=== PATIENT | male | born 1955 | race Caucasian/White ===

== ENCOUNTER 2018-05-01 11:33 | Emergency (ER) | payer OTHER ==
[2018-05-01 11:40] VITALS: RESP 18
[2018-05-01] MEDS ORDERED: KETOROLAC 30 MG/ML 1 ML VIAL IVP STA (11:55)
--- NOTE | 2018-05-01 11:58 | ED ---
General Adult HPI - General Chief complaint: Skin/Abscess/Foreign Body Stated complaint: cellulitis Time Seen by Provider: 05/01/18 11:42 Source: patient, RN notes reviewed, old records reviewed Mode of arrival: ambulatory Limitations: no limitations - History of Present Illness Initial comments: 62-year-old male presenting for evaluation of pain and swelling in the nape of his neck. Patient states he has been seen by his primary care physician, prescribed Bactrim. His been taking his medication for the past several days. His symptoms have continued to worsen. He was diagnosed with cellulitis, no drainable abscess according to the patient. 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 He does report subjective fever and chills. He is not immunocompromised, no history diabetes. - Related Data Previous Rx's Medication Instructions Recorded Cephalexin [Keflex] 500 mg PO Q8HR #30 cap 05/01/18 Sulfamethox-Tmp 800-160Mg [Bactrim 1 tab PO Q12HR #10 tab 05/01/18 DS 800-160 mg] Allergies Allergy/AdvReac Type Severity Reaction Status Date / Time No Known Allergies Allergy Verified 05/01/18 11:40 Review of Systems ROS Statement: Those systems with pertinent positive or pertinent negative responses have been documented in the HPI. ROS Other: All systems not noted in ROS Statement are negative. Past Medical History Past Medical History: No Reported History History of Any Multi-Drug Resistant Organisms: MRSA Date of last positivie culture/infection: 05/12/17 MDRO Source:: neck Past Surgical History: No Surgical Hx Reported Past Psychological History: No Psychological Hx Reported Smoking Status: Never smoker Past Alcohol Use History: None Reported Past Drug Use History: None Reported General Exam Limitations: no limitations General appearance: alert, in no apparent distress Head exam: Present: atraumatic, normocephalic Eye exam: Present: normal appearance Neck exam: Present: other (7 cm, rounded area of induration with central umbilication, no fluctuance) Respiratory exam: Present: normal lung sounds bilaterally. Absent: respiratory distress Cardiovascular Exam: Present: regular rate, normal rhythm GI/Abdominal exam: Present: soft. Absent: distended, tenderness Extremities exam: Present: normal inspection, normal capillary refill. Absent: pedal edema Back exam: Present: normal inspection, full ROM Neurological exam: Present: alert, oriented X3, CN II-XII intact. Absent: motor sensory deficit Psychiatric exam: Present: normal affect, normal mood Skin exam: Present: warm Course Vital Signs 05/01/18 11:37 Temperature 97.8 F Pulse Rate 84 Respiratory 18 Rate Blood Pressure 155/82 O2 Sat by Pulse 100 Oximetry - Reevaluation(s) Reevaluation #1: 05/01/18 12:39 On reevaluation, patient's pain is significantly improved with 1 dose of Toradol. Medical Decision Making - Medical Decision Making 62-year-old male with cellulitis on the nape of the neck, area is approximately 7 cm round. There was a very small central umbilication which appeared to have a purulent center. I did make a very small incision to 3 mm in an attempt to obtain some purulence, there was no purulent drainage with incision. Bedside ultrasound was negative for fluid collection or drainable abscess. Given the patient's history of MRSA, laboratory studies are obtained in the emergency department, normal white blood cell count, normal CMP, lactic acid is normal. Patient is well-appearing with stable vital signs. I did offer admission for IV antibiotics, patient declines, he prefers oral antibiotics as an outpatient. His antibiotic of Bactrim is a good choice for staph aureus, Keflex will be added for strep coverage. Patient will follow-up with his primary care physician in the next 48 hours, he will return with worsening or changing symptoms. He will continue to apply warm compresses. - Lab Data Result diagrams: 05/01/18 12:10 05/01/18 12:10 Lab Results 05/01/18 05/01/18 05/01/18 Range/Units 12:10 12:10 12:10 WBC 9.1 (3.8-10.6) k/uL RBC 5.25 (4.30-5.90) m/uL Hgb 15.6 (13.0-17.5) gm/dL Hct 47.8 (39.0-53.0) % MCV 91.1 (80.0-100.0) fL MCH 29.7 (25.0-35.0) pg MCHC 32.6 (31.0-37.0) g/dL RDW 13.0 (11.5-15.5) % Plt Count 256 (150-450) k/uL Neutrophils % 69 % Lymphocytes % 15 % Monocytes % 8 % Eosinophils % 4 % Basophils % 1 % Neutrophils # 6.3 (1.3-7.7) k/uL Lymphocytes # 1.4 (1.0-4.8) k/uL Monocytes # 0.7 (0-1.0) k/uL Eosinophils # 0.4 (0-0.7) k/uL Basophils # 0.1 (0-0.2) k/uL Sodium 138 (137-145) mmol/L Potassium 4.7 (3.5-5.1) mmol/L Chloride 102 (98-107) mmol/L Carbon Dioxide 24 (22-30) mmol/L Anion Gap 12 mmol/L BUN 14 (9-20) mg/dL Creatinine 1.20 (0.66-1.25) mg/dL Est GFR (CKD-EPI)AfAm 74 (>60 ml/min/1.73 sqM) Est GFR (CKD-EPI)NonAf 64 (>60 ml/min/1.73 sqM) Glucose 117 H (74-99) mg/dL Plasma Lactic Acid Valente 1.9 (0.7-2.0) mmol/L Calcium 9.7 (8.4-10.2) mg/dL Total Bilirubin 0.7 (0.2-1.3) mg/dL AST 24 (17-59) U/L ALT 29 (21-72) U/L Alkaline Phosphatase 90 (38-126) U/L Total Protein 7.9 (6.3-8.2) g/dL Albumin 4.4 (3.5-5.0) g/dL Disposition Clinical Impression: Cellulitis Disposition: HOME SELF-CARE Condition: Good Instructions: Cellulitis (ED) Additional Instructions: Please continue Bactrim as previously prescribed, additional 5 days added to this prescription, and begin taking Keflex today. Prescriptions: Cephalexin [Keflex] 500 mg PO Q8HR #30 cap Sulfamethox-Tmp 800-160Mg [Bactrim DS 800-160 mg] 1 tab PO Q12HR #10 tab Is patient prescribed a controlled substance at d/c from ED?: No Referrals: Osiris Mosqueda MD [Primary Care Provider] - 1-2 days Time of Disposition: 12:42
[2018-05-01 12:27] LABS: Basophils # (A) 0.1 k/uL (0-0.2); Basophils % (A) 1 %; Eosinophils # (A) 0.4 k/uL (0-0.7); Eosinophils % (A) 4 %; HCT 47.8 % (39.0-53.0); HGB 15.6 gm/dL (13.0-17.5); Lymphocytes # (A) 1.4 k/uL (1.0-4.8); Lymphocytes % (A) 15 %; MCH 29.7 pg (25.0-35.0); MCHC 32.6 g/dL (31.0-37.0); MCV 91.1 fL (80.0-100.0); Mean Platelet Volume 6.8; Monocytes # (A) 0.7 k/uL (0-1.0); Monocytes % (A) 8 %; Neutrophils # (A) 6.3 k/uL (1.3-7.7); Neutrophils % (A) 69 %; Platelet Count 256 k/uL (150-450); RBC 5.25 m/uL (4.30-5.90); WBC 9.1 k/uL (3.8-10.6)
[2018-05-01 12:35] LABS: Albumin 4.4 g/dL (3.5-5.0); Calcium 9.7 mg/dL (8.4-10.2); Potassium 4.7 mmol/L (3.5-5.1); Total Bilirubin 0.7 mg/dL (0.2-1.3); Total Protein 7.9 g/dL (6.3-8.2)
[2018-05-01] MEDS ORDERED: cefTRIAXone 2,000 MG in SODIUM CHLORIDE 0.9% 100 ML IVPB STA (12:42)
[2018-05-01 13:48] VITALS: BP 112/67; PULSE 76; TEMP 98.1
== END 2018-05-01 14:00 | disposition home or self-care (01) ==
LOC: EC 11:33
DX: L03.221 Cellulitis of neck (principal)
CPT/HCPCS: 36415; 80053; 83605; 85025; 87040; 99283; 10060; J0696; J1885

== ENCOUNTER → 2019-12-26 | Outpatient (CLI) | payer MEDICARE, OTHER | END | disposition home or self-care (01) | LOC: LABWHC1 11:32 | PROVIDERS: ATTEND Internal Medicine Gastroenterology | DX: Z11.59 Encounter for screening for other viral diseases (principal) | CPT/HCPCS: 87635 ==

== ENCOUNTER → 2020-01-09 | Outpatient (CLI) | payer MEDICARE, OTHER | END | disposition home or self-care (01) | LOC: LABWHC1 10:20 | PROVIDERS: ATTEND Internal Medicine Gastroenterology | DX: Z11.59 Encounter for screening for other viral diseases (principal) ==

== ENCOUNTER → 2020-01-12 | Day surgery (SDC) | payer MEDICARE, OTHER ==
[2019-12-27 15:31] VITALS: BMI 33.9
[~2020-01-12] MED LIST: LACTATED RINGERS 1,000 ML IV SCH; LIDOCAINE 1% (10MG/ML) FOR IV START INTRADERMA ONE; PROPOFOL 10 MG/ML 20 ML VIAL IV ONE
[2020-01-12 08:42] VITALS: RESP 16; TEMP 97.3
--- NOTE | 2020-01-12 09:34 | P.PCN ---
Date of Procedure: 01/12/20 Procedure(s) Performed: BRIEF HISTORY: Patient is a 64-year-old pleasant white male scheduled for an elective colonoscopy as a part of evaluation of prior history of colon polyps. Last colonoscopy was 6 years ago. PROCEDURE PERFORMED: Colonoscopy with snare polypectomy. PREOPERATIVE DIAGNOSIS: History of colon polyps. IV sedation per Anesthesia. PROCEDURE: After informed consent was obtained, the patient, was brought into the endoscopy unit. IV sedation was administered by Anesthesia under continuous monitoring. Digital rectal examination was normal. Initially the Olympus CF-160 flexible video colonoscope was then inserted in the rectum, gradually advanced into the cecum without any difficulty. Careful examination was performed as the scope was gradually being withdrawn. Ileocecal valve and the appendiceal orifice were visualized and appeared normal. Prep was fair. There was some solid stool noted in the cecum and part of the ascending colon that could not be adequately visualized. The rest of the mucosa of the cecum, ascending colon, transverse colon appeared normal. In the descending colon at 65 cm from the anal verge there was a 1 cm pedunculated polyp removed by snare polypectomy. Rest of the descending colon, sigmoid colon, and rectum appeared normal. Scattered left-s ided diverticulosis. Retroflexion was performed in the rectum and no lesions were seen. The patient tolerated the procedure well. IMPRESSION: 1 cm descending colon polyp status post snare polypectomy. Scattered sigmoid diverticulosis. RECOMMENDATIONS: Findings of this examination were discussed with the patient and as well as his family. He was advised to follow with the biopsy results. If the biopsy shows an adenoma he can have a repeat colonoscopy in 3 years.
[2020-01-12 09:55] VITALS: BP 111/68; PULSE 64
== END ==
LOC: ORWHC2ENDO 08:22
PROVIDERS: ATTEND Internal Medicine Gastroenterology
DX: Z12.11 Encounter for screening for malignant neoplasm of colon (principal); D12.4 Benign neoplasm of descending colon; K57.30 Diverticulosis of large intestine without perforation or abscess without bleeding; I48.91 Unspecified atrial fibrillation; I10 Essential (primary) hypertension; E78.00 Pure hypercholesterolemia, unspecified; E78.5 Hyperlipidemia, unspecified; Z86.010 Personal history of colon polyps; Z95.0 Presence of cardiac pacemaker; Z79.02 Long term (current) use of antithrombotics/antiplatelets; Z79.82 Long term (current) use of aspirin; Z79.899 Other long term (current) drug therapy
CPT/HCPCS: 45385; J2704; 88305

== ENCOUNTER → 2020-11-05 | Outpatient (CLI) | payer MEDICARE, OTHER ==
[2020-11-05 10:23] LABS: HCT 42.5 % (39.0-53.0); HGB 14.9 gm/dL (13.0-17.5); MCH 30.6 pg (25.0-35.0); MCV 87.6 fL (80.0-100.0); Mean Platelet Volume 6.7; Platelet Count 222 k/uL (150-450); RBC 4.85 m/uL (4.30-5.90); RDW 12.6 % (11.5-15.5); WBC 5.8 k/uL (3.8-10.6)
[2020-11-05 10:39] LABS: Partial Thromboplastin Time 22.2 sec (22.0-30.0); Prothrombin Time 10.3 sec (9.0-12.0)
[2020-11-05 10:44] LABS: Albumin 4.5 g/dL (3.5-5.0); Calcium 9.9 mg/dL (8.4-10.2); Magnesium 2.2 mg/dL (1.6-2.3); Potassium 4.9 mmol/L (3.5-5.1); Total Bilirubin 0.7 mg/dL (0.2-1.3); Total Protein 7.8 g/dL (6.3-8.2)
[2020-11-05 11:16] LABS: Appearance,Urine Clear (Clear); Bilirubin,Urine Negative (Negative); Blood,Urine Negative (Negative); Color,Urine Yellow; Glucose,Urine (UA) Negative (Negative); Ketones,Urine Negative (Negative); Leukocyte Esterase,Urine Negative (Negative); Nitrite,Urine Negative (Negative); PH, Urine 5.5 (5.0-8.0); Protein,Urine Negative (Negative); Specific Gravity,Urine 1.023 (1.001-1.035); Urobilinogen,Urine <2.0 mg/dL (<2.0)
[2020-11-05 16:53] LABS: Hepatitis A Antibody IgM Non-Reactive (Non-Reactive); Hepatitis B Core IgM Non-Reactive (Non-Reactive); Hepatitis B Surface Antigen Non-Reactive (Non-Reactive); Hepatitis C IgG Antibody Non-Reactive (Non-Reactive)
[2020-11-05 19:15] LABS: Hemoglobin A1C 6.4 % (4.0-6.0)
--- NOTE | 2020-11-06 14:48 | P.ARTDOP ---
Arterial Doppler Bilateral radial artery studies: Date of study: 10/26/2020 Reason for study: Preop CABG Findings: Doppler assessment shows no significant right to left or segmental pressure gradient. With digital plethysmography and radial artery compression, we find no significant pressure change. Imaging shows the right radial to be 2.9 x 2.2 proximally 2.4 x 2.2 mm mid, and 2.1 x 1.8 mm distally. Left radial is 2.8 x 3.1 mm proximally, 2.3 x 2.7 mm mid, and 3.0 x 2.7 mm distally. Impression: Both radials are usable. The left radial is a bit better size.
--- NOTE | 2020-11-06 14:50 | P.ARTDOP ---
Arterial Doppler LOWER EXTREMITY ARTERIAL DOPPLER: DATE OF SERVICE: 11/05/2020 Reason for study: Preop CABG. Doppler waveforms: Multiphasic bilaterally throughout with good digital waveforms. Pulse volume recording: []. Pressure gradients: None. Ankle-brachial indices: Greater than 1 bilaterally. Toe brachial indices: 0.79 on the right, 0.78 on the left Impression: Normal study.
--- NOTE | 2020-11-06 14:52 | P.VSCSTY ---
Greater Saphenous Vein Mapping This is bilateral lower extremity greater saphenous vein mapping. Date of service: 11/05/2020 Vein quality and ultrasound appearance: We see no intraluminal thrombus or wall changes. Vein size groin right : 7.1 x 6.2 groin left: 6.6 x 7.1 High thigh right: 4.9 x 4.0 high thigh left: 5.0 x 4.4 Mid thigh right: 2.2 x 2.9 mid thigh left: 3.1 x 2.4 Above-knee right: 2.3 x 1.8 above- knee left: 3.5 x 2.7 Below knee right: 1.7 x 1.6 below-knee left: 1.8 x 1.5 Mid calf right: 2.9 x 1.9 mid calf left: 2.2 x 1.7 Ankle right: 3.7 x 2.8 ankle left: 2.4 x 1.7 Impression: Usable bilateral greater saphenous vein. The upper right thigh is most likely usable as is the left leg at the knee and above. Lower leg on both sides has areas rather small for use as conduit..
== END | disposition home or self-care (01) ==
LOC: LABPAT 07:36
PROVIDERS: ATTEND Surgery
DX: Z01.818 Encounter for other preprocedural examination (principal); Z20.822 Contact with and (suspected) exposure to COVID-19
CPT/HCPCS: 80061; 80053; 80074; 84443; 83735; 85027; 85610; 85730; 81003; 87070; 87086; 83036; 93930; 93970; 93922; 93923; 93005; 36415; U0003; C9803

== ENCOUNTER 2020-11-11 05:32 | Inpatient (IN) | payer MEDICARE, OTHER ==
[~2020-11-11 05:32] MED LIST changes: +ALBUMIN HUMAN 25% 50 ML IV ONE; +ALBUMIN HUMAN 5% 500 ML IVPB ONE; +ASPIRIN 325 MG TAB PO ONE; +ATORVASTATIN 10 MG TAB PO ONE; +CALCIUM CHLORIDE 100 MG/ML 10 ML SYRINGE IV ONE; +CHLORHEXIDINE GLUCONATE 15 ML CUP MUCOUS MEM ONE; +CLEVIDIPINE BUTYRATE 25 MG in EMPTY BAG 1 BAG IV ONE; +DEXTROSE 5% IN WATER 1,000 ML with POTASSIUM CHLORIDE 110 MEQ, MAGNESIUM SULFATE 16 MEQ... IV ONE; +DEXTROSE 5% IN WATER 1,000 ML with POTASSIUM CHLORIDE 25 MEQ, SODIUM CHLORIDE 4MEQ/ML V... IRRIGATION ONE; +DILTIAZEM 125 MG in SODIUM CHLORIDE 0.9% 100 ML IV ONE; +HEPARIN SODIUM 1,000 UN/ML (10ML VL) IV ONE; +HEPARIN SODIUM,PORCINE 5,000 UNIT in SODIUM CHLORIDE 0.9% 500 ML 500 ML IV ONE; +INSULIN REGULAR 100 UNIT in SODIUM CHLORIDE 0.9% 100 ML IV ONE; +LACTATED RINGERS 1,000 ML IV ONE; -LACTATED RINGERS 1,000 ML IV SCH; -LIDOCAINE 1% (10MG/ML) FOR IV START INTRADERMA ONE; +MAGNESIUM SULFATE MG 500 MG/ML IV ONE; +MANNITOL 25% 12.5 GM/50 ML VIAL IV ONE; +METOPROLOL TARTRATE 12.5 MG TAB PO ONE; +MUPIROCIN 2% OINT 22 GM TUBE NASAL ONE; +NITROGLYCERIN SL TABS 0.4 MG TAB SUBLINGUAL ONE; +NITROGLYCERIN-D5W PMX 25 MG/250 ML BTL IV ONE; +NITROGLYCERIN-D5W PMX 50 MG in DEXTROSE/WATER 1 250ML.BAG IV ONE; +NOREPINEPHRINE 4 MG in SODIUM CHLORIDE 0.9% 250 ML IV ONE; +PAPAVERINE 360 MG in SODIUM CHLORIDE 0.9% 90 ML IV ONE; +PHENYLEPHRINE 10 MG/ML VIAL IV ONE; +PHENYLEPHRINE 40 MG in SODIUM CHLORIDE 0.9% 250 ML IV ONE; -PROPOFOL 10 MG/ML 20 ML VIAL IV ONE; +PROTAMINE SULFATE 10 MG/ML 25 ML VIAL IV ONE; +PROTAMINE SULFATE 250 MG in EMPTY BAG 1 BAG IV ONE; +SODIUM BICARB 8.4% 50 ML SYR (1 MEQ/ML) IV ONE; +SODIUM CHLORIDE 0.9% 1,000 ML IV ONE; +TRANEXAMIC ACID 2,000 MG in SODIUM CHLORIDE 0.9% 80 ML IV ONE; +ceFAZolin 1,000 MG in SODIUM CHLORIDE 0.9% IRRIGATIO 1,000 ML IRRIGATION ONE; +propofoL 1,000 MG/100 ML VIAL IV ONE
[2020-11-11] MEDS ORDERED: SODIUM CHLORIDE 0.9% IRRIG 1,000 ML BTL IRRIGATION ONE (08:03)
[2020-11-11] MEDS ORDERED: CALCIUM CHLORIDE 100 MG/ML 10 ML SYRINGE ONE (08:03)
[2020-11-11] MEDS ORDERED: HEPARIN SODIUM,PORCINE 5,000 UNIT/ML 1 ML VIAL ONE (08:03)
[2020-11-11] MEDS ORDERED: VECURONIUM 10 MG VIAL IV ONE (08:03)
[2020-11-11] MEDS ORDERED: MAGNESIUM SULFATE 4 MEQ/ML 10ML VIAL ONE (08:03)
[2020-11-11] MEDS ORDERED: SODIUM CHLORIDE 0.9% 100 ML BAG ONE (08:03)
[2020-11-11] MEDS ORDERED: LIDOCAINE 2% SYG (PF) 100 MG/5 ML ONE (08:03)
[2020-11-11] MEDS ORDERED: PROPOFOL 10 MG/ML 20 ML VIAL IV ONE (08:03)
[2020-11-11] MEDS ORDERED: WATER FOR INJECTION, STERILE 10 ML VIAL IV ONE (08:03)
[2020-11-11] MEDS ORDERED: MIDAZOLAM 2 MG/2 ML VIAL ONE (08:03)
[2020-11-11] MEDS ORDERED: ceFAZolin 1,000 MG VIAL ONE (08:03)
[2020-11-11] MEDS ORDERED: SUFentanil 50 MCG/ML 1 ML AMP IV ONE (08:03)
[2020-11-11] MEDS ORDERED: PHENYLEPHRINE-0.9% NACL SYG 1,000 MCG/10 ML SYRINGE ONE (08:03)
[2020-11-11] MEDS ORDERED: INSULIN REGULAR 100 UNIT/ML VIAL ONE (08:03)
[2020-11-11] MEDS ORDERED: ELECTROLYTE-R (PH 7.4) 1,000 ML IV.SOLN IV ONE (08:03)
[2020-11-11] MEDS ORDERED: NITROGLYCERIN-D5W PMX 50 MG/250 ML BOTTLE IV ONE (08:03)
[2020-11-11] MEDS ORDERED: TRANEXAMIC ACID 1,000 MG/10 ML VIAL ONE (08:03)
[2020-11-11] MEDS ORDERED: SODIUM CHLORIDE 0.9% 250 ML BAG ONE (08:03)
[2020-11-11] MEDS ORDERED: PROTAMINE SULFATE 10 MG/ML 25 ML VIAL IV ONE (08:03)
[2020-11-11] MEDS ORDERED: fentaNYL (PF) 50 MCG/ML 2 ML AMP ONE (08:03)
[2020-11-11] MEDS ORDERED: fentaNYL (PF) 50 MCG/ML 50 ML VIAL ONE (08:03)
[2020-11-11 08:45] LABS: ABG Base Excess -0.4 mmol/L; ABG Glucose Whole Blood 135 mg/dL (75-99); ABG HCO3 25 mmol/L (21-25); ABG Hematocrit 41 % (34.0-46.0); ABG Ionized Calcium 4.8 mg/dL (4.5-5.3); ABG Lactic Acid Whole Blood 1.6 mmol/L (0.5-1.6); ABG PCO2 42 mmHg (35-45); ABG PH 7.38 (7.35-7.45); ABG PO2 260 mmHg (83-108); ABG Potassium Whole Blood 4.1 mmol/L (3.4-4.5); ABG Sodium Whole Blood 139 mmol/L (135-146); ABG TCO2 26 mmol/L (19-24)
--- NOTE | 2020-11-11 10:01 | P.ANPRN ---
Procedure Note - Anesthesia - Invasive Line Right Central Line Time Out Performed: Yes (710) Date of Procedure: 11/11/20 Time of Procedure: 07:11 Location of Patient: Phase I Preparation: Sterile Prep, Sterile Dressing Arterial Line Location: Radial (left) Ultrasound Used: Yes Purpose - Visualization and Identification of Vasculature: Yes Needle Guage: 18g angio\ Image Stored and Saved: Yes Narrative: Central line placement per sterile protocol utilized. +local +angio +cvp +jwire +uneventful dilation and introduction right IJ cordis Right [place] Hanna Time Out Performed: Yes (710) Date of Procedure: 11/11/20 Time of Procedure: 07:21 Location of Patient: Phase I Preparation: Sterile Prep, Sterile Dressing Arterial Line Location: Radial (left) Ultrasound Used: No Purpose - Visualization and Identification of Vasculature: No Image Stored and Saved: Yes Narrative: Central line placement per sterile protocol utilized. swan floated in sheath to wedge at 54 cm. Withdrawn 5 cm to PA at 49cm.
[2020-11-11 11:01] LABS: ABG Base Excess -3.3 mmol/L; ABG Glucose Whole Blood 134 mg/dL (75-99); ABG HCO3 21 mmol/L (21-25); ABG Hematocrit 31 % (34.0-46.0); ABG Ionized Calcium 4.2 mg/dL (4.5-5.3); ABG PCO2 33 mmHg (35-45); ABG PH 7.41 (7.35-7.45); ABG PO2 180 mmHg (83-108); ABG Potassium Whole Blood 3.6 mmol/L (3.4-4.5); ABG Sodium Whole Blood 139 mmol/L (135-146); ABG TCO2 22 mmol/L (19-24)
[2020-11-11 11:41] LABS: ABG Base Excess -1.5 mmol/L; ABG Glucose Whole Blood 136 mg/dL (75-99); ABG HCO3 23 mmol/L (21-25); ABG Hematocrit 28 % (34.0-46.0); ABG Ionized Calcium 4.1 mg/dL (4.5-5.3); ABG PCO2 38 mmHg (35-45); ABG PH 7.39 (7.35-7.45); ABG Potassium Whole Blood 3.8 mmol/L (3.4-4.5); ABG Sodium Whole Blood 133 mmol/L (135-146); ABG TCO2 24 mmol/L (19-24)
[2020-11-11 12:22] LABS: ABG Base Excess -1.6 mmol/L; ABG Glucose Whole Blood 202 mg/dL (75-99); ABG HCO3 24 mmol/L (21-25); ABG Hematocrit 27 % (34.0-46.0); ABG Ionized Calcium 4.4 mg/dL (4.5-5.3); ABG PCO2 46 mmHg (35-45); ABG PH 7.33 (7.35-7.45); ABG PO2 280 mmHg (83-108); ABG Potassium Whole Blood 4.6 mmol/L (3.4-4.5); ABG Sodium Whole Blood 134 mmol/L (135-146); ABG TCO2 26 mmol/L (19-24)
[2020-11-11 13:07] LABS: ABG Base Excess -2.1 mmol/L; ABG Glucose Whole Blood 208 mg/dL (75-99); ABG HCO3 24 mmol/L (21-25); ABG Hematocrit 26 % (34.0-46.0); ABG Ionized Calcium 4.4 mg/dL (4.5-5.3); ABG PCO2 45 mmHg (35-45); ABG PH 7.33 (7.35-7.45); ABG PO2 195 mmHg (83-108); ABG Potassium Whole Blood 4.1 mmol/L (3.4-4.5); ABG Sodium Whole Blood 135 mmol/L (135-146); ABG TCO2 25 mmol/L (19-24)
[2020-11-11 13:32] LABS: ABG Base Excess -2.4 mmol/L; ABG Glucose Whole Blood 213 mg/dL (75-99); ABG HCO3 23 mmol/L (21-25); ABG Hematocrit 26 % (34.0-46.0); ABG Ionized Calcium 4.4 mg/dL (4.5-5.3); ABG PCO2 44 mmHg (35-45); ABG PH 7.33 (7.35-7.45); ABG PO2 416 mmHg (83-108); ABG Potassium Whole Blood 4.3 mmol/L (3.4-4.5); ABG Sodium Whole Blood 136 mmol/L (135-146); ABG TCO2 25 mmol/L (19-24)
[2020-11-11 14:18] LABS: ABG PO2 >420 mmHg (83-108)
[2020-11-11 14:18] LABS: ABG Lactic Acid Whole Blood 2.2 mmol/L (0.5-1.6)
[2020-11-11 14:19] LABS: ABG Lactic Acid Whole Blood 2.4 mmol/L (0.5-1.6)
[2020-11-11 14:19] LABS: ABG Lactic Acid Whole Blood 2.2 mmol/L (0.5-1.6)
[2020-11-11 14:20] LABS: ABG Lactic Acid Whole Blood 2.8 mmol/L (0.5-1.6)
[2020-11-11 14:20] LABS: ABG Lactic Acid Whole Blood 2.7 mmol/L (0.5-1.6)
[2020-11-11 14:54] LABS: ABG Base Excess -2.7 mmol/L; ABG Glucose Whole Blood 189 mg/dL (75-99); ABG HCO3 22 mmol/L (21-25); ABG Hematocrit 28 % (34.0-46.0); ABG Ionized Calcium 4.4 mg/dL (4.5-5.3); ABG PCO2 38 mmHg (35-45); ABG PH 7.38 (7.35-7.45); ABG PO2 233 mmHg (83-108); ABG Potassium Whole Blood 4.3 mmol/L (3.4-4.5); ABG Sodium Whole Blood 136 mmol/L (135-146); ABG TCO2 23 mmol/L (19-24)
[2020-11-11 15:16] LABS: ABG Lactic Acid Whole Blood 3.5 mmol/L (0.5-1.6)
[2020-11-11 15:18] LABS: ABG Base Excess -0.2 mmol/L; ABG Glucose Whole Blood 163 mg/dL (75-99); ABG HCO3 24 mmol/L (21-25); ABG Hematocrit 31 % (34.0-46.0); ABG Ionized Calcium 4.5 mg/dL (4.5-5.3); ABG PCO2 37 mmHg (35-45); ABG PH 7.43 (7.35-7.45); ABG PO2 254 mmHg (83-108); ABG Potassium Whole Blood 4.4 mmol/L (3.4-4.5); ABG Sodium Whole Blood 136 mmol/L (135-146); ABG TCO2 25 mmol/L (19-24)
[2020-11-11 15:53] LABS: ABG Lactic Acid Whole Blood 3.7 mmol/L (0.5-1.6)
[2020-11-11] MEDS ORDERED: Potassium Replacement Protocol 1 EACH MISC MISCELLANE PRN (16:11)
[2020-11-11] MEDS ORDERED: ONDANSETRON 4 MG/2 ML VIAL IVP PRN (16:11)
[2020-11-11] MEDS ORDERED: IPRATROPIUM-ALBUTEROL 3 ML NEB INHALATION PRN (16:11)
[2020-11-11] MEDS ORDERED: AMIODARONE 360 MG in DEXTROSE 5% IN WATER 200 ML IV PRN ×2 (16:11)
[2020-11-11] MEDS ORDERED: DILTIAZEM 125 MG in SODIUM CHLORIDE 0.9% 100 ML IV SCH (16:11)
[2020-11-11] MEDS ORDERED: hydrALAZINE HCL 20 MG/ML 1 ML VIAL IVP PRN (16:11)
[2020-11-11] MEDS ORDERED: Phosphorus Replacement Protoco 1 EACH MISC MISCELLANE PRN (16:11)
[2020-11-11] MEDS ORDERED: Magnesium Replacement Protocol 1 EACH MISC MISCELLANE PRN (16:11)
[2020-11-11] MEDS ORDERED: AMIODARONE 450 MG in DEXTROSE 5% IN WATER 250 ML IV PRN ×2 (16:11)
[2020-11-11] MEDS ORDERED: BENZOCAINE/MENTHOL LOZENG 1 EACH LOZENGE MUCOUS MEM PRN (16:11)
[2020-11-11] MEDS ORDERED: MORPHINE SULFATE 2 MG/ML SYRINGE IVP PRN (16:11)
[2020-11-11] MEDS ORDERED: CLEVIDIPINE BUTYRATE 25 MG in EMPTY BAG 1 BAG IV SCH (16:11)
[2020-11-11] MEDS ORDERED: CALCIUM GLUCONATE 2 GM in SODIUM CHLORIDE 0.9% 100 ML IVPB PRN (16:11)
[2020-11-11] MEDS ORDERED: DEXMEDETOMIDINE/0.9% NACL(PMX) 400 MCG in EMPTY BAG 1 BAG IV SCH (16:11)
[2020-11-11 16:29] LABS: Glucose,Whole Blood 159 mg/dL (75-99)
[2020-11-11 16:41] LABS: Basophils % (A) 0 %; Eosinophils % (A) 1 %; HCT 28.6 % (39.0-53.0); Lymphocytes # (A) 0.9 k/uL (1.0-4.8); Lymphocytes % (A) 15 %; MCHC 35.4 g/dL (31.0-37.0); MCV 87.6 fL (80.0-100.0); Mean Platelet Volume 6.8; Monocytes # (A) 0.4 k/uL (0-1.0); Monocytes % (A) 7 %; Neutrophils # (A) 4.6 k/uL (1.3-7.7); Neutrophils % (A) 76 %; Platelet Count 118 k/uL (150-450); RBC 3.27 m/uL (4.30-5.90); RDW 12.7 % (11.5-15.5)
[2020-11-11] MEDS: NITROGLYCERIN-D5W PMX 50 MG in DEXTROSE/WATER 1 250ML.BAG IV SCH (16:48)
[2020-11-11] MEDS: SODIUM CHLORIDE 0.9% 1,000 ML IV SCH (16:48)
[2020-11-11] MEDS: INSULIN REGULAR 100 UNIT in SODIUM CHLORIDE 0.9% 100 ML IV SCH (16:51)
[2020-11-11 16:53] LABS: ALT 12 U/L (4-49); AST 41 U/L (17-59); African American GFR (CKD) >90 (>60 ml/min/1.73 sqM); Albumin 2.6 g/dL (3.5-5.0); Alkaline Phosphatase 30 U/L (38-126); Anion Gap 4 mmol/L; Blood Urea Nitrogen 11 mg/dL (9-20); Calcium 7.8 mg/dL (8.4-10.2); Carbon Dioxide 24 mmol/L (22-30); Chloride 106 mmol/L (98-107); Glucose 145 mg/dL (74-99); Magnesium 2.1 mg/dL (1.6-2.3); Non-African American GFR(CKD) >90 (>60 ml/min/1.73 sqM); Potassium 4.3 mmol/L (3.5-5.1); Sodium 134 mmol/L (137-145); Total Bilirubin 1.1 mg/dL (0.2-1.3); Total Protein 4.5 g/dL (6.3-8.2)
[2020-11-11 16:56] LABS: HGB 10.1 gm/dL (13.0-17.5)
[2020-11-11 16:57] LABS: Glucose,Whole Blood 155 mg/dL (75-99)
[2020-11-11 16:59] LABS: INR 1.2 (<1.2); Partial Thromboplastin Time 36.9 sec (22.0-30.0); Prothrombin Time 12.8 sec (9.0-12.0)
--- NOTE | 2020-11-11 17:03 | P.CNPUL ---
History of Present Illness Consult date: 11/11/20 Requesting physician: Aaron Nye Reason for consult: dyspnea, chest pain, other Chief complaint: Progressive exertional chest pressure and dyspnea History of present illness: 55-year-old white male patient of Dr. Frances Mosqueda who had been complaining of progressive chest pressure and dyspnea on exertion, underwent cardiac catheterization that showed a triple vessel disease. Patient had a complex LAD diagonal bifurcation, severe proximal OM1 and diffuse proximal to mid PDA disease. His echocardiogram in July 2020 showed preserved systolic function and no significant valvular abnormalities. Patient is a nonsmoker, and no history of COPD although he was noted to have wheezing on physical exam and the possibility of reactive airway disease. His past medical history is positive for hyperlipidemia, osteoarthritis, sick sinus syndrome status post permanent pacemaker implantation, morbid obesity, BPH. Patient was evaluated by cardiothoracic surgery and underwent four-vessel coronary artery bypass grafting today on 11/11/2020 with a RAHMAN to the LAD, SVG to the PDA and the diagonal, and left radial artery graft to the OM, left atrial appendage exclusion. Patient is seen in the postoperative period in the intensive care unit, sedated and ventilated, on assist control mode of ventilation with a rate of 12, tidal volumes 450, FiO2 of percent and PEEP of 5. Postop blood gas is pending, patient in sinus mechanism, hemodynamically patient is stable, he is currently on 0.9 at 50, propofol is at 20 mics per kilo per minute, and nitroglycerin is at 5 mics per minute. No other drips. Doing well, patient has one left pleural in the 2 mediastinal chest tubes with small amount of sanguinous output, no air leak, patient in sinus mechanism. His cardiac output and cardiac index are 4.8 and 2.1 respectively, CVP is 18, PA pressures 34/24. Review of Systems All systems: negative Constitutional: Denies chills, Denies fever Eyes: denies blurred vision, denies pain Ears, nose, mouth and throat: Denies headache, Denies sore throat Cardiovascular: Denies chest pain, Denies shortness of breath Respiratory: Reports dyspnea, Denies cough Gastrointestinal: Denies abdominal pain, Denies diarrhea, Denies nausea, Denies vomiting Musculoskeletal: Denies myalgias Integumentary: Denies pruritus, Denies rash Neurological: Denies numbness, Denies weakness Psychiatric: Denies anxiety, Denies depression Endocrine: Denies fatigue, Denies weight change Past Medical History Past Medical History: Hearing Disorder / Deafness, Hyperlipidemia, Hypertension, Osteoarthritis (OA), Prostate Disorder History of Any Multi-Drug Resistant Organisms: MRSA Date of last positivie culture/infection: 05/12/17 MDRO Source:: neck Past Surgical History: Heart Catheterization, Pacemaker Additional Past Surgical History / Comment(s): TURP, angiography Past Anesthesia/Blood Transfusion Reactions: No Reported Reaction Type of Cardiac Device: Permanent Pacemaker Device Placement Date:: 2018 Smoking Status: Never smoker Medications and Allergies Home Medications Medication Instructions Recorded Confirmed Type Aspirin [Adult Low Dose Aspirin EC] 81 mg PO DAILY 12/27/19 11/11/20 History Atorvastatin [Lipitor] 20 mg PO HS 12/27/19 11/11/20 History Cholecalciferol [Vitamin D3 (25 5,000 unit PO HS 12/27/19 11/11/20 History Mcg = 1000 Iu)] Clopidogrel [Plavix] 75 mg PO HS 12/27/19 11/11/20 History Loratadine [Claritin] 10 mg PO DAILY 12/27/19 11/11/20 History Metoprolol Succinate (ER) [Toprol 50 mg PO BID 12/27/19 11/11/20 History Xl] Oxybutynin ER [Ditropan Xl] 10 mg PO HS 12/27/19 11/11/20 History Terazosin HCl [Hytrin] 10 mg PO HS 12/27/19 11/11/20 History oxyCODONE-APAP 10-325MG [Percocet 1 tab PO TID 12/27/19 11/11/20 History 10-325 mg] ramipriL [Altace] 2.5 mg PO HS 12/27/19 11/11/20 History Mupirocin [Mupirocin 2%] 1 applic NASAL BID #1 tube 11/05/20 11/11/20 Rx Allergies Allergy/AdvReac Type Severity Reaction Status Date / Time No Known Allergies Allergy Verified 11/11/20 06:01 Physical Exam Vitals: Vital Signs Temp Pulse Resp BP BP Pulse Ox 11/11/20 06:23 98.1 F 71 16 152/88 127/78 98 11/11/20 06:22 98.1 F 71 16 152/88 98 Intake and Output 11/11/20 11/11/20 11/11/20 06:59 14:59 22:59 Intake Total 200 54 Output Total 1800 Balance 200 54 -1800 Intake: IV 200 54 Output: Urine 800 Estimated Blood Loss 1000 Other: Weight 117.6 kg GENERAL EXAM: Sedated and intubated 65-year-old white male, on assist control mode of ventilation with FiO2 of 100% comfortable in no apparent distress. HEAD: Normocephalic/atraumatic. EYES: Normal reaction of pupils, equal size. Conjunctiva pink, sclera white. NOSE: Clear with pink turbinates. THROAT: No erythema or exudates. NECK: No masses, no JVD, no thyroid enlargement, no adenopathy. CHEST: No chest wall deformity. Symmetrical expansion. Midsternal incision clean dry and intact, 2 mediastinal one left pleural chest tubes in place to Pleur-evac and wall suction, with small amount of serous output no air leak. LUNGS: Equal air entry with no crackles, wheeze, rhonchi or dullness. CVS: Regular rate and rhythm, normal S1 and S2, no gallops, no murmurs, no rubs ABDOMEN: Soft, nontender. No hepatosplenomegaly, normal bowel sounds, no guarding or rigidity. EXTREMITIES: No clubbing, no edema, no cyanosis, 2+ pulses and upper and lower extremities. MUSCULOSKELETAL: Muscle strength and tone normal. SPINE: No scoliosis or deformity SKIN: No rashes. Left radial artery harvest site is Iker wrap, [place] drain in place CENTRAL NERVOUS SYSTEM: Sedated, intubated No focal deficits, tone is normal in all 4 extremities. Results - Laboratory Findings ABG ABG pH 7.43 (7.35-7.45) 11/11/20 15:19 ABG pCO2 37 mmHg (35-45) 11/11/20 15:19 ABG pO2 254 mmHg (83-108) H 11/11/20 15:19 ABG O2 Saturation 100.0 % (94-97) H 11/11/20 15:19 Abnormal lab findings: Abnormal Labs 11/05/20 11/11/20 11/11/20 09:25 08:46 11:03 ABG pH ABG pCO2 33 L ABG pO2 260 H 180 H ABG Total CO2 26 H ABG O2 Saturation 100.0 H 100.0 H ABG Hematocrit 31 L ABG Sodium ABG Potassium ABG Ionized Calcium 4.2 L ABG Glucose 135 H 134 H ABG Lactic Acid 2.2 H* Hemoglobin 10.0 L POC Glucose (mg/dL) Arterial Blood Potassium Arterial Blood Glucose 135 H 134 H Crossmatch See Detail 11/11/20 11/11/20 11/11/20 11:08 11:42 12:33 ABG pH 7.33 L 7.33 L ABG pCO2 46 H ABG pO2 195 H >420 H 280 H ABG Total CO2 25 H 26 H ABG O2 Saturation 100.0 H 100.0 H 100.0 H ABG Hematocrit 26 L 28 L 27 L ABG Sodium 133 L 134 L ABG Potassium 4.6 H ABG Ionized Calcium 4.4 L 4.1 L 4.4 L ABG Glucose 208 H 136 H 202 H ABG Lactic Acid 2.7 H* 2.2 H* 2.4 H* Hemoglobin 8.5 L 9.2 L 8.8 L POC Glucose (mg/dL) Arterial Blood Potassium 4.6 H Arterial Blood Glucose 208 H 136 H 202 H Crossmatch 11/11/20 11/11/20 11/11/20 13:33 14:55 15:19 ABG pH 7.33 L ABG pCO2 ABG pO2 416 H 233 H 254 H ABG Total CO2 25 H 25 H ABG O2 Saturation 100.0 H 100.0 H 100.0 H ABG Hematocrit 26 L 28 L 31 L ABG Sodium ABG Potassium ABG Ionized Calcium 4.4 L 4.4 L ABG Glucose 213 H 189 H 163 H ABG Lactic Acid 2.8 H* 3.5 H* 3.7 H* Hemoglobin 8.4 L 9.1 L 10.1 L POC Glucose (mg/dL) Arterial Blood Potassium Arterial Blood Glucose 213 H 189 H 163 H Crossmatch 11/11/20 16:27 ABG pH ABG pCO2 ABG pO2 ABG Total CO2 ABG O2 Saturation ABG Hematocrit ABG Sodium ABG Potassium ABG Ionized Calcium ABG Glucose ABG Lactic Acid Hemoglobin POC Glucose (mg/dL) 159 H Arterial Blood Potassium Arterial Blood Glucose Crossmatch - Diagnostic Findings Chest x-ray: report reviewed, image reviewed CT scan - chest: report reviewed, image reviewed Assessment and Plan Plan: Assessment: #1. Multivessel coronary artery disease, symptomatic, status post four-vessel coronary artery bypass grafting with RAHMAN to the LAD, left radial artery graft to the OM, SVG to the PDA in the diagonal, and left atrial appendage exclusion, postoperative day #0 #2. Routine ventilator management #3. Hyperlipidemia #4. History of sick sinus syndrome status post permanent pacemaker #5. Morbid obesity #6. BPH #7. Osteoarthritis Plan: Continue close hemodynamic monitoring, patient is doing well, waiting postoperative blood gases, continue weaning FiO2 per protocol, we will wean sedation off, and proceed with spontaneous breathing trials. Continue with DuoNeb every 4 hours while on the vent, and to 4 times a day once the patient is extubated, incentive spirometry to the bedside, daily chest x-ray, labs. GI and DVT prophylaxis per CT surgery. We'll continue to closely follow along with CT surgery I performed a history & physical examination of the patient and discussed their management with my nurse practitioner, Sari Vitale. I reviewed the nurse practitioner's note and agree with the documented findings and plan of care. Lung sounds are positive for diminished breath sounds The findings and the impression was discussed with the patient. I attest to the documentation by the nurse practitioner. Time with Patient: Greater than 30
[2020-11-11] MEDS: HEPARIN SODIUM,PORCINE/PF 5,000 UNIT/0.5 ML SYRINGE SQ SCH ×2 (17:04→23:19)
[2020-11-11] MEDS: ACETAMINOPHEN IV (For NPO) 1,000 MG in EMPTY BAG 1 BAG IVPB SCH ×2 (17:47→23:02)
[2020-11-11] MEDS: KETOROLAC 15 MG/ML 1 ML VIAL IVP SCH ×2 (17:58→23:02)
[2020-11-11 18:03] LABS: Glucose,Whole Blood 173 mg/dL (75-99)
--- NOTE | 2020-11-11 18:12 | XR ---
EXAMINATION TYPE: XR chest 1V portable DATE OF EXAM: 11/11/2020 COMPARISON: 10/23/2020. HISTORY: Postoperative cardiac surgery. TECHNIQUE: Single frontal view of the chest is obtained. FINDINGS: There is demonstration of an endotracheal tube terminating 2.4 cm above the denise. There is a right IJ [place]Hanna catheter with tip just distal to the pulmonary outflow tract. There is a naso gastric tube coursing below the diaphragm. There are interval cardiothoracic post surgical changes wi th atrial appendage clipping device seen as well as median sternotomy. Stable left pacemaker. There i s moderate interstitial edema with associated diffuse hazy and streaky opacities. There are probable trace pleural effusions. No pneumothorax. The cardiac silhouette size is enlarged. IMPRESSION: Status post cardiac surgery and support apparatus placement as above. No pneumothorax.
[2020-11-11] MEDS: ALBUMIN HUMAN 5% 250 ML in EMPTY BAG 1 BAG IVPB PRN ×3 (19:00→19:30)
[2020-11-11 19:01] LABS: Glucose,Whole Blood 178 mg/dL (75-99)
[2020-11-11 19:16] LABS: Basophils % (A) 0 %; Eosinophils % (A) 0 %; HCT 28.3 % (39.0-53.0); HGB 10.2 gm/dL (13.0-17.5); Lymphocytes # (A) 0.6 k/uL (1.0-4.8); Lymphocytes % (A) 10 %; MCH 31.4 pg (25.0-35.0); MCHC 36.2 g/dL (31.0-37.0); MCV 86.9 fL (80.0-100.0); Mean Platelet Volume 7.3; Monocytes # (A) 0.4 k/uL (0-1.0); Monocytes % (A) 7 %; Neutrophils # (A) 5.2 k/uL (1.3-7.7); Neutrophils % (A) 82 %; Platelet Count 144 k/uL (150-450); RBC 3.26 m/uL (4.30-5.90); RDW 12.7 % (11.5-15.5); WBC 6.4 k/uL (3.8-10.6)
[2020-11-11] MEDS: IPRATROPIUM-ALBUTEROL 3 ML NEB INHALATION SCH ×3 (19:37→20:48)
[2020-11-11 19:42] LABS: ABG Base Excess -3.4 mmol/L; ABG HCO3 22 mmol/L (21-25); ABG PCO2 36 mmHg (35-45); ABG PH 7.39 (7.35-7.45); ABG PO2 177 mmHg (83-108); ABG TCO2 23 mmol/L (19-24); Allen Test Performed? Yes
[2020-11-11 20:04] LABS: Glucose,Whole Blood 172 mg/dL (75-99)
[2020-11-11] MEDS ORDERED: METOPROLOL TARTRATE 12.5 MG TAB PO SCH (21:00)
[2020-11-11 21:02] LABS: Glucose,Whole Blood 157 mg/dL (75-99)
[2020-11-11 21:59] LABS: Glucose,Whole Blood 145 mg/dL (75-99)
[2020-11-11 23:02] LABS: Glucose,Whole Blood 137 mg/dL (75-99)
[2020-11-12] LABS: Glucose,Whole Blood 127 mg/dL (75-99)
[2020-11-12 01:00] LABS: Glucose,Whole Blood 134 mg/dL (75-99)
[2020-11-12] MEDS: HYDROcodone/APAP 5-325MG 1 EACH TAB PO PRN ×3 (01:02→06:58)
[2020-11-12 01:52] LABS: Glucose,Whole Blood 134 mg/dL (75-99)
[2020-11-12] MEDS ORDERED: HYDROcodone/APAP 5-325MG 1 EACH TAB PO PRN (02:12)
[2020-11-12] MEDS: INSULIN REGULAR 100 UNIT in SODIUM CHLORIDE 0.9% 100 ML IV SCH ×2 (02:44→23:06)
[2020-11-12 02:50] LABS: Glucose,Whole Blood 139 mg/dL (75-99)
[2020-11-12 03:59] LABS: Glucose,Whole Blood 140 mg/dL (75-99)
[2020-11-12 04:09] LABS: Basophils % (A) 0 %; Eosinophils % (A) 0 %; HCT 26.7 % (39.0-53.0); HGB 9.5 gm/dL (13.0-17.5); Lymphocytes # (A) 0.7 k/uL (1.0-4.8); Lymphocytes % (A) 8 %; MCH 30.7 pg (25.0-35.0); MCHC 35.4 g/dL (31.0-37.0); MCV 86.7 fL (80.0-100.0); Mean Platelet Volume 8.2; Monocytes # (A) 0.5 k/uL (0-1.0); Monocytes % (A) 6 %; Neutrophils # (A) 6.7 k/uL (1.3-7.7); Neutrophils % (A) 84 %; Platelet Count 132 k/uL (150-450); RBC 3.08 m/uL (4.30-5.90); RDW 12.8 % (11.5-15.5)
[2020-11-12 04:54] LABS: Glucose,Whole Blood 132 mg/dL (75-99)
[2020-11-12 04:54] LABS: Ionized Calcium 4.9 mg/dL (4.5-5.3)
[2020-11-12 05:04] LABS: ALT 13 U/L (4-49); AST 44 U/L (17-59); African American GFR (CKD) >90 (>60 ml/min/1.73 sqM); Alkaline Phosphatase 25 U/L (38-126); Anion Gap 6 mmol/L; Blood Urea Nitrogen 12 mg/dL (9-20); Calcium 8.1 mg/dL (8.4-10.2); Carbon Dioxide 24 mmol/L (22-30); Chloride 106 mmol/L (98-107); Glucose 124 mg/dL (74-99); Magnesium 2.1 mg/dL (1.6-2.3); Non-African American GFR(CKD) >90 (>60 ml/min/1.73 sqM); Potassium 4.1 mmol/L (3.5-5.1); Sodium 136 mmol/L (137-145); Total Bilirubin 0.6 mg/dL (0.2-1.3); Total Protein 4.9 g/dL (6.3-8.2)
[2020-11-12] MEDS: KETOROLAC 15 MG/ML 1 ML VIAL IVP SCH ×4 (05:25→23:06)
--- NOTE | 2020-11-12 06:00 | OP ---
OPERATIVE REPORT DATE OF SURGERY: 11/11/2020 SURGEON: Dr. Aaron Nye. ELECTROMECHANICAL ASSEMBLY TECHNICIAN: Mitchel Richmond and Petar Corral. PREOPERATIVE DIAGNOSES: Triple-vessel coronary artery disease, preserved left ventricular function, mild-to- moderate mitral valve regurgitation, obesity, hyperlipidemia, hypertension, peripheral vascular disease, sick sinus syndrome status post dual pacemaker insertion. POSTOPERATIVE DIAGNOSES: Triple-vessel coronary artery disease, preserved left ventricular function, mild-to- moderate mitral valve regurgitation, obesity, hyperlipidemia, hypertension, peripheral vascular disease, sick sinus syndrome status post dual pacemaker insertion, diffuse coronary artery disease and friable tissues. PROCEDURE: 1. Quadruple coronary artery bypass grafting using the left internal mammary artery to the left anterior descending artery, left radial artery from the aorta to the obtuse marginal artery, reverse saphenous vein graft from the aorta to the second diagonal artery, reverse saphenous vein graft from the aorta to the distal posterior descending artery. 2. Exclusion of the left atrial appendage using a 35 mm AtriClip. 3. Endoscopic harvesting of the right radial artery. 4. Endoscopic harvesting of the left greater saphenous vein. 5. Intraoperative transesophageal echocardiogram and epiaortic scanning. 6. Intraoperative graft flow measurements using the Medistim system. INDICATION FOR SURGERY: Patient is a 65-year-old gentleman with the above comorbidities who was supposed to have coronary artery bypass surgery at [facility]. However, for insurance purposes he ended up being sent to al as an outpatient. He was sent to Pulmonary for clearance as he had active wheezing and he was cleared. The patient was on Plavix and it was stopped 5 days before surgery. Today he presents for elective coronary artery bypass grafting. The STS risk was discussed with him. He understood it and agreed to proceed. PROCEDURE: Patient in supine position. Right internal jugular [place]-Hanna catheter and a left radial arterial line were placed. The patient had a cardiac catheterization via the left radial artery and for that reason, will be harvesting the right radial artery for bypass, in view of the known decreased patency rate of a radial artery that had been instrumented for cardiac catheterization. He had normal PA pressure and good cardiac index. Subsequently he was brought to the operating room where general endotracheal anesthesia was induced uneventfully. A Vargas catheter was inserted. The chest, abdomen, both lower extremities and the right upper extremity were prepped and draped using ChloraPrep. Ioban was used to cover the skin. The patient received 2 g of cefazolin intravenously. Intraoperative transesophageal echocardiogram confirmed the preoperative finding of preserved systolic function and a mild actually mitral valve regurgitation despite a mean pressure that was around 95 mmHg. Midline sternotomy was performed and the bone was quite dense and profusely bleeding. No bone wax was used but bone seal only. The left hemisternum was elevated and left internal mammary artery was harvested in a semi skeletonized fashion. The patient was given 5000 units of heparin and the mammary artery was clipped distally and transected after its bifurcation and had excellent flow in it and was around 2.5 mm in diameter. The left pleura was intentionally opened in this process and was drained with a 19- Ni[place]an Donato drain. In the same setting, the right radial artery was initially exposed at the wrist with a small incision. A clamping trial revealed preserved signal in the right index plethysmography probe. Subsequently, the radial artery was harvested endoscopically without using a tourniquet. The forearm incision was closed over a drain. The radial artery was prepared by incising the fascia all along its volar aspect and clipping all its branches. It had some mild to moderate wall disease. However, we felt that it was usable and it had a good size. In the same setting, the left greater saphenous vein which looked bigger on ultrasound was harvested between groin and below-knee level. That vein appeared to be of fair quality, around 3-4 mm in diameter. The leg incisions were closed over a drain. Mediastinal fat which was very thick was transected between 2 ties. Epiaortic scanning revealed normal ascending aorta and no wall disease in it. Pericardium was opened in an inverted T-fashion and a pericardial cradle was created. Findings included a very short aorta and a fatty heart. After systemic heparinization, after placement of respective pledgeted pursestrings, aortic cannulation with a 21-Niuean soft flow cannula and venous cannulation via the right atrial appendage was performed with a 29/37 dual stage cannula. Antegrade as well as retrograde cardioplegia catheters were placed. Cardiopulmonary bypass was initiated and with the heart empty and beating we looked at the target. The distal PDA after proximal mid disease, the second diagonal artery in its distal medial branching, the obtuse marginal artery and the mid left anterior descending artery would be the site for bypass. The patient had diffuse scattered coronary artery disease, partially calcific in nature and the overall size of the vessels was small disproportionate to patient body habitus. Aorta was clamped and during aortic clamping myocardial protection was achieved with an initial dose of 1 L of antegrade cold blood cardioplegia followed by 400 mL of retrograde cold blood cardioplegia. All subsequent doses were given retrograde at 15- 20 minutes interval. We started initially by excluding the left atrial appendage by deploying a 35 mm AtriClip at its base. The first distal anastomosis was between a segment of vein of reasonable quality and the distal posterior descending artery which was around 1.5 mm in diameter between 2 diseased areas using Prolene 7-0 in continuous fashion. The 2nd distal anastomosis was between the radial artery and the 1.5 mm obtuse marginal artery in its mid to distal aspect. The third distal anastomosis was between another segment of reverse saphenous vein graft and the medial branching off the diffuse disease second diagonal artery which was around 1.25 mm in diameter thin-walled using Prolene 7-0 in continuous fashion. The 4th distal anastomosis was between to the left internal mammary artery and the mid aspect of the left anterior descending artery that was deep, found in the epicardial fat. There was some wall disease posteriorly, but we thought that will be the site for bypass as where the LAD emerged distally it appeared to be too small. Again, the left internal mammary artery was anastomosed to the left anterior descending artery at that level using Prolene 7-0 in continuous fashion. To mention that I placed a 1 mm shunt in every respective distal anastomosis and the shunt was removed before completing the anastomosis. Satisfied with the distal anastomosis, rewarming was started as we punched out 3 buttons from the ascending aorta and performed the 3 proximal anastomosis of the radial artery into the 2 vein grafts separately using Prolene 7-0 and 6-0 respectively. Patient was given warm blood around 1 L as we performed the last distal anastomosis. He was given lidocaine and magnesium. De-airing maneuvers were done before unclamping the aorta. The patient regained a spontaneous rhythm that was V-paced. The rewarming and reperfusion took around 15 minutes and with good hemostasis and preliminary graft flow measurements that showed excellent graft signals, we were able to wean off cardiac bypass without the need for any inotropic support. JOE showed good LV function and the same mild mitral valve regurgitation. FloSeal had been placed at the level of all distal anastomosis. All pump suckers were stopped as we gave test dose and full-dose protamine. Decannulation folllowed. The venous cannulation site required reinforcement with another pledgeted pursestring of Prolene 4-0. Two monopolar atrial pacing wires were affixed to the respective pursing of the right atrium. No ventricular pacing was placed. Two 19-Niuean Donato drains were left substernally. The right pleura remained intact. At this point, we proceeded at a formal graft flow measurements using the Medistim system. The flow into the vein graft to the posterior descending artery was 74 mL/minute, pulsatility index of 2, showing excellent functioning graft. The flow into the vein graft to the diagonal artery was 38 mL/minute, pulsatility index of 3 and diastolic filling of 62% showing excellent functioning graft. The flow into the radial artery to the obtuse marginal artery was 48 mL/minute, pulsatility index of 2.8 diastolic filling not mentioned as a diastolic signal was lost showing also a well- functioning graft. We had excellent signal in the initial measurement of the left internal mammary artery while still on pump. However, at this point with the heart full, it was extremely difficult to e able to reach a highly positioned RAHMAN graft. After proper hemostasis and after correct sponge, instrument, and needle count, the pericardium was approximated very loosely with 1 stitch over the RV and the mediastinal fat was used to cover the aorta and the proximal aspect of the graft. Subsequently, the sternum was closed using [place] cables, 5 in a erxapl-[id number] fashion, and the last one in a simple straight fashion. Thorough irrigation with cefazolin followed. The rest of the closure proceeded in layers. Skin glue was applied. Patient did not receive any blood bank product but received 500 mL of Cell Saver blood. He was transferred to the ICU in excellent hemodynamic condition. Cardiac index of 2.4, normal PA pressure, good mean arterial pressure and a paced rhythm at 74. MMODL / IJN: [id number] / [facility]
[2020-11-12 06:14] LABS: Glucose,Whole Blood 133 mg/dL (75-99)
[2020-11-12] MEDS: ALBUMIN HUMAN 5% 250 ML in EMPTY BAG 1 BAG IVPB PRN ×2 (06:27→07:12)
[2020-11-12 06:51] LABS: Glucose,Whole Blood 137 mg/dL (75-99)
[2020-11-12] MEDS: IPRATROPIUM-ALBUTEROL 3 ML NEB INHALATION SCH ×4 (08:03→19:24)
--- NOTE | 2020-11-12 08:21 | XR ---
EXAMINATION TYPE: XR chest 1V portable DATE OF EXAM: 11/12/2020 COMPARISON: 11/12/2019 HISTORY: Postop TECHNIQUE: Single frontal view of the chest is obtained. FINDINGS: ET and NG tube have been removed. Cardiac device and central line [place]-Hanna catheter stabl e. Diffuse interstitial pattern with bilateral infiltrate and pleural effusion. Postsurgical changes with cardiomegaly. No sizable pneumothorax. IMPRESSION: 1. Diffuse pleural-parenchymal changes correlate for CHF otherwise consider diffuse pneumonia. 2. Postsurgical change
[2020-11-12] MEDS ORDERED: MORPHINE SULFATE 2 MG/ML SYRINGE IVP ONE (08:25)
[2020-11-12] MEDS: HEPARIN SODIUM,PORCINE/PF 5,000 UNIT/0.5 ML SYRINGE SQ SCH ×3 (08:32→23:06)
[2020-11-12] MEDS: CLOPIDOGREL 75 MG TAB PO SCH (08:33)
[2020-11-12] MEDS: METOPROLOL TARTRATE 25 MG TAB PO SCH ×2 (08:33→20:13)
[2020-11-12] MEDS: PANTOPRAZOLE 40 MG/10 ML VIAL IVP SCH (08:33)
[2020-11-12] MEDS: ASPIRIN 325 MG TAB PO SCH (08:33)
[2020-11-12] MEDS: ATORVASTATIN 40 MG TAB PO SCH (08:33)
[2020-11-12] MEDS ORDERED: FUROSEMIDE 10 MG/ML 2 ML VIAL IV ONE (08:45)
--- NOTE | 2020-11-12 08:53 | P.CRDCN ---
History of Present Illness Consult date: 11/12/20 Chief complaint: Status post bypass surgery History of present illness: This is a very pleasant 65-year-old gentleman with coronary artery disease as well as hypertension and dyslipidemia who requested to see for further evaluation after recent bypass surgery. Recently he was experiencing progressive symptoms of chest discomfort and shortness of breath. He underwent a heart catheterization and that revealed severe triple-vessel coronary artery disease. Yesterday he was admitted to the hospital and underwent quadruple coronary artery bypass grafting using RAHMAN to LAD and left radial artery to OM as well as reverse SVG to second diagonal and reverse SVG to distal PDA. This is postoperative elevation day #1. The patient was extubated yesterday. Overall and from the cardiovascular standpoint of view, he seems to be stable. He has been maintaining normal sinus mechanism with a resting heart rate around 90 beats per minutes. The dose of metoprolol was increased. He is hemodynamically stable and not requiring any vasopressors. He is on dual antiplatelet therapy along with high intensity statin. I would recommend increasing the dose of Lipitor to 40 mg daily at bedtime in the next few days. The chest x-ray was reviewed. The urine output seems to be within normal limits. The patient was seen and he was sitting in a chair seems to be very comfortable and not in any pain or any distress. Chest few was still there. Th e blood work was reviewed including the CBC and BMP. Overall the patient seems to be doing well from a cardiovascular standpoint of view. Past Medical History Past Medical History: Hearing Disorder / Deafness, Hyperlipidemia, Hypertension, Osteoarthritis (OA), Prostate Disorder History of Any Multi-Drug Resistant Organisms: MRSA Date of last positivie culture/infection: 05/12/17 MDRO Source:: neck Past Surgical History: Heart Catheterization, Pacemaker Additional Past Surgical History / Comment(s): TURP, angiography Past Anesthesia/Blood Transfusion Reactions: No Reported Reaction Type of Cardiac Device: Permanent Pacemaker Device Placement Date:: 2018 Smoking Status: Never smoker Medications and Allergies Home Medications Medication Instructions Recorded Confirmed Type Aspirin [Adult Low Dose Aspirin EC] 81 mg PO DAILY 12/27/19 11/11/20 History Atorvastatin [Lipitor] 20 mg PO HS 12/27/19 11/11/20 History Cholecalciferol [Vitamin D3 (25 5,000 unit PO HS 12/27/19 11/11/20 History Mcg = 1000 Iu)] Clopidogrel [Plavix] 75 mg PO HS 12/27/19 11/11/20 History Loratadine [Claritin] 10 mg PO DAILY 12/27/19 11/11/20 History Metoprolol Succinate (ER) [Toprol 50 mg PO BID 12/27/19 11/11/20 History Xl] Oxybutynin ER [Ditropan Xl] 10 mg PO HS 12/27/19 11/11/20 History Terazosin HCl [Hytrin] 10 mg PO HS 12/27/19 11/11/20 History oxyCODONE-APAP 10-325MG [Percocet 1 tab PO TID 12/27/19 11/11/20 History 10-325 mg] ramipriL [Altace] 2.5 mg PO HS 12/27/19 11/11/20 History Mupirocin [Mupirocin 2%] 1 applic NASAL BID #1 tube 11/05/20 11/11/20 Rx Allergies Allergy/AdvReac Type Severity Reaction Status Date / Time No Known Allergies Allergy Verified 11/11/20 06:01 Physical Exam Vitals: Vital Signs Temp Pulse Resp Pulse Ox 11/12/20 07:00 94 26 H 96 11/12/20 06:30 92 24 96 11/12/20 06:00 101 H 22 95 11/12/20 05:30 90 27 H 96 11/12/20 05:00 90 22 95 11/12/20 04:30 91 21 97 11/12/20 04:00 94 29 H 97 11/12/20 03:30 93 28 H 96 11/12/20 03:00 92 24 95 11/12/20 02:30 93 18 95 11/12/20 02:00 94 24 95 11/12/20 01:30 91 24 96 11/12/20 01:00 95 24 97 11/12/20 00:30 92 23 97 11/12/20 00:04 93 22 96 11/12/20 00:00 95 26 H 97 11/11/20 23:30 90 21 97 11/11/20 23:00 92 21 97 11/11/20 22:30 96 32 H 97 11/11/20 22:00 94 24 98 11/11/20 21:30 91 20 99 11/11/20 21:00 92 19 98 11/11/20 20:30 93 22 99 11/11/20 20:15 92 26 H 98 11/11/20 20:00 96 26 H 99 11/11/20 19:51 89 11/11/20 19:45 87 11 L 100 11/11/20 19:44 86 11/11/20 19:30 85 24 100 11/11/20 19:15 84 23 100 11/11/20 19:00 87 29 H 99 11/11/20 18:45 93 34 H 99 11/11/20 18:30 98 24 98 11/11/20 18:15 116 H 26 H 87 L 11/11/20 18:00 98 23 99 11/11/20 17:45 93 24 97 11/11/20 17:30 87 22 97 11/11/20 17:15 78 20 96 11/11/20 17:00 81 19 100 11/11/20 16:45 77 12 100 11/11/20 16:30 97.9 F 73 12 100 11/11/20 16:17 73 12 100 Intake and Output 11/11/20 11/12/20 11/12/20 22:59 06:59 14:59 Intake Total 1527.711 728.926 Output Total 2900 910 Balance -1372.289 -181.074 Intake: IV 1453 691 ACETAMINOPHEN IV (For NPO 100 100 ) 1,000 mg In Empty Bag 1 bag @ 400 mls/hr IVPB Q6HR ALEAH Rx#:[id number] Albumin Human 25% 50 ml @ 750 Per Protocol IV ONCE ONE Rx#:[id number] CO/CI 140 60 Pressure Bags 63 81 Sodium Chloride 0.9% 1, 350 450 000 ml @ 50 mls/hr IV . Q20H ALEAH Rx#:[id number] ceFAZolin 2 gm In Sodium 50 Chloride 0.9% 50 ml @ 100 mls/hr IVPB Q8H ALEAH Rx#: [id number] Intake, IV Titration 74.711 37.926 Amount Clevidipine Butyrate 25 14.2 mg In Empty Bag 1 bag @ 1 MG/HR 2 mls/hr IV .Q24H ALEAH Rx#:[id number] Dexmedetomidine/0.9% NaCl 16.464 (Pmx) 400 mcg In Empty Bag 1 bag @ Titrate IV . Q0M ALEAH Rx#:[id number] Insulin Regular 100 unit 24.055 37.926 In Sodium Chloride 0.9% 100 ml @ Per Protocol IV .Q0M ALEAH Rx#:[id number] propofoL 1,000 mg In 19.992 Empty Bag 1 bag @ Titrate IV .Q0M ALEAH Rx#: [id number] Output: Chest Tube Drainage 680 380 LP 340 240 MS x2 340 140 Drainage 10 Right Wrist 10 Urine 1220 520 Estimated Blood Loss 1000 Other: Voiding Method Indwelling Catheter Indwelling Catheter Weight 125.2 kg ABP, PAP, CO, CI - Last 8 Hours Arterial Blood Pressure 113/45 Arterial Blood Pressure 103/46 Arterial Blood Pressure 114/46 Arterial Blood Pressure 103/53 Arterial Blood Pressure 120/49 Arterial Blood Pressure 120/48 Arterial Blood Pressure 123/54 Arterial Blood Pressure 118/50 Arterial Blood Pressure 119/49 Arterial Blood Pressure 112/50 Arterial Blood Pressure 110/52 Arterial Blood Pressure 114/49 Arterial Blood Pressure 102/55 Pulmonary Artery Pressure 26/13 Pulmonary Artery Pressure 25/11 Pulmonary Artery Pressure 20/9 Pulmonary Artery Pressure 30/15 Pulmonary Artery Pressure 31/14 Pulmonary Artery Pressure 30/15 Pulmonary Artery Pressure 35/20 Pulmonary Artery Pressure 29/15 Pulmonary Artery Pressure 29/14 Pulmonary Artery Pressure 29/14 Pulmonary Artery Pressure 29/15 Pulmonary Artery Pressure 28/13 Pulmonary Artery Pressure 38/21 Cardiac Output 6.1 Cardiac Output 6.9 Cardiac Index 2.6 Cardiac Index 2.9 - Constitutional General appearance: no acute distress - Respiratory Respiratory: bilateral: diminished - Cardiovascular Rhythm: regular Heart sounds: normal: S1, S2 Results 11/12/20 04:00 11/12/20 04:00 Cardiac Enzymes 11/11/20 11/12/20 Range/Units 16:30 04:00 AST 41 44 (17-59) U/L Coagulation 11/11/20 Range/Units 16:30 PT 12.8 H (9.0-12.0) sec APTT 36.9 H (22.0-30.0) sec CBC 11/11/20 11/11/20 11/12/20 Range/Units 16:30 19:10 04:00 WBC 6.0 6.4 8.0 (3.8-10.6) k/uL RBC 3.27 L 3.26 L 3.08 L (4.30-5.90) m/uL Hgb 10.1 L D 10.2 L 9.5 L (13.0-17.5) gm/dL Hct 28.6 L 28.3 L 26.7 L (39.0-53.0) % Plt Count 118 L 144 L 132 L (150-450) k/uL Comprehensive Metabolic Panel 11/11/20 11/12/20 Range/Units 16:30 04:00 Sodium 134 L 136 L (137-145) mmol/L Potassium 4.3 4.1 (3.5-5.1) mmol/L Chloride 106 106 (98-107) mmol/L Carbon Dioxide 24 24 (22-30) mmol/L BUN 11 12 (9-20) mg/dL Creatinine 0.71 0.79 (0.66-1.25) mg/dL Glucose 145 H 124 H (74-99) mg/dL Calcium 7.8 L 8.1 L (8.4-10.2) mg/dL AST 41 44 (17-59) U/L ALT 12 13 (4-49) U/L Alkaline Phosphatase 30 L 25 L (38-126) U/L Total Protein 4.5 L 4.9 L (6.3-8.2) g/dL Albumin 2.6 L 3.0 L (3.5-5.0) g/dL Current Medications Generic Name Dose Route Start Last Admin Trade Name Freq PRN Reason Stop Dose Admin Hydrocodone Bitart/Acetaminophen 2 each 11/12/20 02:12 11/12/20 06:58 Hydrocodone/Apap 5-325mg 1 Each Tab PO 2 each Q4HR PRN Administration Severe Pain Hydrocodone Bitart/Acetaminophen 1 each 11/12/20 02:12 Hydrocodone/Apap 5-325mg 1 Each Tab PO Q4HR PRN Moderate Pain Albuterol/Ipratropium 3 ml 11/11/20 16:11 Ipratropium-Albuterol 3 Ml Neb INHALATION RT-Q2H PRN Shortness Of Breath Or Wheezing Albuterol/Ipratropium 3 ml 11/11/20 20:13 11/12/20 08:03 Ipratropium-Albuterol 3 Ml Neb INHALATION Not Given RT-QID ALEAH Amlodipine Besylate 2.5 mg 11/12/20 12:00 Amlodipine 2.5 Mg Tab PO Q24H ALEAH Aspirin 325 mg 11/12/20 09:00 11/12/20 08:33 Aspirin 325 Mg Tab PO 325 mg DAILY ALEAH Administration Atorvastatin Calcium 40 mg 11/12/20 09:00 11/12/20 08:33 Atorvastatin 40 Mg Tab PO 40 mg DAILY ALEAH Administration Benzocaine/Menthol 1 each 11/11/20 16:11 Benzocaine/Menthol Lozeng 1 Each Lozenge MUCOUS MEM Q2H PRN Sore Throat Bisacodyl 10 mg 11/12/20 09:00 Bisacodyl 10 Mg Supp RECTAL DAILY PRN Constipation Clopidogrel Bisulfate 75 mg 11/12/20 09:00 11/12/20 08:33 Clopidogrel 75 Mg Tab PO 75 mg DAILY ALEAH Administration Heparin Sodium (Porcine) 5,000 unit 11/11/20 16:11 11/12/20 08:32 Heparin Sodium,Porcine/Pf 5,000 Unit/0.5 Ml Syringe SQ 5,000 unit Q8HR ALEAH Administration Hydralazine HCl 10 mg 11/11/20 16:11 Hydralazine Hcl 20 Mg/Ml 1 Ml Vial IVP Q1H PRN Blood Pressure - High Amiodarone HCl 150 mg/ 103 mls @ 618 mls/hr 11/11/20 16:11 Dextrose/Water IV .Q10M PRN A.FIB/FLUTTER Protocol Amiodarone HCl 360 mg/ 207.2 mls @ 34.533 mls/hr 11/11/20 16:11 Dextrose/Water IV .Q6H PRN A.FIB/FLUTTER Protocol 1 MG/MIN Amiodarone HCl 450 mg/ 250 mls @ 16.667 mls/hr 11/11/20 16:11 Dextrose/Water IV .Q15H PRN A.FIB/FLUTTER Protocol 0.5 MG/MIN Albumin Human 250 ml/ IV 250 mls @ 250 mls/hr 11/11/20 16:11 11/12/20 07:12 Solution IVPB 11/13/20 16:12 250 mls/hr Q1HR PRN Administration For Volume Dexmedetomidine HCl 400 mcg/ 100 mls @ 0 mls/hr 11/11/20 16:11 11/11/20 19:20 IV Solution IV 11/12/20 16:14 0 mcg/kg/hr .Q0M ALEAH 0 mls/hr Titration Protocol Titrate Cefazolin Sodium 2 gm/ Sodium 50 mls @ 100 mls/hr 11/11/20 17:00 11/12/20 00:02 Chloride IVPB 11/12/20 09:29 100 mls/hr Q8H ALEAH Administration Calcium Gluconate 2 gm/ Sodium 120 mls @ 100 mls/hr 11/11/20 16:11 Chloride IVPB 11/18/20 16:12 ONCE PRN Ionized Calcium less than 4.4 Nitroglycerin/Dextrose 50 mg/ 250 mls @ 1.5 mls/hr 11/11/20 16:11 11/11/20 16:48 IV Solution IV 5 mcg/min .Q24H ALEAH 1.5 mls/hr Administration 5 MCG/MIN Insulin Human Regular 100 unit 101 mls @ 0 mls/hr 11/11/20 16:11 11/12/20 06:50 / Sodium Chloride IV 4.5 unit/hr .Q0M ALEAH 4.545 mls/hr Titration Protocol Per Protocol Sodium Chloride 1,000 mls @ 20 mls/hr 11/11/20 16:11 11/11/20 16:48 Saline 0.9% IV 50 mls/hr .Q24H ALEAH Administration Ketorolac Tromethamine 15 mg 11/11/20 18:00 11/12/20 05:25 Ketorolac 15 Mg/Ml 1 Ml Vial IVP 11/14/20 17:08 15 mg Q6HR ALEAH Administration Magnesium Hydroxide 2,400 mg 11/12/20 09:00 Magnesium Hydroxide 2,400 Mg/10 Ml Cup PO BID PRN Constipation Metoclopramide HCl 10 mg 11/11/20 16:11 Metoclopramide 5 Mg/Ml 2 Ml Vial IVP Q4H PRN Nausea And Vomiting Metoprolol Tartrate 25 mg 11/12/20 09:00 11/12/20 08:33 Metoprolol Tartrate 25 Mg Tab PO 25 mg BID ALEAH Administration Miscellaneous Information 1 each 11/11/20 16:11 Potassium Replacement Protocol 1 Each Misc MISCELLANE DAILY PRN Per Protocol Protocol Miscellaneous Information 1 each 11/11/20 16:11 Magnesium Replacement Protocol 1 Each Misc MISCELLANE DAILY PRN Per Protocol Protocol Miscellaneous Information 1 each 11/11/20 16:11 Phosphorus Replacement Protoco 1 Each Misc MISCELLANE DAILY PRN Per Protocol Protocol Ondansetron HCl 4 mg 11/11/20 16:11 11/12/20 00:17 Ondansetron 4 Mg/2 Ml Vial IVP 4 mg Q6HR PRN Administration Nausea And Vomiting Pantoprazole Sodium 40 mg 11/12/20 09:00 11/12/20 08:33 Pantoprazole 40 Mg/10 Ml Vial IVP 40 mg DAILY ALEAH Administration Senna/Docusate Sodium 2 each 11/12/20 21:00 Sennosides-Docusate Sodium 1 Each Tab PO HS ALEAH Sodium Chloride 10 ml 11/11/20 21:00 11/12/20 08:26 Sodium Chloride 0.9% Flush 10 Ml Syringe IV Not Given BID ALEAH Intake and Output 11/11/20 11/12/20 11/12/20 22:59 06:59 14:59 Intake Total 1527.711 728.926 Output Total 2900 910 Balance -1372.289 -181.074 Intake: IV 1453 691 ACETAMINOPHEN IV (For NPO 100 100 ) 1,000 mg In Empty Bag 1 bag @ 400 mls/hr IVPB Q6HR ALEAH Rx#:[id number] Albumin Human 25% 50 ml @ 750 Per Protocol IV ONCE ONE Rx#:[id number] CO/CI 140 60 Pressure Bags 63 81 Sodium Chloride 0.9% 1, 350 450 000 ml @ 50 mls/hr IV . Q20H ALEAH Rx#:[id number] ceFAZolin 2 gm In Sodium 50 Chloride 0.9% 50 ml @ 100 mls/hr IVPB Q8H ALEAH Rx#: [id number] Intake, IV Titration 74.711 37.926 Amount Clevidipine Butyrate 25 14.2 mg In Empty Bag 1 bag @ 1 MG/HR 2 mls/hr IV .Q24H ALEAH Rx#:[id number] Dexmedetomidine/0.9% NaCl 16.464 (Pmx) 400 mcg In Empty Bag 1 bag @ Titrate IV . Q0M ALEAH Rx#:[id number] Insulin Regular 100 unit 24.055 37.926 In Sodium Chloride 0.9% 100 ml @ Per Protocol IV .Q0M ALEAH Rx#:[id number] propofoL 1,000 mg In 19.992 Empty Bag 1 bag @ Titrate IV .Q0M ALEAH Rx#: [id number] Output: Chest Tube Drainage 680 380 LP 340 240 MS x2 340 140 Drainage 10 Right Wrist 10 Urine 1220 520 Estimated Blood Loss 1000 Other: Voiding Method Indwelling Catheter Indwelling Catheter Weight 125.2 kg 11/12/20 04:00 11/12/20 04:00 Assessment and Plan Assessment: Assessment #1 coronary artery disease and status post CABG #2 hypertension #3 dyslipidemia #4 sinus tachycardia Plan #1 continue the current medical regimen #2 continue dual antiplatelet therapy #3 advised to increase the dose of Lipitor #4 the dose of metoprolol was increased #5 follow-up with the patient
[2020-11-12] MEDS ORDERED: MAGNESIUM HYDROXIDE 2,400 MG/10 ML CUP PO PRN (09:00)
[2020-11-12] MEDS ORDERED: METOPROLOL TARTRATE 12.5 MG TAB PO SCH (09:00)
[2020-11-12] MEDS ORDERED: bisacodyL 10 MG SUPP RECTAL PRN (09:00)
[2020-11-12 09:04] LABS: Glucose,Whole Blood 127 mg/dL (75-99)
--- NOTE | 2020-11-12 09:08 | P.PN ---
Subjective Progress Note Date: 11/12/20 Principal diagnosis: Triple-vessel coronary artery disease, preserved left ventricular function, mild to moderate mitral valve regurgitation. Past medical history significant for hypertension, hyperlipidemia, obesity, peripheral vascular disease, sick sinus syndrome status post dual chamber pacemaker insertion, osteoarthritis and prostate disorder. POD #1 quadruple coronary artery bypass grafting using the left internal mammary artery to the left anterior descending coronary artery, left radial artery from aorta to the obtuse marginal coronary artery, a reverse greater saphenous vein graft from the aorta to the second diagonal coronary artery, and a reverse greater saphenous vein graft from the aorta to the distal posterior descending coronary artery. Exclusion of the left atrial appendage using a 35 mm Atriclip. Endoscopic harvesting of the right radial artery. Endoscopic harvesting of the left greater saphenous vein. Intraoperative transesophageal echocardiogram and epi-aortic scanning. Intraoperative graft flow measurements using the [employer] system. Postoperative acute blood loss anemia, expected due to hemodilution and cardiopulmonary bypass. The patient is seen in follow-up today 11/12/2020 at his bedside in the intensive care unit. Currently he is sitting up to the bedside chair, is awake, alert and oriented 3. He is in no acute distress and remains hemodynamically stable and is currently on no inotropic or pressor support. Denies any c omplaints of shortness of breath although is complaining of some surgical type pain especially with taking a deep breath to his chest tube insertion sites. He was successfully extubated at 7:55 PM last evening, he is currently on 2 L nasal cannula with oxygen saturations 95%. He is achieving 500 mL on his incentive spirometry. Mediastinal and left pleural chest tubes remain in place to low continuous wall suction -20 cm H2O. No air leak is present. Draining thin serosanguineous drainage. Left pleural chest tube with 240 mL output in the last 8 hours and 570 mL output since surgery. Mediastinal chest tubes with 140 mL output in the last 8 hours and 500 mL output since surgery. Right IJ Cordis with Phoenix-Hanna catheter in place with current hemodynamic showing a cardiac output of 6.1, cardiac index 2.6, PA pressures 25/14 and CVP 10 mmHg. Atrial epicardial pacemaker wires remain in place and are currently grounded. Bedside telemetry is showing normal sinus rhythm heart rate 96 BPM. Right arm WYATT drain remains in place with scant serosanguineous drainage with 10 mL output in the last 8 hours. Vargas catheter remains in place with 500 mL of clear yellow urine in the last 8 hours. Laboratory results this morning show a WBC count 8.0, hemoglobin 9.5, hematocrit 26.7, platelets 132, sodium 136, potassium 4.1, BUN 12, creatinine 0.79. He has been afebrile since surgery. Objective - Vital Signs Vital signs: Vital Signs Temp 97.9 F 11/11/20 16:30 Pulse 94 11/12/20 07:00 Resp 26 H 11/12/20 07:00 BP 152/88 11/11/20 06:23 Pulse Ox 96 11/12/20 07:00 Intake & Output 11/11/20 11/12/20 11/12/20 18:59 06:59 18:59 Intake Total 562.316 5851.819 Output Total 2405 1405 Balance -1917.182 417.819 Weight 125.2 kg Intake: IV 451 1747 ACETAMINOPHEN IV (For NPO 100 100 ) 1,000 mg In Empty Bag 1 bag @ 400 mls/hr IVPB Q6HR A[facility] Rx#:[id number] Albumin Human 25% 50 ml @ 750 Per Protocol IV ONCE ONE Rx#:[id number] CO/CI 70 130 Pressure Bags 27 117 Sodium Chloride 0.9% 1, 150 650 000 ml @ 50 mls/hr IV . Q20H ALE[facility] Rx#:[id number] ceFAZolin 2 gm In Sodium 50 Chloride 0.9% 50 ml @ 100 mls/hr IVPB Q8H ALE[facility] Rx#: [id number] Intake, IV Titration 36.818 75.819 Amount Clevidipine Butyrate 25 14.2 mg In Empty Bag 1 bag @ 1 MG/HR 2 mls/hr IV .Q24H ALEAH Rx#:[id number] Dexmedetomidine/0.9% NaCl 16.464 (Pmx) 400 mcg In Empty Bag 1 bag @ Titrate IV . Q0M [facility]LE[facility] Rx#:[id number] Insulin Regular 100 unit 2.626 59.355 In Sodium Chloride 0.9% 100 ml @ Per Protocol IV .Q0M ALE[facility] Rx#:[id number] propofoL 1,000 mg In 19.992 Empty Bag 1 bag @ Titrate IV .Q0M ALEAH Rx#: [id number] Output: Chest Tube Drainage 380 680 LP 200 380 MS x2 180 300 Drainage 10 Right Wrist 10 Urine 1025 715 Estimated Blood Loss 1000 Other: Voiding Method Indwelling Catheter Indwelling Catheter ABP, PAP, CO, CI - Last Documented Arterial Blood Pressure 113/45 Pulmonary Artery Pressure 26/13 Cardiac Output 6.1 Cardiac Index 2.6 - Constitutional General appearance: Present: cooperative, morbidly obese, no acute distress - EENT Eyes: Present: normal appearance. Absent: scleral icterus ENT: Present: hearing grossly normal - Neck Details: Neck is supple, no JVD. Right IJ cordis and Phoenix-Hanna catheter in place and functioning. - Respiratory Details: Lung sounds essentially clear throughout, diminished was bilateral bases. No wheezes, rhonchi or crackles. Respirations are symmetrical and nonlabored. Oxygen saturation is 95% on 2 L nasal cannula. Achieving 500 mL on his ji ntive spirometry. Mediastinal and left pleural chest tubes remain in place to low continuous wall suction -20 cm H2O. No air leak is present. Draining thin serosanguineous drainage. - Cardiovascular Details: Regular rhythm and rate. S1 and S2 present, negative for S3, gallop or murmur. Sternum is stable. Bedside telemetry showing normal sinus rhythm heart rate 96 BPM. Atrial epicardial pacemaker wires in place and rounded. Heart hugger is in place and he is demonstrating appropriate use. Nitroglycerin drip in place at 5 mcg/m. No edema present. Knee-high GINA hose and sequential compression devices in place to his bilateral lower extremities. Right IJ Cordis with Phoenix- Hanna catheter in place with current hemodynamic showing a cardiac output 6.1, cardiac index 2.6, PA pressures 25/14 and CVP 10 mmHg. Left radial arterial line in place and functioning. - Gastrointestinal Gastrointestinal Comment(s): Abdomen is soft, nontender and nondistended. Hypoactive bowel sounds present in all 4 quadrants. No guarding or rigidity. No organomegaly appreciated. - Genitourinary Genitourinary Comment(s): Vargas catheter for accurate I&O. Draining clear urine with 520 mL output in the last 8 hours. - Integumentary Integumentary Comment(s): Skin is warm and dry. No clubbing or cyanosis is present. Midline sternal incision is clean, dry and approximated. No drainage or redness is present. Left lower extremity EVH site is clean, dry and approximated. No drainage or redness is present. Right radial harvest sites are clean, dry and approximated. No drainage or redness is present. Right arm WYATT drain in place with scant serosanguineous drainage with 10 mL output in the last 8 hours. - Neurologic Neurologic: Present: CNII-XII intact. Absent: focal deficits - Musculoskeletal Musculoskeletal: Present: gait normal, generalized weakness, strength equal bilaterally - Psychiatric Psychiatric: Present: A&O x's 3, appropriate affect, intact judgment & insight - Allied health notes Allied health notes reviewed: nursing - Labs CBC & Chem 7: 11/12/20 04:00 11/12/20 04:00 Labs: Abnormal Lab Results - Last 24 Hours (Table) 11/05/20 11/11/20 11/11/20 Range/Units 09:25 08:46 11:03 RBC (4.30-5.90) m/uL Hgb (13.0-17.5) gm/dL Hct (39.0-53.0) % Plt Count (150-450) k/uL Lymphocytes # (1.0-4.8) k/uL PT (9.0-12.0) sec INR (<1.2) APTT (22.0-30.0) sec ABG pH (7.35-7.45) ABG pCO2 33 L (35-45) mmHg ABG pO2 260 H 180 H (83-108) mmHg ABG Total CO2 26 H (19-24) mmol/L ABG O2 Saturation 100.0 H 100.0 H (94-97) % ABG Hematocrit 31 L (34.0-46.0) % ABG Sodium (135-146) mmol/L ABG Potassium (3.4-4.5) mmol/L ABG Ionized Calcium 4.2 L (4.5-5.3) mg/dL ABG Glucose 135 H 134 H (75-99) mg/dL ABG Lactic Acid 2.2 H* (0.5-1.6) mmol/L Hemoglobin 10.0 L (13.0-17.5) gm/dL Sodium (137-145) mmol/L Glucose (74-99) mg/dL POC Glucose (mg/dL) (75-99) mg/dL Calcium (8.4-10.2) mg/dL Alkaline Phosphatase (38-126) U/L Total Protein (6.3-8.2) g/dL Albumin (3.5-5.0) g/dL Arterial Blood Potassium (3.4-4.5) mmol/L Arterial Blood Glucose 135 H 134 H (75-99) mg/dL Crossmatch See Detail 11/11/20 11/11/20 11/11/20 Range/Units 11:08 11:42 12:33 RBC (4.30-5.90) m/uL Hgb (13.0-17.5) gm/dL Hct (39.0-53.0) % Plt Count (150-450) k/uL Lymphocytes # (1.0-4.8) k/uL PT (9.0-12.0) sec INR (<1.2) APTT (22.0-30.0) sec ABG pH 7.33 L 7.33 L (7.35-7.45) ABG pCO2 46 H (35-45) mmHg ABG pO2 195 H >420 H 280 H (83-108) mmHg ABG Total CO2 25 H 26 H (19-24) mmol/L ABG O2 Saturation 100.0 H 100.0 H 100.0 H (94-97) % ABG Hematocrit 26 L 28 L 27 L (34.0-46.0) % ABG Sodium 133 L 134 L (135-146) mmol/L ABG Potassium 4.6 H (3.4-4.5) mmol/L ABG Ionized Calcium 4.4 L 4.1 L 4.4 L (4.5-5.3) mg/dL ABG Glucose 208 H 136 H 202 H (75-99) mg/dL ABG Lactic Acid 2.7 H* 2.2 H* 2.4 H* (0.5-1.6) mmol/L Hemoglobin 8.5 L 9.2 L 8.8 L (13.0-17.5) gm/dL Sodium (137-145) mmol/L Glucose (74-99) mg/dL POC Glucose (mg/dL) (75-99) mg/dL Calcium (8.4-10.2) mg/dL Alkaline Phosphatase (38-126) U/L Total Protein (6.3-8.2) g/dL Albumin (3.5-5.0) g/dL Arterial Blood Potassium 4.6 H (3.4-4.5) mmol/L Arterial Blood Glucose 208 H 136 H 202 H (75-99) mg/dL Crossmatch 11/11/20 11/11/20 11/11/20 Range/Units 13:33 14:55 15:19 RBC (4.30-5.90) m/uL Hgb (13.0-17.5) gm/dL Hct (39.0-53.0) % Plt Count (150-450) k/uL Lymphocytes # (1.0-4.8) k/uL PT (9.0-12.0) sec INR (<1.2) APTT (22.0-30.0) sec ABG pH 7.33 L (7.35-7.45) ABG pCO2 (35-45) mmHg ABG pO2 416 H 233 H 254 H (83-108) mmHg ABG Total CO2 25 H 25 H (19-24) mmol/L ABG O2 Saturation 100.0 H 100.0 H 100.0 H (94-97) % ABG Hematocrit 26 L 28 L 31 L (34.0-46.0) % ABG Sodium (135-146) mmol/L ABG Potassium (3.4-4.5) mmol/L ABG Ionized Calcium 4.4 L 4.4 L (4.5-5.3) mg/dL ABG Glucose 213 H 189 H 163 H (75-99) mg/dL ABG Lactic Acid 2.8 H* 3.5 H* 3.7 H* (0.5-1.6) mmol/L Hemoglobin 8.4 L 9.1 L 10.1 L (13.0-17.5) gm/dL Sodium (137-145) mmol/L Glucose (74-99) mg/dL POC Glucose (mg/dL) (75-99) mg/dL Calcium (8.4-10.2) mg/dL Alkaline Phosphatase (38-126) U/L Total Protein (6.3-8.2) g/dL Albumin (3.5-5.0) g/dL Arterial Blood Potassium (3.4-4.5) mmol/L Arterial Blood Glucose 213 H 189 H 163 H (75-99) mg/dL Crossmatch 11/11/20 11/11/20 11/11/20 Range/Units 16:27 16:30 16:30 RBC 3.27 L (4.30-5.90) m/uL Hgb 10.1 L D (13.0-17.5) gm/dL Hct 28.6 L (39.0-53.0) % Plt Count 118 L (150-450) k/uL Lymphocytes # 0.9 L (1.0-4.8) k/uL PT 12.8 H (9.0-12.0) sec INR 1.2 H (<1.2) APTT 36.9 H (22.0-30.0) sec ABG pH (7.35-7.45) ABG pCO2 (35-45) mmHg ABG pO2 (83-108) mmHg ABG Total CO2 (19-24) mmol/L ABG O2 Saturation (94-97) % ABG Hematocrit (34.0-46.0) % ABG Sodium (135-146) mmol/L ABG Potassium (3.4-4.5) mmol/L ABG Ionized Calcium (4.5-5.3) mg/dL ABG Glucose (75-99) mg/dL ABG Lactic Acid (0.5-1.6) mmol/L Hemoglobin (13.0-17.5) gm/dL Sodium (137-145) mmol/L Glucose (74-99) mg/dL POC Glucose (mg/dL) 159 H (75-99) mg/dL Calcium (8.4-10.2) mg/dL Alkaline Phosphatase (38-126) U/L Total Protein (6.3-8.2) g/dL Albumin (3.5-5.0) g/dL Arterial Blood Potassium (3.4-4.5) mmol/L Arterial Blood Glucose (75-99) mg/dL Crossmatch 11/11/20 11/11/20 11/11/20 Range/Units 16:30 16:56 18:02 RBC (4.30-5.90) m/uL Hgb (13.0-17.5) gm/dL Hct (39.0-53.0) % Plt Count (150-450) k/uL Lymphocytes # (1.0-4.8) k/uL PT (9.0-12.0) sec INR (<1.2) APTT (22.0-30.0) sec ABG pH (7.35-7.45) ABG pCO2 (35-45) mmHg ABG pO2 (83-108) mmHg ABG Total CO2 (19-24) mmol/L ABG O2 Saturation (94-97) % ABG Hematocrit (34.0-46.0) % ABG Sodium (135-146) mmol/L ABG Potassium (3.4-4.5) mmol/L ABG Ionized Calcium (4.5-5.3) mg/dL ABG Glucose (75-99) mg/dL ABG Lactic Acid (0.5-1.6) mmol/L Hemoglobin (13.0-17.5) gm/dL Sodium 134 L (137-145) mmol/L Glucose 145 H (74-99) mg/dL POC Glucose (mg/dL) 155 H 173 H (75-99) mg/dL Calcium 7.8 L (8.4-10.2) mg/dL Alkaline Phosphatase 30 L (38-126) U/L Total Protein 4.5 L (6.3-8.2) g/dL Albumin 2.6 L (3.5-5.0) g/dL Arterial Blood Potassium (3.4-4.5) mmol/L Arterial Blood Glucose (75-99) mg/dL Crossmatch 11/11/20 11/11/20 11/11/20 Range/Units 18:59 19:10 19:38 RBC 3.26 L (4.30-5.90) m/uL Hgb 10.2 L (13.0-17.5) gm/dL Hct 28.3 L (39.0-53.0) % Plt Count 144 L (150-450) k/uL Lymphocytes # 0.6 L (1.0-4.8) k/uL PT (9.0-12.0) sec INR (<1.2) APTT (22.0-30.0) sec ABG pH (7.35-7.45) ABG pCO2 (35-45) mmHg ABG pO2 177 H (83-108) mmHg ABG Total CO2 (19-24) mmol/L ABG O2 Saturation 100.0 H (94-97) % ABG Hematocrit (34.0-46.0) % ABG Sodium (135-146) mmol/L ABG Potassium (3.4-4.5) mmol/L ABG Ionized Calcium (4.5-5.3) mg/dL ABG Glucose (75-99) mg/dL ABG Lactic Acid (0.5-1.6) mmol/L Hemoglobin (13.0-17.5) gm/dL Sodium (137-145) mmol/L Glucose (74-99) mg/dL POC Glucose (mg/dL) 178 H (75-99) mg/dL Calcium (8.4-10.2) mg/dL Alkaline Phosphatase (38-126) U/L Total Protein (6.3-8.2) g/dL Albumin (3.5-5.0) g/dL Arterial Blood Potassium (3.4-4.5) mmol/L Arterial Blood Glucose (75-99) mg/dL Crossmatch 11/11/20 11/11/20 11/11/20 Range/Units 20:03 21:01 21:57 RBC (4.30-5.90) m/uL Hgb (13.0-17.5) gm/dL Hct (39.0-53.0) % Plt Count (150-450) k/uL Lymphocytes # (1.0-4.8) k/uL PT (9.0-12.0) sec INR (<1.2) APTT (22.0-30.0) sec ABG pH (7.35-7.45) ABG pCO2 (35-45) mmHg ABG pO2 (83-108) mmHg ABG Total CO2 (19-24) mmol/L ABG O2 Saturation (94-97) % ABG Hematocrit (34.0-46.0) % ABG Sodium (135-146) mmol/L ABG Potassium (3.4-4.5) mmol/L ABG Ionized Calcium (4.5-5.3) mg/dL ABG Glucose (75-99) mg/dL ABG Lactic Acid (0.5-1.6) mmol/L Hemoglobin (13.0-17.5) gm/dL Sodium (137-145) mmol/L Glucose (74-99) mg/dL POC Glucose (mg/dL) 172 H 157 H 145 H (75-99) mg/dL Calcium (8.4-10.2) mg/dL Alkaline Phosphatase (38-126) U/L Total Protein (6.3-8.2) g/dL Albumin (3.5-5.0) g/dL Arterial Blood Potassium (3.4-4.5) mmol/L Arterial Blood Glucose (75-99) mg/dL Crossmatch 11/11/20 11/11/20 11/12/20 Range/Units 23:01 23:59 00:59 RBC (4.30-5.90) m/uL Hgb (13.0-17.5) gm/dL Hct (39.0-53.0) % Plt Count (150-450) k/uL Lymphocytes # (1.0-4.8) k/uL PT (9.0-12.0) sec INR (<1.2) APTT (22.0-30.0) sec ABG pH (7.35-7.45) ABG pCO2 (35-45) mmHg ABG pO2 (83-108) mmHg ABG Total CO2 (19-24) mmol/L ABG O2 Saturation (94-97) % ABG Hematocrit (34.0-46.0) % ABG Sodium (135-146) mmol/L ABG Potassium (3.4-4.5) mmol/L ABG Ionized Calcium (4.5-5.3) mg/dL ABG Glucose (75-99) mg/dL ABG Lactic Acid (0.5-1.6) mmol/L Hemoglobin (13.0-17.5) gm/dL Sodium (137-145) mmol/L Glucose (74-99) mg/dL POC Glucose (mg/dL) 137 H 127 H 134 H (75-99) mg/dL Calcium (8.4-10.2) mg/dL Alkaline Phosphatase (38-126) U/L Total Protein (6.3-8.2) g/dL Albumin (3.5-5.0) g/dL Arterial Blood Potassium (3.4-4.5) mmol/L Arterial Blood Glucose (75-99) mg/dL Crossmatch 11/12/20 11/12/2021 Range/Units 01:49 02:48 03:58 RBC (4.30-5.90) m/uL Hgb (13.0-17.5) gm/dL Hct (39.0-53.0) % Plt Count (150-450) k/uL Lymphocytes # (1.0-4.8) k/uL PT (9.0-12.0) sec INR (<1.2) APTT (22.0-30.0) sec ABG pH (7.35-7.45) ABG pCO2 (35-45) mmHg ABG pO2 (83-108) mmHg ABG Total CO2 (19-24) mmol/L ABG O2 Saturation (94-97) % ABG Hematocrit (34.0-46.0) % ABG Sodium (135-146) mmol/L ABG Potassium (3.4-4.5) mmol/L ABG Ionized Calcium (4.5-5.3) mg/dL ABG Glucose (75-99) mg/dL ABG Lactic Acid (0.5-1.6) mmol/L Hemoglobin (13.0-17.5) gm/dL Sodium (137-145) mmol/L Glucose (74-99) mg/dL POC Glucose (mg/dL) 134 H 139 H 140 H (75-99) mg/dL Calcium (8.4-10.2) mg/dL Alkaline Phosphatase (38-126) U/L Total Protein (6.3-8.2) g/dL Albumin (3.5-5.0) g/dL Arterial Blood Potassium (3.4-4.5) mmol/L Arterial Blood Glucose (75-99) mg/dL Crossmatch 11/12/20 11/12/20 11/12/20 Range/Units 04:00 04:00 04:52 RBC 3.08 L (4.30-5.90) m/uL Hgb 9.5 L (13.0-17.5) gm/dL Hct 26.7 L (39.0-53.0) % Plt Count 132 L (150-450) k/uL Lymphocytes # 0.7 L (1.0-4.8) k/uL PT (9.0-12.0) sec INR (<1.2) APTT (22.0-30.0) sec ABG pH (7.35-7.45) ABG pCO2 (35-45) mmHg ABG pO2 (83-108) mmHg ABG Total CO2 (19-24) mmol/L ABG O2 Saturation (94-97) % ABG Hematocrit (34.0-46.0) % ABG Sodium (135-146) mmol/L ABG Potassium (3.4-4.5) mmol/L ABG Ionized Calcium (4.5-5.3) mg/dL ABG Glucose (75-99) mg/dL ABG Lactic Acid (0.5-1.6) mmol/L Hemoglobin (13.0-17.5) gm/dL Sodium 136 L (137-145) mmol/L Glucose 124 H (74-99) mg/dL POC Glucose (mg/dL) 132 H (75-99) mg/dL Calcium 8.1 L (8.4-10.2) mg/dL Alkaline Phosphatase 25 L (38-126) U/L Total Protein 4.9 L (6.3-8.2) g/dL Albumin 3.0 L (3.5-5.0) g/dL Arterial Blood Potassium (3.4-4.5) mmol/L Arterial Blood Glucose (75-99) mg/dL Crossmatch 11/12/20 11/12/20 Range/Units 06:13 06:49 RBC (4.30-5.90) m/uL Hgb (13.0-17.5) gm/dL Hct (39.0-53.0) % Plt Count (150-450) k/uL Lymphocytes # (1.0-4.8) k/uL PT (9.0-12.0) sec INR (<1.2) APTT (22.0-30.0) sec ABG pH (7.35-7.45) ABG pCO2 (35-45) mmHg ABG pO2 (83-108) mmHg ABG Total CO2 (19-24) mmol/L ABG O2 Saturation (94-97) % ABG Hematocrit (34.0-46.0) % ABG Sodium (135-146) mmol/L ABG Potassium (3.4-4.5) mmol/L ABG Ionized Calcium (4.5-5.3) mg/dL ABG Glucose (75-99) mg/dL ABG Lactic Acid (0.5-1.6) mmol/L Hemoglobin (13.0-17.5) gm/dL Sodium (137-145) mmol/L Glucose (74-99) mg/dL POC Glucose (mg/dL) 133 H 137 H (75-99) mg/dL Calcium (8.4-10.2) mg/dL Alkaline Phosphatase (38-126) U/L Total Protein (6.3-8.2) g/dL Albumin (3.5-5.0) g/dL Arterial Blood Potassium (3.4-4.5) mmol/L Arterial Blood Glucose (75-99) mg/dL Crossmatch - Imaging and Cardiology Chest x-ray: report reviewed, image reviewed Assessment and Plan Assessment: 1. Triple-vessel coronary artery disease, status post quadruple coronary artery bypass grafting surgery 2. Preserved left ventricular function 3. Mild to moderate mitral valve regurgitation 4. History of hypertension 5. History of 5. Lipidemia 6. Morbid obesity 7. Peripheral vascular disease 8. Sick sinus syndrome status post dual chamber pacemaker insertion 9. Prostate disorder 10. Osteoarthritis 11. Postoperative acute blood loss anemia, expected Plan: 1. Continue aspirin, statin, Plavix, and beta richard therapy. Will increase metoprolol tartrate 25 mg by mouth twice a day. 2. Discontinue nitroglycerin drip. 3. Start Norvasc 2.5 mg by mouth daily for radial artery spasm prophylaxis. Please do not discontinue Norvasc without checking with cardiothoracic surgery service. 4. Wean O2 as tolerated. Encourage incentive spirometry use 10 times every hour while awake. Bronchodilator management per pulmonary critical care service recommendations. 5. Increase activity, ambulate as tolerated. PT/OT/cardiac rehab consulted. 6. Will monitor daily labs and chest x-rays. Electrolyte replacement per protocol. 7. GI/DVT prophylaxis. 8. Pain control with current medication regimen, Toradol added for pain control. Restart patient's home dose of oxycodone [id number] milligrams by mouth 3 times a day, discontinue [place] 9. Insulin management per primary care service. Patient's preoperative hemoglobin A1c 6.4%. 10. Remove right upper extremity WYATT drain. 11. Discontinue Phoenix-Hanna catheter. Keep right IJ Cordis in place to monitor continuous CVP. Please discontinue Phoenix-Hanna catheter after the patient has received his Lasix. 12. Keep mediastinal and left pleural chest tubes in place to low continuous wall suction -20 cm H2O. 13. Continue Vargas catheter for another 24 hours for strict accurate I's and O's. Continue daily weights. 14. Home dose of Ditropan XL 10 mg by mouth daily at bedtime was restarted. 15. More recommendations to follow based on patient's clinical course. Time with Patient: Greater than 30
[2020-11-12] MEDS: oxyCODONE-APAP 10-325MG 1 EACH TAB PO PRN ×2 (09:16→16:54)
[2020-11-12] MEDS: METOCLOPRAMIDE 5 MG/ML 2 ML VIAL IVP PRN (09:17)
[2020-11-12 10:06] VITALS: BMI 37.4
[2020-11-12 10:08] LABS: Glucose,Whole Blood 121 mg/dL (75-99)
[2020-11-12 11:00] LABS: Glucose,Whole Blood 121 mg/dL (75-99)
[2020-11-12] MEDS: SODIUM CHLORIDE 0.9% 1,000 ML IV SCH (11:50)
[2020-11-12 11:57] LABS: Glucose,Whole Blood 121 mg/dL (75-99)
[2020-11-12] MEDS ORDERED: amLODIPine 2.5 MG TAB PO SCH (12:00)
--- NOTE | 2020-11-12 13:01 | P.PN ---
Subjective Progress Note Date: 11/12/20 Principal diagnosis: Coronary artery disease, status post bypass grafting 55-year-old white male patient of Dr. Frances Mosqueda who had been complaining of progressive chest pressure and dyspnea on exertion, underwent cardiac catheterization that showed a triple vessel disease. Patient had a complex LAD diagonal bifurcation, severe proximal OM1 and diffuse proximal to mid PDA disease. His echocardiogram in July 2020 showed preserved systolic function and no significant valvular abnormalities. Patient is a nonsmoker, and no history of COPD although he was noted to have wheezing on physical exam and the possibility of reactive airway disease. His past medical history is positive for hyperlipidemia, osteoarthritis, sick sinus syndrome status post permanent pacemaker implantation, morbid obesity, BPH. Patient was evaluated by cardiothoracic surgery and underwent four-vessel coronary artery bypass grafting today on 11/11/2020 with a RAHMAN to the LAD, SVG to the PDA and the diagonal, and left radial artery graft to the OM, left atrial appendage exclusion. Patient is seen in the postoperative period in the intensive care unit, sedated and ventilated, on assist control mode of ventilation with a rate of 12, tidal volumes 450, FiO2 of percent and PEEP of 5. Postop blood gas is pending, patient in sinus mechanism, hemodynamically patient is stable, he is currently on 0.9 at 50, propofol is at 20 mics per kilo per minute, and nitroglycerin is at 5 mics per minute. No other drips. Doing well, patient has one left pleural in the 2 mediastinal chest tubes with small amount of sanguinous output, no air leak, patient in sinus mechanism. His cardiac output and cardiac index are 4.8 and 2.1 respectively, CVP is 18, PA pressures 34/24. On 11/12/2020 patient seen in follow-up in intensive care unit, today's postoperative day #1, status post four-vessel bypass grafting, patient was successfully weaned and extubated from mechanical ventilator last night at around 1955, tolerated extubation well so far, having some pain issues, he is on a combination of oral [place] and some IV narcotics for breakthrough pain, however his incentive spirometer effort is still suboptimal, less than 500 mL on the today, he is up in the chair today, as a heart heart sound, he is using incentive spirometer, he is on 3 L of oxygen with pulse ox of 96%, hemodynamically he is stable, he remains on lactated Ringer's at 50 ML per hour, insulin drip is 4.5 units per hour, and nitroglycerin is at 5 mics per kilo per minute. He still has 2 mediastinal and left pleural chest tubes in place, and there has been 740 ML. Stressing is output from the left pleural, and 520 ML f rom the mediastinal chest tubes, his right wrist WYATT drain put out 10 mL of serous output. His chest x-ray has been reviewed showing diffuse pleural parenchymal changes, with consideration of interstitial edema and pleural effusion. Sounds are diminished at the bases. he is on breathing treatments, no wheezing, no rhonchi. Labs have been reviewed, hemoglobin is 9.5, white count is 8.0, sodium is 136, the rest of electrolytes and renal profile are unremarkable. In sinus mechanism, with a controlled heart rate. No nausea or vomiting, patient continues on a full liquid diet, and he is currently on fluid restriction of 1.5 L daily Objective - Vital Signs Vital signs: Vital Signs Temp 97.9 F 11/11/20 16:30 Pulse 90 11/12/20 11:00 Resp 16 11/12/20 11:00 BP 105/65 11/12/20 08:30 Pulse Ox 97 11/12/20 11:00 Intake & Output 11/11/20 11/12/20 11/12/20 18:59 06:59 18:59 Intake Total 834.806 4020.819 619.09 Output Total 2405 1405 625 Balance -1917.182 417.819 -5.91 Weight 125.2 kg 125.2 kg Intake: IV 451 1747 610 ACETAMINOPHEN IV (For NPO 100 100 ) 1,000 mg In Empty Bag 1 bag @ 400 mls/hr IVPB Q6HR [facility] Rx#:[id number] Albumin Human 25% 50 ml @ 750 250 Per Protocol IV ONCE ONE Rx#:[id number] CO/CI 70 130 80 Pressure Bags 27 117 30 Sodium Chloride 0.9% 1, 150 650 200 000 ml @ 20 mls/hr IV . Q24H [facility] Rx#:[id number] ceFAZolin 2 gm In Sodium 50 50 Chloride 0.9% 50 ml @ 100 mls/hr IVPB Q8H [facility] Rx#: [id number] Intake, IV Titration 36.818 75.819 9.09 Amount Clevidipine Butyrate 25 14.2 mg In Empty Bag 1 bag @ 1 MG/HR 2 mls/hr IV .Q24H [facility] Rx#:[id number] Dexmedetomidine/0.9% NaCl 16.464 (Pmx) 400 mcg In Empty Bag 1 bag @ Titrate IV . Q0M [facility] Rx#:[id number] Insulin Regular 100 unit 2.626 59.355 9.09 In Sodium Chloride 0.9% 100 ml @ Per Protocol IV .Q0M [facility] Rx#:[id number] propofoL 1,000 mg In 19.992 Empty Bag 1 bag @ Titrate IV .Q0M [facility] Rx#: [id number] Output: Chest Tube Drainage 380 680 200 LP 200 380 160 MS x2 180 300 40 Drainage 10 Right Wrist 10 Urine 1025 715 425 Estimated Blood Loss 1000 Other: Voiding Method Indwelling Catheter Indwelling Catheter Indwelling Catheter ABP, PAP, CO, CI - Last Documented Arterial Blood Pressure 86/43 Pulmonary Artery Pressure 26/10 Cardiac Output 6.2 Cardiac Index 2.6 - Exam GENERAL EXAM: Awake and alert, 65-year-old white male, on 3 liters of oxygen and the pulse ox of 96%, comfortable in no apparent distress. HEAD: Normocephalic/atraumatic. EYES: Normal reaction of pupils, equal size. Conjunctiva pink, sclera white. NOSE: Clear with pink turbinates. THROAT: No erythema or exudates. NECK: No masses, no JVD, no thyroid enlargement, no adenopathy. CHEST: No chest wall deformity. Symmetrical expansion. Midsternal incision clean dry and intact, 2 mediastinal one left pleural chest tubes in place to Pleur-evac and wall suction, with small amount of serous output no air leak. LUNGS: Equal air entry with no crackles, wheeze, rhonchi or dullness. CVS: Regular rate and rhythm, normal S1 and S2, no gallops, no murmurs, no rubs ABDOMEN: Soft, nontender. No hepatosplenomegaly, normal bowel sounds, no guarding or rigidity. EXTREMITIES: No clubbing, no edema, no cyanosis, 2+ pulses and upper and lower extremities. MUSCULOSKELETAL: Muscle strength and tone normal. SPINE: No scoliosis or deformity SKIN: No rashes. Left radial artery harvest site is [place]ker wrap, WYATT drain in place CENTRAL NERVOUS SYSTEM: Awake and alert and 3, No focal deficits, tone is normal in all 4 extremities. - Labs CBC & Chem 7: 11/12/20 04:00 11/12/20 04:00 Labs: Abnormal Lab Results - Last 24 Hours (Table) 11/05/20 11/11/20 11/11/20 Range/Units 09:25 08:46 11:03 RBC (4.30-5.90) m/uL Hgb (13.0-17.5) gm/dL Hct (39.0-53.0) % Plt Count (150-450) k/uL Lymphocytes # (1.0-4.8) k/uL PT (9.0-12.0) sec INR (<1.2) APTT (22.0-30.0) sec ABG pH (7.35-7.45) ABG pCO2 33 L (35-45) mmHg ABG pO2 260 H 180 H (83-108) mmHg ABG Total CO2 26 H (19-24) mmol/L ABG O2 Saturation 100.0 H 100.0 H (94-97) % ABG Hematocrit 31 L (34.0-46.0) % ABG Sodium (135-146) mmol/L ABG Potassium (3.4-4.5) mmol/L ABG Ionized Calcium 4.2 L (4.5-5.3) mg/dL ABG Glucose 135 H 134 H (75-99) mg/dL ABG Lactic Acid 2.2 H* (0.5-1.6) mmol/L Hemoglobin 10.0 L (13.0-17.5) gm/dL Sodium (137-145) mmol/L Glucose (74-99) mg/dL POC Glucose (mg/dL) (75-99) mg/dL Calcium (8.4-10.2) mg/dL Alkaline Phosphatase (38-126) U/L Total Protein (6.3-8.2) g/dL Albumin (3.5-5.0) g/dL Arterial Blood Potassium (3.4-4.5) mmol/L Arterial Blood Glucose 135 H 134 H (75-99) mg/dL Crossmatch See Detail 11/11/20 11/11/20 11/11/20 Range/Units 11:08 11:42 12:33 RBC (4.30-5.90) m/uL Hgb (13.0-17.5) gm/dL Hct (39.0-53.0) % Plt Count (150-450) k/uL Lymphocytes # (1.0-4.8) k/uL PT (9.0-12.0) sec INR (<1.2) APTT (22.0-30.0) sec ABG pH 7.33 L 7.33 L (7.35-7.45) ABG pCO2 46 H (35-45) mmHg ABG pO2 195 H >420 H 280 H (83-108) mmHg ABG Total CO2 25 H 26 H (19-24) mmol/L ABG O2 Saturation 100.0 H 100.0 H 100.0 H (94-97) % ABG Hematocrit 26 L 28 L 27 L (34.0-46.0) % ABG Sodium 133 L 134 L (135-146) mmol/L ABG Potassium 4.6 H (3.4-4.5) mmol/L ABG Ionized Calcium 4.4 L 4.1 L 4.4 L (4.5-5.3) mg/dL ABG Glucose 208 H 136 H 202 H (75-99) mg/dL ABG Lactic Acid 2.7 H* 2.2 H* 2.4 H* (0.5-1.6) mmol/L Hemoglobin 8.5 L 9.2 L 8.8 L (13.0-17.5) gm/dL Sodium (137-145) mmol/L Glucose (74-99) mg/dL POC Glucose (mg/dL) (75-99) mg/dL Calcium (8.4-10.2) mg/dL Alkaline Phosphatase (38-126) U/L Total Protein (6.3-8.2) g/dL Albumin (3.5-5.0) g/dL Arterial Blood Potassium 4.6 H (3.4-4.5) mmol/L Arterial Blood Glucose 208 H 136 H 202 H (75-99) mg/dL Crossmatch 11/11/20 11/11/20 11/11/20 Range/Units 13:33 14:55 15:19 RBC (4.30-5.90) m/uL Hgb (13.0-17.5) gm/dL Hct (39.0-53.0) % Plt Count (150-450) k/uL Lymphocytes # (1.0-4.8) k/uL PT (9.0-12.0) sec INR (<1.2) APTT (22.0-30.0) sec ABG pH 7.33 L (7.35-7.45) ABG pCO2 (35-45) mmHg ABG pO2 416 H 233 H 254 H (83-108) mmHg ABG Total CO2 25 H 25 H (19-24) mmol/L ABG O2 Saturation 100.0 H 100.0 H 100.0 H (94-97) % ABG Hematocrit 26 L 28 L 31 L (34.0-46.0) % ABG Sodium (135-146) mmol/L ABG Potassium (3.4-4.5) mmol/L ABG Ionized Calcium 4.4 L 4.4 L (4.5-5.3) mg/dL ABG Glucose 213 H 189 H 163 H (75-99) mg/dL ABG Lactic Acid 2.8 H* 3.5 H* 3.7 H* (0.5-1.6) mmol/L Hemoglobin 8.4 L 9.1 L 10.1 L (13.0-17.5) gm/dL Sodium (137-145) mmol/L Glucose (74-99) mg/dL POC Glucose (mg/dL) (75-99) mg/dL Calcium (8.4-10.2) mg/dL Alkaline Phosphatase (38-126) U/L Total Protein (6.3-8.2) g/dL Albumin (3.5-5.0) g/dL Arterial Blood Potassium (3.4-4.5) mmol/L Arterial Blood Glucose 213 H 189 H 163 H (75-99) mg/dL Crossmatch 11/11/20 11/11/20 11/11/20 Range/Units 16:27 16:30 16:30 RBC 3.27 L (4.30-5.90) m/uL Hgb 10.1 L D (13.0-17.5) gm/dL Hct 28.6 L (39.0-53.0) % Plt Count 118 L (150-450) k/uL Lymphocytes # 0.9 L (1.0-4.8) k/uL PT 12.8 H (9.0-12.0) sec INR 1.2 H (<1.2) APTT 36.9 H (22.0-30.0) sec ABG pH (7.35-7.45) ABG pCO2 (35-45) mmHg ABG pO2 (83-108) mmHg ABG Total CO2 (19-24) mmol/L ABG O2 Saturation (94-97) % ABG Hematocrit (34.0-46.0) % ABG Sodium (135-146) mmol/L ABG Potassium (3.4-4.5) mmol/L ABG Ionized Calcium (4.5-5.3) mg/dL ABG Glucose (75-99) mg/dL ABG Lactic Acid (0.5-1.6) mmol/L Hemoglobin (13.0-17.5) gm/dL Sodium (137-145) mmol/L Glucose (74-99) mg/dL POC Glucose (mg/dL) 159 H (75-99) mg/dL Calcium (8.4-10.2) mg/dL Alkaline Phosphatase (38-126) U/L Total Protein (6.3-8.2) g/dL Albumin (3.5-5.0) g/dL Arterial Blood Potassium (3.4-4.5) mmol/L Arterial Blood Glucose (75-99) mg/dL Crossmatch 11/11/20 11/11/20 11/11/20 Range/Units 16:30 16:56 18:02 RBC (4.30-5.90) m/uL Hgb (13.0-17.5) gm/dL Hct (39.0-53.0) % Plt Count (150-450) k/uL Lymphocytes # (1.0-4.8) k/uL PT (9.0-12.0) sec INR (<1.2) APTT (22.0-30.0) sec ABG pH (7.35-7.45) ABG pCO2 (35-45) mmHg ABG pO2 (83-108) mmHg ABG Total CO2 (19-24) mmol/L ABG O2 Saturation (94-97) % ABG Hematocrit (34.0-46.0) % ABG Sodium (135-146) mmol/L ABG Potassium (3.4-4.5) mmol/L ABG Ionized Calcium (4.5-5.3) mg/dL ABG Glucose (75-99) mg/dL ABG Lactic Acid (0.5-1.6) mmol/L Hemoglobin (13.0-17.5) gm/dL Sodium 134 L (137-145) mmol/L Glucose 145 H (74-99) mg/dL POC Glucose (mg/dL) 155 H 173 H (75-99) mg/dL Calcium 7.8 L (8.4-10.2) mg/dL Alkaline Phosphatase 30 L (38-126) U/L Total Protein 4.5 L (6.3-8.2) g/dL Albumin 2.6 L (3.5-5.0) g/dL Arterial Blood Potassium (3.4-4.5) mmol/L Arterial Blood Glucose (75-99) mg/dL Crossmatch 11/11/20 11/11/20 11/11/20 Range/Units 18:59 19:10 19:38 RBC 3.26 L (4.30-5.90) m/uL Hgb 10.2 L (13.0-17.5) gm/dL Hct 28.3 L (39.0-53.0) % Plt Count 144 L (150-450) k/uL Lymphocytes # 0.6 L (1.0-4.8) k/uL PT (9.0-12.0) sec INR (<1.2) APTT (22.0-30.0) sec ABG pH (7.35-7.45) ABG pCO2 (35-45) mmHg ABG pO2 177 H (83-108) mmHg ABG Total CO2 (19-24) mmol/L ABG O2 Saturation 100.0 H (94-97) % ABG Hematocrit (34.0-46.0) % ABG Sodium (135-146) mmol/L ABG Potassium (3.4-4.5) mmol/L ABG Ionized Calcium (4.5-5.3) mg/dL ABG Glucose (75-99) mg/dL ABG Lactic Acid (0.5-1.6) mmol/L Hemoglobin (13.0-17.5) gm/dL Sodium (137-145) mmol/L Glucose (74-99) mg/dL POC Glucose (mg/dL) 178 H (75-99) mg/dL Calcium (8.4-10.2) mg/dL Alkaline Phosphatase (38-126) U/L Total Protein (6.3-8.2) g/dL Albumin (3.5-5.0) g/dL Arterial Blood Potassium (3.4-4.5) mmol/L Arterial Blood Glucose (75-99) mg/dL Crossmatch 11/11/20 11/11/20 11/11/20 Range/Units 20:03 21:01 21:57 RBC (4.30-5.90) m/uL Hgb (13.0-17.5) gm/dL Hct (39.0-53.0) % Plt Count (150-450) k/uL Lymphocytes # (1.0-4.8) k/uL PT (9.0-12.0) sec INR (<1.2) APTT (22.0-30.0) sec ABG pH (7.35-7.45) ABG pCO2 (35-45) mmHg ABG pO2 (83-108) mmHg ABG Total CO2 (19-24) mmol/L ABG O2 Saturation (94-97) % ABG Hematocrit (34.0-46.0) % ABG Sodium (135-146) mmol/L ABG Potassium (3.4-4.5) mmol/L ABG Ionized Calcium (4.5-5.3) mg/dL ABG Glucose (75-99) mg/dL ABG Lactic Acid (0.5-1.6) mmol/L Hemoglobin (13.0-17.5) gm/dL Sodium (137-145) mmol/L Glucose (74-99) mg/dL POC Glucose (mg/dL) 172 H 157 H 145 H (75-99) mg/dL Calcium (8.4-10.2) mg/dL Alkaline Phosphatase (38-126) U/L Total Protein (6.3-8.2) g/dL Albumin (3.5-5.0) g/dL Arterial Blood Potassium (3.4-4.5) mmol/L Arterial Blood Glucose (75-99) mg/dL Crossmatch 11/11/20 11/11/20 11/12/20 Range/Units 23:01 23:59 00:59 RBC (4.30-5.90) m/uL Hgb (13.0-17.5) gm/dL Hct (39.0-53.0) % Plt Count (150-450) k/uL Lymphocytes # (1.0-4.8) k/uL PT (9.0-12.0) sec INR (<1.2) APTT (22.0-30.0) sec ABG pH (7.35-7.45) ABG pCO2 (35-45) mmHg ABG pO2 (83-108) mmHg ABG Total CO2 (19-24) mmol/L ABG O2 Saturation (94-97) % ABG Hematocrit (34.0-46.0) % ABG Sodium (135-146) mmol/L ABG Potassium (3.4-4.5) mmol/L ABG Ionized Calcium (4.5-5.3) mg/dL ABG Glucose (75-99) mg/dL ABG Lactic Acid (0.5-1.6) mmol/L Hemoglobin (13.0-17.5) gm/dL Sodium (137-145) mmol/L Glucose (74-99) mg/dL POC Glucose (mg/dL) 137 H 127 H 134 H (75-99) mg/dL Calcium (8.4-10.2) mg/dL Alkaline Phosphatase (38-126) U/L Total Protein (6.3-8.2) g/dL Albumin (3.5-5.0) g/dL Arterial Blood Potassium (3.4-4.5) mmol/L Arterial Blood Glucose (75-99) mg/dL Crossmatch 11/12/20 11/12/20 11/12/20 Range/Units 01:49 02:48 03:58 RBC (4.30-5.90) m/uL Hgb (13.0-17.5) gm/dL Hct (39.0-53.0) % Plt Count (150-450) k/uL Lymphocytes # (1.0-4.8) k/uL PT (9.0-12.0) sec INR (<1.2) APTT (22.0-30.0) sec ABG pH (7.35-7.45) ABG pCO2 (35-45) mmHg ABG pO2 (83-108) mmHg ABG Total CO2 (19-24) mmol/L ABG O2 Saturation (94-97) % ABG Hematocrit (34.0-46.0) % ABG Sodium (135-146) mmol/L ABG Potassium (3.4-4.5) mmol/L ABG Ionized Calcium (4.5-5.3) mg/dL ABG Glucose (75-99) mg/dL ABG Lactic Acid (0.5-1.6) mmol/L Hemoglobin (13.0-17.5) gm/dL Sodium (137-145) mmol/L Glucose (74-99) mg/dL POC Glucose (mg/dL) 134 H 139 H 140 H (75-99) mg/dL Calcium (8.4-10.2) mg/dL Alkaline Phosphatase (38-126) U/L Total Protein (6.3-8.2) g/dL Albumin (3.5-5.0) g/dL Arterial Blood Potassium (3.4-4.5) mmol/L Arterial Blood Glucose (75-99) mg/dL Crossmatch 11/12/20 11/12/20 11/12/20 Range/Units 04:00 04:00 04:52 RBC 3.08 L (4.30-5.90) m/uL Hgb 9.5 L (13.0-17.5) gm/dL Hct 26.7 L (39.0-53.0) % Plt Count 132 L (150-450) k/uL Lymphocytes # 0.7 L (1.0-4.8) k/uL PT (9.0-12.0) sec INR (<1.2) APTT (22.0-30.0) sec ABG pH (7.35-7.45) ABG pCO2 (35-45) mmHg ABG pO2 (83-108) mmHg ABG Total CO2 (19-24) mmol/L ABG O2 Saturation (94-97) % ABG Hematocrit (34.0-46.0) % ABG Sodium (135-146) mmol/L ABG Potassium (3.4-4.5) mmol/L ABG Ionized Calcium (4.5-5.3) mg/dL ABG Glucose (75-99) mg/dL ABG Lactic Acid (0.5-1.6) mmol/L Hemoglobin (13.0-17.5) gm/dL Sodium 136 L (137-145) mmol/L Glucose 124 H (74-99) mg/dL POC Glucose (mg/dL) 132 H (75-99) mg/dL Calcium 8.1 L (8.4-10.2) mg/dL Alkaline Phosphatase 25 L (38-126) U/L Total Protein 4.9 L (6.3-8.2) g/dL Albumin 3.0 L (3.5-5.0) g/dL Arterial Blood Potassium (3.4-4.5) mmol/L Arterial Blood Glucose (75-99) mg/dL Crossmatch 11/12/20 11/12/20 11/12/20 Range/Units 06:13 06:49 09:03 RBC (4.30-5.90) m/uL Hgb (13.0-17.5) gm/dL Hct (39.0-53.0) % Plt Count (150-450) k/uL Lymphocytes # (1.0-4.8) k/uL PT (9.0-12.0) sec INR (<1.2) APTT (22.0-30.0) sec ABG pH (7.35-7.45) ABG pCO2 (35-45) mmHg ABG pO2 (83-108) mmHg ABG Total CO2 (19-24) mmol/L ABG O2 Saturation (94-97) % ABG Hematocrit (34.0-46.0) % ABG Sodium (135-146) mmol/L ABG Potassium (3.4-4.5) mmol/L ABG Ionized Calcium (4.5-5.3) mg/dL ABG Glucose (75-99) mg/dL ABG Lactic Acid (0.5-1.6) mmol/L Hemoglobin (13.0-17.5) gm/dL Sodium (137-145) mmol/L Glucose (74-99) mg/dL POC Glucose (mg/dL) 133 H 137 H 127 H (75-99) mg/dL Calcium (8.4-10.2) mg/dL Alkaline Phosphatase (38-126) U/L Total Protein (6.3-8.2) g/dL Albumin (3.5-5.0) g/dL Arterial Blood Potassium (3.4-4.5) mmol/L Arterial Blood Glucose (75-99) mg/dL Crossmatch 11/12/20 11/12/20 11/12/20 Range/Units 10:06 10:58 11:55 RBC (4.30-5.90) m/uL Hgb (13.0-17.5) gm/dL Hct (39.0-53.0) % Plt Count (150-450) k/uL Lymphocytes # (1.0-4.8) k/uL PT (9.0-12.0) sec INR (<1.2) APTT (22.0-30.0) sec ABG pH (7.35-7.45) ABG pCO2 (35-45) mmHg ABG pO2 (83-108) mmHg ABG Total CO2 (19-24) mmol/L ABG O2 Saturation (94-97) % ABG Hematocrit (34.0-46.0) % ABG Sodium (135-146) mmol/L ABG Potassium (3.4-4.5) mmol/L ABG Ionized Calcium (4.5-5.3) mg/dL ABG Glucose (75-99) mg/dL ABG Lactic Acid (0.5-1.6) mmol/L Hemoglobin (13.0-17.5) gm/dL Sodium (137-145) mmol/L Glucose (74-99) mg/dL POC Glucose (mg/dL) 121 H 121 H 121 H (75-99) mg/dL Calcium (8.4-10.2) mg/dL Alkaline Phosphatase (38-126) U/L Total Protein (6.3-8.2) g/dL Albumin (3.5-5.0) g/dL Arterial Blood Potassium (3.4-4.5) mmol/L Arterial Blood Glucose (75-99) mg/dL Crossmatch Assessment and Plan Plan: Assessment: #1. Multivessel coronary artery disease, symptomatic, status post four-vessel coronary artery bypass grafting with RAHMAN to the LAD, left radial artery graft to the OM, SVG to the PDA in the diagonal, and left atrial appendage exclusion, postoperative day #1 #2. Routine ventilator management, extubated on postoperative day #0, on 2020, within 3-1/2 hours of OR exit time #3. Hyperlipidemia #4. History of sick sinus syndrome status post permanent pacemaker #5. Morbid obesity #6. BPH #7. Osteoarthritis #8. Postoperative sternotomy blood loss anemia, an expected outcome of bypass surgery Plan: Continue encouraging deep breathing and coughing, maintain pain control, patient is doing well, although his incentive spirometer effort is suboptimal, continue DuoNeb 4 times a day and as needed. Hemodynamically patient is stable, his labs and chest x-ray have been reviewed, DVT prophylaxis per CT surgery. Follow-up chest x-ray and labs in the morning. I performed a history & physical examination of the patient and discussed their management with my nurse practitioner, Sari Vitale. I reviewed the nurse practitioner's note and agree with the documented findings and plan of care. Lung sounds are positive for diminished breath sounds The findings and the impression was discussed with the patient. I attest to the documentation by the nurse practitioner. Time with Patient: Greater than 30
[2020-11-12 14:01] LABS: Glucose,Whole Blood 101 mg/dL (75-99)
[2020-11-12 14:47] LABS: Glucose,Whole Blood 110 mg/dL (75-99)
[2020-11-12 15:01] LABS: Glucose,Whole Blood 114 mg/dL (75-99)
[2020-11-12 15:58] LABS: Glucose,Whole Blood 101 mg/dL (75-99)
[2020-11-12] MEDS: NITROGLYCERIN-D5W PMX 50 MG in DEXTROSE/WATER 1 250ML.BAG IV SCH (16:06)
[2020-11-12] MEDS: MORPHINE SULFATE 2 MG/ML SYRINGE IVP PRN ×2 (16:10→20:13)
[2020-11-12 17:08] LABS: Glucose,Whole Blood 152 mg/dL (75-99)
[2020-11-12] MEDS ORDERED: METOPROLOL TARTRATE 25 MG TAB PO STA (17:12)
[2020-11-12] MEDS: DEXTROSE 5% IN WATER 100 ML with AMIODARONE 150 MG IV PRN ×2 (17:57→19:04)
[2020-11-12 18:05] LABS: Glucose,Whole Blood 164 mg/dL (75-99)
[2020-11-12 18:52] LABS: Glucose,Whole Blood 159 mg/dL (75-99)
[2020-11-12] MEDS: SENNOSIDES-DOCUSATE SODIUM 1 EACH TAB PO SCH (20:13)
[2020-11-12 20:26] LABS: Glucose,Whole Blood 158 mg/dL (75-99)
[2020-11-12 21:17] LABS: Glucose,Whole Blood 153 mg/dL (75-99)
[2020-11-12 22:19] LABS: Glucose,Whole Blood 154 mg/dL (75-99)
--- NOTE | 2020-11-12 22:38 | CONS ---
CONSULTATION DATE OF SERVICE: 11/12/2020 I am covering for Dr. Leyva. REASON FOR CONSULTATION: Advice regarding elevated blood sugars and other medical issues, requested by cardiothoracic surgery. HISTORY OF PRESENT ILLNESS: This 65-year-old gentleman with past history of hypertension, hyperlipidemia, history of DJD, MRSA being followed by Dr. Mosqueda in the outpatient setting underwent CABG. The patient is being closely monitored. Patient extubated at this time. There is no history of fever, rigors. No history of headache, loss of consciousness or seizures. The patient had a chest tube in place at this time. The blood sugar is elevated and patient is anywhere from 3-4 units/hour insulin at this point. PAST MEDICAL HISTORY: History of hypertension, hyperlipidemia, history of DJD, history of prostate disorder and MRSA. MEDICATIONS: Medications prior to admission home medications are: Hytrin, Ditropan, mupirocin, Toprol, Claritin, Plavix, Vitamin D3, Lipitor, Ecotrin. ALLERGIES: None. FAMILY HISTORY: No history of heart disease or strokes in the family. SOCIAL HISTORY: No history of smoking. No history of alcohol. REVIEW OF SYSTEMS: ENT: No diminished vision. No diminished hearing. CARDIOVASCULAR system as mentioned earlier. RESPIRATORY: As mentioned earlier. GI no nausea or vomiting. no dysuria. NERVOUS SYSTEMS: No numbness or weakness. ALLERGY/IMMUNOLOGY: No asthma or hayfever. MUSCULOSKELETAL: As mentioned earlier. HEMATOLOGY/ONCOLOGY: No history of anemia. ENDOCRINE: As mentioned earlier. CONSTITUTIONAL: As mentioned earlier. DERMATOLOGY negative. RHEUMATOLOGY: Negative. PSYCHIATRIC: Negative. PHYSICAL EXAMINATION: The patient is alert and oriented times three. Pulse 90, blood pressure is 86/43, respirations 16, temperature is normal, pulse ox 97% on 3 L. HEENT is conjunctivae normal. NECK: No JVD. CARDIOVASCULAR: S1, S2 muffled. RESPIRATORY: Breath sounds diminished in the bases. A few scattered rhonchi and crackles. ABDOMEN is soft, nontender. NERVOUS SYSTEM: No focal deficits. LAB: Hemoglobin 9.5. Sodium is 136. ASSESSMENT: 1. Status post coronary artery disease, coronary artery bypass grafting. 2. Hypertension. 3. Hyperlipidemia. 4. History of degenerative joint disease. 5. History of prostate disease. 6. History of MRSA. 7. History of pacemaker. 8. History of TURP. 9. Elevated glucose. 10.FULL CODE. 11.Obesity with body mass 37.4. RECOMMENDATIONS AND DISCUSSION: In this 65 -year-old gentleman who presented after surgery, at this time, I recommend to continue the current medications, management and symptomatic treatment. Patient does not have history of diabetes in the past. Recommend continue insulin drip and once the patient is stabilized and p.o. intake, a 3 shot protocol may be followed. Given that, hold insulin if the Accu-Chek is less than 120. Otherwise, incentive spirometry. DVT prophylaxis. We will follow the patient closely. The patient may be asked to follow with Dr. Mosqueda closely after discharge. Thank you Dr. Nye, for letting us participate in the care of this patient. MMRAQUEL / INESSA: [id number] / MTDD
[2020-11-12 23:13] LABS: Glucose,Whole Blood 145 mg/dL (75-99)
[2020-11-12 23:59] LABS: Glucose,Whole Blood 128 mg/dL (75-99)
[2020-11-13] MEDS: MORPHINE SULFATE 2 MG/ML SYRINGE IVP PRN ×4 (00:10→15:17)
[2020-11-13 01:01] LABS: Glucose,Whole Blood 143 mg/dL (75-99)
[2020-11-13 03:06] LABS: Glucose,Whole Blood 122 mg/dL (75-99)
[2020-11-13] MEDS: oxyCODONE-APAP 10-325MG 1 EACH TAB PO PRN ×3 (03:07→17:48)
[2020-11-13 03:55] LABS: Glucose,Whole Blood 125 mg/dL (75-99)
[2020-11-13 04:10] LABS: Basophils % (A) 0 %; Eosinophils % (A) 0 %; HCT 25.2 % (39.0-53.0); Lymphocytes # (A) 1.3 k/uL (1.0-4.8); Lymphocytes % (A) 15 %; MCH 31.1 pg (25.0-35.0); MCHC 35.7 g/dL (31.0-37.0); MCV 87.3 fL (80.0-100.0); Mean Platelet Volume 8.1; Monocytes # (A) 0.6 k/uL (0-1.0); Monocytes % (A) 7 %; Neutrophils # (A) 6.3 k/uL (1.3-7.7); Neutrophils % (A) 75 %; Platelet Count 138 k/uL (150-450); RBC 2.88 m/uL (4.30-5.90); RDW 13.2 % (11.5-15.5); WBC 8.5 k/uL (3.8-10.6)
[2020-11-13 04:19] LABS: Ionized Calcium 4.9 mg/dL (4.5-5.3)
[2020-11-13 04:41] LABS: ALT 12 U/L (4-49); AST 34 U/L (17-59); African American GFR (CKD) >90 (>60 ml/min/1.73 sqM); Albumin 2.9 g/dL (3.5-5.0); Alkaline Phosphatase 32 U/L (38-126); Anion Gap 4 mmol/L; Blood Urea Nitrogen 19 mg/dL (9-20); Carbon Dioxide 24 mmol/L (22-30); Chloride 106 mmol/L (98-107); Glucose 109 mg/dL (74-99); Non-African American GFR(CKD) 81 (>60 ml/min/1.73 sqM); Potassium 4.1 mmol/L (3.5-5.1); Sodium 134 mmol/L (137-145); Total Bilirubin 0.5 mg/dL (0.2-1.3); Total Protein 5.1 g/dL (6.3-8.2)
[2020-11-13] MEDS: KETOROLAC 15 MG/ML 1 ML VIAL IVP SCH ×4 (05:27→23:54)
[2020-11-13 05:55] LABS: Glucose,Whole Blood 134 mg/dL (75-99)
[2020-11-13] MEDS ORDERED: FUROSEMIDE 10 MG/ML 4 ML VIAL IV STA (07:36)
[2020-11-13] MEDS ORDERED: POTASSIUM CHLORIDE ER 20 MEQ TAB.ER PO STA (07:36)
--- NOTE | 2020-11-13 07:55 | XR ---
EXAMINATION TYPE: XR chest 1V portable DATE OF EXAM: 11/13/2020 COMPARISON: 11/12/2020 HISTORY: Shortness of breath TECHNIQUE: Single frontal view of the chest is obtained. FINDINGS: Limited inspiration with bilateral infiltrate and pleural effusion. Postoperative change, cardiac device and cardiomegaly stable. No pneumothorax. [place]Hanna catheter has been removed. IMPRESSION: Bilateral infiltrate and pleural effusion stable.
[2020-11-13] MEDS ORDERED: DEXTROSE 5% IN WATER 100 ML with AMIODARONE 150 MG IV ONE ×2 (08:00→14:48)
[2020-11-13] MEDS: ASPIRIN 325 MG TAB PO SCH (08:06)
[2020-11-13] MEDS: HEPARIN SODIUM,PORCINE/PF 5,000 UNIT/0.5 ML SYRINGE SQ SCH ×3 (08:06→23:55)
[2020-11-13] MEDS: AMIODARONE 200 MG TAB PO SCH ×2 (08:06→20:39)
[2020-11-13] MEDS: CLOPIDOGREL 75 MG TAB PO SCH (08:06)
[2020-11-13] MEDS: ATORVASTATIN 40 MG TAB PO SCH (08:06)
[2020-11-13] MEDS: DILTIAZEM ORAL 30 MG TAB PO SCH ×4 (08:06→21:47)
[2020-11-13] MEDS: METOCLOPRAMIDE 5 MG/ML 2 ML VIAL IVP PRN (08:07)
[2020-11-13] MEDS: METOPROLOL TARTRATE 50 MG TAB PO SCH ×2 (08:07→20:39)
[2020-11-13] MEDS: PANTOPRAZOLE 40 MG/10 ML VIAL IVP SCH (08:07)
[2020-11-13 08:28] LABS: Glucose,Whole Blood 109 mg/dL (75-99)
[2020-11-13] MEDS: IPRATROPIUM-ALBUTEROL 3 ML NEB INHALATION SCH ×2 (09:13→11:56)
[2020-11-13 10:00] LABS: Glucose,Whole Blood 160 mg/dL (75-99)
[2020-11-13 11:28] LABS: Glucose,Whole Blood 172 mg/dL (75-99)
--- NOTE | 2020-11-13 11:56 | P.PN ---
Subjective Progress Note Date: 11/13/20 Principal diagnosis: Coronary artery disease, status post coronary artery bypass grafting 55-year-old white male patient of Dr. Frances Mosqueda who had been complaining of progressive chest pressure and dyspnea on exertion, underwent cardiac catheterization that showed a triple vessel disease. Patient had a complex LAD diagonal bifurcation, severe proximal OM1 and diffuse proximal to mid PDA disease. His echocardiogram in July 2020 showed preserved systolic function and no significant valvular abnormalities. Patient is a nonsmoker, and no history of COPD although he was noted to have wheezing on physical exam and the possibility of reactive airway disease. His past medical history is positive for hyperlipidemia, osteoarthritis, sick sinus syndrome status post permanent pacemaker implantation, morbid obesity, BPH. Patient was evaluated by cardiothoracic surgery and underwent four-vessel coronary artery bypass grafting today on 11/11/2020 with a RAHMAN to the LAD, SVG to the PDA and the diagonal, and left radial artery graft to the OM, left atrial appendage exclusion. Patient is seen in the postoperative period in the intensive care unit, sedated and venti lated, on assist control mode of ventilation with a rate of 12, tidal volumes 450, FiO2 of percent and PEEP of 5. Postop blood gas is pending, patient in sinus mechanism, hemodynamically patient is stable, he is currently on 0.9 at 50, propofol is at 20 mics per kilo per minute, and nitroglycerin is at 5 mics per minute. No other drips. Doing well, patient has one left pleural in the 2 mediastinal chest tubes with small amount of sanguinous output, no air leak, patient in sinus mechanism. His cardiac output and cardiac index are 4.8 and 2.1 respectively, CVP is 18, PA pressures 34/24. On 11/12/2020 patient seen in follow-up in intensive care unit, today's postoperative day #1, status post four-vessel bypass grafting, patient was successfully weaned and extubated from mechanical ventilator last night at around 1955, tolerated extubation well so far, having some pain issues, he is on a combination of oral [place] and some IV narcotics for breakthrough pain, however his incentive spirometer effort is still suboptimal, less than 500 mL on the today, he is up in the chair today, as a heart heart sound, he is using incentive spirometer, he is on 3 L of oxygen with pulse ox of 96%, hem odynamically he is stable, he remains on lactated Ringer's at 50 ML per hour, insulin drip is 4.5 units per hour, and nitroglycerin is at 5 mics per kilo per minute. He still has 2 mediastinal and left pleural chest tubes in place, and there has been 740 ML. Stressing is output from the left pleural, and 520 ML from the mediastinal chest tubes, his right wrist WYATT drain put out 10 mL of serous output. His chest x-ray has been reviewed showing diffuse pleural parenchymal changes, with consideration of interstitial edema and pleural effusion. Sounds are diminished at the bases. he is on breathing treatments, no wheezing, no rhonchi. Labs have been reviewed, hemoglobin is 9.5, white count is 8.0, sodium is 136, the rest of electrolytes and renal profile are unremarkable. In sinus mechanism, with a controlled heart rate. No nausea or vomiting, patient continues on a full liquid diet, and he is currently on fluid restriction of 1.5 L daily The patient is seen today 11/13/2020 and follow-up in the intensive care unit. This is postoperative day #2. Status post coronary artery bypass grafting 4. He is currently sitting up in a chair at the bedside. Awake and alert in no acute distress. Maintaining O2 saturations in the 90s on 2 L/m per nasal cannula. He is 0.9 normal saline at 30 MLS per hour. Insulin drip at 6 units per hour. He did have an episode of atrial fibrillation and is currently on amiodarone at 0.5 mg/m. He also received Lasix 40 mg IVP 1 today. Asked x-ray revealed bilateral infiltrates and pleural effusions. White count 8.5. Hemoglobin 9.0. Platelet count 138. Sodium 134. Potassium 4.1. Creatinine 0.97. He remains on bronchodilators, working well with the incentive spirometer. Objective - Vital Signs Vital signs: Vital Signs Temp 97.8 F 11/13/20 08:00 Pulse 66 11/13/20 11:00 Resp 34 H 11/13/20 11:00 BP 110/67 11/13/20 08:00 Pulse Ox 97 11/13/20 11:00 Intake & Output 11/12/20 11/13/20 11/13/20 18:59 06:59 18:59 Intake Total 901.588 639.862 210.638 Output Total 1113 620 520 Balance -211.412 19.862 -309.362 Weight 125.2 kg 128.9 kg Intake: IV 870 580.5 186.6 Albumin Human 25% 50 ml @ 250 Per Protocol IV ONCE ONE Rx#:[id number] Amiodarone 360 mg In 172.5 Dextrose 5% in Water 200 ml @ 1 MG/MIN 34.533 mls/ hr IV .Q6H PRN Rx#: [id number] Amiodarone 450 mg In 83.0 16.6 Dextrose 5% in Water 250 ml @ 0.5 MG/MIN 16.667 mls/hr IV .Q15H PRN Rx#: [id number] CO/CI 80 Pressure Bags 50 75 30 Sodium Chloride 0.9% 1, 440 250 140 000 ml @ 20 mls/hr IV . Q24H [facility] Rx#:[id number] ceFAZolin 2 gm In Sodium 50 Chloride 0.9% 50 ml @ 100 mls/hr IVPB Q8H [facility] Rx#: [id number] Intake, IV Titration 31.588 59.362 24.038 Amount Insulin Regular 100 unit 31.588 59.362 24.038 In Sodium Chloride 0.9% 100 ml @ Per Protocol IV .Q0M [facility] Rx#:[id number] Output: Chest Tube Drainage 390 180 LP 270 90 MS x2 120 90 Urine 723 440 520 Other: Voiding Method Indwelling Catheter Indwelling Catheter Indwelling Catheter ABP, PAP, CO, CI - Last Documented Arterial Blood Pressure 111/48 Pulmonary Artery Pressure 33/17 Cardiac Output 6.1 Cardiac Index 2.6 - Exam GENERAL EXAM: Awake and alert, 65-year-old male patient in 2 L of oxygen and the pulse ox of 97%, comfortable in no apparent distress. HEAD: Normocephalic/atraumatic. EYES: Normal reaction of pupils, equal size. Conjunctiva pink, sclera white. NOSE: Clear with pink turbinates. THROAT: No erythema or exudates. NECK: No masses, no JVD, no thyroid enlargement, no adenopathy. CHEST: No chest wall deformity. Symmetrical expansion. Midsternal incision clean dry and intact, 2 mediastinal one left pleural chest tubes in place to Pleur-evac and wall suction, with small amount of serous output no air leak. LUNGS: Equal air entry with no crackles, wheeze, rhonchi or dullness. CVS: Regular rate and rhythm, normal S1 and S2, no gallops, no murmurs, no rubs ABDOMEN: Soft, nontender. No hepatosplenomegaly, normal bowel sounds, no guarding or rigidity. EXTREMITIES: No clubbing, no edema, no cyanosis, 2+ pulses and upper and lower extremities. MUSCULOSKELETAL: Muscle strength and tone normal. SPINE: No scoliosis or deformity SKIN: No rashes. Left radial artery harvest site is Iker wrap, WYATT drain in place CENTRAL NERVOUS SYSTEM: Awake and alert and 3, No focal deficits, tone is n ormal in all 4 extremities. - Labs CBC & Chem 7: 11/13/20 03:55 11/13/20 03:55 Labs: Abnormal Lab Results - Last 24 Hours (Table) 11/05/20 11/12/20 11/12/20 Range/Units 09:25 11:55 13:59 RBC (4.30-5.90) m/uL Hgb (13.0-17.5) gm/dL Hct (39.0-53.0) % Plt Count (150-450) k/uL Sodium (137-145) mmol/L Glucose (74-99) mg/dL POC Glucose (mg/dL) 121 H 101 H (75-99) mg/dL Calcium (8.4-10.2) mg/dL Alkaline Phosphatase (38-126) U/L Total Protein (6.3-8.2) g/dL Albumin (3.5-5.0) g/dL Crossmatch See Detail 11/12/20 11/12/20 11/12/20 Range/Units 14:43 14:59 15:57 RBC (4.30-5.90) m/uL Hgb (13.0-17.5) gm/dL Hct (39.0-53.0) % Plt Count (150-450) k/uL Sodium (137-145) mmol/L Glucose (74-99) mg/dL POC Glucose (mg/dL) 110 H 114 H 101 H (75-99) mg/dL Calcium (8.4-10.2) mg/dL Alkaline Phosphatase (38-126) U/L Total Protein (6.3-8.2) g/dL Albumin (3.5-5.0) g/dL Crossmatch 11/12/20 11/12/20 11/12/20 Range/Units 16:57 18:04 18:51 RBC (4.30-5.90) m/uL Hgb (13.0-17.5) gm/dL Hct (39.0-53.0) % Plt Count (150-450) k/uL Sodium (137-145) mmol/L Glucose (74-99) mg/dL POC Glucose (mg/dL) 152 H 164 H 159 H (75-99) mg/dL Calcium (8.4-10.2) mg/dL Alkaline Phosphatase (38-126) U/L Total Protein (6.3-8.2) g/dL Albumin (3.5-5.0) g/dL Crossmatch 11/12/20 11/12/20 11/12/20 Range/Units 20:25 21:15 22:18 RBC (4.30-5.90) m/uL Hgb (13.0-17.5) gm/dL Hct (39.0-53.0) % Plt Count (150-450) k/uL Sodium (137-145) mmol/L Glucose (74-99) mg/dL POC Glucose (mg/dL) 158 H 153 H 154 H (75-99) mg/dL Calcium (8.4-10.2) mg/dL Alkaline Phosphatase (38-126) U/L Total Protein (6.3-8.2) g/dL Albumin (3.5-5.0) g/dL Crossmatch 11/12/20 11/12/20 11/13/20 Range/Units 23:12 23:57 01:00 RBC (4.30-5.90) m/uL Hgb (13.0-17.5) gm/dL Hct (39.0-53.0) % Plt Count (150-450) k/uL Sodium (137-145) mmol/L Glucose (74-99) mg/dL POC Glucose (mg/dL) 145 H 128 H 143 H (75-99) mg/dL Calcium (8.4-10.2) mg/dL Alkaline Phosphatase (38-126) U/L Total Protein (6.3-8.2) g/dL Albumin (3.5-5.0) g/dL Crossmatch 11/13/20 11/13/20 11/13/20 Range/Units 03:04 03:53 03:55 RBC 2.88 L (4.30-5.90) m/uL Hgb 9.0 L (13.0-17.5) gm/dL Hct 25.2 L (39.0-53.0) % Plt Count 138 L (150-450) k/uL Sodium (137-145) mmol/L Glucose (74-99) mg/dL POC Glucose (mg/dL) 122 H 125 H (75-99) mg/dL Calcium (8.4-10.2) mg/dL Alkaline Phosphatase (38-126) U/L Total Protein (6.3-8.2) g/dL Albumin (3.5-5.0) g/dL Crossmatch 11/13/20 11/13/20 11/13/20 Range/Units 03:55 05:54 08:27 RBC (4.30-5.90) m/uL Hgb (13.0-17.5) gm/dL Hct (39.0-53.0) % Plt Count (150-450) k/uL Sodium 134 L (137-145) mmol/L Glucose 109 H (74-99) mg/dL POC Glucose (mg/dL) 134 H 109 H (75-99) mg/dL Calcium 8.0 L (8.4-10.2) mg/dL Alkaline Phosphatase 32 L (38-126) U/L Total Protein 5.1 L (6.3-8.2) g/dL Albumin 2.9 L (3.5-5.0) g/dL Crossmatch 11/13/20 11/13/20 Range/Units 09:59 11:26 RBC (4.30-5.90) m/uL Hgb (13.0-17.5) gm/dL Hct (39.0-53.0) % Plt Count (150-450) k/uL Sodium (137-145) mmol/L Glucose (74-99) mg/dL POC Glucose (mg/dL) 160 H 172 H (75-99) mg/dL Calcium (8.4-10.2) mg/dL Alkaline Phosphatase (38-126) U/L Total Protein (6.3-8.2) g/dL Albumin (3.5-5.0) g/dL Crossmatch Assessment and Plan Assessment: 1 Multivessel coronary artery disease, symptomatic, status post four-vessel coronary artery bypass grafting with RAHMAN to the LAD, left radial artery graft to the OM, SVG to the PDA in the diagonal, and left atrial appendage exclusion, postoperative day #2 2 Routine ventilator management, extubated on postoperative day #0, on 11/11/2020, within 3-1/2 hours of OR exit time 3 Hyperlipidemia 4 History of sick sinus syndrome status post permanent pacemaker 5 Morbid obesity 6 BPH 7 Osteoarthritis 8 Postoperative sternotomy blood loss anemia, an expected outcome of bypass surgery Plan: The patient was seen and evaluated by Dr. Griffith Chest x-ray and labs reviewed Currently stable from the pulmonary and critical care standpoint We'll continue the current treatment plan Continue to increase his activity as tolerated Continue to encourage increased use of the incentive spirometer We'll continue to follow Current echo care time 35 minutes I, the cosigning physician, performed a history & physical examination of the patient. Lungs sounds with crackles in the bilateral posterior bases. Maintaining good O2 saturations in the 90s on 2 L/m per nasal cannula. I discussed the assessment and plan of care with my nurse practitioner, Ericka Melendez. I attest to the above note as dictated by her.
[2020-11-13 12:10] LABS: Glucose,Whole Blood 163 mg/dL (75-99)
--- NOTE | 2020-11-13 12:18 | P.PN ---
Subjective Progress Note Date: 11/13/20 Principal diagnosis: Triple-vessel coronary artery disease, preserved left ventricular function, mild to moderate mitral valve regurgitation. Past medical history significant for hypertension, hyperlipidemia, obesity, peripheral vascular disease, sick sinus syndrome status post dual chamber pacemaker insertion, osteoarthritis and prostate disorder. POD #2 quadruple coronary artery bypass grafting using the left internal mammary artery to the left anterior descending coronary artery, left radial artery from aorta to the obtuse marginal coronary artery, a reverse greater saphenous vein graft from the aorta to the second diagonal coronary artery, and a reverse greater saphenous vein graft from the aorta to the distal posterior descending coronary artery. Exclusion of the left atrial appendage using a 35 mm Atriclip. Endoscopic harvesting of the right radial artery. Endoscopic harvesting of the left greater saphenous vein. Intraoperative transesophageal echocardiogram and epi-aortic scanning. Intraoperative graft flow measurements using the [employer] system. Postoperative acute blood loss anemia, expected due to hemodilution and cardiopulmonary bypass. Paroxysmal atrial fibrillation, known, recurrent after open heart surgery. The patient was seen in follow-up today 11/13/2020 at his bedside in the intensive care unit. Currently he is sitting up to the bedside chair, is awake, alert and oriented 3. Denies any complaints of shortness of breath although is complaining of some surgical type pain to his chest tube insertion sites. The patient reports that his pain is much more controlled today and he feels much better than yesterday. He remains hemodynamically stable and is currently on no inotropic or pressor support. He converted to atrial fibrillation with RVR last evening around 5 PM, amiodarone drip was initiated and is currently infusing at 0.5 mg/m. Bedside telemetry this morning shows atrial fibrillation for atrial flutter heart rate 87 BPM. Right IJ cordis remains in place with continuous CVP monitoring, current CVP pressure 13 mmHg. Oxygen saturations are 97% on 2 L nasal cannula and he is achieving 500 mL on his incentive spirometry with much encouragement. Atrial epicardial pacemaker wires remain in place and are groun ded. His permanent pacemaker was interrogated yesterday by the [employer] rep. Left pleural and mediastinal chest tubes remain in place to low continuous wall suction -20 cm H2O. No air leak is present. Draining thin serosanguineous drainage. Left pleural chest tube drained 70 mL output in the last 8 hours and 300 mL output in the last 24 hours. Mediastinal chest tubes drained 40 mL output in the last 8 hours and 210 mL output in the last 24 hours. He reports he has been ambulating in his room with assistance from nursing staff. Objective - Vital Signs Vital signs: Vital Signs Temp 98.4 F 11/13/20 04:00 Pulse 88 11/13/20 07:00 Resp 20 11/13/20 07:00 BP 104/63 11/12/20 19:00 Pulse Ox 96 11/13/20 07:00 Intake & Output 11/12/20 11/13/20 11/13/20 18:59 06:59 18:59 Intake Total 901.588 639.862 42.6 Output Total 1113 620 40 Balance -211.412 19.862 2.6 Weight 125.2 kg 128.9 kg Intake: IV 870 580.5 42.6 Albumin Human 25% 50 ml @ 250 Per Protocol IV ONCE ONE Rx#:[id number] Amiodarone 360 mg In 172.5 Dextrose 5% in Water 200 ml @ 1 MG/MIN 34.533 mls/ hr IV .Q6H PRN Rx#: [id number] Amiodarone 450 mg In 83.0 16.6 Dextrose 5% in Water 250 ml @ 0.5 MG/MIN 16.667 mls/hr IV .Q15H PRN Rx#: [id number] CO/CI 80 Pressure Bags 50 75 6 Sodium Chloride 0.9% 1, 440 250 20 000 ml @ 20 mls/hr IV . Q24H [facility] Rx#:[id number] ceFAZolin 2 gm In Sodium 50 Chloride 0.9% 50 ml @ 100 mls/hr IVPB Q8H [facility] Rx#: [id number] Intake, IV Titration 31.588 59.362 Amount Insulin Regular 100 unit 31.588 59.362 In Sodium Chloride 0.9% 100 ml @ Per Protocol IV .Q0M [facility] Rx#:[id number] Output: Chest Tube Drainage 390 180 LP 270 90 MS x2 120 90 Urine 723 440 40 Other: Voiding Method Indwelling Catheter Indwelling Catheter ABP, PAP, CO, CI - Last Documented Arterial Blood Pressure 136/54 Pulmonary Artery Pressure 33/17 Cardiac Output 6.1 Cardiac Index 2.6 - Constitutional General appearance: Present: cooperative, morbidly obese, no acute distress - EENT Eyes: Present: normal appearance. Absent: scleral icterus ENT: Present: hearing grossly normal - Neck Details: Neck is supple, no JVD. Right IJ cordis remains in place with continuous CVP monitoring. - Respiratory Details: Lung sounds are essentially clear throughout, diminished was bilateral bases. No wheezes, rhonchi or crackles. Respirations are symmetrical and nonlabored. Oxygen saturation are 97% on 2 L nasal cannula. Achieving 500 mL on his incentive spirometry as much encouragement. Mediastinal and left pleural chest tubes remain in place to low continuous wall suction -20 cm H2O. No air leak is present. Draining thin serosanguineous drainage. - Cardiovascular Details: Irregular rhythm and controlled rate. S1 and S2 present, negative for S3, gallop or murmur. Sternum is stable. Bedside telemetry showing atrial fibrillation/atrial flutter heart rate 87 BPM. Atrial epicardial pacemaker wires in place and grounded. Trace edema present to his bilateral lower extremities. Heart hugger is in place and he is demonstrating appropriate use with encouragement. Knee-high GINA hose and sequential compression devices in place to his bilateral lower extremities. - Gastrointestinal Gastrointestinal Comment(s): Abdomen soft, nontender and nondistended. Active bowel sounds present in all 4 abdominal quadrants. No guarding or rigidity. No organomegaly appreciated. To lerating oral intake. - Genitourinary Genitourinary Comment(s): Vargas catheter for accurate I&O. Draining clear yellow urine with 290 mL output in the last 8 hours. - Integumentary Integumentary Comment(s): Skin is warm and dry. No clubbing or cyanosis is present. Midline sternal incision is clean, dry and approximated. No drainage or redness is present. Left lower extremity EVH site is clean, dry and approximated. No drainage redness is present. Right radial artery harvest sites clean, dry and approximated. No drainage redness is present. - Neurologic Neurologic: Present: CNII-XII intact. Absent: focal deficits - Musculoskeletal Musculoskeletal: Present: gait normal, generalized weakness, strength equal bilaterally - Psychiatric Psychiatric: Present: A&O x's 3, appropriate affect, intact judgment & insight - Allied health notes Allied health notes reviewed: nursing - Labs CBC & Chem 7: 11/13/20 03:55 11/13/20 03:55 Labs: Abnormal Lab Results - Last 24 Hours (Table) 11/05/20 11/12/20 11/12/20 Range/Units 09:25 09:03 10:06 RBC (4.30-5.90) m/uL Hgb (13.0-17.5) gm/dL Hct (39.0-53.0) % Plt Count (150-450) k/uL Sodium (137-145) mmol/L Glucose (74-99) mg/dL POC Glucose (mg/dL) 127 H 121 H (75-99) mg/dL Calcium (8.4-10.2) mg/dL Alkaline Phosphatase (38-126) U/L Total Protein (6.3-8.2) g/dL Albumin (3.5-5.0) g/dL Crossmatch See Detail 11/12/20 11/12/20 11/12/20 Range/Units 10:58 11:55 13:59 RBC (4.30-5.90) m/uL Hgb (13.0-17.5) gm/dL Hct (39.0-53.0) % Plt Count (150-450) k/uL Sodium (137-145) mmol/L Glucose (74-99) mg/dL POC Glucose (mg/dL) 121 H 121 H 101 H (75-99) mg/dL Calcium (8.4-10.2) mg/dL Alkaline Phosphatase (38-126) U/L Total Protein (6.3-8.2) g/dL Albumin (3.5-5.0) g/dL Crossmatch 11/12/20 11/12/20 11/12/20 Range/Units 14:43 14:59 15:57 RBC (4.30-5.90) m/uL Hgb (13.0-17.5) gm/dL Hct (39.0-53.0) % Plt Count (150-450) k/uL Sodium (137-145) mmol/L Glucose (74-99) mg/dL POC Glucose (mg/dL) 110 H 114 H 101 H (75-99) mg/dL Calcium (8.4-10.2) mg/dL Alkaline Phosphatase (38-126) U/L Total Protein (6.3-8.2) g/dL Albumin (3.5-5.0) g/dL Crossmatch 11/12/20 11/12/20 11/12/20 Range/Units 16:57 18:04 18:51 RBC (4.30-5.90) m/uL Hgb (13.0-17.5) gm/dL Hct (39.0-53.0) % Plt Count (150-450) k/uL Sodium (137-145) mmol/L Glucose (74-99) mg/dL POC Glucose (mg/dL) 152 H 164 H 159 H (75-99) mg/dL Calcium (8.4-10.2) mg/dL Alkaline Phosphatase (38-126) U/L Total Protein (6.3-8.2) g/dL Albumin (3.5-5.0) g/dL Crossmatch 11/12/20 11/12/20 11/12/20 Range/Units 20:25 21:15 22:18 RBC (4.30-5.90) m/uL Hgb (13.0-17.5) gm/dL Hct (39.0-53.0) % Plt Count (150-450) k/uL Sodium (137-145) mmol/L Glucose (74-99) mg/dL POC Glucose (mg/dL) 158 H 153 H 154 H (75-99) mg/dL Calcium (8.4-10.2) mg/dL Alkaline Phosphatase (38-126) U/L Total Protein (6.3-8.2) g/dL Albumin (3.5-5.0) g/dL Crossmatch 11/12/20 11/12/20 11/13/20 Range/Units 23:12 23:57 01:00 RBC (4.30-5.90) m/uL Hgb (13.0-17.5) gm/dL Hct (39.0-53.0) % Plt Count (150-450) k/uL Sodium (137-145) mmol/L Glucose (74-99) mg/dL POC Glucose (mg/dL) 145 H 128 H 143 H (75-99) mg/dL Calcium (8.4-10.2) mg/dL Alkaline Phosphatase (38-126) U/L Total Protein (6.3-8.2) g/dL Albumin (3.5-5.0) g/dL Crossmatch 11/13/20 11/13/20 11/13/20 Range/Units 03:04 03:53 03:55 RBC 2.88 L (4.30-5.90) m/uL Hgb 9.0 L (13.0-17.5) gm/dL Hct 25.2 L (39.0-53.0) % Plt Count 138 L (150-450) k/uL Sodium (137-145) mmol/L Glucose (74-99) mg/dL POC Glucose (mg/dL) 122 H 125 H (75-99) mg/dL Calcium (8.4-10.2) mg/dL Alkaline Phosphatase (38-126) U/L Total Protein (6.3-8.2) g/dL Albumin (3.5-5.0) g/dL Crossmatch 11/13/20 11/13/20 Range/Units 03:55 05:54 RBC (4.30-5.90) m/uL Hgb (13.0-17.5) gm/dL Hct (39.0-53.0) % Plt Count (150-450) k/uL Sodium 134 L (137-145) mmol/L Glucose 109 H (74-99) mg/dL POC Glucose (mg/dL) 134 H (75-99) mg/dL Calcium 8.0 L (8.4-10.2) mg/dL Alkaline Phosphatase 32 L (38-126) U/L Total Protein 5.1 L (6.3-8.2) g/dL Albumin 2.9 L (3.5-5.0) g/dL Crossmatch - Imaging and Cardiology Chest x-ray: report reviewed, image reviewed Assessment and Plan Assessment: 1. Triple-vessel coronary artery disease, status post quadruple coronary artery bypass grafting surgery 2. Preserved left ventricular function 3. Mild to moderate mitral valve regurgitation 4. History of hypertension 5. History of 5. Lipidemia 6. Morbid obesity 7. Peripheral vascular disease 8. Sick sinus syndrome status post dual chamber pacemaker insertion 9. Prostate disorder 10. Osteoarthritis 11. Postoperative acute blood loss anemia, expected 12. Paroxysmal atrial fibrillation, known common occurrence after open heart surgery Plan: 1. Continue aspirin, statin, Plavix, and beta richard. Will increase metoprolol tartrate 50 mg by mouth twice a day. 2. Discontinue amiodarone drip, start amiodarone 400 mg by mouth twice a day for atrial fibrillation prophylaxis. Give amiodarone 150 mg IV bolus 1 now over 10 minutes. 3. Discontinue Norvasc and start Cardizem 30 mg by mouth every 6 hours for radial artery spasm prophylaxis. Please do not discontinue Norvasc without checking with cardiothoracic surgery service. 4. Wean O2 as tolerated. Encourage incentive spirometry use 10 times every hour while awake. Bronchodilator management per pulmonary critical care service recommendations. 5. Increase activity, ambulate as tolerated. PT/OT/cardiac rehab following. 6. Will monitor daily labs and chest x-rays. Electrolyte replacement per protocol. 7. GI/DVT prophylaxis. 8. Pain control with current medication regimen. 9. Insulin management per primary care service. Patient's preoperative hemoglobin A1c 6.4%. 10. Lasix 40 mg IV 1 now and potassium chloride 20 mEq by mouth 1 now. 11. Continue right IJ Cordis with continuous CVP monitoring. 12. We will remove his mediastinal and left pleural chest tubes today. 13. Discontinue Vargas catheter today and continue to record strict accurate I's and O's. Continue daily weights. 14. Continue his home dose of Ditropan XL 10 mg by mouth daily at bedtime. 15. Remove atrial epicardial pacemaker wires today. The patient will be on bed rest for 1 hour post pacemaker wire removal. 16. More recommendations to follow based on patient's clinical course. Time with Patient: Greater than 30
[2020-11-13] MEDS: SODIUM CHLORIDE 0.9% 1,000 ML IV SCH (12:22)
[2020-11-13 14:20] LABS: Glucose,Whole Blood 112 mg/dL (75-99)
[2020-11-13 16:12] LABS: Glucose,Whole Blood 121 mg/dL (75-99)
[2020-11-13 16:57] LABS: Glucose,Whole Blood 131 mg/dL (75-99)
[2020-11-13 17:54] LABS: Glucose,Whole Blood 149 mg/dL (75-99)
--- NOTE | 2020-11-13 18:55 | PN ---
PROGRESS NOTE DATE OF SERVICE: 11/13/2020 INTERVAL HISTORY: I am covering for Dr. Leyva. This is a 65-year-old gentleman who was admitted after CAD, CABG is being closely monitored at this time. The chest tube has been removed at this time. Blood sugar is elevated. Oral intake is poor. The patient is currently maintained on IV insulin drip. No fever. Occasional cough is reported. PHYSICAL EXAMINATION: GENERAL: Patient is alert and oriented times three. VITAL SIGNS: Pulse 71, blood pressure 123/48, respirations 35, temperature normal, pulse ox 96% on 2 liters. HEENT: Conjunctivae normal. Oral mucosa moist. NECK: No jugular venous distention. No carotid bruits. RESPIRATORY: Breath sounds diminished at the bases. A few scattered rhonchi. HEART: S1 and S2, muffled. ABDOMEN: Soft, no tenderness. No masses palpable. EXTREMITIES: No edema, no swelling. NERVOUS: No focal deficits. LABORATORY DATA: Accu-Cheks 163 and 112. ASSESSMENT: 1. Status post coronary artery disease, coronary artery bypass graft. 2. Hypertension. 3. Hyperlipidemia. 4. History of degenerative joint disease. 5. History of prostate disease. 6. History of Methicillin resistant Staphylococcus aureus. 7. History of pacemaker. 8. History of TURP. 9. Elevated glucose. 10.Obesity with body mass of 37.4. 11.FULL CODE. RECOMMENDATIONS AND DISCUSSION: Continue current medications, continue symptomatic treatment. Continue with incentive spirometry. Symptomatic treatment of pain. Closely follow with Cardiology, Cardiothoracic Surgery. Further recommendations to follow. MMODL / IJN: [id number] /
[2020-11-13 20:03] LABS: Glucose,Whole Blood 178 mg/dL (75-99)
[2020-11-13] MEDS: SENNOSIDES-DOCUSATE SODIUM 1 EACH TAB PO SCH (20:40)
[2020-11-13 21:52] LABS: Glucose,Whole Blood 125 mg/dL (75-99)
[2020-11-13] MEDS: INSULIN REGULAR 100 UNIT in SODIUM CHLORIDE 0.9% 100 ML IV SCH (21:54)
[2020-11-13 22:58] LABS: Glucose,Whole Blood 123 mg/dL (75-99)
[2020-11-14 00:02] LABS: Glucose,Whole Blood 88 mg/dL (75-99)
[2020-11-14] MEDS: oxyCODONE-APAP 10-325MG 1 EACH TAB PO PRN ×3 (00:51→16:24)
[2020-11-14 02:17] LABS: Glucose,Whole Blood 141 mg/dL (75-99)
[2020-11-14 03:00] LABS: Glucose,Whole Blood 132 mg/dL (75-99)
[2020-11-14 04:05] LABS: Glucose,Whole Blood 139 mg/dL (75-99)
[2020-11-14 04:38] LABS: Basophils % (A) 0 %; Eosinophils % (A) 0 %; HCT 23.9 % (39.0-53.0); HGB 8.4 gm/dL (13.0-17.5); Lymphocytes # (A) 1.4 k/uL (1.0-4.8); Lymphocytes % (A) 16 %; MCH 30.8 pg (25.0-35.0); MCHC 35.1 g/dL (31.0-37.0); MCV 87.9 fL (80.0-100.0); Mean Platelet Volume 7.4; Monocytes # (A) 0.5 k/uL (0-1.0); Monocytes % (A) 6 %; Neutrophils # (A) 6.7 k/uL (1.3-7.7); Neutrophils % (A) 76 %; Platelet Count 161 k/uL (150-450); RBC 2.71 m/uL (4.30-5.90); RDW 13.4 % (11.5-15.5); WBC 8.8 k/uL (3.8-10.6)
[2020-11-14 04:53] LABS: Albumin 2.7 g/dL (3.5-5.0); Potassium 3.9 mmol/L (3.5-5.1); Total Bilirubin 0.6 mg/dL (0.2-1.3)
[2020-11-14] MEDS: KETOROLAC 15 MG/ML 1 ML VIAL IVP SCH ×2 (05:07→12:09)
[2020-11-14 05:58] LABS: Glucose,Whole Blood 133 mg/dL (75-99)
[2020-11-14] MEDS ORDERED: POTASSIUM CHLORIDE ER 20 MEQ TAB.ER PO SCH (08:00)
[2020-11-14] MEDS ORDERED: POTASSIUM CHLORIDE ER 20 MEQ TAB.ER PO STA (08:13)
[2020-11-14] MEDS: HEPARIN SODIUM,PORCINE/PF 5,000 UNIT/0.5 ML SYRINGE SQ SCH ×3 (08:17→22:00)
[2020-11-14] MEDS: CLOPIDOGREL 75 MG TAB PO SCH (08:19)
[2020-11-14] MEDS: PANTOPRAZOLE 40 MG/10 ML VIAL IVP SCH (08:19)
[2020-11-14] MEDS: ATORVASTATIN 40 MG TAB PO SCH (08:19)
[2020-11-14] MEDS: METOPROLOL TARTRATE 50 MG TAB PO SCH ×2 (08:19→22:00)
[2020-11-14] MEDS: ASPIRIN 325 MG TAB PO SCH (08:19)
[2020-11-14] MEDS: AMIODARONE 200 MG TAB PO SCH ×2 (08:19→22:00)
[2020-11-14] MEDS: DILTIAZEM ORAL 30 MG TAB PO SCH ×4 (08:19→22:00)
--- NOTE | 2020-11-14 08:48 | P.PN ---
Subjective Progress Note Date: 11/14/20 Principal diagnosis: Status post open heart This is a 65-year-old gentleman who underwent the day before yesterday elective coronary artery bypass grafting 4 with RAHMAN to LAD and radial artery to left circumflex as well as SVG to diagonal and SVG to PDA. The patient was seen today November 142020. This is postoperative elevation day #3. He continues to be in atrial fibrillation/atrial flutter with a controlled heart rate. I advised the patient to be started on oral anticoagulation if he remains in atrial fibrillation for the next 24 hours. Hemodynamically he is stable. He is on dual antiplatelet therapy along with high intensity statin. The Norvasc was switched to Cardizem yesterday. The hemoglobin is 8.0. The GFR continues to be above 60. The chest x-ray was reviewed and showed small left pleural effusion. Objective - Vital Signs Vital signs: Vital Signs Temp 98.1 F 11/14/20 08:00 Pulse 87 11/14/20 08:00 Resp 22 11/14/20 08:00 BP 104/84 11/14/20 08:00 Pulse Ox 94 L 11/14/20 08:00 Intake & Output 11/13/20 11/14/20 11/14/20 18:59 06:59 18:59 Intake Total 462.654 365.273 49 Output Total 770 300 50 Balance -307.346 65.273 -1 Weight 125.7 kg Intake: IV 428.6 299 49 Amiodarone 450 mg In 16.6 Dextrose 5% in Water 250 ml @ 0.5 MG/MIN 16.667 mls/hr IV .Q15H PRN Rx#: [id number] Pressure Bags 72 39 9 Sodium Chloride 0.9% 1, 340 260 40 000 ml @ 20 mls/hr IV . Q24H ALE[facility] Rx#:[id number] Intake, IV Titration 34.054 66.273 Amount Insulin Regular 100 unit 34.054 66.273 In Sodium Chloride 0.9% 100 ml @ Per Protocol IV .Q0M ALEAH Rx#:[id number] Output: Urine 770 300 50 Other: Voiding Method Indwelling Catheter Indwelling Catheter # Voids 1 1 1 ABP, PAP, CO, CI - Last Documented Arterial Blood Pressure 92/50 Pulmonary Artery Pressure 33/17 Cardiac Output 6.1 Cardiac Index 2.6 - Labs CBC & Chem 7: 11/14/20 04:00 11/14/20 04:00 Labs: Abnormal Lab Results - Last 24 Hours (Table) 11/13/20 11/13/20 11/13/20 Range/Units 09:59 11:26 12:09 RBC (4.30-5.90) m/uL Hgb (13.0-17.5) gm/dL Hct (39.0-53.0) % Sodium (137-145) mmol/L BUN (9-20) mg/dL Glucose (74-99) mg/dL POC Glucose (mg/dL) 160 H 172 H 163 H (75-99) mg/dL Calcium (8.4-10.2) mg/dL Alkaline Phosphatase (38-126) U/L Total Protein (6.3-8.2) g/dL Albumin (3.5-5.0) g/dL 11/13/20 11/13/20 11/13/20 Range/Units 14:18 16:11 16:56 RBC (4.30-5.90) m/uL Hgb (13.0-17.5) gm/dL Hct (39.0-53.0) % Sodium (137-145) mmol/L BUN (9-20) mg/dL Glucose (74-99) mg/dL POC Glucose (mg/dL) 112 H 121 H 131 H (75-99) mg/dL Calcium (8.4-10.2) mg/dL Alkaline Phosphatase (38-126) U/L Total Protein (6.3-8.2) g/dL Albumin (3.5-5.0) g/dL 11/13/20 11/13/20 11/13/20 Range/Units 17:52 20:02 21:51 RBC (4.30-5.90) m/uL Hgb (13.0-17.5) gm/dL Hct (39.0-53.0) % Sodium (137-145) mmol/L BUN (9-20) mg/dL Glucose (74-99) mg/dL POC Glucose (mg/dL) 149 H 178 H 125 H (75-99) mg/dL Calcium (8.4-10.2) mg/dL Alkaline Phosphatase (38-126) U/L Total Protein (6.3-8.2) g/dL Albumin (3.5-5.0) g/dL 11/13/20 11/14/20 11/14/20 Range/Units 22:56 02:16 02:59 RBC (4.30-5.90) m/uL Hgb (13.0-17.5) gm/dL Hct (39.0-53.0) % Sodium (137-145) mmol/L BUN (9-20) mg/dL Glucose (74-99) mg/dL POC Glucose (mg/dL) 123 H 141 H 132 H (75-99) mg/dL Calcium (8.4-10.2) mg/dL Alkaline Phosphatase (38-126) U/L Total Protein (6.3-8.2) g/dL Albumin (3.5-5.0) g/dL 11/14/20 11/14/20 11/14/20 Range/Units 04:00 04:00 04:04 RBC 2.71 L (4.30-5.90) m/uL Hgb 8.4 L (13.0-17.5) gm/dL Hct 23.9 L (39.0-53.0) % Sodium 132 L (137-145) mmol/L BUN 31 H (9-20) mg/dL Glucose 124 H (74-99) mg/dL POC Glucose (mg/dL) 139 H (75-99) mg/dL Calcium 8.0 L (8.4-10.2) mg/dL Alkaline Phosphatase 36 L (38-126) U/L Total Protein 5.0 L (6.3-8.2) g/dL Albumin 2.7 L (3.5-5.0) g/dL 11/14/20 Range/Units 05:56 RBC (4.30-5.90) m/uL Hgb (13.0-17.5) gm/dL Hct (39.0-53.0) % Sodium (137-145) mmol/L BUN (9-20) mg/dL Glucose (74-99) mg/dL POC Glucose (mg/dL) 133 H (75-99) mg/dL Calcium (8.4-10.2) mg/dL Alkaline Phosphatase (38-126) U/L Total Protein (6.3-8.2) g/dL Albumin (3.5-5.0) g/dL Assessment and Plan Assessment: Assessment #1 coronary artery disease and status post CABG #2 hypertension #3 dyslipidemia #4 sinus tachycardia Plan #1 continue the current medical regimen #2 continue dual antiplatelet therapy #3 consider oral anticoagulation if the patient continues to be in A. fib/a flutter for more than 24 hours #4 follow-up with the patient
[2020-11-14] MEDS ORDERED: FUROSEMIDE 10 MG/ML 2 ML VIAL IV ONE (09:01)
--- NOTE | 2020-11-14 09:20 | XR ---
EXAMINATION TYPE: XR chest 2V DATE OF EXAM: 11/14/2020 COMPARISON: 11/13/2020 HISTORY: 65-year-old male postop CABG TECHNIQUE: PA and lateral views FINDINGS: Median sternotomy wires are present. Post-CABG clips in the mediastinum. Left anterior chest wall pac emaker generator with right atrial and right ventricular leads. Heart mildly enlarged. Patchy right s uprahilar and left basilar opacity remains but shows improvement from prior exam. Trace effusions not ed on the lateral view. IMPRESSION: 1. Similar mild cardiomegaly. Patchy right suprahilar and left basilar opacities, probable atelectasi s are improving. 2. Trace effusions remain, seen on the lateral view.
--- NOTE | 2020-11-14 09:53 | P.PN ---
Subjective Progress Note Date: 11/14/20 Principal diagnosis: Triple-vessel coronary artery disease, preserved left ventricular function, mild to moderate mitral valve regurgitation. Previous medical history of hypertens ion, hyperlipidemia, obesity, peripheral vascular disease, sick sinus syndrome status post Medtronic dual chamber pacemaker insertion in 07/2019, osteoarthritis and prostate disorder. POD #3 quadruple coronary artery bypass grafting using the left internal mammary artery to the left anterior descending coronary artery, left radial artery from aorta to the obtuse marginal coronary artery, a reverse greater saphenous vein graft from the aorta to the second diagonal coronary artery, and a reverse greater saphenous vein graft from the aorta to the distal posterior descending coronary artery. Exclusion of the left atrial appendage using a 35 mm Atriclip. Endoscopic harvesting of the right radial artery. Endoscopic harvesting of the left greater saphenous vein from the groin to below the knee level. Intraoperative transesophageal echocardiogram and epi-aortic scanning. Intraoperative graft flow measurements using the [employer] system. Postoperative acute blood loss anemia, expected due to hemodilution and cardiopulmonary bypass. Paroxysmal atrial fibrillation, known common occurance after open heart surgery. The patient's currently sitting up in a recliner in no acute distress in the intensive care unit eating breakfast. States pain is well controlled on current medication regimen, denies shortness of breath. Actively using incentive spirometer although only achieving 750 mL. His chest tubes and atrial epicardial wires were discontinued yesterday. He remains in atrial fibrillation with controlled rate, hemodynamically stable. He has been ambulatory in the hallway with standby assist. No new concerns. Objective - Vital Signs Vital signs: Vital Signs Temp 98.1 F 11/14/20 04:00 Pulse 75 11/14/20 07:00 Resp 20 11/14/20 07:00 BP 107/71 11/14/20 07:00 Pulse Ox 97 11/14/20 07:00 Intake & Output 11/13/20 11/14/20 11/14/20 18:59 06:59 18:59 Intake Total 462.654 365.273 23 Output Total 770 300 50 Balance -307.346 65.273 -27 Weight 125.7 kg Intake: IV 428.6 299 23 Amiodarone 450 mg In 16.6 Dextrose 5% in Water 250 ml @ 0.5 MG/MIN 16.667 mls/hr IV .Q15H PRN Rx#: [id number] Pressure Bags 72 39 3 Sodium Chloride 0.9% 1, 340 260 20 000 ml @ 20 mls/hr IV . Q24H [facility] Rx#:[id number] Intake, IV Titration 34.054 66.273 Amount Insulin Regular 100 unit 34.054 66.273 In Sodium Chloride 0.9% 100 ml @ Per Protocol IV .Q0M [facility] Rx#:[id number] Output: Urine 770 300 50 Other: Voiding Method Indwelling Catheter Indwelling Catheter # Voids 1 1 ABP, PAP, CO, CI - Last Documented Arterial Blood Pressure 131/45 Pulmonary Artery Pressure 33/17 Cardiac Output 6.1 Cardiac Index 2.6 - Exam CONSTITUTIONAL: Appears comfortable, cooperative, no acute distress RESPIRATORY: Lungs sounds diminished bilaterally. Respirations even, nonlabored. Currently on room air with oxygen saturation 95%. Able to achieve 750 mL on incentive spirometry. Strong cough. CARDIOVASCULAR: S1, S2 present. Irregular rate and rhythm, atrial fibrillation on telemetry. Sternum stable. Palpable peripheral pulses bilaterally. No edema present. No calf pain or tenderness noted. Heart hugger in place with patient demonstrating appropriate use. Antiembolism stockings, SCDs present. GASTROINTESTINAL: Abdomen soft, nontender, nondistended. Active bowel sounds present 4 quadrants. Tolerating diet. Positive flatus. GENITOURINARY: Continues to void clear, yellow urine. INTEGUMENTARY: Skin is warm and dry with evidence of good perfusion. Anterior chest incision well approximated and covered with dry intact dressing. EVH site well approximated without redness or drainage. Right radial artery harvest site well approximated, good cap refill, patient able to move all fingers and bark scaler appropriately NEUROLOGIC: Cranial nerves II through XII intact MUSKULOSKELETAL: Able to move all extremities, strength equal bilaterally, gait normal PSYCHIATRIC: Alert and oriented to person place and time, appropriate affect, intact judgment and insight INVASIVE LINES AND TUBES: Right internal jugular Cordis, left radial arterial line present. - Allied health notes Allied health notes reviewed: nursing - Labs CBC & Chem 7: 11/14/20 04:00 11/14/20 04:00 Labs: Abnormal Lab Results - Last 24 Hours (Table) 11/13/20 11/13/20 11/13/20 Range/Units 08:27 09:59 11:26 RBC (4.30-5.90) m/uL Hgb (13.0-17.5) gm/dL Hct (39.0-53.0) % Sodium (137-145) mmol/L BUN (9-20) mg/dL Glucose (74-99) mg/dL POC Glucose (mg/dL) 109 H 160 H 172 H (75-99) mg/dL Calcium (8.4-10.2) mg/dL Alkaline Phosphatase (38-126) U/L Total Protein (6.3-8.2) g/dL Albumin (3.5-5.0) g/dL 11/13/20 11/13/20 11/13/20 Range/Units 12:09 14:18 16:11 RBC (4.30-5.90) m/uL Hgb (13.0-17.5) gm/dL Hct (39.0-53.0) % Sodium (137-145) mmol/L BUN (9-20) mg/dL Glucose (74-99) mg/dL POC Glucose (mg/dL) 163 H 112 H 121 H (75-99) mg/dL Calcium (8.4-10.2) mg/dL Alkaline Phosphatase (38-126) U/L Total Protein (6.3-8.2) g/dL Albumin (3.5-5.0) g/dL 11/13/20 11/13/20 11/13/20 Range/Units 16:56 17:52 20:02 RBC (4.30-5.90) m/uL Hgb (13.0-17.5) gm/dL Hct (39.0-53.0) % Sodium (137-145) mmol/L BUN (9-20) mg/dL Glucose (74-99) mg/dL POC Glucose (mg/dL) 131 H 149 H 178 H (75-99) mg/dL Calcium (8.4-10.2) mg/dL Alkaline Phosphatase (38-126) U/L Total Protein (6.3-8.2) g/dL Albumin (3.5-5.0) g/dL 11/13/20 11/13/20 11/14/20 Range/Units 21:51 22:56 02:16 RBC (4.30-5.90) m/uL Hgb (13.0-17.5) gm/dL Hct (39.0-53.0) % Sodium (137-145) mmol/L BUN (9-20) mg/dL Glucose (74-99) mg/dL POC Glucose (mg/dL) 125 H 123 H 141 H (75-99) mg/dL Calcium (8.4-10.2) mg/dL Alkaline Phosphatase (38-126) U/L Total Protein (6.3-8.2) g/dL Albumin (3.5-5.0) g/dL 11/14/20 11/14/20 11/14/20 Range/Units 02:59 04:00 04:00 RBC 2.71 L (4.30-5.90) m/uL Hgb 8.4 L (13.0-17.5) gm/dL Hct 23.9 L (39.0-53.0) % Sodium 132 L (137-145) mmol/L BUN 31 H (9-20) mg/dL Glucose 124 H (74-99) mg/dL POC Glucose (mg/dL) 132 H (75-99) mg/dL Calcium 8.0 L (8.4-10.2) mg/dL Alkaline Phosphatase 36 L (38-126) U/L Total Protein 5.0 L (6.3-8.2) g/dL Albumin 2.7 L (3.5-5.0) g/dL 11/14/20 11/14/20 Range/Units 04:04 05:56 RBC (4.30-5.90) m/uL Hgb (13.0-17.5) gm/dL Hct (39.0-53.0) % Sodium (137-145) mmol/L BUN (9-20) mg/dL Glucose (74-99) mg/dL POC Glucose (mg/dL) 139 H 133 H (75-99) mg/dL Calcium (8.4-10.2) mg/dL Alkaline Phosphatase (38-126) U/L Total Protein (6.3-8.2) g/dL Albumin (3.5-5.0) g/dL - Imaging and Cardiology Chest x-ray: report reviewed, image reviewed Assessment and Plan Assessment: 1. Triple-vessel coronary artery disease, status post four-vessel CABG 2. Preserved left ventricular function 3. Mild to moderate mitral valve regurgitation 4. History of hypertension 5. History of hyperlipidemia, treated, cholesterol 169, LDL 91, triglycerides 182 6. Morbid obesity 7. Peripheral vascular disease 8. Sick sinus syndrome status post Medtronic dual chamber pacemaker insertion 9. Prostate disorder 10. Osteoarthritis 11. Postoperative acute blood loss anemia, expected 12. Paroxysmal atrial fibrillation, known common occurrence after open heart surgery, status post exclusion of the left atrial appendage Plan: 1. Continue aspirin, statin, Plavix, beta richard therapy. Will increase beta richard as tolerated 2. Continue oral amiodarone for atrial fibrillation prophylaxis. Will initiate anticoagulation prior to discharge 3. Continue Cardizem for radial artery spasm prophylaxis. Please do not discontinue CCB without checking with cardiothoracic surgery service. 4. Wean O2 as tolerated. Encourage incentive spirometry use 10 times every hour while awake. Bronchodilator management per pulmonology 5. Increase activity, ambulate as tolerated. PT/OT/cardiac rehab following. 6. Will monitor daily labs and chest x-rays. Electrolyte replacement per protocol. No blood transfusion 7. GI/DVT prophylaxis. 8. Pain control with current medication regimen. 9. Insulin management per primary care service. Patient's preoperative hemoglobin A1c 6.4%. 10. Lasix 20 mg IV 1 11. Discontinue cordis, arterial line 12. Strict accurate I's and O's. Continue daily weights. 13. Will place [employer] [facility] cardiac stepdown unit. May transfer when bed available 14. Discharge planning in progress. Anticipate discharge home with home care in the next 24-48 hours 15. More recommendations to follow based on patient's clinical course. Time with Patient: Greater than 30
--- NOTE | 2020-11-14 10:32 | P.PN ---
Subjective Progress Note Date: 11/14/20 Principal diagnosis: Coronary artery disease, status post coronary artery bypass grafting 55-year-old white male patient of Dr. Frances Mosqueda who had been complaining of progressive chest pressure and dyspnea on exertion, underwent cardiac catheterization that showed a triple vessel disease. Patient had a complex LAD diagonal bifurcation, severe proximal OM1 and diffuse proximal to mid PDA disease. His echocardiogram in July 2020 showed preserved systolic function and no significant valvular abnormalities. Patient is a nonsmoker, and no history of COPD although he was noted to have wheezing on physical exam and the possibility of reactive airway disease. His past medical history is positive for hyperlipidemia, osteoarthritis, sick sinus syndrome status post permanent pacemaker implantation, morbid obesity, BPH. Patient was evaluated by cardiothoracic surgery and underwent four-vessel coronary artery bypass grafting today on 11/11/2020 with a RAHMAN to the LAD, SVG to the PDA and the diagonal, and left radial artery graft to the OM, left atrial appendage exclusion. Patient is seen in the postoperative period in the intensive care unit, sedated and venti lated, on assist control mode of ventilation with a rate of 12, tidal volumes 450, FiO2 of percent and PEEP of 5. Postop blood gas is pending, patient in sinus mechanism, hemodynamically patient is stable, he is currently on 0.9 at 50, propofol is at 20 mics per kilo per minute, and nitroglycerin is at 5 mics per minute. No other drips. Doing well, patient has one left pleural in the 2 mediastinal chest tubes with small amount of sanguinous output, no air leak, patient in sinus mechanism. His cardiac output and cardiac index are 4.8 and 2.1 respectively, CVP is 18, PA pressures 34/24. On 11/12/2020 patient seen in follow-up in intensive care unit, today's postoperative day #1, status post four-vessel bypass grafting, patient was successfully weaned and extubated from mechanical ventilator last night at around 1955, tolerated extubation well so far, having some pain issues, he is on a combination of oral [place] and some IV narcotics for breakthrough pain, however his incentive spirometer effort is still suboptimal, less than 500 mL on the today, he is up in the chair today, as a heart heart sound, he is using incentive spirometer, he is on 3 L of oxygen with pulse ox of 96%, hem odynamically he is stable, he remains on lactated Ringer's at 50 ML per hour, insulin drip is 4.5 units per hour, and nitroglycerin is at 5 mics per kilo per minute. He still has 2 mediastinal and left pleural chest tubes in place, and there has been 740 ML. Stressing is output from the left pleural, and 520 ML from the mediastinal chest tubes, his right wrist WYATT drain put out 10 mL of serous output. His chest x-ray has been reviewed showing diffuse pleural parenchymal changes, with consideration of interstitial edema and pleural effusion. Sounds are diminished at the bases. he is on breathing treatments, no wheezing, no rhonchi. Labs have been reviewed, hemoglobin is 9.5, white count is 8.0, sodium is 136, the rest of electrolytes and renal profile are unremarkable. In sinus mechanism, with a controlled heart rate. No nausea or vomiting, patient continues on a full liquid diet, and he is currently on fluid restriction of 1.5 L daily The patient is seen today 11/13/2020 and follow-up in the intensive care unit. This is postoperative day #2. Status post coronary artery bypass grafting 4. He is currently sitting up in a chair at the bedside. Awake and alert in no acute distress. Maintaining O2 saturations in the 90s on 2 L/m per nasal cannula. He is 0.9 normal saline at 30 MLS per hour. Insulin drip at 6 units per hour. He did have an episode of atrial fibrillation and is currently on amiodarone at 0.5 mg/m. He also received Lasix 40 mg IVP 1 today. Asked x-ray revealed bilateral infiltrates and pleural effusions. White count 8.5. Hemoglobin 9.0. Platelet count 138. Sodium 134. Potassium 4.1. Creatinine 0.97. He remains on bronchodilators, working well with the incentive spirometer. The patient is seen today 11/14/2020 in follow-up in the intensive care unit. Postoperative day #3. He's up ambulating in the room with assistance. He is maintaining O2 saturation the 90s on room air. He has lactated Ringer's running at 30 mL per hour. No significant issues overnight. Chest x-ray shows mild cardiomegaly. Patchy right suprahilar left basilar opacities consistent with atelectasis, improving. Continues to work well with the incentive spirometer. White count 8.8. Hemoglobin 8.4. Sodium 132. Potassium 3.9. Creatinine 1.04. Objective - Vital Signs Vital signs: Vital Signs Temp 98.1 F 11/14/20 08:00 Pulse 73 11/14/20 09:00 Resp 24 11/14/20 09:00 BP 104/84 11/14/20 08:00 Pulse Ox 95 11/14/20 09:00 Intake & Output 11/13/20 11/14/20 11/14/20 18:59 06:59 18:59 Intake Total 462.654 365.273 75 Output Total 770 300 50 Balance -307.346 65.273 25 Weight 125.7 kg Intake: IV 428.6 299 75 Amiodarone 450 mg In 16.6 Dextrose 5% in Water 250 ml @ 0.5 MG/MIN 16.667 mls/hr IV .Q15H PRN Rx#: [id number] Pressure Bags 72 39 15 Sodium Chloride 0.9% 1, 340 260 60 000 ml @ 20 mls/hr IV . Q24H ALEAH Rx#:[id number] Intake, IV Titration 34.054 66.273 Amount Insulin Regular 100 unit 34.054 66.273 In Sodium Chloride 0.9% 100 ml @ Per Protocol IV .Q0M ALEAH Rx#:[id number] Output: Urine 770 300 50 Other: Voiding Method Indwelling Catheter Indwelling Catheter Toilet # Voids 1 1 1 ABP, PAP, CO, CI - Last Documented Arterial Blood Pressure 121/50 Pulmonary Artery Pressure 33/17 Cardiac Output 6.1 Cardiac Index 2.6 - Exam GENERAL EXAM: Awake and alert, 65-year-old male patient on room air, comfortable in no apparent distress. HEAD: Normocephalic/atraumatic. EYES: Normal reaction of pupils, equal size. Conjunctiva pink, sclera white. NOSE: Clear with pink turbinates. THROAT: No erythema or exudates. NECK: No masses, no JVD, no thyroid enlargement, no adenopathy. CHEST: No chest wall deformity. Symmetrical expansion. Midsternal incision clean dry and intact. LUNGS: Equal air entry with faint crackles in the posterior bases. CVS: Regular rate and rhythm, normal S1 and S2, no gallops, no murmurs, no rubs ABDOMEN: Soft, nontender. No hepatosplenomegaly, normal bowel sounds, no guarding or rigidity. EXTREMITIES: No clubbing, no edema, no cyanosis, 2+ pulses and upper and lower extremities. MUSCULOSKELETAL: Muscle strength and tone normal. SPINE: No scoliosis or deformity SKIN: No rashes. Left radial artery harvest site is Iker wrap CENTRAL NERVOUS SYSTEM: Awake and alert and 3, No focal deficits, tone is normal in all 4 extremities. - Labs CBC & Chem 7: 11/14/20 04:00 11/14/20 04:00 Labs: Abnormal Lab Results - Last 24 Hours (Table) 11/13/20 11/13/20 11/13/20 Range/Units 11:26 12:09 14:18 RBC (4.30-5.90) m/uL Hgb (13.0-17.5) gm/dL Hct (39.0-53.0) % Sodium (137-145) mmol/L BUN (9-20) mg/dL Glucose (74-99) mg/dL POC Glucose (mg/dL) 172 H 163 H 112 H (75-99) mg/dL Calcium (8.4-10.2) mg/dL Alkaline Phosphatase (38-126) U/L Total Protein (6.3-8.2) g/dL Albumin (3.5-5.0) g/dL 11/13/20 11/13/20 11/13/20 Range/Units 16:11 16:56 17:52 RBC (4.30-5.90) m/uL Hgb (13.0-17.5) gm/dL Hct (39.0-53.0) % Sodium (137-145) mmol/L BUN (9-20) mg/dL Glucose (74-99) mg/dL POC Glucose (mg/dL) 121 H 131 H 149 H (75-99) mg/dL Calcium (8.4-10.2) mg/dL Alkaline Phosphatase (38-126) U/L Total Protein (6.3-8.2) g/dL Albumin (3.5-5.0) g/dL 11/13/20 11/13/20 11/13/20 Range/Units 20:02 21:51 22:56 RBC (4.30-5.90) m/uL Hgb (13.0-17.5) gm/dL Hct (39.0-53.0) % Sodium (137-145) mmol/L BUN (9-20) mg/dL Glucose (74-99) mg/dL POC Glucose (mg/dL) 178 H 125 H 123 H (75-99) mg/dL Calcium (8.4-10.2) mg/dL Alkaline Phosphatase (38-126) U/L Total Protein (6.3-8.2) g/dL Albumin (3.5-5.0) g/dL 11/14/20 11/14/20 11/14/20 Range/Units 02:16 02:59 04:00 RBC 2.71 L (4.30-5.90) m/uL Hgb 8.4 L (13.0-17.5) gm/dL Hct 23.9 L (39.0-53.0) % Sodium (137-145) mmol/L BUN (9-20) mg/dL Glucose (74-99) mg/dL POC Glucose (mg/dL) 141 H 132 H (75-99) mg/dL Calcium (8.4-10.2) mg/dL Alkaline Phosphatase (38-126) U/L Total Protein (6.3-8.2) g/dL Albumin (3.5-5.0) g/dL 11/14/20 11/14/20 11/14/20 Range/Units 04:00 04:04 05:56 RBC (4.30-5.90) m/uL Hgb (13.0-17.5) gm/dL Hct (39.0-53.0) % Sodium 132 L (137-145) mmol/L BUN 31 H (9-20) mg/dL Glucose 124 H (74-99) mg/dL POC Glucose (mg/dL) 139 H 133 H (75-99) mg/dL Calcium 8.0 L (8.4-10.2) mg/dL Alkaline Phosphatase 36 L (38-126) U/L Total Protein 5.0 L (6.3-8.2) g/dL Albumin 2.7 L (3.5-5.0) g/dL Assessment and Plan Assessment: 1 Multivessel coronary artery disease, symptomatic, status post four-vessel coronary artery bypass grafting with RAHMAN to the LAD, left radial artery graft to the OM, SVG to the PDA in the diagonal, and left atrial appendage exclusion, postoperative day #3 2 Routine ventilator management, extubated on postoperative day #0, on 2020, within 3-1/2 hours of OR exit time 3 Hyperlipidemia 4 History of sick sinus syndrome status post permanent pacemaker 5 Morbid obesity 6 BPH 7 Osteoarthritis 8 Postoperative sternotomy blood loss anemia, an expected outcome of bypass surgery Plan: The patient was seen and evaluated by Dr. Griffith Chest x-ray and labs reviewed We'll continue the current treatment plan Continue to increase his activity as tolerated Continue to encourage increased use of the incentive spirometer Transfer to the selective care unit We'll continue to follow I, the cosigning physician, performed a history & physical examination of the patient. Lungs sounds with crackles in the bilateral posterior bases. Maintaining good O2 saturations in the 90s on room air. I discussed the assessment and plan of care with my nurse practitioner, Ericka Melendez. I attest to the above note as dictated by her.
--- NOTE | 2020-11-14 10:47 | P.PN ---
Subjective This is a pleasant 65 years old male with multiple medical problems including hypertension, hyperlipidemia, degenerative joint disease, prostate disease, history of MRSA infection and history of pacemaker status post TURP. He is hemodynamically stable, mildly tachypneic with a breathing rate 22, blood pressure 121/50. He is saturating 95% room air and afebrile. showing mild anemia with hemoglobin 8.4 which is expected contrast of CBC is unremarkable, mild hyponatremia at 132, rest of BMP and liver enzymes are unremarkable. Sugar is controlled. Chest x-ray: Atelectasis improving. Patient is currently on aspirin and Plavix and metoprolol, Cardizem and amiodarone Patient is going to be transferred to select unit from ICU today Objective - Vital Signs Vital signs: Vital Signs Temp 98.1 F 11/14/20 08:00 Pulse 73 11/14/20 09:00 Resp 24 11/14/20 09:00 BP 104/84 11/14/20 08:00 Pulse Ox 95 11/14/20 09:00 Intake & Output 11/13/20 11/14/20 11/14/20 18:59 06:59 18:59 Intake Total 462.654 365.273 75 Output Total 770 300 50 Balance -307.346 65.273 25 Weight 125.7 kg Intake: IV 428.6 299 75 Amiodarone 450 mg In 16.6 Dextrose 5% in Water 250 ml @ 0.5 MG/MIN 16.667 mls/hr IV .Q15H PRN Rx#: [id number] Pressure Bags 72 39 15 Sodium Chloride 0.9% 1, 340 260 60 000 ml @ 20 mls/hr IV . Q24H ALEAH Rx#:[id number] Intake, IV Titration 34.054 66.273 Amount Insulin Regular 100 unit 34.054 66.273 In Sodium Chloride 0.9% 100 ml @ Per Protocol IV .Q0M ALEAH Rx#:[id number] Output: Urine 770 300 50 Other: Voiding Method Indwelling Catheter Indwelling Catheter Toilet # Voids 1 1 1 ABP, PAP, CO, CI - Last Documented Arterial Blood Pressure 121/50 Pulmonary Artery Pressure 33/17 Cardiac Output 6.1 Cardiac Index 2.6 - Exam GENERAL: The patient is alert and oriented x3, not in any acute distress. Well developed, well nourished. HEENT: Pupils are round and equally reacting to light. EOMI. No scleral icterus. No conjunctival pallor. Normocephalic, atraumatic. No pharyngeal erythema. No thyromegaly. CARDIOVASCULAR: S1 and S2 present. No murmurs, rubs, or gallops. PULMONARY: Chest is clear to auscultation, no wheezing or crackles. ABDOMEN: Soft, nontender, nondistended, normoactive bowel sounds. No palpable organomegaly. MUSCULOSKELETAL: No joint swelling or deformity. EXTREMITIES: No cyanosis, clubbing, or pedal edema. NEUROLOGICAL: Gross neurological examination did not reveal any focal deficits. SKIN: No rashes. no petechiae. - Labs CBC & Chem 7: 11/14/20 04:00 11/14/20 04:00 Labs: Abnormal Lab Results - Last 24 Hours (Table) 11/13/20 11/13/20 11/13/20 Range/Units 11:26 12:09 14:18 RBC (4.30-5.90) m/uL Hgb (13.0-17.5) gm/dL Hct (39.0-53.0) % Sodium (137-145) mmol/L BUN (9-20) mg/dL Glucose (74-99) mg/dL POC Glucose (mg/dL) 172 H 163 H 112 H (75-99) mg/dL Calcium (8.4-10.2) mg/dL Alkaline Phosphatase (38-126) U/L Total Protein (6.3-8.2) g/dL Albumin (3.5-5.0) g/dL 11/13/20 11/13/20 11/13/20 Range/Units 16:11 16:56 17:52 RBC (4.30-5.90) m/uL Hgb (13.0-17.5) gm/dL Hct (39.0-53.0) % Sodium (137-145) mmol/L BUN (9-20) mg/dL Glucose (74-99) mg/dL POC Glucose (mg/dL) 121 H 131 H 149 H (75-99) mg/dL Calcium (8.4-10.2) mg/dL Alkaline Phosphatase (38-126) U/L Total Protein (6.3-8.2) g/dL Albumin (3.5-5.0) g/dL 11/13/20 11/13/20 11/13/20 Range/Units 20:02 21:51 22:56 RBC (4.30-5.90) m/uL Hgb (13.0-17.5) gm/dL Hct (39.0-53.0) % Sodium (137-145) mmol/L BUN (9-20) mg/dL Glucose (74-99) mg/dL POC Glucose (mg/dL) 178 H 125 H 123 H (75-99) mg/dL Calcium (8.4-10.2) mg/dL Alkaline Phosphatase (38-126) U/L Total Protein (6.3-8.2) g/dL Albumin (3.5-5.0) g/dL 11/14/20 11/14/20 11/14/20 Range/Units 02:16 02:59 04:00 RBC 2.71 L (4.30-5.90) m/uL Hgb 8.4 L (13.0-17.5) gm/dL Hct 23.9 L (39.0-53.0) % Sodium (137-145) mmol/L BUN (9-20) mg/dL Glucose (74-99) mg/dL POC Glucose (mg/dL) 141 H 132 H (75-99) mg/dL Calcium (8.4-10.2) mg/dL Alkaline Phosphatase (38-126) U/L Total Protein (6.3-8.2) g/dL Albumin (3.5-5.0) g/dL 11/14/20 11/14/20 11/14/20 Range/Units 04:00 04:04 05:56 RBC (4.30-5.90) m/uL Hgb (13.0-17.5) gm/dL Hct (39.0-53.0) % Sodium 132 L (137-145) mmol/L BUN 31 H (9-20) mg/dL Glucose 124 H (74-99) mg/dL POC Glucose (mg/dL) 139 H 133 H (75-99) mg/dL Calcium 8.0 L (8.4-10.2) mg/dL Alkaline Phosphatase 36 L (38-126) U/L Total Protein 5.0 L (6.3-8.2) g/dL Albumin 2.7 L (3.5-5.0) g/dL Assessment and Plan Assessment: Coronary artery disease status post four-vessel CABG Hypertension Hyperlipidemia Hyperglycemia with no history of diabetes mellitus. 3 diabetes with hemoglobin A1c 6.4% History of degenerative joint disease History of prostate disease status post TURP History of MRSA infection History of pacemaker Obesity with body mass index of 37.4 Plan: This is a pleasant 65 years old male status post CABG. Continue With aspirin and Plavix per seeing eye dog teacher and cardiothoracic surgeon or following the case closely. Continue with amiodarone, metoprolol and Cardizem per seeing eye dog teacher. Also pulmonary/critical care team on the case. Cardiology team will decide about anticoagulation Labs and medication were reviewed.. Continue same treatment. Continue with symptomatic treatment. Resume home medication. Monitor lytes and vitals. DVT and GI prophylaxis. Further recommendationsas per clinical course of the patient DVT prophylaxis: Subcutaneous heparin GI Prophylaxis: Pepcid
[2020-11-14 11:49] LABS: Glucose,Whole Blood 178 mg/dL (75-99)
[2020-11-14] MEDS: INSULIN ASPART (NovoLOG) 100 UNIT/ML VIAL SQ SCH ×3 (12:09→22:07)
[2020-11-14] MEDS ORDERED: SENNOSIDES-DOCUSATE SODIUM 1 EACH TAB PO PRN (16:38)
--- NOTE | 2020-11-14 16:44 | CDI ---
Documentation Clarification Form Date: 11/14/2020 04:34:58 PM From: Disha Ca CCS, CCDS Admit Date: 11/11/2020 05:32:00 AM Patient Name: Lius Vazquez Visit Number: [id number] Discharge Date: ATTENTION: The Clinical Documentation Specialists (CDI) and [facility] Coding Staff appreciate your assistance in clarifying documentation. Please respond to the clarification below the line at the bottom and electronically sign. The CDI & [facility] Coding staff will review the response and follow-up if needed. Please note: Queries are made part of the Legal Health Record. If you have any questions, please contact the author of this message via ITS. Dr. Nacho Waters: Atrial Flutter is documented in the 11/14 Cardiology Progress Note without further specificity. Additional clarification regarding the type of Atrial Flutter is requested. History/Risk factors Per the 11/12 Medical Management Consult History of Present Illness: Hypertension, Hyperlipidemia, DJD, Prostate Disorder status post TURP and MRSA, Non smoker. Clinical Indicators: Per the 11/11 Operative Note: Postoperative Diagnosis: Triple-vessel coronary artery disease, preserved left ventricular function, [id number] mitral valve regurgitation, obesity, hyperlipidemia, hypertension, peripheral vascular disease, sick sinus syndrome status post dual pacemaker insertion, diffuse coronary artery disease and friable tissues. Procedure: Quadruple coronary artery bypass grafting, Exclusion of the left atrial appendage. 11/11 EKG: R 87, Sinus rhythm w/1st degree AV Block. Treatment Plan per the 11/14 Cardiology Progress Note: Consider oral anticoagulation if the patient continues to be in A. fib/a flutter for more than 24 hours. Please clarify the type of Atrial Flutter, if known: [ ] Typical/Type I [ ] Atypical/Type II [ ] Other, please specify [ ] Unable to determine (Template Last Revised: October 2020) No response, canceled query. CDS: ALONSO OLEARY
[2020-11-14 17:10] LABS: Glucose,Whole Blood 140 mg/dL (75-99)
[2020-11-15] MEDS: oxyCODONE-APAP 10-325MG 1 EACH TAB PO PRN ×3 (01:41→15:58)
[2020-11-15 06:07] LABS: Glucose,Whole Blood 172 mg/dL (75-99)
[2020-11-15 06:13] LABS: HCT 24.5 % (39.0-53.0); HGB 8.8 gm/dL (13.0-17.5); MCH 31.7 pg (25.0-35.0); MCHC 35.8 g/dL (31.0-37.0); MCV 88.4 fL (80.0-100.0); Platelet Count 219 k/uL (150-450); RBC 2.77 m/uL (4.30-5.90); RDW 13.8 % (11.5-15.5); WBC 10.3 k/uL (3.8-10.6)
[2020-11-15 06:38] LABS: Potassium 4.3 mmol/L (3.5-5.1)
[2020-11-15] MEDS: PANTOPRAZOLE 40 MG TABLET PO SCH (06:59)
[2020-11-15] MEDS: INSULIN ASPART (NovoLOG) 100 UNIT/ML VIAL SQ SCH ×4 (06:59→21:04)
[2020-11-15] MEDS: ASPIRIN 325 MG TAB PO SCH (07:48)
[2020-11-15] MEDS: DILTIAZEM CD 120 MG CAP.ER.24H PO SCH (07:48)
[2020-11-15] MEDS: METOPROLOL TARTRATE 50 MG TAB PO SCH ×2 (07:48→21:04)
[2020-11-15] MEDS: CLOPIDOGREL 75 MG TAB PO SCH (07:48)
[2020-11-15] MEDS: AMIODARONE 200 MG TAB PO SCH ×2 (07:49→21:03)
[2020-11-15] MEDS: ATORVASTATIN 40 MG TAB PO SCH (07:49)
[2020-11-15] MEDS: HEPARIN SODIUM,PORCINE/PF 5,000 UNIT/0.5 ML SYRINGE SQ SCH ×2 (07:50→16:16)
--- NOTE | 2020-11-15 08:58 | P.PN ---
Subjective Progress Note Date: 11/15/20 Principal diagnosis: Triple-vessel coronary artery disease, preserved left ventricular function, mild to moderate mitral valve regurgitation. Previous medical history of hypertens ion, hyperlipidemia, obesity, peripheral vascular disease, sick sinus syndrome status post Medtronic dual chamber pacemaker insertion in 07/2019, osteoarthritis and prostate disorder. POD #4 quadruple coronary artery bypass grafting using the left internal mammary artery to the left anterior descending coronary artery, left radial artery from aorta to the obtuse marginal coronary artery, a reverse greater saphenous vein graft from the aorta to the second diagonal coronary artery, and a reverse greater saphenous vein graft from the aorta to the distal posterior descending coronary artery. Exclusion of the left atrial appendage using a 35 mm Atriclip. Endoscopic harvesting of the right radial artery. Endoscopic harvesting of the left greater saphenous vein from the groin to below the knee level. Intraoperative transesophageal echocardiogram and epi-aortic scanning. Intraoperative graft flow measurements using the 121 [employer] system. Postoperative acute blood loss anemia, expected due to hemodilution and cardiopulmonary bypass. Paroxysmal atrial fibrillation, known common occurrence after open heart surgery. The patient's currently sitting up in a recliner in no acute distress on the cardiac stepdown unit eating breakfast. States pain is well controlled on current medication regimen, denies shortness of breath. Actively using incentive spirometer. He is currently in sinus rhythm and hemodynamically stable. He has been ambulatory in the hallway with standby assist. No new concerns. Objective - Vital Signs Vital signs: Vital Signs Temp 97.9 F 11/15/20 07:35 Pulse 78 11/15/20 07:35 Resp 16 11/15/20 07:35 BP 117/74 11/15/20 07:35 Pulse Ox 100 11/15/20 07:35 Intake & Output 11/14/20 11/15/20 11/15/20 18:59 06:59 18:59 Intake Total 107 240 Output Total 51 352 1 Balance 56 -352 239 Weight 124 kg Intake: IV 107 Pressure Bags 27 Sodium Chloride 0.9% 1, 80 000 ml @ 20 mls/hr IV . Q24H ALEAH Rx#:[id number] Oral 240 Output: Urine 50 350 Stool 1 2 1 Other: Voiding Method Toilet Toilet Toilet # Voids 1 # Bowel Movements 1 ABP, PAP, CO, CI - Last Documented Arterial Blood Pressure 121/50 Pulmonary Artery Pressure 33/17 Cardiac Output 6.1 Cardiac Index 2.6 - Exam CONSTITUTIONAL: Appears comfortable, cooperative, no acute distress RESPIRATORY: Lungs sounds diminished bilaterally, left base more than right. Respirations even, nonlabored. Currently on room air with oxygen saturation 96%. Able to achieve 1000 mL on incentive spirometry. Strong cough. CARDIOVASCULAR: S1, S2 present. Regular rate and rhythm, sinus rhythm on telemetry. Sternum stable. Palpable peripheral pulses bilaterally. Generalized trace edema present. No calf pain or tenderness noted. Heart hugger in place with patient demonstrating appropriate use. Antiembolism stockings, SCDs present. GASTROINTESTINAL: Abdomen soft, nontender, nondistended. Active bowel sounds present 4 quadrants. Tolerating diet. Positive bowel movement. GENITOURINARY: Continues to void clear, yellow urine. INTEGUMENTARY: Skin is warm and dry with evidence of good perfusion. Anterior chest incision well approximated and covered with dry intact dressing. EVH site well approximated without redness or drainage. Right radial artery harvest site well approximated, good cap refill, patient able to move all fingers and contract mail carrier appropriately NEUROLOGIC: Cranial nerves II through XII intact MUSKULOSKELETAL: Able to move all extremities, strength equal bilaterally, gait normal PSYCHIATRIC: Alert and oriented to person place and time, appropriate affect, intact judgment and insight - Allied health notes Allied health notes reviewed: nursing - Labs CBC & Chem 7: 11/15/20 05:18 11/15/20 05:18 Labs: Abnormal Lab Results - Last 24 Hours (Table) 11/14/20 11/14/20 11/15/20 Range/Units 11:48 17:09 05:18 RBC 2.77 L (4.30-5.90) m/uL Hgb 8.8 L (13.0-17.5) gm/dL Hct 24.5 L (39.0-53.0) % Sodium (137-145) mmol/L BUN (9-20) mg/dL Glucose (74-99) mg/dL POC Glucose (mg/dL) 178 H 140 H (75-99) mg/dL Calcium (8.4-10.2) mg/dL 11/15/20 11/15/20 Range/Units 05:18 05:53 RBC (4.30-5.90) m/uL Hgb (13.0-17.5) gm/dL Hct (39.0-53.0) % Sodium 136 L (137-145) mmol/L BUN 31 H (9-20) mg/dL Glucose 150 H (74-99) mg/dL POC Glucose (mg/dL) 172 H (75-99) mg/dL Calcium 8.0 L (8.4-10.2) mg/dL - Imaging and Cardiology Chest x-ray: image reviewed Assessment and Plan Assessment: 1. Triple-vessel coronary artery disease, status post four-vessel CABG 2. Preserved left ventricular function 3. Mild to moderate mitral valve regurgitation 4. History of hypertension 5. History of hyperlipidemia, treated, cholesterol 169, LDL 91, triglycerides 182 6. Morbid obesity 7. Peripheral vascular disease 8. Sick sinus syndrome status post Medtronic dual chamber pacemaker insertion 9. Prostate disorder 10. Osteoarthritis 11. Postoperative acute blood loss anemia, expected 12. Paroxysmal atrial fibrillation, known common occurrence after open heart surgery, status post exclusion of the left atrial appendage Plan: 1. Continue aspirin, statin, Plavix, beta richard therapy. Will increase beta richard as tolerated 2. Continue oral amiodarone for atrial fibrillation prophylaxis. Will initiate anticoagulation prior to discharge, will discontinue Plavix when starting anticoagulation and decrease aspirin to 81 mg daily 3. Continue Cardizem for radial artery spasm prophylaxis. Please do not discontinue CCB without checking with cardiothoracic surgery service. 4. Encourage incentive spirometry use 10 times every hour while awake. Bronchodilator management per pulmonology 5. Increase activity, ambulate as tolerated. PT/OT/cardiac rehab following. 6. Will monitor daily labs and chest x-rays. Electrolyte replacement per protocol. No blood transfusion 7. GI/DVT prophylaxis. 8. Pain control with current medication regimen. 9. Insulin management per primary care service. Patient's preoperative hemoglobin A1c 6.4%. 10. Strict accurate I's and O's. Continue daily weights. 11. Discharge planning in progress. Anticipate discharge home with home care later this afternoon versus tomorrow morning 12. More recommendations to follow based on patient's clinical course. Time with Patient: Greater than 30
--- NOTE | 2020-11-15 08:59 | XR ---
EXAMINATION TYPE: PA and lateral view of the chest DATE OF EXAM: 11/15/2020 COMPARISON: 11/14/2020 TECHNIQUE: PA and lateral views submitted. HISTORY: Postop FINDINGS: Postsurgical changes and cardiac device noted with persistent bibasilar consolidation and small effus ion. No overt failure. No pneumothorax. Arthropathy of the shoulders. Heart mildly enlarged. IMPRESSION: 1. Postsurgical changes with stable bibasilar infiltrate and small effusion.
[2020-11-15] MEDS ORDERED: FUROSEMIDE 10 MG/ML 2 ML VIAL IV ONE (09:59)
[2020-11-15 11:44] LABS: Glucose,Whole Blood 157 mg/dL (75-99)
[2020-11-15 16:56] LABS: Glucose,Whole Blood 117 mg/dL (75-99)
--- NOTE | 2020-11-15 16:58 | P.PN ---
Subjective Progress Note Date: 11/15/20 Principal diagnosis: Status post bypass grafting. 55-year-old white male patient of Dr. Frances Mosqueda who had been complaining of progressive chest pressure and dyspnea on exertion, underwent cardiac catheterization that showed a triple vessel disease. Patient had a complex LAD diagonal bifurcation, severe proximal OM1 and diffuse proximal to mid PDA disease. His echocardiogram in July 2020 showed preserved systolic function and no significant valvular abnormalities. Patient is a nonsmoker, and no history of COPD although he was noted to have wheezing on physical exam and the possibility of reactive airway disease. His past medical history is positive for hyperlipidemia, osteoarthritis, sick sinus syndrome status post permanent pacemaker implantation, morbid obesity, BPH. Patient was evaluated by cardiothoracic surgery and underwent four-vessel coronary artery bypass grafting today on 11/11/2020 with a RAHMAN to the LAD, SVG to the PDA and the diagonal, and left radial artery graft to the OM, left atrial appendage exclusion. Patient is seen in the postoperative period in the intensive care unit, sedated and ventilated, on assist control mode of ventilation with a rate of 12, tidal volumes 450, FiO2 of percent and PEEP of 5. Postop blood gas is pending, patient in sinus mechanism, hemodynamically patient is stable, he is currently on 0.9 at 50, propofol is at 20 mics per kilo per minute, and nitroglycerin is at 5 mics per minute. No other drips. Doing well, patient has one left pleural in the 2 mediastinal chest tubes with small amount of sanguinous output, no air leak, patient in sinus mechanism. His cardiac output and cardiac index are 4.8 and 2.1 respectively, CVP is 18, PA pressures 34/24. On 11/12/2020 patient seen in follow-up in intensive care unit, today's postoperative day #1, status post four-vessel bypass grafting, patient was successfully weaned and extubated from mechanical ventilator last night at around 1955, tolerated extubation well so far, having some pain issues, he is on a combination of oral [place] and some IV narcotics for breakthrough pain, however his incentive spirometer effort is still suboptimal, less than 500 mL on the today, he is up in the chair today, as a heart heart sound, he is using incentive spirometer, he is on 3 L of oxygen with pulse ox of 96%, hemodynamically he is stable, he remains on lactated Ringer's at 50 ML per hour, insulin drip is 4.5 units per hour, and nitroglycerin is at 5 mics per kilo per minute. He still has 2 mediastinal and left pleural chest tubes in place, and there has been 740 ML. Stressing is output from the left pleural, and 520 ML from the mediastinal chest tubes, his right wrist WYATT drain put out 10 mL of serous output. His chest x-ray has been reviewed showing diffuse pleural parenchymal changes, with consideration of interstitial edema and pleural e ffusion. Sounds are diminished at the bases. he is on breathing treatments, no wheezing, no rhonchi. Labs have been reviewed, hemoglobin is 9.5, white count is 8.0, sodium is 136, the rest of electrolytes and renal profile are unremarkable. In sinus mechanism, with a controlled heart rate. No nausea or vomiting, patient continues on a full liquid diet, and he is currently on fluid restriction of 1.5 L daily The patient is seen today 11/13/2020 and follow-up in the intensive care unit. This is postoperative day #2. Status post coronary artery bypass grafting 4. He is currently sitting up in a chair at the bedside. Awake and alert in no acute distress. Maintaining O2 saturations in the 90s on 2 L/m per nasal cannula. He is 0.9 normal saline at 30 MLS per hour. Insulin drip at 6 units per hour. He did have an episode of atrial fibrillation and is currently on amiodarone at 0.5 mg/m. He also received Lasix 40 mg IVP 1 today. Asked x-ray revealed bilateral infiltrates and pleural effusions. White count 8.5. Hemoglobin 9.0. Platelet count 138. Sodium 134. Potassium 4.1. Creatinine 0.97. He remains on bronchodilators, working well with the incentive spirometer. The patient is seen today 11/14/2020 in follow-up in the intensive care unit. Postoperative day #3. He's up ambulating in the room with assistance. He is maintaining O2 saturation the 90s on room air. He has lactated Ringer's running at 30 mL per hour. No significant issues overnight. Chest x-ray shows mild cardiomegaly. Patchy right suprahilar left basilar opacities consistent with atelectasis, improving. Continues to work well with the incentive spirometer. White count 8.8. Hemoglobin 8.4. Sodium 132. Potassium 3.9. Creatinine 1.04. Progress note dated 11/25/2020. 55-year-old male, who is postop day #4, status post four-vessel bypass grafting. Currently, the patient's been weaned to room air, it is not receiving any IV fluids. The patient states she's been very active today. He denies any chest pain or chest discomfort. He looks well. They may discharge him home tomorrow or the next day. White count 10.3, hemoglobin 8.8, hematocrit 24.5, sodium 136, potassium 4.3, chlorides 106, CO2 24, anion gap 6, BUN 31, creatinine 1.05. Chest x-ray shows some postoperative changes, with some mild bibasilar atelectasis and effusions. Objective - Vital Signs Vital signs: Vital Signs Temp 97.9 F 11/15/20 16:01 Pulse 78 11/15/20 16:01 Resp 20 11/15/20 16:01 BP 115/75 11/15/20 16:01 Pulse Ox 98 11/15/20 16:01 Intake & Output 11/14/20 11/15/20 11/15/20 18:59 06:59 18:59 Intake Total 107 960 Output Total 51 352 726 Balance 56 -352 234 Weight 124 kg Intake: IV 107 Pressure Bags 27 Sodium Chloride 0.9% 1, 80 000 ml @ 20 mls/hr IV . Q24H [facility] Rx#:[id number] Oral 960 Output: Urine 50 350 725 Stool 1 2 1 Other: Voiding Method Toilet Toilet Toilet # Voids 1 # Bowel Movements 1 1 ABP, PAP, CO, CI - Last Documented Arterial Blood Pressure 121/50 Pulmonary Artery Pressure 33/17 Cardiac Output 6.1 Cardiac Index 2.6 - Exam GENERAL EXAM: Awake and alert, 65-year-old male patient on room air, comfortable in no apparent distress. HEAD: Normocephalic/atraumatic. EYES: Normal reaction of pupils, equal size. Conjunctiva pink, sclera white. NOSE: Clear with pink turbinates. THROAT: No erythema or exudates. NECK: No masses, no JVD, no thyroid enlargement, no adenopathy. CHEST: No chest wall deformity. Symmetrical expansion. Midsternal incision clean dry and intact. LUNGS: Equal air entry with faint crackles in the posterior bases. CVS: Regular rate and rhythm, normal S1 and S2, no gallops, no murmurs, no rubs Heart rate is 75 bpm. ABDOMEN: Soft, nontender. No hepatosplenomegaly, normal bowel sounds, no guarding or rigidity. EXTREMITIES: No clubbing, no edema, no cyanosis, 2+ pulses and upper and lower extremities. MUSCULOSKELETAL: Muscle strength and tone normal. SPINE: No scoliosis or deformity SKIN: No rashes. Left radial artery harvest site is Iker wrap CENTRAL NERVOUS SYSTEM: Awake and alert and 3, No focal deficits, tone is normal in all 4 extremities. - Labs CBC & Chem 7: 11/15/20 05:18 11/15/20 05:18 Labs: Abnormal Lab Results - Last 24 Hours (Table) 11/14/20 11/15/20 11/15/20 Range/Units 17:09 05:18 05:18 RBC 2.77 L (4.30-5.90) m/uL Hgb 8.8 L (13.0-17.5) gm/dL Hct 24.5 L (39.0-53.0) % Sodium 136 L (137-145) mmol/L BUN 31 H (9-20) mg/dL Glucose 150 H (74-99) mg/dL POC Glucose (mg/dL) 140 H (75-99) mg/dL Calcium 8.0 L (8.4-10.2) mg/dL 11/15/20 11/15/20 Range/Units 05:53 11:42 RBC (4.30-5.90) m/uL Hgb (13.0-17.5) gm/dL Hct (39.0-53.0) % Sodium (137-145) mmol/L BUN (9-20) mg/dL Glucose (74-99) mg/dL POC Glucose (mg/dL) 172 H 157 H (75-99) mg/dL Calcium (8.4-10.2) mg/dL Assessment and Plan Assessment: 1 Multivessel coronary artery disease, symptomatic, status post four-vessel coronary artery bypass grafting with RAHMAN to the LAD, left radial artery graft to the OM, SVG to the PDA in the diagonal, and left atrial appendage exclusion, postoperative day #4 2 Routine ventilator management, extubated on postoperative day #0, on 2020, within 3-1/2 hours of OR exit time 3 Hyperlipidemia 4 History of sick sinus syndrome status post permanent pacemaker 5 Morbid obesity 6 BPH 7 Osteoarthritis 8 Postoperative sternotomy blood loss anemia, an expected outcome of bypass surgery Plan: Plan dated 11/15/2020. The patient is encouraged to deep breathe, cough, and clear secretions. In addition, we want him to continue using the incentive spirometer every hour while awake. The patient has been weaned off of oxygen. He's not receiving any IV fluids. Labs, medications, and chest x-rays are all reviewed. The patient may be discharged in the next 24-48 hours. Additional recommendations and suggestions are forthcoming. Time with Patient: Less than 30
[2020-11-15 20:17] LABS: Glucose,Whole Blood 164 mg/dL (75-99)
--- NOTE | 2020-11-15 20:17 | P.PN ---
Subjective This is a pleasant 65 years old male with multiple medical problems including hypertension, hyperlipidemia, degenerative joint disease, prostate disease, history of MRSA infection and history of pacemaker status post TURP. He is hemodynamically stable, mildly tachypneic with a breathing rate 22, blood pressure 121/50. He is saturating 95% room air and afebrile. showing mild anemia with hemoglobin 8.4 which is expected contrast of CBC is unremarkable, mild hyponatremia at 132, rest of BMP and liver enzymes are unremarkable. Sugar is controlled. Chest x-ray: Atelectasis improving. Patient is currently on aspirin and Plavix and metoprolol, Cardizem and amiodarone Patient is going to be transferred to select unit from ICU today 11/15/2020 Patient is doing well with no chest pain or dyspnea. His breathing quietly on room air Labs including CBC and BMP are unremarkable Patient continue on multiple medication including aspirin 325 mg, Plavix, amiodarone 400 mg twice daily, Cardizem 120 mg daily and metoprolol 50 mg twice daily Also he is been followed closely by cardiology and cardiothoracic surgery team regarding his management of A. fib, and currently is only on prophylactic dose of subcutaneous heparin Other than patient looks stable. Objective - Vital Signs Vital signs: Vital Signs Temp 97.9 F 11/15/20 16:01 Pulse 78 11/15/20 16:01 Resp 20 11/15/20 16:01 BP 115/75 11/15/20 16:01 Pulse Ox 98 11/15/20 16:01 Intake & Output 11/14/20 11/15/20 11/15/20 18:59 06:59 18:59 Intake Total 107 960 Output Total 51 352 726 Balance 56 -352 234 Weight 124 kg Intake: IV 107 Pressure Bags 27 Sodium Chloride 0.9% 1, 80 000 ml @ 20 mls/hr IV . Q24H [facility] Rx#:[id number] Oral 960 Output: Urine 50 350 725 Stool 1 2 1 Other: Voiding Method Toilet Toilet Toilet # Voids 1 # Bowel Movements 1 1 ABP, PAP, CO, CI - Last Documented Arterial Blood Pressure 121/50 Pulmonary Artery Pressure 33/17 Cardiac Output 6.1 Cardiac Index 2.6 - Exam GENERAL: The patient is alert and oriented x3, not in any acute distress. Well developed, well nourished. HEENT: Pupils are round and equally reacting to light. EOMI. No scleral icterus. No conjunctival pallor. Normocephalic, atraumatic. No pharyngeal erythema. No thyromegaly. CARDIOVASCULAR: S1 and S2 present. No murmurs, rubs, or gallops. PULMONARY: Chest is clear to auscultation, no wheezing or crackles. ABDOMEN: Soft, nontender, nondistended, normoactive bowel sounds. No palpable organomegaly. MUSCULOSKELETAL: No joint swelling or deformity. EXTREMITIES: No cyanosis, clubbing, or pedal edema. NEUROLOGICAL: Gross neurological examination did not reveal any focal deficits. SKIN: No rashes. no petechiae. - Labs CBC & Chem 7: 11/15/20 05:18 11/15/20 05:18 Labs: Abnormal Lab Results - Last 24 Hours (Table) 11/14/20 11/15/20 11/15/20 Range/Units 17:09 05:18 05:18 RBC 2.77 L (4.30-5.90) m/uL Hgb 8.8 L (13.0-17.5) gm/dL Hct 24.5 L (39.0-53.0) % Sodium 136 L (137-145) mmol/L BUN 31 H (9-20) mg/dL Glucose 150 H (74-99) mg/dL POC Glucose (mg/dL) 140 H (75-99) mg/dL Calcium 8.0 L (8.4-10.2) mg/dL 11/15/20 11/15/20 Range/Units 05:53 11:42 RBC (4.30-5.90) m/uL Hgb (13.0-17.5) gm/dL Hct (39.0-53.0) % Sodium (137-145) mmol/L BUN (9-20) mg/dL Glucose (74-99) mg/dL POC Glucose (mg/dL) 172 H 157 H (75-99) mg/dL Calcium (8.4-10.2) mg/dL Assessment and Plan Assessment: Coronary artery disease status post four-vessel CABG Hypertension Hyperlipidemia Hyperglycemia with no history of diabetes mellitus. 3 diabetes with hemoglobin A1c 6.4% History of degenerative joint disease History of prostate disease status post TURP History of MRSA infection History of pacemaker Obesity with body mass index of 37.4 Plan: This is a pleasant 65 years old male status post CABG. Continue With aspirin and Plavix per nuclear medicine physician and cardiothoracic surgeon or following the case closely. Continue with amiodarone, metoprolol and Cardizem per nuclear medicine physician. Also pulmonary/critical care team on the case. Cardiology team will decide about anticoagulation Labs and medication were reviewed.. Continue same treatment. Continue with symptomatic treatment. Resume home medication. Monitor lytes and vitals. DVT and GI prophylaxis. Further recommendationsas per clinical course of the patient DVT prophylaxis: Subcutaneous heparin GI Prophylaxis: Pepcid
[2020-11-15] MEDS ORDERED: OXYBUTYNIN 10 MG TAB.ER.24 PO SCH (21:00)
[2020-11-16] MEDS: HEPARIN SODIUM,PORCINE/PF 5,000 UNIT/0.5 ML SYRINGE SQ SCH
[2020-11-16] MEDS: oxyCODONE-APAP 10-325MG 1 EACH TAB PO PRN (04:37)
[2020-11-16 05:13] VITALS: TEMP 97.8
[2020-11-16 06:15] LABS: Glucose,Whole Blood 159 mg/dL (75-99)
[2020-11-16] MEDS: INSULIN ASPART (NovoLOG) 100 UNIT/ML VIAL SQ SCH ×2 (06:29→12:09)
[2020-11-16] MEDS: PANTOPRAZOLE 40 MG TABLET PO SCH (06:29)
--- NOTE | 2020-11-16 08:27 | XR ---
EXAMINATION TYPE: XR chest 2V DATE OF EXAM: 11/16/2020 COMPARISON: 11/15/2020 INDICATION: Post cardiac surgery TECHNIQUE: Frontal and lateral views of the chest are obtained. FINDINGS: The heart size is enlarged. Sternotomy wires are present from prior cardiac surgery. Pacemaker overli es left chest.. The pulmonary vasculature is normal. Infiltrate is at the left base. Correlate for atelectasis. Pneumonia can be considered. IMPRESSION: 1. Mild infiltrate at the left base. Correlate for atelectasis or pneumonia. 2. Cardiomegaly
--- NOTE | 2020-11-16 08:37 | P.PN ---
Subjective Progress Note Date: 11/16/20 Principal diagnosis: Triple-vessel coronary artery disease, preserved left ventricular function, mild to moderate mitral valve regurgitation. Previous medical history of hypertens ion, hyperlipidemia, obesity, peripheral vascular disease, sick sinus syndrome status post Medtronic dual chamber pacemaker insertion in 07/2019, osteoarthritis and prostate disorder. POD #5 quadruple coronary artery bypass grafting using the left internal mammary artery to the left anterior descending coronary artery, left radial artery from aorta to the obtuse marginal coronary artery, a reverse greater saphenous vein graft from the aorta to the second diagonal coronary artery, and a reverse greater saphenous vein graft from the aorta to the distal posterior descending coronary artery. Exclusion of the left atrial appendage using a 35 mm Atriclip. Endoscopic harvesting of the right radial artery. Endoscopic harvesting of the left greater saphenous vein from the groin to below the knee level. Intraoperative transesophageal echocardiogram and epi-aortic scanning. Intraoperative graft flow measurements using the Spottlystim system. Postoperative acute blood loss anemia, expected due to hemodilution and cardiopulmonary bypass. Paroxysmal atrial fibrillation, known common occurrence after open heart surgery. The patient's currently sitting up in a recliner in no acute distress on the cardiac stepdown unit eating breakfast. States pain is well controlled on current medication regimen, denies shortness of breath. Actively using incentive spirometer. He is currently in controlled atrial flutter and hemodynamically stable. He has been ambulatory in the hallway without dif ficulty, received first postoperative shower yesterday. No new concerns. Objective - Vital Signs Vital signs: Vital Signs Temp 97.8 F 11/16/20 04:00 Pulse 77 11/16/20 04:00 Resp 18 11/16/20 04:00 BP 111/73 11/16/20 04:00 Pulse Ox 96 11/16/20 04:00 Intake & Output 11/15/20 11/16/20 11/16/20 18:59 06:59 18:59 Intake Total 1140 480 Output Total 726 300 Balance 414 180 Weight 126.7 kg Intake: Oral 1140 480 Output: Urine 725 300 Stool 1 Other: Voiding Method Toilet Toilet # Bowel Movements 1 ABP, PAP, CO, CI - Last Documented Arterial Blood Pressure 121/50 Pulmonary Artery Pressure 33/17 Cardiac Output 6.1 Cardiac Index 2.6 - Exam CONSTITUTIONAL: Appears comfortable, cooperative, no acute distress RESPIRATORY: Lungs sounds diminished bilaterally. Respirations even, nonlabored. Currently on room air with oxygen saturation 96%. Able to achieve 1500 mL on incentive spirometry. Strong cough. CARDIOVASCULAR: S1, S2 present. Regular rate and rhythm, controlled atrial flutter on telemetry. Sternum stable. Palpable peripheral pulses bilaterally. Generalized trace edema present. No calf pain or tenderness noted. Heart hugger in place with patient demonstrating appropriate use. Antiembolism stockings, SCDs present. GASTROINTESTINAL: Abdomen soft, nontender, nondistended. Active bowel sounds present 4 quadrants. Tolerating diet. Positive bowel movement. GENITOURINARY: Continues to void clear, yellow urine, output 1025 mL in the last 24 hours. INTEGUMENTARY: Skin is warm and dry with evidence of good perfusion. Anterior chest incision well approximated. EVH site well approximated without redness or drainage. Right radial artery harvest site well approximated, good cap refill, patient able to move all fingers and snagger appropriately NEUROLOGIC: Cranial nerves II through XII intact MUSKULOSKELETAL: Able to move all extremities, strength equal bilaterally, gait normal PSYCHIATRIC: Alert and oriented to person place and time, appropriate affect, intact judgment and insight - Allied health notes Allied health notes reviewed: nursing - Labs CBC & Chem 7: 11/15/20 05:18 11/15/20 05:18 Labs: Abnormal Lab Results - Last 24 Hours (Table) 11/15/20 11/15/20 11/15/20 Range/Units 11:42 16:55 20:15 POC Glucose (mg/dL) 157 H 117 H 164 H (75-99) mg/dL 11/16/20 Range/Units 06:13 POC Glucose (mg/dL) 159 H (75-99) mg/dL - Imaging and Cardiology Chest x-ray: image reviewed Assessment and Plan Assessment: 1. Triple-vessel coronary artery disease, status post four-vessel CABG 2. Preserved left ventricular function 3. Mild to moderate mitral valve regurgitation 4. History of hypertension 5. History of hyperlipidemia, treated, cholesterol 169, LDL 91, triglycerides 182 6. Morbid obesity 7. Peripheral vascular disease 8. Sick sinus syndrome status post Medtronic dual chamber pacemaker insertion 9. Prostate disorder 10. Osteoarthritis 11. Postoperative acute blood loss anemia, expected 12. Paroxysmal atrial fibrillation, known common occurrence after open heart surgery, status post exclusion of the left atrial appendage Plan: 1. Continue aspirin, statin, beta richard therapy. Will increase beta richard as tolerated 2. Continue oral amiodarone for atrial fibrillation prophylaxis. Will initiate Eliquis for anticoagulation, will discontinue Plavix and decrease aspirin to 81 mg daily 3. Continue Cardizem for radial artery spasm prophylaxis. Please do not discontinue CCB without checking with cardiothoracic surgery service. 4. Encourage incentive spirometry use 10 times every hour while awake. Bronchodilator management per pulmonology 5. Increase activity, ambulate as tolerated. PT/OT/cardiac rehab following. 6. Will monitor daily labs and chest x-rays. Electrolyte replacement per protocol. No blood transfusion 7. GI/DVT prophylaxis. 8. Pain control with current medication regimen. 9. Insulin management per primary care service. Patient's preoperative hemoglobin A1c 6.4%. 10. Strict accurate I's and O's. Continue daily weights. 11. Discharge planning in progress. Anticipate discharge home with home care later this afternoon versus tomorrow morning 12. More recommendations to follow based on patient's clinical course. Time with Patient: Greater than 30
[2020-11-16] MEDS ORDERED: APIXABAN 5 MG TAB PO SCH (09:00)
[2020-11-16] MEDS ORDERED: ASPIRIN 81 MG PO SCH (09:00)
[2020-11-16] MEDS: AMIODARONE 200 MG TAB PO SCH (09:04)
[2020-11-16] MEDS: DILTIAZEM CD 120 MG CAP.ER.24H PO SCH (09:05)
[2020-11-16] MEDS: ATORVASTATIN 40 MG TAB PO SCH (09:05)
[2020-11-16] MEDS: METOPROLOL TARTRATE 50 MG TAB PO SCH (09:05)
[2020-11-16 09:25] LABS: HCT 27.2 % (39.0-53.0); HGB 9.6 gm/dL (13.0-17.5); MCH 31.2 pg (25.0-35.0); MCHC 35.1 g/dL (31.0-37.0); MCV 88.8 fL (80.0-100.0); Mean Platelet Volume 7.4; Platelet Count 305 k/uL (150-450); RBC 3.07 m/uL (4.30-5.90); RDW 14.1 % (11.5-15.5); WBC 10.8 k/uL (3.8-10.6)
[2020-11-16 09:35] LABS: Calcium 8.3 mg/dL (8.4-10.2); Magnesium 2.4 mg/dL (1.6-2.3); Potassium 3.9 mmol/L (3.5-5.1)
[2020-11-16] MEDS ORDERED: FUROSEMIDE 10 MG/ML 2 ML VIAL IV ONE (09:41)
[2020-11-16] MEDS ORDERED: POTASSIUM CHLORIDE ER 20 MEQ TAB.ER PO STA (09:41)
--- NOTE | 2020-11-16 10:39 | P.PN ---
Subjective Progress Note Date: 11/16/20 This is a pleasant 65-year-old gentleman who is status post four-vessel bypass, postop day 5. Seen and examined on the telemetry unit today. He did have a chest x-ray performed this morning that showed mild infiltrate at the left base as well as cardiomegaly. He was sitting up in his chair this morning at the time of my examination, denies any chest discomfort and is breathing overall has been stable. Blood pressure 116/70 with a heart rate in the 70s, 98% on room air. White blood cell count 10.8, hemoglobin 9.6, platelet count 305. Sodium 133, potassium 3.9, BUN 23, creatinine 1.0, magnesium 2.4. Objective - Vital Signs Vital signs: Vital Signs Temp 97.8 F 11/16/20 08:56 Pulse 78 11/16/20 08:56 Resp 16 11/16/20 08:56 BP 116/77 11/16/20 08:56 Pulse Ox 98 11/16/20 08:56 Intake & Output 11/15/20 11/16/20 11/16/20 18:59 06:59 18:59 Intake Total 1140 480 360 Output Total 726 300 Balance 414 180 360 Weight 126.7 kg Intake: Oral 1140 480 360 Output: Urine 725 300 Stool 1 Other: Voiding Method Toilet Toilet # Voids 1 # Bowel Movements 1 ABP, PAP, CO, CI - Last Documented Arterial Blood Pressure 121/50 Pulmonary Artery Pressure 33/17 Cardiac Output 6.1 Cardiac Index 2.6 - Exam CONSTITUTIONAL: Appears comfortable, cooperative, no acute distress RESPIRATORY: Lungs sounds diminished bilaterally. Respirations even, nonlabored. Currently on room air with oxygen saturation 96%. Able to achieve 1500 mL on incentive spirometry. Strong cough. CARDIOVASCULAR: S1, S2 present. Regular rate and rhythm, controlled atrial flutter on telemetry. Sternum stable. Palpable peripheral pulses bilaterally. Generalized trace edema present. No calf pain or tenderness noted. Heart hugger in place with patient demonstrating appropriate use. Antiembolism stockings, SCDs present. GASTROINTESTINAL: Abdomen soft, nontender, nondistended. Active bowel sounds present 4 quadrants. Tolerating diet. Positive bowel movement. GENITOURINARY: Continues to void clear, yellow urine, output 1025 mL in the last 24 hours. INTEGUMENTARY: Skin is warm and dry with evidence of good perfusion. Anterior chest incision well approximated. EVH site well approximated without redness or drainage. Right radial artery harvest site well approximated, good cap refill, patient able to move all fingers and retirement consultant appropriately NEUROLOGIC: Cranial nerves II through XII intact MUSKULOSKELETAL: Able to move all extremities, strength equal bilaterally, gait normal PSYCHIATRIC: Alert and oriented to person place and time, appropriate affect, intact judgment and insight - Labs CBC & Chem 7: 11/16/20 08:44 11/16/20 08:44 Labs: Abnormal Lab Results - Last 24 Hours (Table) 11/15/20 11/15/20 11/15/20 Range/Units 11:42 16:55 20:15 WBC (3.8-10.6) k/uL RBC (4.30-5.90) m/uL Hgb (13.0-17.5) gm/dL Hct (39.0-53.0) % Sodium (137-145) mmol/L BUN (9-20) mg/dL Glucose (74-99) mg/dL POC Glucose (mg/dL) 157 H 117 H 164 H (75-99) mg/dL Calcium (8.4-10.2) mg/dL Magnesium (1.6-2.3) mg/dL 11/16/20 11/16/20 11/16/20 Range/Units 06:13 08:44 08:44 WBC 10.8 H (3.8-10.6) k/uL RBC 3.07 L (4.30-5.90) m/uL Hgb 9.6 L (13.0-17.5) gm/dL Hct 27.2 L (39.0-53.0) % Sodium 133 L (137-145) mmol/L BUN 23 H (9-20) mg/dL Glucose 157 H (74-99) mg/dL POC Glucose (mg/dL) 159 H (75-99) mg/dL Calcium 8.3 L (8.4-10.2) mg/dL Magnesium 2.4 H (1.6-2.3) mg/dL Assessment and Plan Plan: Assessment and plan: 1. Triple-vessel coronary artery disease, status post four-vessel CABG, postop day 5 2. Preserved left ventricular function 3. Mild to moderate mitral valve regurgitation 4. History of hypertension 5. History of hyperlipidemia, treated, cholesterol 169, LDL 91, triglycerides 182 6. Morbid obesity 7. Peripheral vascular disease 8. Sick sinus syndrome status post Medtronic dual chamber pacemaker insertion 9. Prostate disorder 10. Osteoarthritis 11. Postoperative acute blood loss anemia, expected 12. Paroxysmal atrial fibrillation, known common occurrence after open heart surgery, status post exclusion of the left atrial appendage, remaining in normal sinus rhythm Plan From cardiology's perspective, we'll continue the patient on current medications. Plan for possible discharge home soon. DNP note has been reviewed, I agree with a documented findings and plan of care. Patient was seen and examined.
[2020-11-16 11:55] VITALS: BP 110/70; PULSE 76; RESP 18
--- NOTE | 2020-11-16 12:37 | P.DS ---
Providers Date of admission: 11/11/20 05:32 Expected date of discharge: 11/16/20 Attending physician: Aaron Nye Consults: 11/11/20 16:11 Consult Physician Routine Consulting Provider: Flo Griffith Consult Reason/Comments: Manager Of Medical Consult: post cardiac surgery Do you want consulting provider notified?: Yes Consult Physician Routine Consulting Provider: Caio Leyva Consult Reason/Comments: shayla barbosa; manas patient Do you want consulting provider notified?: Yes Consult Physician Routine Consulting Provider: Nacho Waters Consult Reason/Comments: Nurseryman Assistant Consult: post cardiac surgery Do you want consulting provider notified?: Yes Primary care physician: Osiris Mosqueda [facility] Course: FINAL DIAGNOSIS: 1. Triple-vessel coronary artery disease 2. Preserved left ventricular function 3. Mild to moderate mitral valve regurgitation 4. History of hypertension 5. History of hyperlipidemia, treated, cholesterol 169, LDL 91, triglycerides 182 6. Morbid obesity 7. Peripheral vascular disease 8. Sick sinus syndrome status post Medtronic dual-chamber pacemaker insertion 9. Prostate disorder 10. Osteoarthritis 11. Postoperative acute blood loss anemia, expected, requiring no transfusion 12. Paroxysmal atrial fibrillation PRINCIPAL PROCEDURE: 1. Quadruple coronary artery bypass grafting using the left internal mammary artery to the left anterior descending artery, left radial artery from the aorta to the obtuse marginal coronary artery, reverse greater saphenous vein graft from the aorta to the second diagonal coronary artery, reverse greater saphenous vein graft from the aorta to the distal posterior descending coronary artery 2. Exclusion of the left atrial appendage using a 35 mm AtriClip 3. Endoscopic harvesting of the right radial artery 4. Endoscopic harvesting of the left greater saphenous vein from the groin to below the knee level 5. Intraoperative transesophageal echocardiogram and epi-aortic scanning 6. Intraoperative graft flow measurements using the Medistim system HISTORY OF PRESENT ILLNESS: This is a 65-year-old gentleman who follows on an outpatient basis with Dr. Mosqueda for primary care and Dr. Paris for cardiology. He was experiencing progressive chest pressure and dyspnea on exertion. He underwent heart catheterization demonstrating triple vessel disease with complex LAD diagonal bifurcation, severe proximal first obtuse marginal and diffuse proximal to mid PDA disease. The patient was referred to Dr. Nye from cardiothoracic surgery. He was recommended to undergo coronary artery bypass surgery. The usual perioperative course was discussed in detail with the patienty, all risks and benefits were explained, all questions were answered, and consent was obtained to proceed with surgery. The patient was referred for pulmonary evaluation, received pulmonary clearance, and surgery was scheduled. Patient was instructed to stop Plavix 5 days prior to surgery. HOSPITAL COURSE: The patient was brought to the hospital on 11/11/2020, taken to the preoperative area, prepared in the usual fashion, and subsequently taken to the operating room where Dr. Nye performed four-vessel CABG. Upon completion of surgery the patient was transferred to the cardiovascular intensive care unit where he was recovered and monitored hemodynamically. He was extubated, all li emmy, tubes, and drips were discontinued when appropriate, and he was transferred to 3 S cardiac stepdown unit for further monitoring and rehabilitation. He did experience paroxysmal atrial fibrillation which was treated with amiodarone and Eliquis. His oxygen was titrated down, he continued to work with physical and occupational therapy, he was tolerating oral diet, his pain was controlled, and he was ready to be discharged to home with [facility] care on postoperative day #5. He received written and verbal instruction regarding his medications, activity restrictions, signs and symptoms requiring physician notification, and follow-up appointments. COMPLICATIONS: The patient experienced postoperative acute blood loss anemia and paroxysmal atrial fibrillation, both which were treated accordingly Patient Condition at Discharge: Stable Plan - Discharge Summary Discharge Rx Participant: Yes New Discharge Prescriptions: New Amiodarone [Cordarone] 400 mg PO BID #36 tab Apixaban [Eliquis] 5 mg PO BID #60 tab Furosemide [Lasix] 20 mg PO DAILY #5 tab Atorvastatin [Lipitor] 40 mg PO DAILY #30 tab Pantoprazole [Protonix] 40 mg PO -[facility]30 tablet.dr Sheridan-Docusate Sodium [Senokot-S] 2 each PO HS PRN tab PRN Reason: Constipation Diltiazem Cd [Cardizem CD] 120 mg PO DAILY #30 cap.er.24h Metoprolol Tartrate [Lopressor] 50 mg PO BID #60 tab Continue oxyCODONE-APAP 10-325MG [Percocet 10-325 mg] 1 tab PO TID Oxybutynin ER [Ditropan Xl] 10 mg PO HS Loratadine [Claritin] 10 mg PO DAILY Terazosin HCl [Hytrin] 10 mg PO HS Cholecalciferol [Vitamin D3 (25 Mcg = 1000 Iu)] 5,000 unit PO HS Aspirin [Adult Low Dose Aspirin EC] 81 mg PO DAILY Discontinued Metoprolol Succinate (ER) [Toprol Xl] 50 mg PO BID Atorvastatin [Lipitor] 20 mg PO HS Clopidogrel [Plavix] 75 mg PO HS ramipriL [Altace] 2.5 mg PO HS Mupirocin [Mupirocin 2%] 1 applic NASAL BID #1 tube Discharge Medication List Aspirin [Adult Low Dose Aspirin EC] 81 mg PO DAILY 12/27/19 [History] Cholecalciferol [Vitamin D3 (25 Mcg = 1000 Iu)] 5,000 unit PO HS 12/27/19 [History] Loratadine [Claritin] 10 mg PO DAILY 12/27/19 [History] Oxybutynin ER [Ditropan Xl] 10 mg PO HS 12/27/19 [History] Terazosin HCl [Hytrin] 10 mg PO HS 12/27/19 [History] oxyCODONE-APAP 10-325MG [Percocet 10-325 mg] 1 tab PO TID 12/27/19 [History] Amiodarone [Cordarone] 400 mg PO BID #36 tab 11/16/20 [Rx] Apixaban [Eliquis] 5 mg PO BID #60 tab 11/16/20 [Rx] Atorvastatin [Lipitor] 40 mg PO DAILY #30 tab 11/16/20 [Rx] Diltiazem Cd [Cardizem CD] 120 mg PO DAILY #30 cap.er.24h 11/16/20 [Rx] Furosemide [Lasix] 20 mg PO DAILY #5 tab 11/16/20 [Rx] Metoprolol Tartrate [Lopressor] 50 mg PO BID #60 tab 11/16/20 [Rx] Pantoprazole [Protonix] 40 mg PO AC-BRKFST #30 tablet. 11/16/20 [Rx] Sennosides-Docusate Sodium [Senokot-S] 2 each PO HS PRN tab 11/16/20 [Rx] Follow up Appointment(s)/Referral(s): Ilene Wright, MARY [Nurse Practitioner] - 11/20/20 11:30 am [facility], [NON-STAFF] - 1-2 Days Rehab Nolan GARDNER,Cardiac [NON-STAFF] - 4 Weeks (You will be called 4-6 weeks after surgery to be evaluated for cardiac rehab) Osiris Mosqueda MD [Primary Care Provider] - 11/28/20 11:15 am Aaron Nye MD [STAFF PHYSICIAN] - 12/13/20 10:00 am Natty Wan MD [STAFF PHYSICIAN] - 12/25/20 10:00 am Gordy Paris DO [REFERRING] - 2 Weeks (Will call with appointment once Dr. Paris's office returns phone call) Ambulatory/Diagnostic Orders: Complete Blood Count w/diff [LAB.AMB] Time Frame: 3 Days, Location: None Selected Comprehensive Metabolic Panel [LAB.AMB] Time Frame: 3 Days, Location: None Selected Activity/Diet/Wound Care/Special Instructions: DISCHARGE INSTRUCTIONS: 1. No driving for 4 weeks, or until physician gives their ok. 2. The patient should sleep in their own bed, no medical bed needed. 3. Stairs are not an issue. If the bedroom is upstairs, it is advised that the patient go up at night and down in the morning for the first week. Go slowly, using handrail and take 1 step at a time. 4. GINA hose are to be worn for 30 days or until physician discontinues. 5. Heart hugger is to be worn 100% of the time until physician discontinues.(except when showering) 6. No lifting, pushing, or pulling more than 10 pounds for 12 weeks. The physician will advise of any restriction changes. 7. The patient is expected to continue the prescribed walking program. 8. Continue pain control per as needed orders. 9. Continue with incentive spirometry and splinting/heart hugger until oth erwise directed by the physician. 10. Must shower daily using liquid antibacterial soap and a separate white washcloth for each individual incision. 11. Routine sternal incision care. No powders, lotions, ointments on incisions. No dressings are necessary on incisions unless they are draining. Dermabond tape is to remain on sternal incision until surgeon follow-up. 12. Please call surgeon/CONTINUOUS IMPROVEMENT INTERN for temp greater than 101 F or purulent drainage from incisions. 13. All prescriptions given by surgeon for 30 days. Refills need to be filled through office messenger/primary care physician. 14. A Red armband has been placed on the patient. It should be worn for 30 days post surgery and will be removed by the cardiac surgeons. If an ER visit is necessary, please make sure the number on the Red armband is called. 15. You have been referred to and are expected to begin Cardiac Rehab in approximately 4-6 weeks. HOME HEALTH SERVICES TO PROVIDE: RN SKILLED HOME CARE SERVICES FOR POST-OP SURGICAL PATIENTS WITH THE FOLLOWING: Coronary Artery Bypass Surgery (CABG), Mitral Valve Replacement/Repair ( MVR), Aortic Valve Replacement/Repair (AVR) RN TO CONTINUE EDUCATION FROM ``ROAD TO A HEALTH HEART PATIENT EDUCATION MANUAL (GIVEN TO PATIENT IN THE HOSPITAL) MEDICATION RECONCILIATION WITH EDUCATION NEEDED ON FIRST HOME VISIT EMPHASIZE IMPORTANCE OF WEARING BREAST SUPPORT/HEART HUGGER ENCOURAGE USE OF INCENTIVE SPIROMETER 10 X EVERY HOUR WHILE AWAKE ENCOURAGE UTILIZATION OF LOWER EXTREMITY COMPRESSION STOCKINGS/GINA HOSE and ELEVATE LEGS ABOVE LEVEL OF HEART WHILE AT REST. ENCOURAGE AMBULATION 3-5x/day INCREASING TOLERATES, WHILE AVOIDING EXTREMES IN TEMPERATURE FREQUENCY: RN TO OPEN THE PATIENT WITHIN 24 HOURS OF DISCHARGE FROM THE HOSPITAL WITH TELEHEALTH INSTALLED AT [facility] RN TO VISIT 2-3 X A WEEK FOR 4 WEEKS ESTABLISHED BY PATIENT NEEDS. LABORATORY: CBC, CMP TO BE DRAWN ON THE THIRD DAY HOME, (RAN STAT) FAX RESULTS TO [phone].. TELEHEALTH PARAMETERS: WEIGHT: NOTIFY MD OF WEIGHT GAIN OF 2 LBS IN 24 HOURS OR 5 LBS IN ONE WEEK HR: NOTIFY MD OF HR <55 BPM OR HR>100 BPM BP: NOTIFY MD IF BP <90/55 OR BP>140/100 O2 SAT: NOTIFY MD IF PO2<93% ON ROOM AIR SEND TELEHEALTH REPORT TO ELECTRICITY TRADING ANALYST AND CARDIOVASCULAR SURGEON THE FIRST WEEK OF CARE AND THEN BI-WEEKLY. PLEASE ADDITIONALLY COMMUNICATE ANY ABNORMALS AND NEW FINDINGS TO THE SURGEONS OFFICE. For any questions or concerns please call general service technician Ilene @ or Mitchel @ Discharge Disposition: HOME WITH HOME HEALTH SERVICES
--- NOTE | 2020-11-16 14:00 | P.PN ---
Subjective This is a pleasant 65 years old male with multiple medical problems including hypertension, hyperlipidemia, degenerative joint disease, prostate disease, history of MRSA infection and history of pacemaker status post TURP. He is hemodynamically stable, mildly tachypneic with a breathing rate 22, blood pressure 121/50. He is saturating 95% room air and afebrile. showing mild anemia with hemoglobin 8.4 which is expected contrast of CBC is unremarkable, mild hyponatremia at 132, rest of BMP and liver enzymes are unremarkable. Sugar is controlled. Chest x-ray: Atelectasis improving. Patient is currently on aspirin and Plavix and metoprolol, Cardizem and amiodarone Patient is going to be transferred to select unit from ICU today 11/15/2020 Patient is doing well with no chest pain or dyspnea. His breathing quietly on room air Labs including CBC and BMP are unremarkable Patient continue on multiple medication including aspirin 325 mg, Plavix, amiodarone 400 mg twice daily, Cardizem 120 mg daily and metoprolol 50 mg twice daily Also he is been followed closely by cardiology and cardiothoracic surgery team regarding his management of A. fib, and currently is only on prophylactic dose of subcutaneous heparin Other than patient looks stable. 11/16/2020 Patient is awake and alert, we have minimal chest pain at the surgical site, no shortness of breath, he is eating dying and has regular bowel movements. No headache or weakness or numbness and no other complaints. Patient feeling he can go home today if cleared by other consultants and primary team. WBC is 10.8 gait. Sodium 133, creatinine 1.0. Glucose 157-164. Magnesium 2.4. Patient remains on aspirin, cardiology team and cardiothoracic primary team at the [facility] today for this A. fib/flutter. Discussed with bed side nurse to check for Last 2 Left co-pay. Risks including but not limited to brain bleed, bleeding from anywhere are explained to the patient and he verbalized understanding and acceptance. Patient looks medically stable Objective - Vital Signs Vital signs: Vital Signs Temp 97.8 F 11/16/20 08:56 Pulse 76 11/16/20 11:15 Resp 18 11/16/20 11:15 BP 110/70 11/16/20 11:15 Pulse Ox 98 11/16/20 11:15 Intake & Output 11/15/20 11/16/20 11/16/20 18:59 06:59 18:59 Intake Total 1140 480 360 Output Total 726 300 Balance 414 180 360 Weight 126.7 kg Intake: Oral 1140 480 360 Output: Urine 725 300 Stool 1 Other: Voiding Method Toilet Toilet Toilet # Voids 1 # Bowel Movements 1 ABP, PAP, CO, CI - Last Documented Arterial Blood Pressure 121/50 Pulmonary Artery Pressure 33/17 Cardiac Output 6.1 Cardiac Index 2.6 - Exam GENERAL: The patient is alert and oriented x3, not in any acute distress. Well developed, well nourished. HEENT: Pupils are round and equally reacting to light. EOMI. No scleral icterus. No conjunctival pallor. Normocephalic, atraumatic. No pharyngeal erythema. No thyromegaly. CARDIOVASCULAR: S1 and S2 present. No murmurs, rubs, or gallops. PULMONARY: Chest is clear to auscultation, no wheezing or crackles. ABDOMEN: Soft, nontender, nondistended, normoactive bowel sounds. No palpable organomegaly. MUSCULOSKELETAL: No joint swelling or deformity. EXTREMITIES: No cyanosis, clubbing, or pedal edema. NEUROLOGICAL: Gross neurological examination did not reveal any focal deficits. SKIN: No rashes. no petechiae. - Labs CBC & Chem 7: 11/16/20 08:44 11/16/20 08:44 Labs: Abnormal Lab Results - Last 24 Hours (Table) 11/15/20 11/15/20 11/16/20 Range/Units 16:55 20:15 06:13 WBC (3.8-10.6) k/uL RBC (4.30-5.90) m/uL Hgb (13.0-17.5) gm/dL Hct (39.0-53.0) % Sodium (137-145) mmol/L BUN (9-20) mg/dL Glucose (74-99) mg/dL POC Glucose (mg/dL) 117 H 164 H 159 H (75-99) mg/dL Calcium (8.4-10.2) mg/dL Magnesium (1.6-2.3) mg/dL 11/16/20 11/16/20 Range/Units 08:44 08:44 WBC 10.8 H (3.8-10.6) k/uL RBC 3.07 L (4.30-5.90) m/uL Hgb 9.6 L (13.0-17.5) gm/dL Hct 27.2 L (39.0-53.0) % Sodium 133 L (137-145) mmol/L BUN 23 H (9-20) mg/dL Glucose 157 H (74-99) mg/dL POC Glucose (mg/dL) (75-99) mg/dL Calcium 8.3 L (8.4-10.2) mg/dL Magnesium 2.4 H (1.6-2.3) mg/dL Assessment and Plan Assessment: Coronary artery disease status post four-vessel CABG A. fib/flutter, currently heart controlled and liquids started by primary team Hypertension Hyperlipidemia Hyperglycemia with no history of diabetes mellitus. 3 diabetes with hemoglobin A1c 6.4% History of degenerative joint disease History of prostate disease status post TURP History of MRSA infection History of pacemaker Obesity with body mass index of 37.4 Plan: This is a pleasant 65 years old male status post CABG. Continue With aspirin and Plavix per ham smoker and cardiothoracic surgeon or following the case closely. Continue with amiodarone, metoprolol and Cardizem per ham smoker. Also pulmonary/critical care team on the case. Continue with aspirin and Eliquis Cardiology and cardiothoracic primary team Labs and medication were reviewed.. Continue same treatment. Continue with symptomatic treatment. Resume home medication. Monitor lytes and vitals. DVT and GI prophylaxis. Further recommendationsas per clinical course of the patient DVT prophylaxis: Eliquis GI Prophylaxis: Althea Thank you for consulting us
--- NOTE | 2020-11-16 16:32 | PN ---
PROGRESS NOTE PULMONARY/CRITICAL CARE PROGRESS NOTE: DATE OF SERVICE: November 16, 2020 This is a patient who is postop day #5 status post multivessel coronary artery disease, status post 4 vessel bypass, including RAHMAN to LAD bypass, left radial artery to OM bypass, SVG to the PDA, and also SVG to the diagonal coronary artery. The patient also had a left atrial appendage exclusion. The patient was extubated relatively quickly after surgery. It occurred less than 4 hours after leaving the operating room. In addition, the patient has a history of hyperlipidemia, sick sinus syndrome, status post pacemaker, morbid obesity, BPH, and osteoarthritis. PHYSICAL EXAMINATION: VITAL SIGNS: Current vital signs include temperature 97.8, heart rate 76, respiratory rate 18, blood pressure 110/70, mean 83, and room air saturation 98%. GENERAL: Appears in no acute distress. HEENT: Examination is grossly unremarkable. NECK: Supple. Full range of motion. No adenopathy. Neck veins are flat. CARDIOVASCULAR: Examination reveals regular rhythm and rate. S1, S2 normal. LUNGS: Reveal mostly clear breath sounds. A few scattered rhonchi. ABDOMEN: Soft. Bowel sounds are heard. EXTREMITIES are intact. No cyanosis, clubbing, or edema. SKIN: Without rash. NEUROLOGIC: Examination is brief but nonfocal. LABS: Reveal a white count 10.8, hemoglobin 9.6, hematocrit 27.2, platelet count 305,000, sodium 133, potassium 3.9, chloride 103, CO2 24. Anion gap 6, BUN 23, creatinine 1.02, magnesium 2.4. Chest x-ray shows some postsurgical changes at the bases. There is some minimal basilar atelectasis. ASSESSMENT: 1. Postoperative day 5, status post 4 vessel bypass grafting with left atrial appendage exclusion. 2. Routine postoperative ventilator management, with extubation 3-1/2 hours after the OR exit time. 3. Hyperlipidemia. 4. History of sick sinus syndrome. 5. Morbid obesity. 6. Benign prostatic hypertrophy. 7. Osteoarthritis. 8. Postoperative anemia. PLAN: The patient will be discharged home today. He is doing well. Will follow up with Dr. Wan or Dr. Mishra in the office for his followup appointment. Additional recommendations and suggestions are forthcoming. He is not having any respiratory distress. MMODL / IJN: [id number] /
== END 2020-11-16 14:14 | disposition home health service (06) | DRG 236 ==
LOC: 2ORMAIN 05:32 → 2SICU 16:31 → 3SCARD 11-14 18:43
PROVIDERS: ADMIT Surgery; ATTEND Surgery
PROC: 02L70CK Occlusion of Left Atrial Appendage with Extraluminal Device, Open Approach (ICD-10-PCS; 2020-11-11)
PROC: 5A1221Z Performance of Cardiac Output, Continuous (ICD-10-PCS; 2020-11-11)
PROC: B24BZZ4 Ultrasonography of Heart with Aorta, Transesophageal (ICD-10-PCS; 2020-11-11)
PROC: 02100Z9 Bypass Coronary Artery, One Artery from Left Internal Mammary, Open Approach (ICD-10-PCS; principal; 2020-11-11 08:00)
PROC: 021209W Bypass Coronary Artery, Three Arteries from Aorta with Autologous Venous Tissue, Open Approach (ICD-10-PCS; 2020-11-11 08:00)
PROC: 06BQ4ZZ Excision of Left Saphenous Vein, Percutaneous Endoscopic Approach (ICD-10-PCS; 2020-11-11 08:00)
PROC: 03BB4ZZ Excision of Right Radial Artery, Percutaneous Endoscopic Approach (ICD-10-PCS; 2020-11-11 08:00)
DX: I25.10 Atherosclerotic heart disease of native coronary artery without angina pectoris (principal); D62 Acute posthemorrhagic anemia; E87.1 Hypo-osmolality and hyponatremia; I34.0 Nonrheumatic mitral (valve) insufficiency; E78.5 Hyperlipidemia, unspecified; I10 Essential (primary) hypertension; E11.51 Type 2 diabetes mellitus with diabetic peripheral angiopathy without gangrene; Z95.0 Presence of cardiac pacemaker; Z79.82 Long term (current) use of aspirin; Z79.02 Long term (current) use of antithrombotics/antiplatelets; E66.01 Morbid (severe) obesity due to excess calories; Z68.37 Body mass index [BMI] 37.0-37.9, adult; N40.0 Benign prostatic hyperplasia without lower urinary tract symptoms; M19.90 Unspecified osteoarthritis, unspecified site; Z86.14 Personal history of Methicillin resistant Staphylococcus aureus infection; I48.0 Paroxysmal atrial fibrillation; E11.65 Type 2 diabetes mellitus with hyperglycemia; I49.5 Sick sinus syndrome
CPT/HCPCS: 71045; 71046; 80048; 80053; 82330; 82805; 83735; 85025; 85027; 85520; 85610; 85730; 86850; 86891; 86900; 86901; 86920; 94002; 94640

== ENCOUNTER → 2020-11-27 | Outpatient (CLI) | payer MEDICARE, OTHER ==
[2020-11-27 12:52] LABS: ALT 25 U/L (4-49); AST 20 U/L (17-59); African American GFR (CKD) 62 (>60 ml/min/1.73 sqM); Albumin 3.1 g/dL (3.5-5.0); Albumin/Globulin Ratio 0.9; Alkaline Phosphatase 102 U/L (38-126); Anion Gap 6 mmol/L; Blood Urea Nitrogen 18 mg/dL (9-20); Calcium 8.6 mg/dL (8.4-10.2); Carbon Dioxide 27 mmol/L (22-30); Chloride 100 mmol/L (98-107); Globulin 3.4 g/dL; Glucose 176 mg/dL (74-99); Non-African American GFR(CKD) 54 (>60 ml/min/1.73 sqM); Potassium 4.2 mmol/L (3.5-5.1); Sodium 133 mmol/L (137-145); Total Bilirubin 0.6 mg/dL (0.2-1.3); Total Protein 6.5 g/dL (6.3-8.2)
[2020-11-27 13:03] LABS: Basophils # (A) 0.1 k/uL (0-0.2); Basophils % (A) 1 %; Eosinophils # (A) 0.1 k/uL (0-0.7); Eosinophils % (A) 1 %; HCT 30.2 % (39.0-53.0); HGB 9.3 gm/dL (13.0-17.5); Hypochromasia Marked; Lymphocytes # (A) 1.2 k/uL (1.0-4.8); Lymphocytes % (A) 10 %; MCHC 30.7 g/dL (31.0-37.0); MCV 91.3 fL (80.0-100.0); Mean Platelet Volume 7.3; Monocytes # (A) 0.6 k/uL (0-1.0); Monocytes % (A) 5 %; Neutrophils # (A) 10.5 k/uL (1.3-7.7); Neutrophils % (A) 83 %; Platelet Count 531 k/uL (150-450); Poikilocytosis Moderate; RBC 3.31 m/uL (4.30-5.90); WBC 12.8 k/uL (3.8-10.6)
== END | disposition home or self-care (01) ==
LOC: LABWHC1 11:35
PROVIDERS: ATTEND Surgery
DX: E78.5 Hyperlipidemia, unspecified (principal); E87.8 Other disorders of electrolyte and fluid balance, not elsewhere classified; I25.10 Atherosclerotic heart disease of native coronary artery without angina pectoris; I10 Essential (primary) hypertension
CPT/HCPCS: 36415; 80053; 85025

== ENCOUNTER 2021-04-28 15:50 | Emergency (ER) | payer MEDICARE, OTHER ==
[2021-04-28 16:51] VITALS: TEMP 97.9
[2021-04-28] MEDS ORDERED: SODIUM CHLORIDE 0.9% 1,000 ML IV STA (19:03)
[2021-04-28 20:30] LABS: ALT 16 U/L (4-49); AST 24 U/L (17-59); African American GFR (CKD) >90 (>60 ml/min/1.73 sqM); Albumin 3.5 g/dL (3.5-5.0); Alkaline Phosphatase 177 U/L (38-126); Anion Gap 9 mmol/L; Blood Urea Nitrogen 12 mg/dL (9-20); Calcium 9.3 mg/dL (8.4-10.2); Carbon Dioxide 24 mmol/L (22-30); Chloride 102 mmol/L (98-107); Glucose 103 mg/dL (74-99); Magnesium 2.1 mg/dL (1.6-2.3); Non-African American GFR(CKD) 90 (>60 ml/min/1.73 sqM); Potassium 4.2 mmol/L (3.5-5.1); Sodium 135 mmol/L (137-145); Total Bilirubin 0.7 mg/dL (0.2-1.3); Total Protein 7.3 g/dL (6.3-8.2)
[2021-04-28 20:38] LABS: Appearance,Urine Clear (Clear); Bilirubin,Urine Negative (Negative); Blood,Urine Negative (Negative); Color,Urine Yellow; Glucose,Urine (UA) Negative (Negative); Ketones,Urine Negative (Negative); Leukocyte Esterase,Urine Negative (Negative); Nitrite,Urine Negative (Negative); PH, Urine 5.5 (5.0-8.0); Protein,Urine Trace (Negative); Specific Gravity,Urine 1.029 (1.001-1.035); Urobilinogen,Urine <2.0 mg/dL (<2.0)
[2021-04-28 20:46] LABS: INR 1.1 (<1.2); Partial Thromboplastin Time 21.8 sec (22.0-30.0); Prothrombin Time 11.8 sec (9.0-12.0)
[2021-04-28 20:55] LABS: Anisocytosis Slight; Basophils # (A) 0.1 k/uL (0-0.2); Basophils % (A) 1 %; Eosinophils # (A) 0.1 k/uL (0-0.7); Eosinophils % (A) 1 %; HCT 30.5 % (39.0-53.0); HGB 9.3 gm/dL (13.0-17.5); Hypochromasia Marked; Lymphocytes # (A) 1.4 k/uL (1.0-4.8); Lymphocytes % (A) 24 %; MCH 21.9 pg (25.0-35.0); MCHC 30.6 g/dL (31.0-37.0); MCV 71.3 fL (80.0-100.0); Mean Platelet Volume 6.7; Microcytosis Moderate; Monocytes # (A) 0.6 k/uL (0-1.0); Monocytes % (A) 10 %; Neutrophils # (A) 3.5 k/uL (1.3-7.7); Platelet Count 565 k/uL (150-450); Poikilocytosis Slight; RBC 4.27 m/uL (4.30-5.90); WBC 5.9 k/uL (3.8-10.6)
[2021-04-28 21:16] LABS: Basophils # (M) 0.12 k/uL (0-0.2); Eosinophils # (M) 0.12 k/uL (0-0.7); Lymphocytes # (M) 1.65 k/uL (1.0-4.8); Monocytes # (M) 0.59 k/uL (0-1.0); Neutrophils # (M) 3.42 k/uL (1.3-7.7); Neutrophils % (M) 58 %; Nucleated Red Blood Cells 0 /100 WBC (0-0); Total Cells Counted 100
--- NOTE | 2021-04-28 21:38 | XR ---
EXAMINATION TYPE: XR chest 2V DATE OF EXAM: 04/28/2021 COMPARISON: 01/30/2021. HISTORY: Shortness of breath. TECHNIQUE: Frontal and lateral views of the chest are obtained. FINDINGS: There is moderate to large right pleural effusion with accompanying opacity. No pneumothor ax seen. The cardiac silhouette size is enlarged. Prior cardiothoracic postsurgical changes seen. The osseous structures are intact. IMPRESSION: Moderate to large right pleural effusion with adjacent atelectasis.
--- NOTE | 2021-04-28 21:56 | CT ---
EXAMINATION TYPE: CT chest angio for PE DATE OF EXAM: 04/28/2021 COMPARISON: Same-day radiograph. HISTORY: Shortness of breath and elevated d-dimer. CT DLP: 586.2 mGycm Automated exposure control for dose reduction was used. CONTRAST: CT Chest for pulmonary embolism performed with with IV Contrast, patient injected with 100 mL of Isov ue 370. Sagittal, coronal and MIPS reformats provided and reviewed. FINDINGS: LUNGS: There is large right pleural effusion with adjacent moderate consolidation. No pneumothorax. T he tracheobronchial tree is patent. MEDIASTINUM: There is satisfactory enhancement of the pulmonary artery and its branches, there is no CT evidence for pulmonary embolism. There are no greater than 1 cm hilar or mediastinal lymph nodes. No pericardial effusion is seen. Prior cardiothoracic postsurgical changes seen. OTHER: Indeterminate 3.1 x 2.9 x 4.1 cm solid, rounded mass in the right upper quadrant adjacent to the pancreas. IMPRESSION: No acute PE. Large right pleural effusion with adjacent consolidation, likely atelectasis. Incidental 4.1 cm right upper quadrant lesion/mass, which is suboptimally characterized on the study. Recommend dedicated CT for further characterization.
--- NOTE | 2021-04-28 22:18 | ED ---
SOB HPI - General Chief Complaint: Shortness of Breath Stated Complaint: SOB Time Seen by Provider: 04/28/21 18:57 Source: patient, RN notes reviewed Mode of arrival: ambulatory Limitations: no limitations - History of Present Illness Initial Comments: Patient is a 65-year-old male that presents to emergency department complaining of shortness of breath and weakness. He notes that he was recently diagnosed with pneumonia and finished antibiotics. He was told he did have a pleural effusion at that time. He notes that he is been feeling about the same after finishing antibiotic. He notes that his appetite is not the best we still able to tolerate oral fluids and solids. He was otherwise a well-appearing 65-year-old male in no apparent distress or pain. He denied any chest pain headache nausea vomiting diarrhea constipation fever fatigue chills. - Related Data Home Medications Medication Instructions Recorded Confirmed Aspirin [Adult Low Dose Aspirin EC] 81 mg PO DAILY 12/27/19 04/28/21 Cholecalciferol [Vitamin D3 (25 5,000 unit PO HS 12/27/19 04/28/21 Mcg = 1000 Iu)] Loratadine [Claritin] 10 mg PO DAILY 12/27/19 04/28/21 Oxybutynin ER [Ditropan Xl] 10 mg PO HS 12/27/19 04/28/21 Terazosin HCl [Hytrin] 10 mg PO HS 12/27/19 04/28/21 oxyCODONE-APAP 10-325MG [Percocet 1 tab PO TID 12/27/19 04/28/21 10-325 mg] Metoprolol Tartrate [Lopressor] 50 mg PO BID 04/28/21 04/28/21 Previous Rx's Medication Instructions Recorded Apixaban [Eliquis] 5 mg PO BID #60 tab 11/16/20 Atorvastatin [Lipitor] 40 mg PO DAILY #30 tab 11/16/20 Diltiazem Cd [Cardizem CD] 120 mg PO DAILY #30 cap.er.24h 11/16/20 Allergies Allergy/AdvReac Type Severity Reaction Status Date / Time No Known Allergies Allergy Verified 04/28/21 22:02 Review of Systems ROS Statement: Those systems with pertinent positive or pertinent negative responses have been documented in the HPI. ROS Other: All systems not noted in ROS Statement are negative. Past Medical History Past Medical History: No Reported History History of Any Multi-Drug Resistant Organisms: MRSA Date of last positivie culture/infection: 05/12/17 MDRO Source:: neck Past Surgical History: No Surgical Hx Reported Additional Past Surgical History / Comment(s): TURP, angiography Past Anesthesia/Blood Transfusion Reactions: No Reported Reaction Type of Cardiac Device: Permanent Pacemaker Device Placement Date:: 2018 Past Psychological History: No Psychological Hx Reported Smoking Status: Never smoker General Exam Limitations: no limitations General appearance: alert, in no apparent distress Head exam: Present: atraumatic, normocephalic, normal inspection Eye exam: Present: normal appearance, PERRL, EOMI. Absent: scleral icterus, conjunctival injection, periorbital swelling ENT exam: Present: normal exam, mucous membranes moist Neck exam: Present: normal inspection Respiratory exam: Present: normal lung sounds bilaterally, decreased breath sounds (On the right side). Absent: respiratory distress, wheezes, rales, rhonchi, stridor Cardiovascular Exam: Present: regular rate, normal rhythm, normal heart sounds. Absent: systolic murmur, diastolic murmur, rubs, gallop, clicks GI/Abdominal exam: Present: soft, normal bowel sounds. Absent: distended, tenderness, guarding, rebound, rigid Extremities exam: Present: normal inspection, full ROM, normal capillary refill. Absent: tenderness, pedal edema, joint swelling, calf tenderness Neurological exam: Present: alert, oriented X3 Psychiatric exam: Present: normal affect, normal mood Skin exam: Present: warm, dry, intact, normal color. Absent: rash Course Vital Signs 04/28/21 16:48 Temperature 97.9 F Pulse Rate 18 L Respiratory 18 Rate Blood Pressure 132/80 O2 Sat by Pulse 99 Oximetry Medical Decision Making - Medical Decision Making 65-year-old male complaining of shortness of breath. Labs, EKG, chest x-ray, 1 L normal saline ordered. Labs: CBC unremarkable from baseline CMP unremarkable, d-dimer elevated at 0.76. Chest x-ray and CT show a large right pleural effusion. Patient prefers to go home with outpatient follow-up to a focusing machine operator. Case discussed with Dr. Mcneal, patient discharge home. - Lab Data Result diagrams: 04/28/21 20:05 04/28/21 20:05 Lab Results 04/28/21 04/28/21 04/28/21 Range/Units 20:05 20:05 20:05 WBC 5.9 (3.8-10.6) k/uL RBC 4.27 L (4.30-5.90) m/uL Hgb 9.3 L (13.0-17.5) gm/dL Hct 30.5 L (39.0-53.0) % MCV 71.3 L (80.0-100.0) fL MCH 21.9 L (25.0-35.0) pg MCHC 30.6 L (31.0-37.0) g/dL RDW 17.0 H (11.5-15.5) % Plt Count 565 H (150-450) k/uL MPV 6.7 Neutrophils % (Manual) 58 % Lymphocytes % 24 % Lymphocytes % (Manual) 28 % Monocytes % 10 % Monocytes % (Manual) 10 % Eosinophils % 1 % Eosinophils % (Manual) 2 % Basophils % 1 % Basophils % (Manual) 2 % Neutrophils # 3.5 (1.3-7.7) k/uL Neutrophils # (Manual) 3.42 (1.3-7.7) k/uL Lymphocytes # 1.4 (1.0-4.8) k/uL Lymphocytes # (Manual) 1.65 (1.0-4.8) k/uL Monocytes # 0.6 (0-1.0) k/uL Monocytes # (Manual) 0.59 (0-1.0) k/uL Eosinophils # 0.1 (0-0.7) k/uL Eosinophils # (Manual) 0.12 (0-0.7) k/uL Basophils # 0.1 (0-0.2) k/uL Basophils # (Manual) 0.12 (0-0.2) k/uL Nucleated RBCs 0 (0-0) /100 WBC Manual Slide Review Performed Hypochromasia Marked Poikilocytosis Slight Anisocytosis Slight Microcytosis Moderate PT 11.8 (9.0-12.0) sec INR 1.1 (<1.2) APTT 21.8 L (22.0-30.0) sec D-Dimer 0.76 H (<0.60) mg/L FEU Sodium 135 L (137-145) mmol/L Potassium 4.2 (3.5-5.1) mmol/L Chloride 102 (98-107) mmol/L Carbon Dioxide 24 (22-30) mmol/L Anion Gap 9 mmol/L BUN 12 (9-20) mg/dL Creatinine 0.86 (0.66-1.25) mg/dL Est GFR (CKD-EPI)AfAm >90 (>60 ml/min/1.73 sqM) Est GFR (CKD-EPI)NonAf 90 (>60 ml/min/1.73 sqM) Glucose 103 H (74-99) mg/dL Plasma Lactic Acid Valente (0.7-2.0) mmol/L Calcium 9.3 (8.4-10.2) mg/dL Magnesium 2.1 (1.6-2.3) mg/dL Total Bilirubin 0.7 (0.2-1.3) mg/dL AST 24 (17-59) U/L ALT 16 (4-49) U/L Alkaline Phosphatase 177 H (38-126) U/L Troponin I (0.000-0.034) ng/mL NT-Pro-B Natriuret Pep pg/mL Total Protein 7.3 (6.3-8.2) g/dL Albumin 3.5 (3.5-5.0) g/dL Urine Color Urine Appearance (Clear) Urine pH (5.0-8.0) Ur Specific [place] (1.001-1.035) Urine Protein (Negative) Urine Glucose (UA) (Negative) Urine Ketones (Negative) Urine Blood (Negative) Urine Nitrite (Negative) Urine Bilirubin (Negative) Urine Urobilinogen (<2.0) mg/dL Ur Leukocyte Esterase (Negative) 04/28/21 04/28/21 04/28/21 Range/Units 20:05 20:05 20:05 WBC (3.8-10.6) k/uL RBC (4.30-5.90) m/uL Hgb (13.0-17.5) gm/dL Hct (39.0-53.0) % MCV (80.0-100.0) fL MCH (25.0-35.0) pg MCHC (31.0-37.0) g/dL RDW (11.5-15.5) % Plt Count (150-450) k/uL MPV Neutrophils % (Manual) % Lymphocytes % % Lymphocytes % (Manual) % Monocytes % % Monocytes % (Manual) % Eosinophils % % Eosinophils % (Manual) % Basophils % % Basophils % (Manual) % Neutrophils # (1.3-7.7) k/uL Neutrophils # (Manual) (1.3-7.7) k/uL Lymphocytes # (1.0-4.8) k/uL Lymphocytes # (Manual) (1.0-4.8) k/uL Monocytes # (0-1.0) k/uL Monocytes # (Manual) (0-1.0) k/uL Eosinophils # (0-0.7) k/uL Eosinophils # (Manual) (0-0.7) k/uL Basophils # (0-0.2) k/uL Basophils # (Manual) (0-0.2) k/uL Nucleated RBCs (0-0) /100 WBC Manual Slide Review Hypochromasia Poikilocytosis Anisocytosis Microcytosis PT (9.0-12.0) sec INR (<1.2) APTT (22.0-30.0) sec D-Dimer (<0.60) mg/L FEU Sodium (137-145) mmol/L Potassium (3.5-5.1) mmol/L Chloride (98-107) mmol/L Carbon Dioxide (22-30) mmol/L Anion Gap mmol/L BUN (9-20) mg/dL Creatinine (0.66-1.25) mg/dL Est GFR (CKD-EPI)AfAm (>60 ml/min/1.73 sqM) Est GFR (CKD-EPI)NonAf (>60 ml/min/1.73 sqM) Glucose (74-99) mg/dL Plasma Lactic Acid Valente 1.0 (0.7-2.0) mmol/L Calcium (8.4-10.2) mg/dL Magnesium (1.6-2.3) mg/dL Total Bilirubin (0.2-1.3) mg/dL AST (17-59) U/L ALT (4-49) U/L Alkaline Phosphatase (38-126) U/L Troponin I <0.012 (0.000-0.034) ng/mL NT-Pro-B Natriuret Pep 707 pg/mL Total Protein (6.3-8.2) g/dL Albumin (3.5-5.0) g/dL Urine Color Urine Appearance (Clear) Urine pH (5.0-8.0) Ur Specific [place] (1.001-1.035) Urine Protein (Negative) Urine Glucose (UA) (Negative) Urine Ketones (Negative) Urine Blood (Negative) Urine Nitrite (Negative) Urine Bilirubin (Negative) Urine Urobilinogen (<2.0) mg/dL Ur Leukocyte Esterase (Negative) 04/28/21 Range/Units 20:33 WBC (3.8-10.6) k/uL RBC (4.30-5.90) m/uL Hgb (13.0-17.5) gm/dL Hct (39.0-53.0) % MCV (80.0-100.0) fL MCH (25.0-35.0) pg MCHC (31.0-37.0) g/dL RDW (11.5-15.5) % Plt Count (150-450) k/uL MPV Neutrophils % (Manual) % Lymphocytes % % Lymphocytes % (Manual) % Monocytes % % Monocytes % (Manual) % Eosinophils % % Eosinophils % (Manual) % Basophils % % Basophils % (Manual) % Neutrophils # (1.3-7.7) k/uL Neutrophils # (Manual) (1.3-7.7) k/uL Lymphocytes # (1.0-4.8) k/uL Lymphocytes # (Manual) (1.0-4.8) k/uL Monocytes # (0-1.0) k/uL Monocytes # (Manual) (0-1.0) k/uL Eosinophils # (0-0.7) k/uL Eosinophils # (Manual) (0-0.7) k/uL Basophils # (0-0.2) k/uL Basophils # (Manual) (0-0.2) k/uL Nucleated RBCs (0-0) /100 WBC Manual Slide Review Hypochromasia Poikilocytosis Anisocytosis Microcytosis PT (9.0-12.0) sec INR (<1.2) APTT (22.0-30.0) sec D-Dimer (<0.60) mg/L FEU Sodium (137-145) mmol/L Potassium (3.5-5.1) mmol/L Chloride (98-107) mmol/L Carbon Dioxide (22-30) mmol/L Anion Gap mmol/L BUN (9-20) mg/dL Creatinine (0.66-1.25) mg/dL Est GFR (CKD-EPI)AfAm (>60 ml/min/1.73 sqM) Est GFR (CKD-EPI)NonAf (>60 ml/min/1.73 sqM) Glucose (74-99) mg/dL Plasma Lactic Acid Valente (0.7-2.0) mmol/L Calcium (8.4-10.2) mg/dL Magnesium (1.6-2.3) mg/dL Total Bilirubin (0.2-1.3) mg/dL AST (17-59) U/L ALT (4-49) U/L Alkaline Phosphatase (38-126) U/L Troponin I (0.000-0.034) ng/mL NT-Pro-B Natriuret Pep pg/mL Total Protein (6.3-8.2) g/dL Albumin (3.5-5.0) g/dL Urine Color Yellow Urine Appearance Clear (Clear) Urine pH 5.5 (5.0-8.0) Ur Specific [place] 1.029 (1.001-1.035) Urine Protein Trace H (Negative) Urine Glucose (UA) Negative (Negative) Urine Ketones Negative (Negative) Urine Blood Negative (Negative) Urine Nitrite Negative (Negative) Urine Bilirubin Negative (Negative) Urine Urobilinogen <2.0 (<2.0) mg/dL Ur Leukocyte Esterase Negative (Negative) - EKG Data -: EKG Interpreted by De EKG shows normal: sinus rhythm EKG Comments: Ventricular rate 77 bpm, QRS duration 112 ms, QTC 454 ms, PRT axis -24/48/-34. Atrial flutter with 41 AV conduction. Incomplete right bundle branch block. P ossible inferior infarct, age undetermined. Abnormal ECG. - Radiology Data Radiology results: report reviewed, image reviewed CT chest angiography for pulmonary embolism: No acute PE. Large right pleural effusion with adjacent consolidation likely atelectasis. Incidental 4.1 cm right upper quadrant lesion/mass which is suboptimally characterized on this s tudy. Chest x-ray: Moderate to large right pleural effusion with adjacent atelectasis. Disposition Clinical Impression: Pleural effusion, right, Shortness of breath Disposition: HOME SELF-CARE Condition: Stable Instructions (If sedation given, give patient instructions): Pleural Effusion (ED) Additional Instructions: Please return to the Emergency Department if symptoms worsen or any other concerns. Follow-up with primary care 1-2 days. Follow-up with pulmonary powder worker tnt as soon as possible. Plan rest. Is patient prescribed a controlled substance at d/c from ED?: No Referrals: Osiris Mosqueda MD [Primary Care Provider] - 1-2 days Flo Griffith DO [Doctor of Osteopathic Medicine] - 1-2 days Time of Disposition: 22:18
[2021-04-28 22:33] VITALS: BP 131/73; PULSE 87; RESP 22
== END 2021-04-28 22:40 | disposition home or self-care (01) ==
LOC: EC 15:50
DX: J90 Pleural effusion, not elsewhere classified (principal); Z79.82 Long term (current) use of aspirin; Z79.899 Other long term (current) drug therapy; Z90.79 Acquired absence of other genital organ(s); Z95.0 Presence of cardiac pacemaker
CPT/HCPCS: 36415; 93005; 85379; 83880; 80053; 83605; 83735; 84484; 85025; 85610; 85730; 81003; 71046; 71275; 99285; 96360; Q9967

== ENCOUNTER → 2021-05-12 | Outpatient (CLI) | payer MEDICARE, OTHER ==
--- NOTE | 2021-05-12 13:58 | US ---
EXAMINATION TYPE: US chest DATE OF EXAM: 05/12/2021 COMPARISON: NONE CLINICAL HISTORY: 65-year-old male J90 PLEURAL EFFUSION. Known effusion on the right, SOB TECHNIQUE: Targeted ultrasound of the posterior lower Right FINDINGS: EXAM MEASUREMENTS: Right Pleural Effusion pocket size: 15.9 cm Right skin surface to fluid distance: 4.1 cm Right side marked for possible thoracentesis outside the dept. Pulmonologists are able to review the images in the patient?s EMR. IMPRESSIONS: Moderate-sized right-sided pleural effusion. Some dependent floating debris is present within.
== END | disposition home or self-care (01) ==
LOC: RADUSWWP 10:51
PROVIDERS: ATTEND Internal Medicine
DX: J90 Pleural effusion, not elsewhere classified (principal)
CPT/HCPCS: 76604

== ENCOUNTER → 2021-05-12 | Day surgery (SDC) | payer MEDICARE, OTHER ==
[2021-05-12 12:03] VITALS: PULSE 72; RESP 18; TEMP 97.5
--- NOTE | 2021-05-12 13:36 | XR ---
EXAMINATION TYPE: XR chest 1V portable DATE OF EXAM: 05/12/2021 COMPARISON: Chest x-ray 04/28/2021 HISTORY: Postthoracentesis TECHNIQUE: Single frontal view of the chest is obtained. FINDINGS: There is some interval improvement in aeration at the right lung base as compared to prior exam. Persistent abnormal density, blunting the right costophrenic angle is noted consistent with at electasis and associated effusion versus pneumonia. No evident pneumothorax or other significant inte rval change. IMPRESSION: No evident complication status post right thoracentesis.
[2021-05-12 13:46] VITALS: BP 117/67
[2021-05-12 17:15] LABS: Appearance,BF Hazy; Color,BF Yellow; Nucleated Cells, Body Fluid 633 /uL; RBC, Body Fluid 263 /uL
[2021-05-12 17:18] LABS: Mononuclear WBC,Body Fluid 99 %; Polynuclear WBC,Body Fluid 1 %; Total Cells Counted,Body Fluid 100
--- NOTE | 2021-05-13 11:32 | OP ---
OPERATIVE REPORT OPERATIVE REPORT: Right-sided thoracentesis. PREOPERATIVE DIAGNOSIS: Right pleural effusion. POSTOPERATIVE DIAGNOSIS: Right pleural effusion. ANESTHESIA USED: 2 mL of 1% lidocaine. PROCEDURE DESCRIPTION: The patient was placed in a sitting-upright position. The area of the right chest was earlier localized by ultrasound guidance, and a marking was placed at the level of the eighth intercostal space and tip of the scapula. Then the area was prepared in a sterile fashion. Drapes were applied, then locally anesthetized with lidocaine. A 26- gauge needle was inserted after local lidocaine was applied, then advanced into the pleural space until the fluid was localized. Then a small tiny incision was made and a standard thoracentesis catheter and needle used, advanced into the pleural space. Fluid was obtained and I was able to drain 2.9 L of fluid from the right pleural space. Fluid was dark she in color and was non-bloody. Fluid was drained easily, and a total of 2.9 L was drained. Fluid was sent for different diagnostic studies. Procedure was well tolerated. Chest x-ray was ordered postoperatively and it is pending at the time of dictation. MMODL / IJN: [id number] /
[2021-05-14 01:07] LABS: Glucose, BF Source Pleural Fluid; Glucose, Body Fluid 93 mg/dL; LDH, Body Fluid Source Pleural Fluid; Total Protein, Body Fluid 4850 mg/dL
== END ==
LOC: PROCWHC3 11:37
PROVIDERS: ATTEND Internal Medicine
DX: J90 Pleural effusion, not elsewhere classified (principal)
CPT/HCPCS: 32554; 71045; 82945; 83615; 84157; 87070; 87075; 87102; 87116; 87205; 87206; 89050

== ENCOUNTER → 2021-05-23 | Outpatient (CLI) | payer MEDICARE, OTHER ==
--- NOTE | 2021-05-23 15:57 | PE ---
EXAMINATION TYPE: PET CT fusion skull to thigh DATE OF EXAM: 05/23/2021 COMPARISON: Chest CT April 28, 2021 HISTORY: Solitary pulmonary nodule, abnormal CT. TECHNIQUE: Following the intravenous administration of 10.35 mCi of F-18 FDG, whole body images are performed from the skull base to the midthigh. Images are reviewed on the computer in the coronal, a xial, and sagittal planes. Reconstructed rotating images are created on independent workstation and reviewed on the computer. A localization and attenuation correction CT is performed in conjunction with the PET scan. Blood glucose level equals 103. SCAN: Initial Scan FINDINGS: SKULL BASE AND NECK: No abnormal hypermetabolic uptake. CHEST, MEDIASTINUM, AND HILAR REGION: Persistent moderate to borderline large size right pleural effu nino. There is moderate to severe concentric wall thickening of the distal esophagus beginning just above t he diaphragm extending into the proximal stomach just below diaphragm. Abnormal hypermetabolic uptake is present. The max SUV is 11.05. Remainder of thorax shows no suspicious hypermetabolic uptake. ABDOMEN AND PELVIS: There is abnormal hypermetabolic uptake in the upper abdomen corresponding to 3.4 x 3.0 cm lymph node anterior to the distal esophagus and just posterior superior to the pancreatic h ead, Max SUV at this level is 10.36 on axial image 135. No additional areas of abnormal hypermetabolic uptake. OSSEOUS STRUCTURES: No abnormal hypermetabolic uptake. OTHER CT: There is mild cardiomegaly with multi lead pacemaker. There is left atrial appendage clip. Overlying sternal wires. Sternal nonunion is noted. Moderate calcified plaque of the infrarenal abdominal aorta extends into iliac branch vessels. Enlarg ed prostate consistent with BPH. Adjacent phleboliths. Small to moderate-size fat-containing inguinal hernias bilaterally. IMPRESSION: There is distal esophageal neoplasm suspected extending above and below diaphragm with a djacent upper abdominal adenopathy. No distal metastatic disease.
== END | disposition home or self-care (01) ==
LOC: RADPETMAIN 07:32
PROVIDERS: ATTEND Internal Medicine Critical Care Medicine
DX: R91.1 Solitary pulmonary nodule (principal); R91.8 Other nonspecific abnormal finding of lung field
CPT/HCPCS: 78815; A9552

== ENCOUNTER → 2021-05-30 | Outpatient (CLI) | payer MEDICARE, OTHER ==
--- NOTE | 2021-05-30 10:25 | XR ---
EXAMINATION TYPE: XR chest 2V DATE OF EXAM: 05/30/2021 COMPARISON: 05/12/2021 TECHNIQUE: PA and lateral views submitted. HISTORY: Shortness of breath FINDINGS: Right-sided consolidation and pleural effusion. Postoperative change and cardiac device. There is mil d prominence the right hilum which is obscured by the consolidation. Left lung clear. Arthropathy of the shoulders. No pneumothorax. IMPRESSION: 1. Stable right-sided consolidation and pleural effusion unchanged from prior exam. 2. Right hilar fullness correlate clinically. Underlying adenopathy in the differential diagnosis.
== END | disposition home or self-care (01) ==
LOC: RADXRMAIN 10:07
PROVIDERS: ATTEND Surgery
DX: J90 Pleural effusion, not elsewhere classified (principal); J98.4 Other disorders of lung
CPT/HCPCS: 71046

== ENCOUNTER → 2021-07-02 | Day surgery (SDC) | payer MEDICARE, OTHER ==
[2021-07-02 11:39] VITALS: RESP 16
[2021-07-02 11:40] VITALS: TEMP 98.8
[2021-07-02 13:19] VITALS: BP 109/73; PULSE 80
--- NOTE | 2021-07-02 13:34 | XR ---
EXAMINATION TYPE: XR chest 1V portable DATE OF EXAM: 07/02/2021 Comparison: 05/30/2021, 06/30/2021 Clinical History: 65 year-old male post right thoracentesis Findings: Left anterior chest wall pacemaker generator with right atrial and right ventricular leads. Median st ernotomy wires and post-CABG clips. Right anterior chest wall injection for subclavian access. Cathet er tip not clearly seen beyond the lower SVC level. It may be obscured by the pacer leads. Continued moderate right pleural effusion with underlying opacity. No appreciable pneumothorax. Impression: Moderate right pleural effusion with adjacent atelectasis and/or consolidation fairly similar compare d to 05/30/2021, slightly improved from 06/30/2021. No pneumothorax.
--- NOTE | 2021-07-02 13:43 | P.PCN ---
Date of Procedure: 07/02/21 Preoperative Diagnosis: right sided pleural effusion Postoperative Diagnosis: right sided pleural effusion Procedure(s) Performed: Thoracentesis Anesthesia: local Surgeon: Natty Wan Pathology: other Condition: stable Disposition: same day Operative Findings: A time out was performed and the chest x-ray was reviewed, the appropriate side was confirmed and marked. My hands were washed immediately prior to the procedure. I wore a surgical cap, mask with protective eyewear, sterile gown and sterile gloves throughout the procedure. The patient was prepped and draped in a sterile manner using chlorhexidine scrub after the appropriate level was percussed and confirmed by ultrasound. 1% lidocaine was used to anesthesize the skin, subcutaneous tissue, superior aspect of the rib periosteum and parietal pleura. A finder needle was then introduced over the superior aspect of the rib to locate the pleural fluid; 2colored fluid was aspirated at a depth of approximately 2 cm. A 10-blade scalpel was used to keyona the skin at the insertion site. The [id number]-d-[id number] needle was then introduced through the skin incision into the pleural space using negative aspiration pressure and the red colometric indicator to confirm appropriate positioning of the needle. The thoracentesis catheter was then threaded without difficulty 2500 ml of turbid colored fluid was removed without difficulty. The catheter was then removed. No immediate complications were noted during the procedure. A post-procedure chest x-ray is pending at the time of this note. The fluid will not be sent for studies. Estimated blood loss is 0cc #
== END ==
LOC: PROCWHC3 11:24
PROVIDERS: ATTEND Internal Medicine Critical Care Medicine
DX: J90 Pleural effusion, not elsewhere classified (principal)
CPT/HCPCS: 32554; 71045

== ENCOUNTER → 2021-09-12 | Outpatient (CLI) | payer MEDICARE, OTHER ==
--- NOTE | 2021-09-17 13:11 | PE ---
Nuclear medicine PET/CT HISTORY: C 15.5, esophageal carcinoma, subsequent Patient received 10.3 mCi F-18 FDG intravenously and delayed scanning was performed from the skull ba se to the mid thighs. Localization and attenuation correction CT scan was performed. Correlation to prior nuclear medicine PET/CT 05/23/2021 Chest and neck: There is no evident cervical or supraclavicular adenopathy. [place] tonsil uptake is felt likely to represent physiologic activity. Patient is post median sternotomy, there is nonunion, uptake is present along the sternotomy. No mediastinal, axillary, or hilar adenopathy. Distal esopha debbie shows some mild thickening SUV only 2.6. The previously identified hypermetabolic uptake and enla rged node seen at this level along the lesser curvature is no longer seen, no evident adenopathy. Rig ht-sided pleural effusion is likely increased. There is associated atelectasis. Intracardiac leads ar e present. There is been interval placement of a gastrostomy tube, uptake at this level is likely inf lammatory. ABDOMEN: There is no evident liver mass or suspicious uptake. No adrenal mass or retroperitoneal kevin opathy. Aorta shows atheromatous change. No free fluid. Prostate is enlarged and shows associated barb cification. Osseous structures show a similar appearance to prior exam IMPRESSION: There is interval improvement as described at the level of the distal esophagus and upper stomach, local adenopathy seen on prior exam is no longer seen.
== END | disposition home or self-care (01) ==
LOC: RADPETMAIN 09:21
PROVIDERS: ATTEND Internal Medicine Critical Care Medicine
DX: C15.5 Malignant neoplasm of lower third of esophagus (principal)
CPT/HCPCS: 78815; A9552

== ENCOUNTER 2021-09-25 11:07 | Day surgery (SDC) | payer MEDICARE, OTHER ==
[~2021-09-25 11:07] MED LIST changes: -ALBUMIN HUMAN 25% 50 ML IV ONE; -ALBUMIN HUMAN 5% 500 ML IVPB ONE; -ASPIRIN 325 MG TAB PO ONE; -ATORVASTATIN 10 MG TAB PO ONE; -CALCIUM CHLORIDE 100 MG/ML 10 ML SYRINGE IV ONE; -CHLORHEXIDINE GLUCONATE 15 ML CUP MUCOUS MEM ONE; -CLEVIDIPINE BUTYRATE 25 MG in EMPTY BAG 1 BAG IV ONE; -DEXTROSE 5% IN WATER 1,000 ML with POTASSIUM CHLORIDE 110 MEQ, MAGNESIUM SULFATE 16 MEQ... IV ONE; -DEXTROSE 5% IN WATER 1,000 ML with POTASSIUM CHLORIDE 25 MEQ, SODIUM CHLORIDE 4MEQ/ML V... IRRIGATION ONE; -DILTIAZEM 125 MG in SODIUM CHLORIDE 0.9% 100 ML IV ONE; -HEPARIN SODIUM 1,000 UN/ML (10ML VL) IV ONE; -HEPARIN SODIUM,PORCINE 5,000 UNIT in SODIUM CHLORIDE 0.9% 500 ML 500 ML IV ONE; -INSULIN REGULAR 100 UNIT in SODIUM CHLORIDE 0.9% 100 ML IV ONE; -LACTATED RINGERS 1,000 ML IV ONE; -MAGNESIUM SULFATE MG 500 MG/ML IV ONE; -MANNITOL 25% 12.5 GM/50 ML VIAL IV ONE; -METOPROLOL TARTRATE 12.5 MG TAB PO ONE; -MUPIROCIN 2% OINT 22 GM TUBE NASAL ONE; -NITROGLYCERIN SL TABS 0.4 MG TAB SUBLINGUAL ONE; -NITROGLYCERIN-D5W PMX 25 MG/250 ML BTL IV ONE; -NITROGLYCERIN-D5W PMX 50 MG in DEXTROSE/WATER 1 250ML.BAG IV ONE; -NOREPINEPHRINE 4 MG in SODIUM CHLORIDE 0.9% 250 ML IV ONE; -PAPAVERINE 360 MG in SODIUM CHLORIDE 0.9% 90 ML IV ONE; -PHENYLEPHRINE 10 MG/ML VIAL IV ONE; -PHENYLEPHRINE 40 MG in SODIUM CHLORIDE 0.9% 250 ML IV ONE; -PROTAMINE SULFATE 10 MG/ML 25 ML VIAL IV ONE; -PROTAMINE SULFATE 250 MG in EMPTY BAG 1 BAG IV ONE; -SODIUM BICARB 8.4% 50 ML SYR (1 MEQ/ML) IV ONE; -SODIUM CHLORIDE 0.9% 1,000 ML IV ONE; +SODIUM CHLORIDE 0.9% 500 ML 500 ML in EMPTY BAG 1 BAG IV PRN; -TRANEXAMIC ACID 2,000 MG in SODIUM CHLORIDE 0.9% 80 ML IV ONE; -ceFAZolin 1,000 MG in SODIUM CHLORIDE 0.9% IRRIGATIO 1,000 ML IRRIGATION ONE; -propofoL 1,000 MG/100 ML VIAL IV ONE
[2021-09-25 11:46] VITALS: BP 128/82; PULSE 67; RESP 16; TEMP 97.8
--- NOTE | 2021-09-25 12:35 | P.PCN ---
Date of Procedure: 09/25/21 Operative Findings: Preoperative Diagnosis: right sided pleural effusion Postoperative Diagnosis: right sided pleural effusion Procedure(s) Performed: Thoracentesis Anesthesia: local Surgeon: Natty Wan Pathology: other Condition: stable Disposition: same day Operative Findings: A time out was performed and the chest x-ray was reviewed, the appropriate side was confirmed and marked. My hands were washed immediately prior to the procedure. I wore a surgical cap, mask with protective eyewear, sterile gown and sterile gloves throughout the procedure. The patient was prepped and draped in a sterile manner using chlorhexidine scrub after the appropriate level was percus sed and confirmed by ultrasound. 1% lidocaine was used to anesthesize the skin, subcutaneous tissue, superior aspect of the rib periosteum and parietal pleura. A finder needle was then introduced over the superior aspect of the rib to locate the pleural fluid; 2colored fluid was aspirated at a depth of approximately 2 cm. A 10-blade scalpel was used to keyona the skin at the insertion site. The [id number]-[id number] needle was then introduced through the skin incision into the pleural space using negative aspiration pressure and the red colometric indicator to confirm appropriate positioning of the needle. The thoracentesis catheter was then threaded without difficulty 1100 ml of turbid colored fluid was removed without difficulty. The catheter was then removed. No immediate complications were noted during the procedure. A post-procedure chest x-ray is pending at the time of this note. The fluid will not be sent for studies. Estimated blood loss is 0cc
--- NOTE | 2021-09-25 12:59 | XR ---
EXAMINATION TYPE: XR chest 1V DATE OF EXAM: 09/25/2021 COMPARISON: 07/02/2021 HISTORY: Abnormal x-ray TECHNIQUE: Single frontal view of the chest is obtained. FINDINGS: Right-sided consolidation and pleural effusion again noted be mildly progressed. Mediport catheter seen is a cardiac device post operative changes. Limited inspiration. No pneumothorax. Diffu se osteopenia and arthropathy shoulders. IMPRESSION: Right-sided consolidation and pleural effusion mildly progressed prior exam.
== END 2021-09-25 15:15 | disposition home or self-care (01) ==
LOC: PROCWHC3 11:07
PROVIDERS: ATTEND Internal Medicine Critical Care Medicine
DX: J90 Pleural effusion, not elsewhere classified (principal)
CPT/HCPCS: 32554; 71045

== ENCOUNTER → 2021-11-03 | Outpatient (CLI) | payer MEDICARE, OTHER ==
--- NOTE | 2021-11-03 14:47 | XR ---
EXAMINATION TYPE: XR chest 2V DATE OF EXAM: 11/03/2021 COMPARISON: Chest x-ray 09/25/2021 HISTORY: Abnormal chest x-ray, C 15.5, esophageal carcinoma TECHNIQUE: Frontal and lateral views of the chest are obtained. FINDINGS: Patient is post median sternotomy and left atrial appendage clip placement. There is a gen erator in the left pectoral region, leads are present in the right atrium and ventricle as on prior. Cardiac mediastinal silhouette is partially obscured, similar to prior exam. Aorta is dense. There is no evident pneumothorax. Right-sided port is in place, distal tip of the central venous catheter wit h the catheter coursing into the superior vena cava, distal tip not well seen. Abnormal density in th e right lower lung obscures right hemidiaphragm and heart border, meniscus sign is present. Left lung is spared. IMPRESSION: Findings are similar to prior exam. Sizable right pleural effusion and associated atelec tasis, difficult to exclude pneumonia.
== END | disposition home or self-care (01) ==
LOC: RADXRMAIN 14:22
PROVIDERS: ATTEND Internal Medicine Hematology & Oncology
DX: C15.5 Malignant neoplasm of lower third of esophagus (principal); J90 Pleural effusion, not elsewhere classified; J98.11 Atelectasis; D50.9 Iron deficiency anemia, unspecified; Z71.3 Dietary counseling and surveillance
CPT/HCPCS: 71046

== ENCOUNTER 2021-11-12 07:40 | Day surgery (SDC) | payer MEDICARE, OTHER ==
[2021-11-12 08:34] VITALS: RESP 16; TEMP 97.4
[2021-11-12 08:43] LABS: Mean Platelet Volume 7.9; Platelet Count 173 k/uL (150-450)
[2021-11-12 09:01] LABS: INR 0.9 (<1.2); Prothrombin Time 10.4 sec (9.0-12.0)
[2021-11-12 09:29] VITALS: PULSE 60
--- NOTE | 2021-11-12 09:56 | XR ---
EXAMINATION TYPE: XR chest 1V portable DATE OF EXAM: 11/12/2021 COMPARISON: 11/03/2021 HISTORY: Postthoracentesis TECHNIQUE: Single frontal view of the chest is obtained. FINDINGS: No sizable pneumothorax postthoracentesis. Right-sided consolidation and pleural effusion persist. Mediport catheter, postoperative change, and cardiac device noted. Arthropathy of the AC donna nts. IMPRESSION: 1. No pneumothorax postthoracentesis. 2. Right-sided consolidation and pleural effusion.
[2021-11-12 09:58] VITALS: BP 103/65
--- NOTE | 2021-11-12 12:13 | US ---
Ultrasound-guided therapeutic thoracentesis DATE OF EXAM: 11/12/2021 CLINICAL HISTORY: Right pleural effusion The procedure was discussed with the patient. The risks, complications, benefits, and alternatives we re discussed and any questions were answered. Informed consent was obtained. The patient was placed supine on the ultrasound table and prepped and draped in the usual sterile fas hion. All elements of maximal barrier and sterile technique were utilized. Under ultrasound guidance, access into the pleural space was obtained, via the thoracentesis catheter system and direct ultrasound guidance. Ap proximately 1 liter of serous fluid was removed. The patient was stable throughout the procedure and remained stable upon discharge from Department of Radiology. IMPRESSION: 1. Successful therapeutic thoracentesis under ultrasound guidance.
== END 2021-11-12 10:10 | disposition home or self-care (01) ==
LOC: RADPROMAIN 07:40
PROVIDERS: ATTEND Internal Medicine Hematology & Oncology
DX: J90 Pleural effusion, not elsewhere classified (principal); C15.9 Malignant neoplasm of esophagus, unspecified
CPT/HCPCS: 32555; 36415; 71045; 85049; 85610

== ENCOUNTER → 2021-12-05 | Outpatient (CLI) | payer MEDICARE, OTHER ==
--- NOTE | 2021-12-07 20:38 | PE ---
EXAMINATION TYPE: PET CT fusion skull to thigh DATE OF EXAM: 12/05/2021 COMPARISON: Prior PET/CT September 12, 2021 and older study HISTORY: Esophageal cancer diagnosed near May 2021 completed chemotherapy 2 weeks ago. TECHNIQUE: Following the intravenous administration of 10.18 mCi of F-18 FDG, whole body images are performed from the skull base to the midthigh. Images are reviewed on the computer in the coronal, a xial, and sagittal planes. Reconstructed rotating images are created on independent workstation and reviewed on the computer. A localization and attenuation correction CT is performed in conjunction with the PET scan. Blood glucose level equals 149. SCAN: Subsequent Scan FINDINGS: SKULL BASE AND NECK: No new areas of abnormal hypermetabolic uptake. CHEST, MEDIASTINUM, AND HILAR REGION: Persistent moderate size right pleural fluid collection slightl y improved from most recent PET/CT. No recurrent abnormal hypermetabolic uptake in the distal esophagus. Persistent small focus of hyperm etabolic uptake along the sternotomy axial image 90 though this is improved from most recent prior PE T/CT No new areas of suspicious hypermetabolic uptake.. ABDOMEN AND PELVIS: There is no recurrent abnormal hypermetabolic uptake in the upper abdomen near th e diaphragmatic hiatus. Mild nonspecific bowel uptake right upper pelvis. Suspicious hypermetabolic focus posterior right low er rectal/anal region without CT correlate axial image 243, max SUV is 5.36. No additional new areas of abnormal suspicious hypermetabolic uptake. OSSEOUS STRUCTURES: No new areas of abnormal hypermetabolic uptake. OTHER CT: There is mild cardiomegaly with dual lead pacemaker. There is left atrial appendage clip re demonstrated. Overlying sternal wires. 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 Moderate calcified plaque of the infrarenal abdominal aorta extends into iliac branch vessels. Enlarg ed prostate consistent with BPH redemonstrated. Adjacent phleboliths. Small to moderate-size fat-cont aining inguinal hernias bilaterally redemonstrated. Stable mid abdominal PEG tube IMPRESSION: No recurrent local neoplasm in the distal esophagus or upper abdomen. No recurrent adenop athy. Only new area of concern is in the posterior right aspect of the lower rectum/anus. Correlate c linically to exclude malignancy at this level otherwise no new suspicious hypermetabolic uptake to may ggest active neoplastic recurrence is identified.
== END | disposition home or self-care (01) ==
LOC: RADPETMAIN 08:54
PROVIDERS: ATTEND Internal Medicine Hematology & Oncology
DX: C15.5 Malignant neoplasm of lower third of esophagus (principal)
CPT/HCPCS: 78815; A9552

== ENCOUNTER 2022-05-09 04:30 | Inpatient (IN) | payer MEDICARE, OTHER ==
[2022-05-09] MEDS ORDERED: SODIUM CHLORIDE 0.9% 1,000 ML IV STA (04:37)
[2022-05-09] MEDS ORDERED: IPRATROPIUM-ALBUTEROL 3 ML NEB INHALATION STA (04:37)
--- NOTE | 2022-05-09 04:38 | ED ---
SOB HPI <Flo Carr - Last Filed: 05/09/22 07:38> - General Source: patient, family, RN notes reviewed, old records reviewed Mode of arrival: wheelchair Limitations: no limitations - History of Present Illness MD Complaint: shortness of breath, cough, anxiety -: hour(s) Radiation: back Severity: severe Severity scale (1-10): 10 Quality: aching Consistency: constant Improves With: nothing Worsens With: exertion, movement Context: recent URI, recent illness Associated Symptoms: chest pain, cough Treatments Prior to Arrival: none <Ramakrishna Hinojosa - Last Filed: 05/17/22 21:54> - General Chief Complaint: Shortness of Breath Stated Complaint: SOB Time Seen by Provider: 05/09/22 04:34 - History of Present Illness Initial Comments: This is a 66-year-old male DF for evaluation patient has known esophageal cancer high blood pressure high cholesterol. Patient's coming in for severe shortness of breath. Patient without current chest pain. Patient states shortness of b reath his been increasing recent denying any fevers. (Ramakrishna Hinojosa) - Related Data Home Medications Medication Instructions Recorded Confirmed Loratadine [Claritin] 10 mg PO DAILY 12/27/19 05/09/22 Terazosin HCl [Hytrin] 10 mg PO HS 12/27/19 05/09/22 ALPRAZolam [Xanax] 0.25 tab PO DAILY PRN 07/21/21 05/09/22 Prochlorperazine [Compazine] 10 mg PO QID PRN 07/21/21 05/09/22 Rosuvastatin [Crestor] 20 tab PO DAILY 09/01/21 05/09/22 Cholecalciferol [Vitamin D3 (125 125 mcg PO DAILY 05/09/22 05/09/22 Mcg = 5000 Iu)] Metoprolol Tartrate [Lopressor] 25 mg PO BID 05/09/22 05/09/22 Nystatin 100,000 Unit/ml Susp 5 ml PO QID PRN 05/09/22 05/09/22 [Mycostatin Oral Susp] OLANZapine [ZyPREXA] 2.5 mg PO HS 05/09/22 05/09/22 Oxybutynin Chloride [Oxybutynin 10 mg PO DAILY 05/09/22 05/09/22 Chloride ER] Sennosides/Docusate Sodium [Senna 2 cap PO HS PRN 05/09/22 05/09/22 Plus 8.6-50 mg Softgel] chlorproMAZINE HCL 10 mg PO TID PRN 05/09/22 05/09/22 Previous Rx's Medication Instructions Recorded Apixaban [Eliquis] 5 mg PO BID #60 tab 11/16/20 Diltiazem Cd [Cardizem CD] 120 mg PO DAILY #30 cap.er.24h 11/16/20 Allergies Allergy/AdvReac Type Severity Reaction Status Date / Time No Known Allergies Allergy Verified 05/09/22 14:19 Review of Systems ROS Other: All systems not noted in ROS Statement are negative. <Flo Carr - Last Filed: 05/09/22 07:38> ROS Other: All systems not noted in ROS Statement are negative. <Ramakrishna Hinojosa - Last Filed: 05/17/22 21:54> ROS Statement: Those systems with pertinent positive or pertinent negative responses have been documented in the HPI. Past Medical History Past Medical History: Atrial Fibrillation, Hyperlipidemia, Hypertension Additional Past Medical History / Comment(s): mass on Esophagus, anemia, pleural effusion, History of Any Multi-Drug Resistant Organisms: None Reported, MRSA Date of last positivie culture/infection: 05/12/17 MDRO Source:: neck Past Surgical History: No Surgical Hx Reported, Coronary Bypass/CABG, Pacemaker Additional Past Surgical History / Comment(s): TURP, angiography Past Anesthesia/Blood Transfusion Reactions: No Reported Reaction Type of Cardiac Device: Permanent Pacemaker Device Placement Date:: unknown Past Psychological History: No Psychological Hx Reported Smoking Status: Never smoker Past Alcohol Use History: None Reported Past Drug Use History: None Reported <Ramakrishna Hinojosa - Last Filed: 05/17/22 21:54> General Exam Limitations: no limitations General appearance: alert, in no apparent distress, anxious Head exam: Present: atraumatic, normocephalic, normal inspection Eye exam: Present: normal appearance, PERRL, EOMI. Absent: scleral icterus, conjunctival injection, periorbital swelling ENT exam: Present: normal exam, mucous membranes moist Neck exam: Present: normal inspection. Absent: tenderness, meningismus, lymphadenopathy Respiratory exam: Present: normal lung sounds bilaterally. Absent: respiratory distress, wheezes, rales, rhonchi, stridor Cardiovascular Exam: Present: regular rate, normal rhythm, normal heart sounds. Absent: systolic murmur, diastolic murmur, rubs, gallop, clicks GI/Abdominal exam: Present: soft, normal bowel sounds. Absent: distended, tenderness, guarding, rebound, rigid Extremities exam: Present: normal inspection, full ROM, normal capillary refill. Absent: tenderness, pedal edema, joint swelling, calf tenderness Back exam: Present: normal inspection Neurological exam: Present: alert, oriented X3, CN II-XII intact Psychiatric exam: Present: normal affect, normal mood Skin exam: Present: warm, dry, intact, normal color. Absent: rash <Ramakrishna Hinojosa - Last Filed: 05/17/22 21:54> Course <Ramakrishna Hinojosa - Last Filed: 05/17/22 21:54> Vital Signs 05/09/22 05/09/22 05/09/22 04:33 04:47 04:57 Temperature 98 F Pulse Rate 74 77 78 Respiratory 16 Rate Blood Pressure O2 Sat by Pulse 96 Oximetry 05/09/22 05/09/22 05/09/22 05:41 07:32 10:19 Temperature Pulse Rate 84 80 71 Respiratory 32 H 20 18 Rate Blood Pressure 117/77 125/79 106/68 O2 Sat by Pulse 94 L 100 100 Oximetry 05/09/22 05/09/22 05/09/22 14:10 16:00 19:01 Temperature Pulse Rate 75 82 82 Respiratory 18 18 18 Rate Blood Pressure 103/67 127/78 111/61 O2 Sat by Pulse 100 96 99 Oximetry - Reevaluation(s) Reevaluation #1: 05/10/22 Medical record is reviewed Patient symptoms are improved here in the ER Patient informed of results and questions are answered (Ramakrishna Hinojosa) Medical Decision Making - Lab Data Result diagrams: 05/09/22 05:06 05/09/22 05:06 <Flo Carr - Last Filed: 05/09/22 07:38> - Lab Data Result diagrams: 05/16/22 05:04 05/16/22 05:04 - EKG Data -: EKG Interpreted by Me (EKG a flutter 81 AR, QRS 94 QTC 454) <AshishRamakrishna Pritesh - Last Filed: 05/17/22 21:54> - Medical Decision Making 66-year-old male who had presented for evaluation of for 5 days of cough and increased dyspnea. Patient's care was signed out awaiting CT angiography which was ordered for elevated d-dimer. Patient has a known right pleural effusion which is present on x-ray. Additionally CT showing likely infectious infilt rate. Patient is moderately dyspneic, normal oxygenation. He has elevated white blood cell count, IV antibiotics have been initiated by the previous physician. He was awaiting angiography results to rule out pulmonary embolism and this was negative for pulmonary embolism. Patient will be admitted with diagnosis of pneumonia and large right pleural effusion. He will be admitted to [facility] with pulmonology on consult. (Flo Carr) - Lab Data Lab Results 05/09/22 05/09/22 05/09/22 Range/Units 05:06 05:06 05:06 WBC 15.4 H (3.8-10.6) k/uL RBC 4.86 (4.30-5.90) m/uL Hgb 13.6 (13.0-17.5) gm/dL Hct 41.4 (39.0-53.0) % MCV 85.2 (80.0-100.0) fL MCH 28.0 (25.0-35.0) pg MCHC 32.8 (31.0-37.0) g/dL RDW 17.8 H (11.5-15.5) % Plt Count 323 (150-450) k/uL MPV 7.9 Neutrophils % 78 % Lymphocytes % 13 % Monocytes % 4 % Eosinophils % 2 % Basophils % 1 % Neutrophils # 12.0 H (1.3-7.7) k/uL Lymphocytes # 2.0 (1.0-4.8) k/uL Monocytes # 0.7 (0-1.0) k/uL Eosinophils # 0.3 (0-0.7) k/uL Basophils # 0.1 (0-0.2) k/uL Hypochromasia Slight Anisocytosis Slight PT 10.4 (9.0-12.0) sec INR 1.0 (<1.2) APTT 23.6 (22.0-30.0) sec D-Dimer 9.00 H (<0.60) mg/L FEU Sodium 137 (137-145) mmol/L Potassium 4.0 (3.5-5.1) mmol/L Chloride 100 (98-107) mmol/L Carbon Dioxide 25 (22-30) mmol/L Anion Gap 12 mmol/L BUN 13 (9-20) mg/dL Creatinine 0.73 (0.66-1.25) mg/dL Est GFR (CKD-EPI)AfAm >90 (>60 ml/min/1.73 sqM) Est GFR (CKD-EPI)NonAf >90 (>60 ml/min/1.73 sqM) Glucose 148 H (74-99) mg/dL Calcium 9.5 (8.4-10.2) mg/dL Total Bilirubin 0.9 (0.2-1.3) mg/dL AST 39 (17-59) U/L ALT 34 (4-49) U/L Alkaline Phosphatase 167 H (38-126) U/L Troponin I (0.000-0.034) ng/mL NT-Pro-B Natriuret Pep pg/mL Total Protein 7.2 (6.3-8.2) g/dL Albumin 3.9 (3.5-5.0) g/dL Procalcitonin (0.02-0.09) ng/mL Coronavirus (PCR) (Not Detectd) 05/09/22 05/09/22 05/09/22 Range/Units 05:06 05:06 05:06 WBC (3.8-10.6) k/uL RBC (4.30-5.90) m/uL Hgb (13.0-17.5) gm/dL Hct (39.0-53.0) % MCV (80.0-100.0) fL MCH (25.0-35.0) pg MCHC (31.0-37.0) g/dL RDW (11.5-15.5) % Plt Count (150-450) k/uL MPV Neutrophils % % Lymphocytes % % Monocytes % % Eosinophils % % Basophils % % Neutrophils # (1.3-7.7) k/uL Lymphocytes # (1.0-4.8) k/uL Monocytes # (0-1.0) k/uL Eosinophils # (0-0.7) k/uL Basophils # (0-0.2) k/uL Hypochromasia Anisocytosis PT (9.0-12.0) sec INR (<1.2) APTT (22.0-30.0) sec D-Dimer (<0.60) mg/L FEU Sodium (137-145) mmol/L Potassium (3.5-5.1) mmol/L Chloride (98-107) mmol/L Carbon Dioxide (22-30) mmol/L Anion Gap mmol/L BUN (9-20) mg/dL Creatinine (0.66-1.25) mg/dL Est GFR (CKD-EPI)AfAm (>60 ml/min/1.73 sqM) Est GFR (CKD-EPI)NonAf (>60 ml/min/1.73 sqM) Glucose (74-99) mg/dL Calcium (8.4-10.2) mg/dL Total Bilirubin (0.2-1.3) mg/dL AST (17-59) U/L ALT (4-49) U/L Alkaline Phosphatase (38-126) U/L Troponin I 0.028 (0.000-0.034) ng/mL NT-Pro-B Natriuret Pep 2230 pg/mL Total Protein (6.3-8.2) g/dL Albumin (3.5-5.0) g/dL Procalcitonin 0.06 (0.02-0.09) ng/mL Coronavirus (PCR) (Not Detectd) 05/09/22 Range/Units 07:36 WBC (3.8-10.6) k/uL RBC (4.30-5.90) m/uL Hgb (13.0-17.5) gm/dL Hct (39.0-53.0) % MCV (80.0-100.0) fL MCH (25.0-35.0) pg MCHC (31.0-37.0) g/dL RDW (11.5-15.5) % Plt Count (150-450) k/uL MPV Neutrophils % % Lymphocytes % % Monocytes % % Eosinophils % % Basophils % % Neutrophils # (1.3-7.7) k/uL Lymphocytes # (1.0-4.8) k/uL Monocytes # (0-1.0) k/uL Eosinophils # (0-0.7) k/uL Basophils # (0-0.2) k/uL Hypochromasia Anisocytosis PT (9.0-12.0) sec INR (<1.2) APTT (22.0-30.0) sec D-Dimer (<0.60) mg/L FEU Sodium (137-145) mmol/L Potassium (3.5-5.1) mmol/L Chloride (98-107) mmol/L Carbon Dioxide (22-30) mmol/L Anion Gap mmol/L BUN (9-20) mg/dL Creatinine (0.66-1.25) mg/dL Est GFR (CKD-EPI)AfAm (>60 ml/min/1.73 sqM) Est GFR (CKD-EPI)NonAf (>60 ml/min/1.73 sqM) Glucose (74-99) mg/dL Calcium (8.4-10.2) mg/dL Total Bilirubin (0.2-1.3) mg/dL AST (17-59) U/L ALT (4-49) U/L Alkaline Phosphatase (38-126) U/L Troponin I (0.000-0.034) ng/mL NT-Pro-B Natriuret Pep pg/mL Total Protein (6.3-8.2) g/dL Albumin (3.5-5.0) g/dL Procalcitonin (0.02-0.09) ng/mL Coronavirus (PCR) Not Detected (Not Detectd) Critical Care Time Critical Care Time: Yes Total Critical Care Time: 31 <Ramakrishna Hinojosa - Last Filed: 05/17/22 21:54> Disposition Is patient prescribed a controlled substance at d/c from ED?: No Time of Disposition: 07:40 <Flo Carr - Last Filed: 05/09/22 07:38> <Ramakrishna Hinojosa - Last Filed: 05/17/22 21:54> Clinical Impression: Community acquired pneumonia, Pleural effusion, Acute pulmonary edema, Esophageal cancer, Leukocytosis Disposition: ADMITTED IP TO THIS HOSP Condition: Stable
[2022-05-09 05:16] LABS: Anisocytosis Slight; Basophils # (A) 0.1 k/uL (0-0.2); Basophils % (A) 1 %; Eosinophils # (A) 0.3 k/uL (0-0.7); Eosinophils % (A) 2 %; HCT 41.4 % (39.0-53.0); HGB 13.6 gm/dL (13.0-17.5); Hypochromasia Slight; Lymphocytes % (A) 13 %; MCHC 32.8 g/dL (31.0-37.0); MCV 85.2 fL (80.0-100.0); Mean Platelet Volume 7.9; Monocytes # (A) 0.7 k/uL (0-1.0); Monocytes % (A) 4 %; Neutrophils % (A) 78 %; Platelet Count 323 k/uL (150-450); RBC 4.86 m/uL (4.30-5.90); RDW 17.8 % (11.5-15.5); WBC 15.4 k/uL (3.8-10.6)
[2022-05-09 05:37] LABS: ALT 34 U/L (4-49); AST 39 U/L (17-59); African American GFR (CKD) >90 (>60 ml/min/1.73 sqM); Albumin 3.9 g/dL (3.5-5.0); Alkaline Phosphatase 167 U/L (38-126); Anion Gap 12 mmol/L; Blood Urea Nitrogen 13 mg/dL (9-20); Calcium 9.5 mg/dL (8.4-10.2); Carbon Dioxide 25 mmol/L (22-30); Chloride 100 mmol/L (98-107); Glucose 148 mg/dL (74-99); Non-African American GFR(CKD) >90 (>60 ml/min/1.73 sqM); Sodium 137 mmol/L (137-145); Total Bilirubin 0.9 mg/dL (0.2-1.3); Total Protein 7.2 g/dL (6.3-8.2)
--- NOTE | 2022-05-09 05:43 | XR ---
EXAMINATION TYPE: XR chest 1V portable DATE OF EXAM: 05/09/2022 COMPARISON: 11/12/2021 HISTORY: Short of breath TECHNIQUE: Single view FINDINGS: There is large right pleural effusion. Left lung is clear. No heart failure. There is left axillary pacemaker. There are sternal wires. IMPRESSION: Large chronic right pleural effusion without much change. Right lower lobe pneumonia also possible.
[2022-05-09 05:58] LABS: Partial Thromboplastin Time 23.6 sec (22.0-30.0); Prothrombin Time 10.4 sec (9.0-12.0)
[2022-05-09] MEDS ORDERED: AZITHROMYCIN 500 MG in SODIUM CHLORIDE 0.9% 250 ML IVPB STA (06:31)
--- NOTE | 2022-05-09 07:30 | CT ---
EXAMINATION TYPE: CT angio chest CT DLP: 319.2 mGycm, Automated exposure control for dose reduction was used. DATE OF EXAM: 05/09/2022 7:21 AM COMPARISON: PET/CT 12/05/2021 CLINICAL INDICATION:Male, 66 years old with history of pe; SOB, Cough TECHNIQUE/CONTRAST: CTA scan of the thorax is performed with IV Contrast, patient injected with 80 mL of Isovue 370, pulm onary embolism protocol. MIP images are created and reviewed. FINDINGS: Pulmonary Artery: There is no evidence for a filling defect within the pulmonary vasculature to sugge st acute pulmonary embolism. The pulmonary artery is of normal size. Lungs/Pleura: There is a moderate right pleural effusion with associated atelectasis. No focal airspa ce consolidation. No pneumothorax. No left-sided pleural effusion. Scattered groundglass opacities ar e seen predominantly within the left upper lobe. Left lower lobe peripheral opacity noted is also new . Airway: Large airways are patent. Heart: Heart is within normal limits for size.. Vasculature: No evidence of aortic aneurysm. Atherosclerosis of the arterial vasculature. Mediastinum: No gross evidence of adenopathy. Musculoskeletal: No acute osseous abnormalities, sternotomy wires are present. Multiple level disc de generation changes are present. Soft Tissues: Cardiac conduction leads with leads remain in the right ventricle and atrium. Lower neck: No significant findings. Upper Abdomen: No significant findings. IMPRESSION: 1. No evidence of pulmonary embolism. 2. No predominantly Left upper lobe new ground glass opacities correlate for infectious/inflammatory process. 3. Right pleural effusion with associated atelectasis.
[2022-05-09] MEDS ORDERED: ACETAMINOPHEN TAB 325 MG TAB PO PRN (07:35)
[2022-05-09] MEDS ORDERED: NALOXONE 0.4 MG/ML 1 ML VIAL IV PRN (07:35)
--- NOTE | 2022-05-09 08:55 | US ---
EXAMINATION TYPE: US chest DATE OF EXAM: 05/09/2022 COMPARISON: CT chest same day. CLINICAL HISTORY: Markings for thoracentesis by pulmonary staff. SOB, PL Eff on CT TECHNIQUE: Targeted ultrasound of the posterior lower Right EXAM MEASUREMENTS: Right Pleural Effusion pocket size: 16.6 cm Right side NOT marked due to large consolidated appearance with very little simple fluid to remove Pulmonologists are able to review the images in the patient?s EMR. IMPRESSIONS: Complex loculated appearing right pleural effusion.
--- NOTE | 2022-05-09 11:32 | P.CNPUL ---
History of Present Illness Consult date: 05/09/22 Requesting physician: Dayanara Fraga Reason for consult: dyspnea, abnormal CXR/CT Chief complaint: Shortness of breath, cough, congestion History of present illness: This is a very pleasant 66-year-old male patient with a known history of peripheral vascular disease, coronary artery disease with previous bypass surgery, atrial fibrillation status post permanent pacemaker implantation, antic oagulated with Eliquis, hyperlipidemia, hypertension, BPH. He also has a history of metastatic esophageal cancer currently receiving systemic chemotherapy following with Dr. Kelly. He also has recurrent malignant right- sided pleural effusion his last thoracentesis was performed in September [address] Wan. He presented here to the emergency room yesterday with increasing shortness of breath cough and congestion for approximate 5 days. No fever chills. No phlegm here no hemoptysis. Chest x-ray reveals a large chronic right pleural effusion without significant change compared to previous in November 2021. CT angiogram ruled out pulmonary embolism. Right pleural effusion with associated atelectasis. There is some scattered groundglass opacities mostly in the left upper lobe. Left lower lobe opacity is new. Ultrasound of the right chest reveals a large consolidated appearance with very little simple fluid removed. The fluid appears complex and loculated. White count 15.4. H emoglobin 13.6. D-dimer 9.0. Sodium 137. Potassium 4.0. BUN 13. Creatinine 0.73. Glucose 148. ProBNP 2230. Meza virus by PCR not detected. He is seen in consultation today in the emergency department. He's currently sitting up on the stretcher. Awake and alert in no acute distress. He is maintaining O2 saturation of 200% on 2 L/m per nasal cannula. He's been afebrile. Hemodynamically stable. Normal saline at 130 ML's per hour. Review of Systems REVIEW OF SYSTEMS: CONSTITUTIONAL: Denies any recent significant weight loss or weight gain. EYES: Denies change in vision. EARS, NOSE, MOUTH, THROAT: Denies headaches, denies sore throat. CARDIOVASCULAR: Denies chest pain, palpitations or syncopal episodes. RESPIRATORY: Positive for shortness of breath, cough, congestion no hemoptysis. GASTROINTESTINAL: Denies change in appetite, denies abdominal pain GENITOURINARY: Denies hematuria, denies infections. MUSKULOSKELETAL: Denies pain, denies swelling. INTEGUMENTARY: Denies rash, denies eczema. NEUROLOGICAL: Denies recent memory loss, no recent seizure activity. PSYCHIATRIC: Denies anxiety, denies depression. HEMATOLOGIC/LYMPHATIC: Denies anemia, denies enlarged lymph nodes. Past Medical History Past Medical History: Atrial Fibrillation, Hyperlipidemia, Hypertension Additional Past Medical History / Comment(s): mass on Esophagus, anemia, pleural effusion, History of Any Multi-Drug Resistant Organisms: None Reported, MRSA Date of last positivie culture/infection: 05/12/17 MDRO Source:: neck Past Surgical History: No Surgical Hx Reported, Coronary Bypass/CABG, Pacemaker Additional Past Surgical History / Comment(s): TURP, angiography Past Anesthesia/Blood Transfusion Reactions: No Reported Reaction Type of Cardiac Device: Permanent Pacemaker Device Placement Date:: unknown Past Psychological History: No Psychological Hx Reported Smoking Status: Never smoker Past Alcohol Use History: None Reported Past Drug Use History: None Reported Medications and Allergies Home Medications Medication Instructions Recorded Confirmed Type Cholecalciferol [Vitamin D3 (25 5,000 unit PO HS 12/27/19 12/08/21 History Mcg = 1000 Iu)] Loratadine [Claritin] 10 mg PO DAILY 12/27/19 12/08/21 History Oxybutynin ER [Ditropan Xl] 10 mg PO HS 12/27/19 12/08/21 History Terazosin HCl [Hytrin] 10 mg PO HS 12/27/19 12/08/21 History oxyCODONE-APAP 10-325MG [Percocet 1 tab PO TID 12/27/19 12/08/21 History 10-325 mg] Apixaban [Eliquis] 5 mg PO BID #60 tab 11/16/20 12/08/21 Rx Atorvastatin [Lipitor] 40 mg PO DAILY #30 tab 11/16/20 12/08/21 Rx Diltiazem Cd [Cardizem CD] 120 mg PO DAILY #30 cap.er.24h 11/16/20 12/08/21 Rx ALPRAZolam [Xanax] 1 tab PO DAILY 07/21/21 12/08/21 History OLANZapine 0.5 mg PO HS 07/21/21 12/08/21 History Prochlorperazine [Compazine] 10 mg PO QID PRN 07/21/21 12/08/21 History Amiodarone [Cordarone] 0.5 tab PO DAILY 08/18/21 12/08/21 History Rosuvastatin [Crestor] 1 tab PO DAILY 09/01/21 12/08/21 History Metoprolol Succinate [Kapspargo 25 mg PO DAILY 11/05/21 12/08/21 History Sprinkle] Allergies Allergy/AdvReac Type Severity Reaction Status Date / Time No Known Allergies Allergy Verified 12/08/21 08:26 Physical Exam Vitals: Vital Signs Temp Pulse Resp BP Pulse Ox 05/09/22 10:19 71 18 106/68 100 05/09/22 07:32 80 20 125/79 100 05/09/22 05:41 84 32 H 117/77 94 L 05/09/22 04:57 78 05/09/22 04:47 77 05/09/22 04:33 98 F 74 16 96 Intake and Output 05/08/22 05/09/22 05/09/22 22:59 06:59 14:59 Other: Weight 78.018 kg GENERAL EXAM: Alert, pleasant 66-year-old male patient, on 2 L nasal cannula, comfortable in no apparent distress. HEAD: Normocephalic. EYES: Normal reaction of pupils, equal size. NOSE: Clear with pink turbinates. THROAT: No erythema or exudates. NECK: No masses, no JVD. CHEST: No chest wall deformity. LUNGS: Equal air entry with few scattered rhonchi. CVS: S1 and S2 normal with no audible murmur, regular rhythm. ABDOMEN: No hepatosplenomegaly, normal bowel sounds, no guarding or rigidity. SPINE: No scoliosis or deformity SKIN: No rashes CENTRAL NERVOUS SYSTEM: No focal deficits, tone is normal in all 4 extremities. EXTREMITIES: There is no peripheral edema. No clubbing, no cyanosis. Peripheral pulses are intact. Results - Laboratory Findings CBC and BMP: 05/09/22 05:06 05/09/22 05:06 PT/INR, D-dimer PT 10.4 sec (9.0-12.0) 05/09/22 05:06 INR 1.0 (<1.2) 05/09/22 05:06 D-Dimer 9.00 mg/L FEU (<0.60) H 05/09/22 05:06 Abnormal lab findings: Abnormal Labs 05/09/22 05/09/22 05/09/22 05:06 05:06 05:06 WBC 15.4 H RDW 17.8 H Neutrophils # 12.0 H D-Dimer 9.00 H Glucose 148 H Alkaline Phosphatase 167 H - Diagnostic Findings Chest x-ray: image reviewed CT scan - chest: image reviewed Assessment and Plan Assessment: Dyspnea secondary to new left upper lobe groundglass opacities as well as new lower lobe peripheral opacities and recurrent right-sided pleural effusion Recurrent right-sided malignant effusions. Most recent thoracentesis was September 2021. Ultrasound now reveals complex loculated effusion. History of metastatic esophageal cancer receiving systemic chemotherapy History of coronary artery disease with previous coronary artery bypass surgery History of atrial fibrillation status post permanent pacemaker implantation, anticoagulated with Eliquis Peripheral vascular disease Hyperlipidemia Hypertension BPH Plan: The patient was seen and evaluated Chest x-ray, CAT scan, labs and medications reviewed Initiate Zosyn for now TONE in time pending Sputum culture pending Titrate the FiO2 as tolerated We'll continue to follow and make further recommendations based on his clinical status I have personally seen and examined the patient, performed the documentation and the assessment and plan as written. Number of minutes spent on the visit: 20.
[2022-05-09] MEDS: PIPERACILLIN-TAZOBACTAM 3.375 GM in SODIUM CHLORIDE 0.9% 100 ML IVPB SCH (16:23)
[2022-05-10] MEDS: PIPERACILLIN-TAZOBACTAM 3.375 GM in SODIUM CHLORIDE 0.9% 100 ML IVPB SCH ×3 (00:27→16:33)
--- NOTE | 2022-05-10 00:53 | P.HPIM ---
History of Present Illness H&P Date: 05/09/22 Chief Complaint: cough Patient 66-year-old male with a known history of atrial fibrillation on anticoagulation with Eliquis, hypertension, hyperlipidemia and history of metast atic esophageal cancer currently receiving systemic chemotherapy and recurrent magnet pleural effusion presents to ER with complaints of cough and worsening shortness of breath for the past 5 days. Patient had right-sided pleural effusion status postthoracentesis in September 2021. Patient otherwise denied any complaints of pruritus. No complaints of nausea vomiting abdominal pain or diarrhea. Denied any dysuria or hematuria. CT angiogram of the chest showed no evidence of PE. Predominantly left upper lobe new groundglass opacities correlate for infectious/inflammatory process. Right pleural effusion with associated atelectasis. Chest x-ray showed large chronic right pleural effusion without much change. EKG showed atrial flutter/tachycardia Laboratory data showed WBC 15.4 hemoglobin 13.6 and platelets 323 D-dimer level is 9.0 Sodium 137 potassium 4.0 chloride 100 bicarb is 25 BUN 13 and creatinine 0.73 proBNP 2230 procalcitonin level is 0.06 Review of Systems Constitutional: Patient denies any fever or chills . Generalized weakness. Abdomen: Patient denied any nausea or vomiting or abd. pain Cardiovascular: Patient denies any chest pain or short of breath no palpitations. Respiratory: Patient does have cough without sputum production. Does have maribell rtness of breath Neurologic: Patient denied any numbness or tingling headache. Musculoskeletal: Patient denies any complaints of joint swelling or deformity. Skin: Negative Psychiatric: Negative Endocrine: No heat or cold intolerance. No recent weight gain. Genitourinary: No dysuria or hematuria. All other 14 point ROS negative except the above Past Medical History Past Medical History: Atrial Fibrillation, Hyperlipidemia, Hypertension Additional Past Medical History / Comment(s): mass on Esophagus, anemia, pleural effusion, History of Any Multi-Drug Resistant Organisms: None Reported, MRSA Date of last positivie culture/infection: 05/12/17 MDRO Source:: neck Past Surgical History: No Surgical Hx Reported, Coronary Bypass/CABG, Pacemaker Additional Past Surgical History / Comment(s): TURP, angiography Past Anesthesia/Blood Transfusion Reactions: No Reported Reaction Type of Cardiac Device: Permanent Pacemaker Device Placement Date:: unknown Past Psychological History: No Psychological Hx Reported Smoking Status: Never smoker Past Alcohol Use History: None Reported Past Drug Use History: None Reported Medications and Allergies Home Medications Medication Instructions Recorded Confirmed Type Loratadine [Claritin] 10 mg PO DAILY 12/27/19 05/09/22 History Terazosin HCl [Hytrin] 10 mg PO HS 12/27/19 05/09/22 History Apixaban [Eliquis] 5 mg PO BID #60 tab 11/16/20 05/09/22 Rx Diltiazem Cd [Cardizem CD] 120 mg PO DAILY #30 cap.er.24h 11/16/20 05/09/22 Rx ALPRAZolam [Xanax] 0.25 tab PO DAILY PRN 07/21/21 05/09/22 History Prochlorperazine [Compazine] 10 mg PO QID PRN 07/21/21 05/09/22 History Rosuvastatin [Crestor] 20 tab PO DAILY 09/01/21 05/09/22 History Cholecalciferol [Vitamin D3 (125 125 mcg PO DAILY 05/09/22 05/09/22 History Mcg = 5000 Iu)] Metoprolol Tartrate [Lopressor] 25 mg PO BID 05/09/22 05/09/22 History Nystatin 100,000 Unit/ml Susp 5 ml PO QID PRN 05/09/22 05/09/22 History [Mycostatin Oral Susp] OLANZapine [ZyPREXA] 2.5 mg PO HS 05/09/22 05/09/22 History Oxybutynin Chloride [Oxybutynin 10 mg PO DAILY 05/09/22 05/09/22 History Chloride ER] Sennosides/Docusate Sodium [Senna 2 cap PO HS PRN 05/09/22 05/09/22 History Plus 8.6-50 mg Softgel] chlorproMAZINE HCL 10 mg PO TID PRN 05/09/22 05/09/22 History Allergies Allergy/AdvReac Type Severity Reaction Status Date / Time No Known Allergies Allergy Verified 05/09/22 14:19 Physical Exam Vitals: Vital Signs Temp Pulse Resp BP Pulse Ox 05/09/22 10:19 71 18 106/68 100 05/09/22 07:32 80 20 125/79 100 05/09/22 05:41 84 32 H 117/77 94 L 05/09/22 04:57 78 05/09/22 04:47 77 05/09/22 04:33 98 F 74 16 96 Intake and Output 05/08/22 05/09/22 05/09/22 22:59 06:59 14:59 Other: Weight 78.018 kg PHYSICAL EXAMINATION: Patient is lying in the bed comfortably, no acute distress, awake alert and oriented.. HEENT: Normocephalic. Neck is supple. Pupils reactive. Nostrils clear. Oral cavity is moist. Neck reveals no JVD, carotid bruits, or thyromegaly. CHEST EXAMINATION: Trachea is central. Symmetrical expansion. Bibasilar diminished sounds.. CARDIAC: Normal S1, S2 with no gallops. No murmurs ABDOMEN: Soft. Bowel sounds present. Nontender. No organomegaly. No abdominal bruits. Extremities: reveal no edema. No clubbing or cyanosis Neurologically awake, alert, oriented x3 with well-coordinated movements. No focal deficits noted Skin: No rash or skin lesions. Psychiatric: Coperative. Nonsuicidal, Musculoskeletal: No joint swelling or deformity. Normal range of motion. Results CBC & Chem 7: 05/16/22 05:04 05/16/22 05:04 Labs: Abnormal Lab Results - Last 24 Hours (Table) 05/09/22 05/09/22 05/09/22 Range/Units 05:06 05:06 05:06 WBC 15.4 H (3.8-10.6) k/uL RDW 17.8 H (11.5-15.5) % Neutrophils # 12.0 H (1.3-7.7) k/uL D-Dimer 9.00 H (<0.60) mg/L FEU Glucose 148 H (74-99) mg/dL Alkaline Phosphatase 167 H (38-126) U/L Thrombosis Risk Factor Assmnt - DVT/VTE Prophylaxis DVT/VTE Prophylaxis: Pharmacologic Prophylaxis ordered Assessment and Plan Assessment: Worsening shortness of breath and cough secondary to large right-sided pleural effusion mostly malignant effusion. Left upper lobe new groundglass opacities. Metastatic esophageal cancer currently undergoing chemotherapy Coronary disease history of bypass graft Chronic atrial fibrillation on anticoagulation with Eliquis and also on Cardizem Peripheral vascular disease Hypertension Hyperlipidemia BPH GI prophylaxis and DVT prophylaxis Plan: Patient begun on pain management and empiric antibiotics. Follow-up culture reports. Chest ultrasound was done and pulmonary recommendations regarding thoracentesis. Continue with home medications and follow-up closely. Prognosis poor at this time. Eliramon will be on hold for possible thoracentesis. Time with Patient: Greater than 30
[2022-05-10] MEDS ORDERED: SENNOSIDES-DOCUSATE SODIUM 1 EACH TAB PO PRN ×2 (00:54→21:00)
[2022-05-10] MEDS ORDERED: ALPRAZolam 0.25 MG TAB PO PRN (00:54)
[2022-05-10] MEDS ORDERED: OLANZapine 2.5 MG TAB PO SCH (01:00)
[2022-05-10] MEDS ORDERED: chlorproMAZINE 25 MG TAB PO PRN (01:41)
[2022-05-10] MEDS: DOXAZOSIN 4 MG TAB PO SCH ×2 (03:14→21:28)
[2022-05-10] MEDS: SODIUM CHLORIDE 0.9% 1,000 ML IV SCH (03:15)
[2022-05-10] MEDS: IPRATROPIUM-ALBUTEROL 3 ML NEB INHALATION SCH ×4 (07:28→19:59)
[2022-05-10] MEDS: BUDESONIDE 1 MG/2 ML NEBU INHALATION SCH ×2 (07:28→19:59)
[2022-05-10] MEDS ORDERED: AZITHROMYCIN 500 MG in SODIUM CHLORIDE 0.9% 250 ML IVPB SCH (09:00)
[2022-05-10] MEDS: ATORVASTATIN 40 MG TAB PO SCH (09:58)
[2022-05-10] MEDS: DILTIAZEM CD 120 MG CAP.ER.24H PO SCH (09:58)
[2022-05-10] MEDS: NYSTATIN 100,000 UNIT/ML SUSP 500,000 UNIT/5 ML CUP PO SCH ×4 (09:58→21:28)
[2022-05-10] MEDS: OXYBUTYNIN 10 MG TAB.ER.24 PO SCH (09:58)
[2022-05-10] MEDS: METOPROLOL TARTRATE 25 MG TAB PO SCH ×2 (09:58→21:29)
[2022-05-10 11:06] LABS: Basophils # (A) 0.09 X 10*3/uL (0.00-0.10); Basophils % (A) 0.7 %; Eosinophils # (A) 0.04 X 10*3/uL (0.04-0.35); Eosinophils % (A) 0.3 %; HCT 37.6 % (39.6-50.0); Immature Grans, Automated 0.4 %; Lymphocytes # (A) 1.41 X 10*3/uL (0.90-5.00); Lymphocytes % (A) 11.3 %; MCH 27.3 pg (27.0-32.0); MCHC 31.9 g/dL (32.0-37.0); MCV 85.6 fL (80.0-97.0); Mean Platelet Volume 9.7 fL (9.5-12.2); Monocytes # (A) 0.84 X 10*3/uL (0.20-1.00); Monocytes % (A) 6.8 %; NRBC Per 100 WBC 0 /100 WBCS (0.0-0.0); Neutrophils # (A) 10.01 X 10*3/uL (1.80-7.70); Neutrophils % (A) 80.5 %; Platelet Count 307 X 10*3/uL (140-440); RBC 4.39 X 10*6/uL (4.40-5.60); RDW 19.6 % (11.5-14.5); WBC 12.44 X 10*3/uL (4.50-10.00)
[2022-05-10 11:34] LABS: African American GFR (CKD) 112.4 (60.0-200.0); Anion Gap 12.5 mmol/L (10.00-18.00); BUN/Creat Ratio 17.71 Ratio (12.00-20.00); Blood Urea Nitrogen 12.4 mg/dL (9.0-27.0); Calcium 8.9 mg/dL (8.7-10.3); Carbon Dioxide 21.5 mmol/L (20.0-27.5); Potassium 4.2 mmol/L (3.5-5.5)
--- NOTE | 2022-05-10 15:07 | P.PN ---
Subjective Progress Note Date: 05/10/22 Principal diagnosis: Recurrent right-sided malignant, loculated pleural effusion, and possible left upper lobe pneumonia This is a very pleasant 66-year-old male patient with a known history of peripheral vascular disease, coronary artery disease with previous bypass surgery, atrial fibrillation status post permanent pacemaker implantation, anticoagulated with Eliquis, hyperlipidemia, hypertension, BPH. He also has a history of metastatic esophageal cancer currently receiving systemic chemotherapy following with Dr. Kelly. He also has recurrent malignant right- sided pleural effusion his last thoracentesis was performed in September [address] Wan. He presented here to the emergency room yesterday with increasing shortness of breath cough and congestion for approximate 5 days. No fever chills. No phlegm here no hemoptysis. Chest x-ray reveals a large chronic right pleural effusion without significant change compared to previous in November 2021. CT angiogram ruled out pulmonary embolism. Right pleural effusion with associated atelectasis. There is some scattered groundglass opacities mostly in the left upper lobe. Left lower lobe opacity is new. Ultrasound of the right chest reveals a large consolidated appearance with very little simple fluid rem zaheer. The fluid appears complex and loculated. White count 15.4. Hemoglobin 13.6. D-dimer 9.0. Sodium 137. Potassium 4.0. BUN 13. Creatinine 0.73. Glucose 148. ProBNP 2230. Meza virus by PCR not detected. He is seen in consultation today in the emergency department. He's currently sitting up on the stretcher. Awake and alert in no acute distress. He is maintaining O2 saturation of 200% on 2 L/m per nasal cannula. He's been afebrile. Hemodynamically stable. Normal saline at 130 ML's per hour. Reevaluated today on 05/10/22, patient is basically about the same, not any jeanna r and not any worse compared to yesterday. I saw this patient yesterday in the ER for shortness of breath, patient had recurrent malignant right-sided pleural effusion which seems to be loculated at this point, may or may not benefit from pigtail catheter placement, in the meantime the patient is receiving antibiotics for possible left upper lobe pneumonia and he may have underlying empyema Objective - Vital Signs Vital signs: Vital Signs Temp 97.8 F 05/10/22 11:07 Pulse 88 05/10/22 11:13 Resp 20 05/10/22 11:07 BP 111/75 05/10/22 11:07 Pulse Ox 96 05/10/22 11:07 FiO2 Intake & Output 05/09/22 05/10/22 05/10/22 18:59 06:59 18:59 Output Total 400 Balance -400 Weight 78.018 kg Output: Urine 400 - Exam GENERAL EXAM: Alert, pleasant 66-year-old male patient, on 2 L nasal cannula, not in distress. HEAD: Normocephalic. EYES: Normal reaction of pupils, equal size. NOSE: Clear with pink turbinates. THROAT: No erythema or exudates. NECK: No masses, no JVD. CHEST: No chest wall deformity. LUNGS: Scattered rhonchi and wheezes noted bilaterally. CVS: S1 and S2 normal with no audible murmur, regular rhythm. ABDOMEN: No hepatosplenomegaly, normal bowel sounds, no guarding or rigidity. SKIN: No rashes CENTRAL NERVOUS SYSTEM: Alert and oriented 3 no focal deficit EXTREMITIES: No clubbing edema or cyanosis. - Labs CBC & Chem 7: 05/10/22 06:32 05/10/22 06:32 Labs: Abnormal Lab Results - Last 24 Hours (Table) 05/10/22 Range/Units 06:32 WBC 12.44 H (4.50-10.00) X 10*3/uL RBC 4.39 L (4.40-5.60) X 10*6/uL Hgb 12.0 L (13.0-17.0) g/dL Hct 37.6 L (39.6-50.0) % MCHC 31.9 L (32.0-37.0) g/dL RDW 19.6 H (11.5-14.5) % Immature Gran # 0.05 H (0.00-0.04) X 10*3/uL Neutrophils # 10.01 H (1.80-7.70) X 10*3/uL Assessment and Plan Assessment: Dyspnea secondary to new left upper lobe groundglass opacities as well as new lower lobe peripheral opacities and recurrent right-sided pleural effusion Recurrent right-sided malignant effusions. Most recent thoracentesis was Sep ruary 2021. Ultrasound now reveals complex loculated effusion. History of metastatic esophageal cancer receiving systemic chemotherapy History of coronary artery disease with previous coronary artery bypass surgery History of atrial fibrillation status post permanent pacemaker implantation, anticoagulated with Eliquis Peripheral vascular disease Hyperlipidemia Hypertension BPH Recommendation: Continue antibiotics, patient is now on Zosyn Continue bronchodilators. Review the ultrasound of the chest on this patient, patient may benefit from pigtail catheter placement in his right pleural effusion needs to be quite loculated. Overall prognosis is poor and guarded. Interventional radiology was consulted. We'll continue to follow Time with Patient: Less than 30
[2022-05-10] MEDS: OLANZapine 2.5 MG TAB PO SCH (21:28)
[2022-05-11] MEDS: PIPERACILLIN-TAZOBACTAM 3.375 GM in SODIUM CHLORIDE 0.9% 100 ML IVPB SCH ×2 (00:04→08:28)
[2022-05-11 06:10] LABS: Partial Thromboplastin Time 23.7 sec (22.0-30.0); Prothrombin Time 10.9 sec (9.0-12.0)
[2022-05-11] MEDS: BUDESONIDE 1 MG/2 ML NEBU INHALATION SCH ×2 (07:19→20:21)
[2022-05-11] MEDS: IPRATROPIUM-ALBUTEROL 3 ML NEB INHALATION SCH ×4 (07:19→20:21)
[2022-05-11] MEDS: OXYBUTYNIN 10 MG TAB.ER.24 PO SCH (08:29)
[2022-05-11] MEDS: ATORVASTATIN 40 MG TAB PO SCH (08:29)
[2022-05-11] MEDS: METOPROLOL TARTRATE 25 MG TAB PO SCH ×2 (08:30→21:25)
[2022-05-11] MEDS: DILTIAZEM CD 120 MG CAP.ER.24H PO SCH (08:30)
[2022-05-11] MEDS: NYSTATIN 100,000 UNIT/ML SUSP 500,000 UNIT/5 ML CUP PO SCH ×4 (08:31→21:24)
[2022-05-11] MEDS: SODIUM CHLORIDE 0.9% 1,000 ML IV SCH (08:32)
[2022-05-11 09:21] LABS: Basophils # (A) 0.07 X 10*3/uL (0.00-0.10); Basophils % (A) 0.9 %; Eosinophils # (A) 0.16 X 10*3/uL (0.04-0.35); Eosinophils % (A) 2.2 %; HCT 35.3 % (39.6-50.0); HGB 11.4 g/dL (13.0-17.0); Immature Grans, Automated 0.4 %; Lymphocytes # (A) 1.14 X 10*3/uL (0.90-5.00); Lymphocytes % (A) 15.4 %; MCH 27.9 pg (27.0-32.0); MCHC 32.3 g/dL (32.0-37.0); MCV 86.5 fL (80.0-97.0); Mean Platelet Volume 9.6 fL (9.5-12.2); Monocytes # (A) 0.58 X 10*3/uL (0.20-1.00); Monocytes % (A) 7.9 %; NRBC Per 100 WBC 0 /100 WBCS (0.0-0.0); Neutrophils % (A) 73.2 %; Platelet Count 244 X 10*3/uL (140-440); RBC 4.08 X 10*6/uL (4.40-5.60); RDW 19.4 % (11.5-14.5); WBC 7.38 X 10*3/uL (4.50-10.00)
[2022-05-11 09:30] LABS: African American GFR (CKD) 106.4 (60.0-200.0); Anion Gap 9.8 mmol/L (10.00-18.00); BUN/Creat Ratio 13.88 Ratio (12.00-20.00); Blood Urea Nitrogen 11.1 mg/dL (9.0-27.0); Calcium 8.8 mg/dL (8.7-10.3); Carbon Dioxide 26.2 mmol/L (20.0-27.5); Non-African American GFR(CKD) 91.8 (60.0-200.0); Potassium 4.2 mmol/L (3.5-5.5)
--- NOTE | 2022-05-11 09:35 | P.PN ---
Subjective Progress Note Date: 05/10/22 Patient 66-year-old male with a known history of atrial fibrillation on anticoagulation with Eliquis, hypertension, hyperlipidemia and history of metastatic esophageal cancer currently receiving systemic chemotherapy and recurrent magnet pleural effusion presents to ER with complaints of cough and worsening shortness of breath for the past 5 days. Patient had right-sided pleural effusion status postthoracentesis in September 2021. Patient otherwise denied any complaints of pruritus. No complaints of nausea vomiting abdominal pain or diarrhea. Denied any dysuria or hematuria. CT angiogram of the chest showed no evidence of PE. Predominantly left upper lobe new groundglass opacities correlate for i nfectious/inflammatory process. Right pleural effusion with associated atelectasis. Chest x-ray showed large chronic right pleural effusion without much change. EKG showed atrial flutter/tachycardia Laboratory data showed WBC 15.4 hemoglobin 13.6 and platelets 323 D-dimer level is 9.0 Sodium 137 potassium 4.0 chloride 100 bicarb is 25 BUN 13 and creatinine 0.73 proBNP 2230 procalcitonin level is 0.06 05/10/2022 Patient is currently lying in bed. Awake alert but seems to be lethargic and weak. No complaints of chest pain. No nausea vomiting or abdominal pain or diarrhea. Still having exertional dyspnea. Patient is being continued on antibiotics empirically for possible left lower lobe pneumonia. Pulmonary complaining pigtail catheter placement due to recurrent malignant pleural effusion. Patient is being continued on DuoNeb's and laboratory data showed WBC 12.4 hemoglobin 12.0 and platelets 307 Sodium 137 potassium 4.2 chloride 103 bicarb is 21.5 BUN 12.4 and creatinine 0.7 Current medications reviewed. Objective - Vital Signs Vital signs: Vital Signs Temp 97.5 F L 05/10/22 21:25 Pulse 66 05/10/22 21:25 Resp 18 05/10/22 21:25 BP 120/74 05/10/22 21:25 Pulse Ox 100 05/10/22 21:25 FiO2 Intake & Output 05/10/22 05/10/22 05/11/22 06:59 18:59 06:59 Output Total 400 250 Balance -400 -250 Output: Urine 400 250 - Exam PHYSICAL EXAMINATION: Patient is lying in the bed comfortably, no acute distress, awake alert and oriented.. HEENT: Normocephalic. Neck is supple. Pupils reactive. Nostrils clear. Oral cavity is moist. Neck reveals no JVD, carotid bruits, or thyromegaly. CHEST EXAMINATION: Trachea is central. Symmetrical expansion. Bilateral coarse breath sounds. No wheezing. Baseline diminished sounds.. CARDIAC: Normal S1, S2 with no gallops. No murmurs ABDOMEN: Soft. Bowel sounds normal. No organomegaly. No abdominal bruits. Extremities: reveal no edema. No clubbing or cyanosis Neurologically awake, alert, oriented 2-3 with well-coordinated movements. No gross focal deficits noted Skin: No rash or skin lesions. Psychiatric: Coperative. Nonsuicidal Musculoskeletal: No joint swelling or deformity. Normal range of motion. - Labs CBC & Chem 7: 05/11/22 05:14 05/11/22 05:14 Labs: Abnormal Lab Results - Last 24 Hours (Table) 05/10/22 Range/Units 06:32 WBC 12.44 H (4.50-10.00) X 10*3/uL RBC 4.39 L (4.40-5.60) X 10*6/uL Hgb 12.0 L (13.0-17.0) g/dL Hct 37.6 L (39.6-50.0) % MCHC 31.9 L (32.0-37.0) g/dL RDW 19.6 H (11.5-14.5) % Immature Gran # 0.05 H (0.00-0.04) X 10*3/uL Neutrophils # 10.01 H (1.80-7.70) X 10*3/uL Assessment and Plan Assessment: Worsening shortness of breath and cough secondary to large right-sided pleural effusion mostly malignant effusion. Left upper lobe new groundglass opacities. Metastatic esophageal cancer currently undergoing chemotherapy Coronary disease history of bypass graft Chronic atrial fibrillation on anticoagulation with Eliquis and also on Cardizem Peripheral vascular disease Hypertension Hyperlipidemia BPH GI prophylaxis and DVT prophylaxis Plan: Patient begun on pain management and empiric antibiotics. Follow-up culture reports. Chest ultrasound was done and pulmonary recommendations regarding thoracentesis. Patient wants pigtail catheter placement due to loculated pleural effusion. Continue with home medications and follow-up closely. Prognosis poor at this time. Eliquis will be on hold for possible thoracentesis. Time with Patient: Greater than 30
--- NOTE | 2022-05-11 13:26 | CT ---
EXAMINATION TYPE: CT chest tube insertion DATE OF EXAM: 05/11/2022 COMPARISON: 05 09 EXAMINATION TYPE: CT chest tube insertion DATE OF EXAM: 05/11/2022 COMPARISON: 05/09/2022 HISTORY: RIGHT CHEST TUBE INSERTION CT DLP: 850 mGycm The procedure is discussed with the patient, the risks, complications, benefits and alternatives, wer e discussed and any questions were answered. Informed consent was obtained. The patient is placed p vladislav on the CT table, prepped and draped in the usual sterile fashion. Utilizing a 22-gauge Chiba needle access into the right pleural space was achieved with placement of an ovoid over a guidewire. There is conversion to 0.035 system and placement of a a 0.035 guidewire. Serial dilation 8 Sami and placement of an 8 Sami drainage catheter. All elements of maximal bar rier and sterile technique were utilized. The patient remained stable throughout the procedure with no immediate postprocedural complication. IMPRESSION: 1. Successful CT guided right chest tube insertion.
--- NOTE | 2022-05-11 15:11 | P.PN ---
Subjective Progress Note Date: 05/11/22 This is a very pleasant 66-year-old male patient with a known history of peripheral vascular disease, coronary artery disease with previous bypass surgery, atrial fibrillation status post permanent pacemaker implantation, anticoagulated with Eliquis, hyperlipidemia, hypertension, BPH. He also has a history of metastatic esophageal cancer currently receiving systemic chemotherapy following with Dr. Kelly. He also has recurrent malignant right- sided pleural effusion his last thoracentesis was performed in September [address] Wan. He presented here to the emergency room yesterday with increasing shortness of breath cough and congestion for approximate 5 days. No fever chills. No phlegm here no hemoptysis. Chest x-ray reveals a large chronic right pleural effusion without significant change compared to previous in November 2021. CT angiogram ruled out pulmonary embolism. Right pleural effusion with associated atelectasis. There is some scattered groundglass opacities mostly in the left upper lobe. Left lower lobe opacity is new. Ultrasound of the right chest reveals a large consolidated appearance with very little simple fluid removed. The fluid appears complex and loculated. White count 15.4. Hemoglobin 13.6. D-dimer 9.0. Sodium 137. Potassium 4.0. BUN 13. Creatinine 0.73. Glucose 148. ProBNP 2230. Meza virus by PCR not detected. He is seen in consultation today in the emergency department. He's currently sitting up on the stretcher. Awake and alert in no acute distress. He is maintaining O2 saturation of 200% on 2 L/m per nasal cannula. He's been afebrile. Hemodynamically stable. Normal saline at 130 ML's per hour. Reevaluated today on 05/10/22, patient is basically about the same, not any better and not any worse compared to yesterday. I saw this patient yesterday in the ER for shortness of breath, patient had recurrent malignant right-sided pleural effusion which seems to be loculated at this point, may or may not benefit from pigtail catheter placement, in the meantime the patient is receiving antibiotics for possible left upper lobe pneumonia and he may have underlying empyema The patient is seen today 05/11/2022 in follow-up on the regular medical floor. He is currently awake and alert in no acute distress. Resting comfortably in bed. Maintaining O2 saturation in the 90s on 2 L/m per nasal cannula. He has normal saline at 40 ML's per hour. He did undergo a right-sided pigtail chest tube placement today by interventional radiology. There is approximate 200 ML's of bloody return thus far. Previous pleural fluid cytology has been positive for non-small cell carcinoma. White count 10.3. Hemoglobin 1.4. Sodium 141. Potassium 4.2. BUN 11. Creatinine 0.8. He is currently on DuoNeb inhalations, Pulmicort inhalation. Antibiotics in the form of Zosyn. Objective - Vital Signs Vital signs: Vital Signs Temp 97.6 F 05/11/22 12:05 Pulse 72 05/11/22 12:05 Resp 17 05/11/22 12:05 BP 103/68 05/11/22 12:05 Pulse Ox 100 05/11/22 12:05 FiO2 Intake & Output 05/10/22 05/11/22 05/11/22 18:59 06:59 18:59 Intake Total 480 Output Total 250 500 1 Balance -250 -20 -1 Intake: IV 480 Sodium Chloride 0.9% 1, 480 000 ml @ 40 mls/hr IV . Q24H [facility] Rx#:[id number] Output: Urine 250 500 1 Other: # Voids 1 - Exam GENERAL EXAM: Alert, pleasant 66-year-old male patient, on 2 L nasal cannula, not in distress. HEAD: Normocephalic. EYES: Normal reaction of pupils, equal size. NOSE: Clear with pink turbinates. THROAT: No erythema or exudates. NECK: No masses, no JVD. CHEST: No chest wall deformity. Right-sided pigtail catheter in place to Pleur- evac. LUNGS: Scattered rhonchi and wheezes noted bilaterally. CVS: S1 and S2 normal with no audible murmur, regular rhythm. ABDOMEN: No hepatosplenomegaly, normal bowel sounds, no guarding or rigidity. SKIN: No rashes CENTRAL NERVOUS SYSTEM: Alert and oriented 3 no focal deficit EXTREMITIES: No clubbing edema or cyanosis. - Labs CBC & Chem 7: 05/11/22 05:14 05/11/22 05:14 Labs: Abnormal Lab Results - Last 24 Hours (Table) 05/11/22 05/11/22 Range/Units 05:14 05:14 RBC 4.08 L (4.40-5.60) X 10*6/uL Hgb 11.4 L (13.0-17.0) g/dL Hct 35.3 L (39.6-50.0) % RDW 19.4 H (11.5-14.5) % Anion Gap 9.80 L (10.00-18.00) mmol/L Assessment and Plan Assessment: Dyspnea secondary to new left upper lobe groundglass opacities as well as new lower lobe peripheral opacities and recurrent right-sided pleural effusion. Status post right-sided pigtail chest tube placement with 200 ML's of bloody return thus far. Postoperative day #0. Recurrent right-sided malignant effusions. Most recent thoracentesis was September 2021. Cytology positive for non-small cell lung cancer. Ultrasound now reveals complex loculated effusion. History of metastatic esophageal cancer receiving systemic chemotherapy History of coronary artery disease with previous coronary artery bypass surgery History of atrial fibrillation status post permanent pacemaker implantation, anticoagulated with Eliquis Peripheral vascular disease Hyperlipidemia Hypertension BPH Plan: The patient was seen and evaluated Labs and medications reviewed Right-sided pigtail catheter placed today Add incentive spirometer Titrate the FiO2 as tolerated We'll continue to follow I have personally seen and examined the patient, performed the documentation and the assessment and plan as written. Number of minutes spent on the visit: 10.
[2022-05-11] MEDS: DOXAZOSIN 4 MG TAB PO SCH (21:24)
[2022-05-11] MEDS: OLANZapine 2.5 MG TAB PO SCH (21:24)
--- NOTE | 2022-05-12 02:14 | P.PN ---
Subjective Progress Note Date: 05/11/22 Patient 66-year-old male with a known history of atrial fibrillation on anticoagulation with Eliquis, hypertension, hyperlipidemia and history of metastatic esophageal cancer currently receiving systemic chemotherapy and recurrent magnet pleural effusion presents to ER with complaints of cough and worsening shortness of breath for the past 5 days. Patient had right-sided pleural effusion status postthoracentesis in September 2021. Patient otherwise denied any complaints of pruritus. No complaints of nausea vomiting abdominal pain or diarrhea. Denied any dysuria or hematuria. CT angiogram of the chest showed no evidence of PE. Predominantly left upper lobe new groundglass opacities correlate for i nfectious/inflammatory process. Right pleural effusion with associated atelectasis. Chest x-ray showed large chronic right pleural effusion without much change. EKG showed atrial flutter/tachycardia Laboratory data showed WBC 15.4 hemoglobin 13.6 and platelets 323 D-dimer level is 9.0 Sodium 137 potassium 4.0 chloride 100 bicarb is 25 BUN 13 and creatinine 0.73 proBNP 2230 procalcitonin level is 0.06 05/10/2022 Patient is currently lying in bed. Awake alert but seems to be lethargic and weak. No complaints of chest pain. No nausea vomiting or abdominal pain or diarrhea. Still having exertional dyspnea. Patient is being continued on antibiotics empirically for possible left lower lobe pneumonia. Pulmonary complaining pigtail catheter placement due to recurrent malignant pleural effusion. Patient is being continued on DuoNeb's and laboratory data showed WBC 12.4 hemoglobin 12.0 and platelets 307 Sodium 137 potassium 4.2 chloride 103 bicarb is 21.5 BUN 12.4 and creatinine 0.7 05/11/2022 Patient is currently lying in the bed. Awake alert and oriented. Currently on oxygen at 2 L via nasal cannula. Patient underwent right-sided pigtail chest tube placement today by interventional etiology. Approximate 1 mL of bloody fluid return., Likely migraine pleural effusion. Otherwise patient denies any complaints of chest pain. No nausea vomiting abdominal pain or diarrhea. Patient is being current on antibiotics and off Zosyn. Continued on DuoNebs and Pulmicort inhalation. Laboratory test showed WBC 7.3 hemoglobin 9.4 and platelets 244 Sodium 141 potassium 4.2 chloride 105 bicarb is 26.2 BUN 11.1 and creatinine 0.8 Current medications reviewed. Objective - Vital Signs Vital signs: Vital Signs Temp 97.6 F 05/11/22 18:06 Pulse 75 05/11/22 18:06 Resp 16 05/11/22 18:06 BP 110/67 05/11/22 18:06 Pulse Ox 100 05/11/22 18:06 FiO2 Intake & Output 05/11/22 05/11/22 05/12/22 06:59 18:59 06:59 Intake Total 480 Output Total 500 351 Balance -20 -351 Weight 78.018 kg Intake: IV 480 Sodium Chloride 0.9% 1, 480 000 ml @ 40 mls/hr IV . Q24H [facility] Rx#:[id number] Output: Chest Tube Drainage 350 Pleural Catheter Right 350 Urine 500 1 Other: # Voids 1 - Exam PHYSICAL EXAMINATION: Patient is lying in the bed comfortably, no acute distress, awake alert and orie nted.. HEENT: Normocephalic. Neck is supple. Pupils reactive. Nostrils clear. Oral cavity is moist. Neck reveals no JVD, carotid bruits, or thyromegaly. CHEST EXAMINATION: Trachea is central. Symmetrical expansion. Bilateral coarse breath sounds. No wheezing. Baseline diminished sounds.. CARDIAC: Normal S1, S2 with no gallops. No murmurs ABDOMEN: Soft. Bowel sounds normal. No organomegaly. No abdominal bruits. Extremities: reveal no edema. No clubbing or cyanosis Neurologically awake, alert, oriented 2-3 with well-coordinated movements. No gross focal deficits noted Skin: No rash or skin lesions. Psychiatric: Coperative. Nonsuicidal Musculoskeletal: No joint swelling or deformity. Normal range of motion. - Labs CBC & Chem 7: 05/16/22 05:04 05/16/22 05:04 Labs: Abnormal Lab Results - Last 24 Hours (Table) 05/11/22 05/11/22 Range/Units 05:14 05:14 RBC 4.08 L (4.40-5.60) X 10*6/uL Hgb 11.4 L (13.0-17.0) g/dL Hct 35.3 L (39.6-50.0) % RDW 19.4 H (11.5-14.5) % Anion Gap 9.80 L (10.00-18.00) mmol/L Assessment and Plan Assessment: Worsening shortness of breath and cough secondary to large right-sided pleural effusion mostly malignant effusion.S/p IR guided pigtail chest tube with drainage of 200 mm bloody fluid.. Left upper lobe new groundglass opacities. Metastatic esophageal cancer currently undergoing chemotherapy Coronary disease history of bypass graft Chronic atrial fibrillation on anticoagulation with Eliquis and also on Cardizem Peripheral vascular disease Hypertension Hyperlipidemia BPH GI prophylaxis and DVT prophylaxis Plan: Patient begun on pain management and empiric antibiotics. Follow-up culture reports. Chest ultrasound was done and pulmonary recommendations regarding thoracentesis. s/p pigtail catheter placement due to loculated pleural effusion. Continue with home medications and follow-up closely. Prognosis poor at this time. Eliquis was on hold for possible thoracentesis. Time with Patient: Greater than 30
[2022-05-12] MEDS: IPRATROPIUM-ALBUTEROL 3 ML NEB INHALATION SCH ×4 (07:32→20:16)
[2022-05-12] MEDS: BUDESONIDE 1 MG/2 ML NEBU INHALATION SCH ×2 (07:32→20:16)
[2022-05-12] MEDS ORDERED: ACETAMINOPHEN TAB 325 MG TAB PEJ/J-Tube PRN (09:51)
[2022-05-12] MEDS ORDERED: ALPRAZolam 0.25 MG TAB PEJ/J-Tube PRN (09:52)
[2022-05-12] MEDS ORDERED: SENNA LEAF EXTRACT SYRUP 528 MG/15 ML CUP PEJ/J-Tube PRN (10:14)
[2022-05-12] MEDS ORDERED: DOCUSATE ORAL SOLN 100 MG/10 ML CUP PEJ/J-Tube PRN (10:19)
[2022-05-12] MEDS: DILTIAZEM ORAL 60 MG TAB PEJ/J-Tube SCH ×2 (10:24→21:35)
[2022-05-12] MEDS: OXYBUTYNIN CHLORIDE 5 MG TAB PEJ/J-Tube SCH ×2 (10:24→21:36)
[2022-05-12] MEDS: SODIUM CHLORIDE 0.9% 1,000 ML IV SCH ×2 (10:24→13:03)
[2022-05-12] MEDS: METOPROLOL TARTRATE 25 MG TAB PEJ/J-Tube SCH ×2 (10:25→21:35)
[2022-05-12] MEDS: ATORVASTATIN 40 MG TAB PO SCH (10:25)
[2022-05-12] MEDS: ATORVASTATIN 40 MG TAB PEJ/J-Tube SCH (10:25)
[2022-05-12] MEDS: NYSTATIN 100,000 UNIT/ML SUSP 500,000 UNIT/5 ML CUP PO SCH (10:25)
[2022-05-12] MEDS: METOPROLOL TARTRATE 25 MG TAB PO SCH (10:26)
--- NOTE | 2022-05-12 12:01 | P.PN ---
Subjective Progress Note Date: 05/12/22 This is a very pleasant 66-year-old male patient with a known history of peripheral vascular disease, coronary artery disease with previous bypass surgery, atrial fibrillation status post permanent pacemaker implantation, anticoagulated with Eliquis, hyperlipidemia, hypertension, BPH. He also has a history of metastatic esophageal cancer currently receiving systemic chemotherapy following with Dr. Kelly. He also has recurrent malignant right- sided pleural effusion his last thoracentesis was performed in September [address] Wan. He presented here to the emergency room yesterday with increasing shortness of breath cough and congestion for approximate 5 days. No fever chills. No phlegm here no hemoptysis. Chest x-ray reveals a large chronic right pleural effusion without significant change compared to previous in November 2021. CT angiogram ruled out pulmonary embolism. Right pleural effusion with associated atelectasis. There is some scattered groundglass opacities mostly in the left upper lobe. Left lower lobe opacity is new. Ultrasound of the right chest reveals a large consolidated appearance with very little simple fluid removed. The fluid appears complex and loculated. White count 15.4. Hemoglobin 13.6. D-dimer 9.0. Sodium 137. Potassium 4.0. BUN 13. Creatinine 0.73. Glucose 148. ProBNP 2230. Meza virus by PCR not detected. He is seen in consultation today in the emergency department. He's currently sitting up on the stretcher. Awake and alert in no acute distress. He is maintaining O2 saturation of 200% on 2 L/m per nasal cannula. He's been afebrile. Hemodynamically stable. Normal saline at 130 ML's per hour. Reevaluated today on 05/10/22, patient is basically about the same, not any better and not any worse compared to yesterday. I saw this patient yesterday in the ER for shortness of breath, patient had recurrent malignant right-sided pleural effusion which seems to be loculated at this point, may or may not benefit from pigtail catheter placement, in the meantime the patient is receiving antibiotics for possible left upper lobe pneumonia and he may have underlying empyema The patient is seen today 05/11/2022 in follow-up on the regular medical floor. He is currently awake and alert in no acute distress. Resting comfortably in bed. Maintaining O2 saturation in the 90s on 2 L/m per nasal cannula. He has normal saline at 40 ML's per hour. He did undergo a right-sided pigtail chest tube placement today by interventional radiology. There is approximate 200 ML's of bloody return thus far. Previous pleural fluid cytology has been positive for non-small cell carcinoma. White count 10.3. Hemoglobin 1.4. Sodium 141. Potassium 4.2. BUN 11. Creatinine 0.8. He is currently on DuoNeb inhalations, Pulmicort inhalation. Antibiotics in the form of Zosyn. The patient is seen today 05/12/2022 in follow-up on the regular medical floor. He is currently resting comfortably in bed. Awake and alert in no acute di stress. He's had continued sanguinous output of the right-sided pigtail catheter. Continued to Pleur-evac. He is maintaining good O2 saturations in the upper 90s on room air. He's afebrile. Hemodynamically stable. Objective - Vital Signs Vital signs: Vital Signs Temp 97.9 F 05/12/22 11:05 Pulse 75 05/12/22 11:05 Resp 18 05/12/22 11:05 BP 106/73 05/12/22 11:05 Pulse Ox 98 05/12/22 11:05 FiO2 Intake & Output 05/11/22 05/12/22 05/12/22 18:59 06:59 18:59 Intake Total 780 Output Total 351 100 500 Balance -351 -100 280 Weight 78.018 kg 78 kg Intake: Oral 120 Tube Feeding 480 Other 180 Output: Chest Tube Drainage 350 100 Pleural Catheter Right 350 100 Urine 1 500 Other: Voiding Method Urinal - Exam GENERAL EXAM: Alert, pleasant 66-year-old male patient, on room air, not in distress. HEAD: Normocephalic. EYES: Normal reaction of pupils, equal size. NOSE: Clear with pink turbinates. THROAT: No erythema or exudates. NECK: No masses, no JVD. CHEST: No chest wall deformity. Right-sided pigtail catheter in place to Pleur- evac. LUNGS: Scattered rhonchi and wheezes noted bilaterally. CVS: S1 and S2 normal with no audible murmur, regular rhythm. ABDOMEN: No hepatosplenomegaly, normal bowel sounds, no guarding or rigidity. SKIN: No rashes CENTRAL NERVOUS SYSTEM: Alert and oriented 3 no focal deficit EXTREMITIES: No clubbing edema or cyanosis. - Labs CBC & Chem 7: 05/11/22 05:14 05/11/22 05:14 Assessment and Plan Assessment: Dyspnea secondary to new left upper lobe groundglass opacities as well as new lower lobe peripheral opacities and recurrent right-sided pleural effusion. Status post right-sided pigtail chest tube placement with 450 ML's of bloody return thus far. Postoperative day #1. Recurrent right-sided malignant effusions. Most recent thoracentesis was September 2021. Cytology positive for non-small cell lung cancer. Ultrasound now reveals complex loculated effusion. History of metastatic esophageal cancer receiving systemic chemotherapy History of coronary artery disease with previous coronary artery bypass surgery History of atrial fibrillation status post permanent pacemaker implantation, anticoagulated with Eliquis Peripheral vascular disease Hyperlipidemia Hypertension BPH Plan: The patient was seen and evaluated Stable and on room air Medications reviewed Right-sided pigtail catheter in place Continue incentive spirometer Follow-up chest x-ray in the a.m. We'll continue to follow I have personally seen and examined the patient, performed the documentation and the assessment and plan as written. Number of minutes spent on the visit: 10.
[2022-05-12] MEDS: NYSTATIN 100,000 UNIT/ML SUSP 500,000 UNIT/5 ML CUP PEJ/J-Tube SCH ×3 (14:05→21:33)
--- NOTE | 2022-05-12 15:46 | P.PN ---
Subjective Progress Note Date: 05/12/22 Patient 66-year-old male with a known history of atrial fibrillation on anticoagulation with Eliquis, hypertension, hyperlipidemia and history of metastatic esophageal cancer currently receiving systemic chemotherapy and recurrent magnet pleural effusion presents to ER with complaints of cough and worsening shortness of breath for the past 5 days. Patient had right-sided pleural effusion status postthoracentesis in September 2021. Patient otherwise denied any complaints of pruritus. No complaints of nausea vomiting abdominal pain or diarrhea. Denied any dysuria or hematuria. CT angiogram of the chest showed no evidence of PE. Predominantly left upper lobe new groundglass opacities correlate for i nfectious/inflammatory process. Right pleural effusion with associated atelectasis. Chest x-ray showed large chronic right pleural effusion without much change. EKG showed atrial flutter/tachycardia Laboratory data showed WBC 15.4 hemoglobin 13.6 and platelets 323 D-dimer level is 9.0 Sodium 137 potassium 4.0 chloride 100 bicarb is 25 BUN 13 and creatinine 0.73 proBNP 2230 procalcitonin level is 0.06 05/10/2022 Patient is currently lying in bed. Awake alert but seems to be lethargic and weak. No complaints of chest pain. No nausea vomiting or abdominal pain or diarrhea. Still having exertional dyspnea. Patient is being continued on antibiotics empirically for possible left lower lobe pneumonia. Pulmonary complaining pigtail catheter placement due to recurrent malignant pleural effusion. Patient is being continued on DuoNeb's and laboratory data showed WBC 12.4 hemoglobin 12.0 and platelets 307 Sodium 137 potassium 4.2 chloride 103 bicarb is 21.5 BUN 12.4 and creatinine 0.7 05/11/2022 Patient is currently lying in the bed. Awake alert and oriented. Currently on oxygen at 2 L via nasal cannula. Patient underwent right-sided pigtail chest tube placement today by interventional etiology. Approximate 1 mL of bloody fluid return., Likely migraine pleural effusion. Otherwise patient denies any complaints of chest pain. No nausea vomiting abdominal pain or diarrhea. Patient is being current on antibiotics and off Zosyn. Continued on DuoNebs and Pulmicort inhalation. Laboratory test showed WBC 7.3 hemoglobin 9.4 and platelets 244 Sodium 141 potassium 4.2 chloride 105 bicarb is 26.2 BUN 11.1 and creatinine 0.8 05/12/22. Patient seen and examined. Still has chest tubes in place. Currently on tube feeding. Denies any acute issues overnight. Vital signs stable REVIEW OF SYSTEMS: CONSTITUTIONAL: No fever, no malaise, no fatigue. HEENT: No recent visual problems or hearing problems. Denied any sore throat. CARDIOVASCULAR: No chest pain, orthopnea, PND, no palpitations, no syncope. PULMONARY: No shortness of breath, no cough, no hemoptysis. GASTROINTESTINAL: No diarrhea, no nausea, no vomiting, no abdominal pain. PHYSICAL EXAMINATION: GENERAL: The patient is alert and oriented x3, not in any acute distress. Well developed, well nourished. HEENT: Pupils are round and equally reacting to light. EOMI. No scleral icterus. No conjunctival pallor. Normocephalic, atraumatic. No pharyngeal erythema. No thyromegaly. CARDIOVASCULAR: S1 and S2 present. No murmurs, rubs, or gallops. PULMONARY: Chest is clear to auscultation, no wheezing or crackles. Right-sided chest tubes seen ABDOMEN: Soft, nontender, nondistended, normoactive bowel sounds. No palpable organomegaly. PEG tube seen MUSCULOSKELETAL: No joint swelling or deformity. EXTREMITIES: No cyanosis, clubbing, or pedal edema. NEUROLOGICAL: Gross neurological examination did not reveal any focal deficits. SKIN: No rashes. Assessment and plan Worsening shortness of breath and cough secondary to large right-sided pleural effusion mostly malignant effusion.S/p IR guided pigtail chest tube with drainage of 200 mm bloody fluid.. Left upper lobe new groundglass opacities. Metastatic esophageal cancer currently undergoing chemotherapy Coronary disease history of bypass graft Chronic atrial fibrillation on anticoagulation with Eliquis and also on Cardizem Peripheral vascular disease Hypertension Hyperlipidemia BPH Plan: Monitor vital signs Monitor CBC follow-up on culture Chest ultrasound was done and pulmonary recommendations regarding thorac entesis. s/p pigtail catheter placement due to loculated pleural effusion. Continue with home medications and follow-up closely. Prognosis poor at this time. Follow-up on pulmonary recommendations Objective - Vital Signs Vital signs: Vital Signs Temp 97.9 F 05/12/22 11:05 Pulse 75 05/12/22 11:05 Resp 18 05/12/22 11:05 BP 106/73 05/12/22 11:05 Pulse Ox 98 05/12/22 11:05 FiO2 Intake & Output 1005/12/22 05/12/22 18:59 06:59 18:59 Intake Total 780 Output Total 351 100 500 Balance -351 -100 280 Weight 78.018 kg 78 kg Intake: Oral 120 Tube Feeding 480 Other 180 Output: Chest Tube Drainage 350 100 Pleural Catheter Right 350 100 Urine 1 500 Other: Voiding Method Urinal Urinal - Labs CBC & Chem 7: 05/11/22 05:14 05/11/22 05:14
[2022-05-12] MEDS: DOXAZOSIN 4 MG TAB PEJ/J-Tube SCH (21:35)
[2022-05-12] MEDS: OLANZapine 2.5 MG TAB PEJ/J-Tube SCH (21:35)
--- NOTE | 2022-05-13 07:21 | XR ---
EXAMINATION TYPE: XR chest 1V portable DATE OF EXAM: 05/13/2022 6:39 AM COMPARISON: Multiple radiographs, with the most recent on 05/09/2022 TECHNIQUE: XR chest 1V portable Portable AP radiograph of the chest. CLINICAL INDICATION:Male, 66 years old with history of Right pleural effusion; FINDINGS: Lungs/Pleura: Right pleural effusion with associated atelectasis. Left lung is grossly stable without evidence for hemothorax pleural effusion or focal consolidation. Pulmonary vascularity: Unremarkable. Heart/mediastinum: Cardiomediastinal silhouette is unremarkable. Two lead cardiac conduction device o verlying the left hemithorax with lead tips projecting over the right ventricle and right atrium.Left atrial appendage occlusion device is present. Musculoskeletal: No acute osseous pathology. Midline sternotomy wires are noted. Other findings: None Lines/Tubes: [id number] projecting over the right hemithorax with distal tip at the cavoatrial junction. Right thoracotomy tube is present without evidence of pneumothorax. IMPRESSION: Similar right-sided pleural effusion associated atelectasis.
[2022-05-13] MEDS: IPRATROPIUM-ALBUTEROL 3 ML NEB INHALATION SCH ×4 (07:35→20:17)
[2022-05-13] MEDS: BUDESONIDE 1 MG/2 ML NEBU INHALATION SCH ×2 (07:35→20:17)
[2022-05-13 09:08] LABS: Basophils # (A) 0.06 X 10*3/uL (0.00-0.10); Eosinophils # (A) 0.22 X 10*3/uL (0.04-0.35); Eosinophils % (A) 3.6 %; HCT 35.7 % (39.6-50.0); HGB 11.2 g/dL (13.0-17.0); Immature Grans, Automated 0.5 %; Lymphocytes # (A) 1.21 X 10*3/uL (0.90-5.00); MCH 27.8 pg (27.0-32.0); MCHC 31.4 g/dL (32.0-37.0); MCV 88.6 fL (80.0-97.0); Mean Platelet Volume 10.1 fL (9.5-12.2); Monocytes # (A) 0.59 X 10*3/uL (0.20-1.00); Monocytes % (A) 9.8 %; NRBC Per 100 WBC 0 /100 WBCS (0.0-0.0); Neutrophils # (A) 3.93 X 10*3/uL (1.80-7.70); Neutrophils % (A) 65.1 %; Platelet Count 253 X 10*3/uL (140-440); RBC 4.03 X 10*6/uL (4.40-5.60); RDW 19.5 % (11.5-14.5); WBC 6.04 X 10*3/uL (4.50-10.00)
[2022-05-13] MEDS: METOPROLOL TARTRATE 25 MG TAB PEJ/J-Tube SCH ×2 (09:19→22:16)
[2022-05-13] MEDS: DILTIAZEM ORAL 60 MG TAB PEJ/J-Tube SCH ×2 (09:20→22:15)
[2022-05-13] MEDS: OXYBUTYNIN CHLORIDE 5 MG TAB PEJ/J-Tube SCH ×2 (09:20→22:16)
[2022-05-13] MEDS: ATORVASTATIN 40 MG TAB PEJ/J-Tube SCH (09:20)
[2022-05-13] MEDS: NYSTATIN 100,000 UNIT/ML SUSP 500,000 UNIT/5 ML CUP PEJ/J-Tube SCH ×4 (09:20→22:14)
[2022-05-13] MEDS: guaiFENesin 600 MG TABLET.ER PO SCH ×2 (09:22→22:15)
[2022-05-13 09:49] LABS: African American GFR (CKD) 119.7 (60.0-200.0); Anion Gap 9.5 mmol/L (10.00-18.00); BUN/Creat Ratio 24.33 Ratio (12.00-20.00); Blood Urea Nitrogen 14.6 mg/dL (9.0-27.0); Calcium 8.1 mg/dL (8.7-10.3); Carbon Dioxide 22.5 mmol/L (20.0-27.5); Non-African American GFR(CKD) 103.3 (60.0-200.0); Potassium 3.9 mmol/L (3.5-5.5)
--- NOTE | 2022-05-13 12:08 | P.PN ---
Subjective Progress Note Date: 05/13/22 This is a very pleasant 66-year-old male patient with a known history of peripheral vascular disease, coronary artery disease with previous bypass surgery, atrial fibrillation status post permanent pacemaker implantation, anticoagulated with Eliquis, hyperlipidemia, hypertension, BPH. He also has a history of metastatic esophageal cancer currently receiving systemic chemotherapy following with Dr. Kelly. He also has recurrent malignant right- sided pleural effusion his last thoracentesis was performed in September [address] Wan. He presented here to the emergency room yesterday with increasing shortness of breath cough and congestion for approximate 5 days. No fever chills. No phlegm here no hemoptysis. Chest x-ray reveals a large chronic right pleural effusion without significant change compared to previous in November 2021. CT angiogram ruled out pulmonary embolism. Right pleural effusion with associated atelectasis. There is some scattered groundglass opacities mostly in the left upper lobe. Left lower lobe opacity is new. Ultrasound of the right chest reveals a large consolidated appearance with very little simple fluid removed. The fluid appears complex and loculated. White count 15.4. Hemoglobin 13.6. D-dimer 9.0. Sodium 137. Potassium 4.0. BUN 13. Creatinine 0.73. Glucose 148. ProBNP 2230. Meza virus by PCR not detected. He is seen in consultation today in the emergency department. He's currently sitting up on the stretcher. Awake and alert in no acute distress. He is maintaining O2 saturation of 200% on 2 L/m per nasal cannula. He's been afebrile. Hemodynamically stable. Normal saline at 130 ML's per hour. Reevaluated today on 05/10/22, patient is basically about the same, not any better and not any worse compared to yesterday. I saw this patient yesterday in the ER for shortness of breath, patient had recurrent malignant right-sided pleural effusion which seems to be loculated at this point, may or may not benefit from pigtail catheter placement, in the meantime the patient is receiving antibiotics for possible left upper lobe pneumonia and he may have underlying empyema The patient is seen today 05/11/2022 in follow-up on the regular medical floor. He is currently awake and alert in no acute distress. Resting comfortably in bed. Maintaining O2 saturation in the 90s on 2 L/m per nasal cannula. He has normal saline at 40 ML's per hour. He did undergo a right-sided pigtail chest tube placement today by interventional radiology. There is approximate 200 ML's of bloody return thus far. Previous pleural fluid cytology has been positive for non-small cell carcinoma. White count 10.3. Hemoglobin 1.4. Sodium 141. Potassium 4.2. BUN 11. Creatinine 0.8. He is currently on DuoNeb inhalations, Pulmicort inhalation. Antibiotics in the form of Zosyn. The patient is seen today 05/12/2022 in follow-up on the regular medical floor. He is currently resting comfortably in bed. Awake and alert in no acute di stress. He's had continued sanguinous output of the right-sided pigtail catheter. Continued to Pleur-evac. He is maintaining good O2 saturations in the upper 90s on room air. He's afebrile. Hemodynamically stable. The patient is seen today 05/13/2022 in follow-up on the regular medical floor. Resting comfortably in bed. Awake and alert in no acute distress. He is maintaining good O2 saturations in the 90s on room air. He still has a congested cough. Pigtail catheter remains in place. Presently 1200 ML's of sanguinous fluid removed since insertion. Chest x-ray continues to show a similar right-sided pleural effusion with associated atelectasis. White count 6.0. Hemoglobin 11.2. Sodium 139. Potassium 3.9. BUN 14. Creatinine 0.6. Normal saline at 40 ML's per hour. Continued on bronchodilators. Objective - Vital Signs Vital signs: Vital Signs Temp 98.2 F 05/13/22 09:02 Pulse 71 05/13/22 09:02 Resp 22 05/13/22 09:02 BP 125/77 05/13/22 09:02 Pulse Ox 99 05/13/22 05:00 FiO2 Intake & Output 05/12/22 05/13/22 05/13/22 18:59 06:59 18:59 Intake Total 1740 1050 Output Total 980 400 Balance 760 650 Weight 79.5 kg Intake: IV 480 Sodium Chloride 0.9% 1, 480 000 ml @ 40 mls/hr IV . Q24H [facility] Rx#:[id number] Oral 120 Tube Feeding 960 960 Other 180 90 Output: Chest Tube Drainage 130 Pleural Catheter Right 130 Urine 850 400 Other: Voiding Method Urinal Urinal Urinal # Voids 1 # Bowel Movements 0 - Exam GENERAL EXAM: Alert, pleasant 66-year-old male patient, on room air, not in distress. HEAD: Normocephalic. EYES: Normal reaction of pupils, equal size. NOSE: Clear with pink turbinates. THROAT: No erythema or exudates. NECK: No masses, no JVD. CHEST: No chest wall deformity. Right-sided pigtail catheter in place to Pleur- evac. LUNGS: Scattered rhonchi and wheezes noted bilaterally. CVS: S1 and S2 normal with no audible murmur, regular rhythm. ABDOMEN: PEG tube exit site clean and dry. No hepatosplenomegaly, normal bowel sounds, no guarding or rigidity. SKIN: No rashes CENTRAL NERVOUS SYSTEM: Alert and oriented 3 no focal deficit EXTREMITIES: No clubbing edema or cyanosis. - Labs CBC & Chem 7: 05/13/22 04:50 05/13/22 04:50 Labs: Abnormal Lab Results - Last 24 Hours (Table) 05/13/22 05/13/22 Range/Units 04:50 04:50 RBC 4.03 L (4.40-5.60) X 10*6/uL Hgb 11.2 L (13.0-17.0) g/dL Hct 35.7 L (39.6-50.0) % MCHC 31.4 L (32.0-37.0) g/dL RDW 19.5 H (11.5-14.5) % Anion Gap 9.50 L (10.00-18.00) mmol/L BUN/Creatinine Ratio 24.33 H (12.00-20.00) Ratio Glucose 131 H (70-110) mg/dL Calcium 8.1 L (8.7-10.3) mg/dL Assessment and Plan Assessment: Dyspnea secondary to new left upper lobe groundglass opacities as well as new lower lobe peripheral opacities and recurrent right-sided pleural effusion. Status post right-sided pigtail chest tube placement with 1200 ML's of bloody return thus far. Recurrent right-sided malignant effusions. Most recent thoracentesis was September 2021. Cytology positive for non-small cell lung cancer. Ultrasound now reveals complex loculated effusion. History of metastatic esophageal cancer receiving systemic chemotherapy History of coronary artery disease with previous coronary artery bypass surgery History of atrial fibrillation status post permanent pacemaker implantation, anticoagulated with Eliquis Peripheral vascular disease Hyperlipidemia Hypertension BPH Plan: The patient was seen and evaluated Stable and on room air Chest x-ray, labs and medications reviewed Add Mucinex Add incentive spirometer and flutter valve Right-sided pigtail catheter in place We'll continue to follow I have personally seen and examined the patient, performed the documentation and the assessment and plan as written. Number of minutes spent on the visit: 10.
--- NOTE | 2022-05-13 12:58 | P.PN ---
Subjective Progress Note Date: 05/13/22 Patient 66-year-old male with a known history of atrial fibrillation on anticoagulation with Eliquis, hypertension, hyperlipidemia and history of metastatic esophageal cancer currently receiving systemic chemotherapy and recurrent magnet pleural effusion presents to ER with complaints of cough and worsening shortness of breath for the past 5 days. Patient had right-sided pleural effusion status postthoracentesis in September 2021. Patient otherwise denied any complaints of pruritus. No complaints of nausea vomiting abdominal pain or diarrhea. Denied any dysuria or hematuria. CT angiogram of the chest showed no evidence of PE. Predominantly left upper lobe new groundglass opacities correlate for i nfectious/inflammatory process. Right pleural effusion with associated atelectasis. Chest x-ray showed large chronic right pleural effusion without much change. EKG showed atrial flutter/tachycardia Laboratory data showed WBC 15.4 hemoglobin 13.6 and platelets 323 D-dimer level is 9.0 Sodium 137 potassium 4.0 chloride 100 bicarb is 25 BUN 13 and creatinine 0.73 proBNP 2230 procalcitonin level is 0.06 05/10/2022 Patient is currently lying in bed. Awake alert but seems to be lethargic and weak. No complaints of chest pain. No nausea vomiting or abdominal pain or diarrhea. Still having exertional dyspnea. Patient is being continued on antibiotics empirically for possible left lower lobe pneumonia. Pulmonary complaining pigtail catheter placement due to recurrent malignant pleural effusion. Patient is being continued on DuoNeb's and laboratory data showed WBC 12.4 hemoglobin 12.0 and platelets 307 Sodium 137 potassium 4.2 chloride 103 bicarb is 21.5 BUN 12.4 and creatinine 0.7 05/11/2022 Patient is currently lying in the bed. Awake alert and oriented. Currently on oxygen at 2 L via nasal cannula. Patient underwent right-sided pigtail chest tube placement today by interventional etiology. Approximate 1 mL of bloody fluid return., Likely migraine pleural effusion. Otherwise patient denies any complaints of chest pain. No nausea vomiting abdominal pain or diarrhea. Patient is being current on antibiotics and off Zosyn. Continued on DuoNebs and Pulmicort inhalation. Laboratory test showed WBC 7.3 hemoglobin 9.4 and platelets 244 Sodium 141 potassium 4.2 chloride 105 bicarb is 26.2 BUN 11.1 and creatinine 0.8 05/12/22. Patient seen and examined. Still has chest tubes in place. Currently on tube feeding. Denies any acute issues overnight. Vital signs stable 05/13/22. Patient seen and examined. Vitals and continue stable. Patient has been afebrile. Labs reviewed. Last chest x-ray showed small right-sided pleural effusion REVIEW OF SYSTEMS: CONSTITUTIONAL: No fever, no malaise, no fatigue. HEENT: No recent visual problems or hearing problems. Denied any sore throat. CARDIOVASCULAR: No chest pain, orthopnea, PND, no palpitations, no syncope. PULMONARY: No shortness of breath, no cough, no hemoptysis. GASTROINTESTINAL: No diarrhea, no nausea, no vomiting, no abdominal pain. PHYSICAL EXAMINATION: GENERAL: The patient is alert and oriented x3, not in any acute distress. Well developed, well nourished. HEENT: Pupils are round and equally reacting to light. EOMI. No scleral icterus. No conjunctival pallor. Normocephalic, atraumatic. No pharyngeal erythema. No thyromegaly. CARDIOVASCULAR: S1 and S2 present. No murmurs, rubs, or gallops. PULMONARY: Chest is clear to auscultation, no wheezing or crackles. Right-sided chest tubes seen ABDOMEN: Soft, nontender, nondistended, normoactive bowel sounds. No palpable o rganomegaly. PEG tube seen MUSCULOSKELETAL: No joint swelling or deformity. EXTREMITIES: No cyanosis, clubbing, or pedal edema. NEUROLOGICAL: Gross neurological examination did not reveal any focal deficits. SKIN: No rashes. Assessment and plan Worsening shortness of breath and cough secondary to large right-sided pleural effusion mostly malignant effusion.S/p IR guided pigtail chest tube with drainage of 200 mm bloody fluid.. Left upper lobe new groundglass opacities. Metastatic esophageal cancer currently undergoing chemotherapy Coronary disease history of bypass graft Chronic atrial fibrillation on anticoagulation with Eliquis and also on Cardizem Peripheral vascular disease Hypertension Hyperlipidemia BPH Plan: Monitor vital signs Monitor CBC follow-up on culture Aggressive bronchopulmonary hygiene, Mucinex added by pulmonology Chest ultrasound was done and pulmonary recommended thoracentesis currently s/p pigtail catheter placement due to loculated pleural effusion. Continue with home medications and follow-up closely. Prognosis poor at this time. Follow-up on pulmonary recommendations Objective - Vital Signs Vital signs: Vital Signs Temp 98.0 F 05/13/22 11:57 Pulse 60 10/05/22 11:57 Resp 20 05/13/22 11:57 BP 105/64 05/13/22 11:57 Pulse Ox 98 05/13/22 11:57 FiO2 Intake & Output 05/12/22 05/13/22 05/13/22 18:59 06:59 18:59 Intake Total 1740 1050 Output Total 980 400 Balance 760 650 Weight 79.5 kg Intake: IV 480 Sodium Chloride 0.9% 1, 480 000 ml @ 40 mls/hr IV . Q24H [facility] Rx#:[id number] Oral 120 Tube Feeding 960 960 Other 180 90 Output: Chest Tube Drainage 130 Pleural Catheter Right 130 Urine 850 400 Other: Voiding Method Urinal Urinal Urinal # Voids 1 # Bowel Movements 0 - Labs CBC & Chem 7: 05/13/22 04:50 05/13/22 04:50 Labs: Abnormal Lab Results - Last 24 Hours (Table) 05/13/22 05/13/22 Range/Units 04:50 04:50 RBC 4.03 L (4.40-5.60) X 10*6/uL Hgb 11.2 L (13.0-17.0) g/dL Hct 35.7 L (39.6-50.0) % MCHC 31.4 L (32.0-37.0) g/dL RDW 19.5 H (11.5-14.5) % Anion Gap 9.50 L (10.00-18.00) mmol/L BUN/Creatinine Ratio 24.33 H (12.00-20.00) Ratio Glucose 131 H (70-110) mg/dL Calcium 8.1 L (8.7-10.3) mg/dL
[2022-05-13] MEDS: OLANZapine 2.5 MG TAB PEJ/J-Tube SCH (22:15)
[2022-05-13] MEDS: DOXAZOSIN 4 MG TAB PEJ/J-Tube SCH (22:15)
[2022-05-14] MEDS: SODIUM CHLORIDE 0.9% 1,000 ML IV SCH (05:08)
--- NOTE | 2022-05-14 08:22 | P.PN ---
Subjective Progress Note Date: 05/14/22 This is a very pleasant 66-year-old male patient with a known history of peripheral vascular disease, coronary artery disease with previous bypass surgery, atrial fibrillation status post permanent pacemaker implantation, anticoagulated with Eliquis, hyperlipidemia, hypertension, BPH. He also has a history of metastatic esophageal cancer currently receiving systemic chemotherapy following with Dr. Kelly. He also has recurrent malignant right- sided pleural effusion his last thoracentesis was performed in September [address] Wan. He presented here to the emergency room yesterday with increasing shortness of breath cough and congestion for approximate 5 days. No fever chills. No phlegm here no hemoptysis. Chest x-ray reveals a large chronic right pleural effusion without significant change compared to previous in November 2021. CT angiogram ruled out pulmonary embolism. Right pleural effusion with associated atelectasis. There is some scattered groundglass opacities mostly in the left upper lobe. Left lower lobe opacity is new. Ultrasound of the right chest reveals a large consolidated appearance with very little simple fluid removed. The fluid appears complex and loculated. White count 15.4. Hemoglobin 13.6. D-dimer 9.0. Sodium 137. Potassium 4.0. BUN 13. Creatinine 0.73. Glucose 148. ProBNP 2230. Meza virus by PCR not detected. He is seen in consultation today in the emergency department. He's currently sitting up on the stretcher. Awake and alert in no acute distress. He is maintaining O2 saturation of 200% on 2 L/m per nasal cannula. He's been afebrile. Hemodynamically stable. Normal saline at 130 ML's per hour. Reevaluated today on 05/10/22, patient is basically about the same, not any better and not any worse compared to yesterday. I saw this patient yesterday in the ER for shortness of breath, patient had recurrent malignant right-sided pleural effusion which seems to be loculated at this point, may or may not benefit from pigtail catheter placement, in the meantime the patient is receiving antibiotics for possible left upper lobe pneumonia and he may have underlying empyema The patient is seen today 05/11/2022 in follow-up on the regular medical floor. He is currently awake and alert in no acute distress. Resting comfortably in bed. Maintaining O2 saturation in the 90s on 2 L/m per nasal cannula. He has normal saline at 40 ML's per hour. He did undergo a right-sided pigtail chest tube placement today by interventional radiology. There is approximate 200 ML's of bloody return thus far. Previous pleural fluid cytology has been positive for non-small cell carcinoma. White count 10.3. Hemoglobin 1.4. Sodium 141. Potassium 4.2. BUN 11. Creatinine 0.8. He is currently on DuoNeb inhalations, Pulmicort inhalation. Antibiotics in the form of Zosyn. The patient is seen today 05/12/2022 in follow-up on the regular medical floor. He is currently resting comfortably in bed. Awake and alert in no acute di stress. He's had continued sanguinous output of the right-sided pigtail catheter. Continued to Pleur-evac. He is maintaining good O2 saturations in the upper 90s on room air. He's afebrile. Hemodynamically stable. The patient is seen today 05/13/2022 in follow-up on the regular medical floor. Resting comfortably in bed. Awake and alert in no acute distress. He is maintaining good O2 saturations in the 90s on room air. He still has a congested cough. Pigtail catheter remains in place. Presently 1200 ML's of sanguinous fluid removed since insertion. Chest x-ray continues to show a similar right-sided pleural effusion with associated atelectasis. White count 6.0. Hemoglobin 11.2. Sodium 139. Potassium 3.9. BUN 14. Creatinine 0.6. Normal saline at 40 ML's per hour. Continued on bronchodilators. The patient is seen today 05/14/2022 in follow-up on the regular medical floor. He is awake and alert in no acute distress. He is resting comfortably in bed. Maintaining good O2 saturations in the 90s on room air. He has normal saline at 40 miles per hour. Right-sided pigtail catheter remains in place. Sanguineous fluid continues to be returned. He remains afebrile. Hemodynamically stable. Needs increased encouragement regarding the use of the incentive spirometer and flutter valve. Objective - Vital Signs Vital signs: Vital Signs Temp 98.3 F 05/14/22 04:33 Pulse 63 05/14/22 04:33 Resp 14 05/14/22 04:33 BP 107/69 05/14/22 04:33 Pulse Ox 97 05/14/22 04:33 FiO2 Intake & Output 05/13/22 05/14/22 05/14/22 18:59 06:59 18:59 Intake Total 1680 120 Output Total 475 750 Balance 1205 -630 Weight 79.5 kg 77.5 kg Intake: Intake, IV Titration 120 Amount Sodium Chloride 0.9% 1, 120 000 ml @ 40 mls/hr IV . Q24H [facility] Rx#:[id number] Tube Feeding 1440 Other 240 Output: Chest Tube Drainage 75 150 Pleural Catheter Right 75 150 Urine 400 600 Other: Voiding Method Urinal Urinal - Exam GENERAL EXAM: Alert, 66-year-old male patient, on room air, not in distress. HEAD: Normocephalic. EYES: Normal reaction of pupils, equal size. NOSE: Clear with pink turbinates. THROAT: No erythema or exudates. NECK: No masses, no JVD. CHEST: No chest wall deformity. Right-sided pigtail catheter in place to Pleur- evac. LUNGS: Scattered rhonchi and wheezes noted bilaterally. CVS: S1 and S2 normal with no audible murmur, regular rhythm. ABDOMEN: PEG tube exit site clean and dry. No hepatosplenomegaly, normal bowel sounds, no guarding or rigidity. SKIN: No rashes CENTRAL NERVOUS SYSTEM: Alert and oriented 3 no focal deficit EXTREMITIES: No clubbing edema or cyanosis. - Labs CBC & Chem 7: 05/13/22 04:50 05/13/22 04:50 Labs: Abnormal Lab Results - Last 24 Hours (Table) 05/13/22 05/13/22 Range/Units 04:50 04:50 RBC 4.03 L (4.40-5.60) X 10*6/uL Hgb 11.2 L (13.0-17.0) g/dL Hct 35.7 L (39.6-50.0) % MCHC 31.4 L (32.0-37.0) g/dL RDW 19.5 H (11.5-14.5) % Anion Gap 9.50 L (10.00-18.00) mmol/L BUN/Creatinine Ratio 24.33 H (12.00-20.00) Ratio Glucose 131 H (70-110) mg/dL Calcium 8.1 L (8.7-10.3) mg/dL Assessment and Plan Assessment: Dyspnea secondary to new left upper lobe groundglass opacities as well as new lower lobe peripheral opacities and recurrent right-sided pleural effusion. Status post right-sided pigtail chest tube placement. Recurrent right-sided malignant effusions. Most recent thoracentesis was September 2021. Cytology positive for non-small cell lung cancer. Ultrasound now reveals complex loculated effusion. History of metastatic esophageal cancer receiving systemic chemotherapy History of coronary artery disease with previous coronary artery bypass surgery History of atrial fibrillation status post permanent pacemaker implantation, anticoagulated with Eliquis Peripheral vascular disease Hyperlipidemia Hypertension BPH Plan: The patient was seen and evaluated Stable and on room air Encouraged increased use of the incentive spirometer and flutter valve Right-sided pigtail catheter in place Follow-up chest x-ray in the a.m. We'll continue to follow I have personally seen and examined the patient, performed the documentation and the assessment and plan as written. Number of minutes spent on the visit: 10.
[2022-05-14] MEDS: IPRATROPIUM-ALBUTEROL 3 ML NEB INHALATION SCH ×4 (08:23→20:04)
[2022-05-14] MEDS: BUDESONIDE 1 MG/2 ML NEBU INHALATION SCH ×2 (08:23→20:04)
[2022-05-14] MEDS: METOPROLOL TARTRATE 25 MG TAB PEJ/J-Tube SCH ×2 (08:40→21:58)
[2022-05-14] MEDS: guaiFENesin 600 MG TABLET.ER PO SCH ×2 (08:40→20:09)
[2022-05-14] MEDS: ATORVASTATIN 40 MG TAB PEJ/J-Tube SCH (08:40)
[2022-05-14] MEDS: DILTIAZEM ORAL 60 MG TAB PEJ/J-Tube SCH ×2 (08:41→21:58)
[2022-05-14] MEDS: OXYBUTYNIN CHLORIDE 5 MG TAB PEJ/J-Tube SCH ×2 (08:41→20:10)
[2022-05-14] MEDS: NYSTATIN 100,000 UNIT/ML SUSP 500,000 UNIT/5 ML CUP PEJ/J-Tube SCH ×5 (08:42→22:30)
[2022-05-14 09:04] LABS: Basophils # (A) 0.08 X 10*3/uL (0.00-0.10); Basophils % (A) 1.1 %; Eosinophils % (A) 4.1 %; HCT 35.5 % (39.6-50.0); HGB 11.4 g/dL (13.0-17.0); Immature Grans, Automated 0.7 %; Lymphocytes # (A) 1.51 X 10*3/uL (0.90-5.00); Lymphocytes % (A) 20.9 %; MCH 27.5 pg (27.0-32.0); MCHC 32.1 g/dL (32.0-37.0); MCV 85.7 fL (80.0-97.0); Mean Platelet Volume 10.1 fL (9.5-12.2); Monocytes # (A) 0.71 X 10*3/uL (0.20-1.00); Monocytes % (A) 9.8 %; NRBC Per 100 WBC 0 /100 WBCS (0.0-0.0); Neutrophils # (A) 4.59 X 10*3/uL (1.80-7.70); Neutrophils % (A) 63.4 %; Platelet Count 238 X 10*3/uL (140-440); RBC 4.14 X 10*6/uL (4.40-5.60); RDW 19.5 % (11.5-14.5); WBC 7.24 X 10*3/uL (4.50-10.00)
[2022-05-14 09:05] LABS: African American GFR (CKD) 122.3 (60.0-200.0); Albumin 2.8 g/dL (3.8-4.9); Albumin/Globulin Ratio 1.06 (1.60-3.17); Anion Gap 8.4 mmol/L (10.00-18.00); BUN/Creat Ratio 21.23 Ratio (12.00-20.00); Blood Urea Nitrogen 12.1 mg/dL (9.0-27.0); Calcium 8.4 mg/dL (8.7-10.3); Globulin 2.7 g/dL (1.6-3.3); Non-African American GFR(CKD) 105.5 (60.0-200.0); Potassium 4.2 mmol/L (3.5-5.5); Total Bilirubin 0.2 mg/dL (0.30-1.20); Total Protein 5.5 g/dL (6.2-8.2)
--- NOTE | 2022-05-14 11:22 | P.PN ---
Subjective Progress Note Date: 05/14/22 Patient 66-year-old male with a known history of atrial fibrillation on anticoagulation with Eliquis, hypertension, hyperlipidemia and history of metastatic esophageal cancer currently receiving systemic chemotherapy and recurrent magnet pleural effusion presents to ER with complaints of cough and worsening shortness of breath for the past 5 days. Patient had right-sided pleural effusion status postthoracentesis in September 2021. Patient otherwise denied any complaints of pruritus. No complaints of nausea vomiting abdominal pain or diarrhea. Denied any dysuria or hematuria. CT angiogram of the chest showed no evidence of PE. Predominantly left upper lobe new groundglass opacities correlate for i nfectious/inflammatory process. Right pleural effusion with associated atelectasis. Chest x-ray showed large chronic right pleural effusion without much change. EKG showed atrial flutter/tachycardia Laboratory data showed WBC 15.4 hemoglobin 13.6 and platelets 323 D-dimer level is 9.0 Sodium 137 potassium 4.0 chloride 100 bicarb is 25 BUN 13 and creatinine 0.73 proBNP 2230 procalcitonin level is 0.06 05/10/2022 Patient is currently lying in bed. Awake alert but seems to be lethargic and weak. No complaints of chest pain. No nausea vomiting or abdominal pain or diarrhea. Still having exertional dyspnea. Patient is being continued on antibiotics empirically for possible left lower lobe pneumonia. Pulmonary complaining pigtail catheter placement due to recurrent malignant pleural effusion. Patient is being continued on DuoNeb's and laboratory data showed WBC 12.4 hemoglobin 12.0 and platelets 307 Sodium 137 potassium 4.2 chloride 103 bicarb is 21.5 BUN 12.4 and creatinine 0.7 05/11/2022 Patient is currently lying in the bed. Awake alert and oriented. Currently on oxygen at 2 L via nasal cannula. Patient underwent right-sided pigtail chest tube placement today by interventional etiology. Approximate 1 mL of bloody fluid return., Likely migraine pleural effusion. Otherwise patient denies any complaints of chest pain. No nausea vomiting abdominal pain or diarrhea. Patient is being current on antibiotics and off Zosyn. Continued on DuoNebs and Pulmicort inhalation. Laboratory test showed WBC 7.3 hemoglobin 9.4 and platelets 244 Sodium 141 potassium 4.2 chloride 105 bicarb is 26.2 BUN 11.1 and creatinine 0.8 05/12/22. Patient seen and examined. Still has chest tubes in place. Currently on tube feeding. Denies any acute issues overnight. Vital signs stable 05/13/22. Patient seen and examined. Vitals and continue stable. Patient has been afebrile. Labs reviewed. Last chest x-ray showed small right-sided pleural effusion 05/14/22. Patient seen and examined. Patient laying comfortably in the bed. Labs reviewed hemoglobin this morning is 11.4, white count is 7.24. Still has chest tube in place. Case discussed with nursing staff REVIEW OF SYSTEMS: CONSTITUTIONAL: No fever, no malaise, no fatigue. CARDIOVASCULAR: No chest pain, orthopnea, PND, no palpitations, no syncope. PULMONARY: No shortness of breath, no cough, no hemoptysis. GASTROINTESTINAL: No diarrhea, no abdominal pain. PHYSICAL EXAMINATION: GENERAL: The patient is alert and oriented x3, not in any acute distress. Well developed, well nourished. HEENT: Pupils are round and equally reacting to light. EOMI. No scleral icterus. No conjunctival pallor. Normocephalic, atraumatic. No pharyngeal erythema. No thyromegaly. CARDIOVASCULAR: S1 and S2 present. No murmurs, rubs, or gallops. PULMONARY: Chest is clear to auscultation, no wheezing or crackles. Right-sided chest tubes seen ABDOMEN: Soft, nontender, nondistended, normoactive bowel sounds. No palpable organomegaly. PEG tube seen MUSCULOSKELETAL: No joint swelling or deformity. EXTREMITIES: No cyanosis, clubbing, or pedal edema. NEUROLOGICAL: Gross neurological examination did not reveal any focal deficits. SKIN: No rashes. Assessment and plan Worsening shortness of breath and cough secondary to large right-sided pleural effusion mostly malignant effusion.S/p IR guided pigtail chest tube with drainage of 200 mm bloody fluid.. Left upper lobe new groundglass opacities. Metastatic esophageal cancer currently undergoing chemotherapy Coronary disease history of bypass graft Chronic atrial fibrillation on anticoagulation with Eliquis and also on Cardizem Peripheral vascular disease Hypertension Hyperlipidemia BPH Plan: Monitor vital signs Monitor CBC follow-up on culture Aggressive bronchopulmonary hygiene, Mucinex added by pulmonology Chest ultrasound was done and pulmonary recommended thoracentesis currently s/p pigtail catheter placement due to loculated pleural effusion. Repeat chest x-ray ordered for tomorrow morning. Chest tube management per pulm onology Continue with home medications and follow-up closely. Prognosis poor at this time. Follow-up on pulmonary recommendations Objective - Vital Signs Vital signs: Vital Signs Temp 98.3 F 05/14/22 04:33 Pulse 63 05/14/22 04:33 Resp 14 05/14/22 04:33 BP 107/69 05/14/22 04:33 Pulse Ox 97 05/14/22 04:33 FiO2 Intake & Output 05/13/22 05/14/22 05/14/22 18:59 06:59 18:59 Intake Total 1680 120 Output Total 475 750 Balance 1205 -630 Weight 79.5 kg 77.5 kg Intake: Intake, IV Titration 120 Amount Sodium Chloride 0.9% 1, 120 000 ml @ 40 mls/hr IV . Q24H [facility] Rx#:[id number] Tube Feeding 1440 Other 240 Output: Chest Tube Drainage 75 150 Pleural Catheter Right 75 150 Urine 400 600 Other: Voiding Method Urinal Urinal Urinal # Bowel Movements 1 - Labs CBC & Chem 7: 05/14/22 06:00 05/14/22 06:00 Labs: Abnormal Lab Results - Last 24 Hours (Table) 05/14/22 05/14/22 Range/Units 06:00 06:00 RBC 4.14 L (4.40-5.60) X 10*6/uL Hgb 11.4 L (13.0-17.0) g/dL Hct 35.5 L (39.6-50.0) % RDW 19.5 H (11.5-14.5) % Immature Gran # 0.05 H (0.00-0.04) X 10*3/uL Anion Gap 8.40 L (10.00-18.00) mmol/L BUN/Creatinine Ratio 21.23 H (12.00-20.00) Ratio Calcium 8.4 L (8.7-10.3) mg/dL Total Bilirubin 0.20 L (0.30-1.20) mg/dL Alkaline Phosphatase 137 H (41-126) U/L Total Protein 5.5 L (6.2-8.2) g/dL Albumin 2.8 L (3.8-4.9) g/dL Albumin/Globulin Ratio 1.06 L (1.60-3.17) g/dL
[2022-05-14 13:22] VITALS: BMI 23.8
[2022-05-14] MEDS: OLANZapine 2.5 MG TAB PEJ/J-Tube SCH (20:09)
[2022-05-14] MEDS: DOXAZOSIN 4 MG TAB PEJ/J-Tube SCH (21:58)
[2022-05-15] MEDS: SODIUM CHLORIDE 0.9% 1,000 ML IV SCH (04:06)
[2022-05-15 08:04] LABS: ALT 31 U/L (4-49); AST 36 U/L (17-59); African American GFR (CKD) >90 (>60 ml/min/1.73 sqM); Albumin 3.2 g/dL (3.5-5.0); Albumin/Globulin Ratio 1.1; Alkaline Phosphatase 218 U/L (38-126); Anion Gap 9 mmol/L; Blood Urea Nitrogen 15 mg/dL (9-20); Calcium 8.7 mg/dL (8.4-10.2); Carbon Dioxide 25 mmol/L (22-30); Chloride 105 mmol/L (98-107); Glucose 147 mg/dL (74-99); Non-African American GFR(CKD) >90 (>60 ml/min/1.73 sqM); Potassium 4.3 mmol/L (3.5-5.1); Sodium 139 mmol/L (137-145); Total Bilirubin 0.4 mg/dL (0.2-1.3); Total Protein 6.2 g/dL (6.3-8.2)
--- NOTE | 2022-05-15 09:09 | XR ---
EXAMINATION TYPE: XR chest 1V portable DATE OF EXAM: 05/15/2022 COMPARISON: 05/13/2022 HISTORY: Right pleural effusion TECHNIQUE: Single frontal view of the chest is obtained. FINDINGS: Right-sided chest tube is seen and there is a cardiac device and postsurgical changes with Mediport. There is a right-sided hydropneumothorax stable in appearance. Consider trapped lung. Righ t-sided consolidation noted. IMPRESSION: 1. Stable right-sided hydropneumothorax with chest tube noted in position. Correlate clinically.
[2022-05-15 09:10] LABS: Anisocytosis Slight; Basophils # (A) 0.1 k/uL (0-0.2); Basophils % (A) 1 %; Eosinophils # (A) 0.2 k/uL (0-0.7); Eosinophils % (A) 2 %; HCT 44.4 % (39.0-53.0); HGB 13.5 gm/dL (13.0-17.5); Hypochromasia Marked; Lymphocytes % (A) 11 %; MCH 27.4 pg (25.0-35.0); MCHC 30.3 g/dL (31.0-37.0); Mean Platelet Volume 8.8; Monocytes # (A) 0.4 k/uL (0-1.0); Monocytes % (A) 4 %; Neutrophils # (A) 7.5 k/uL (1.3-7.7); Neutrophils % (A) 81 %; Platelet Count 229 k/uL (150-450); RBC 4.93 m/uL (4.30-5.90); RDW 17.6 % (11.5-15.5); WBC 9.2 k/uL (3.8-10.6)
[2022-05-15 09:19] LABS: MCV 90.2 fL (80.0-100.0)
[2022-05-15] MEDS: guaiFENesin 600 MG TABLET.ER PO SCH ×2 (09:22→21:40)
[2022-05-15] MEDS: METOPROLOL TARTRATE 25 MG TAB PEJ/J-Tube SCH ×2 (09:22→21:40)
[2022-05-15] MEDS: ATORVASTATIN 40 MG TAB PEJ/J-Tube SCH (09:22)
[2022-05-15] MEDS: DILTIAZEM ORAL 60 MG TAB PEJ/J-Tube SCH ×2 (09:23→21:40)
[2022-05-15] MEDS: NYSTATIN 100,000 UNIT/ML SUSP 500,000 UNIT/5 ML CUP PEJ/J-Tube SCH ×4 (09:23→21:41)
[2022-05-15] MEDS: OXYBUTYNIN CHLORIDE 5 MG TAB PEJ/J-Tube SCH ×2 (09:23→21:40)
[2022-05-15] MEDS: BUDESONIDE 1 MG/2 ML NEBU INHALATION SCH ×2 (09:39→20:47)
[2022-05-15] MEDS: IPRATROPIUM-ALBUTEROL 3 ML NEB INHALATION SCH ×4 (09:39→20:47)
--- NOTE | 2022-05-15 12:33 | P.PN ---
Subjective Progress Note Date: 05/15/22 This is a very pleasant 66-year-old male patient with a known history of peripheral vascular disease, coronary artery disease with previous bypass surgery, atrial fibrillation status post permanent pacemaker implantation, anticoagulated with Eliquis, hyperlipidemia, hypertension, BPH. He also has a history of metastatic esophageal cancer currently receiving systemic chemotherapy following with Dr. Kelly. He also has recurrent malignant right- sided pleural effusion his last thoracentesis was performed in September [address] Wan. He presented here to the emergency room yesterday with increasing shortness of breath cough and congestion for approximate 5 days. No fever chills. No phlegm here no hemoptysis. Chest x-ray reveals a large chronic right pleural effusion without significant change compared to previous in November 2021. CT angiogram ruled out pulmonary embolism. Right pleural effusion with associated atelectasis. There is some scattered groundglass opacities mostly in the left upper lobe. Left lower lobe opacity is new. Ultrasound of the right chest reveals a large consolidated appearance with very little simple fluid removed. The fluid appears complex and loculated. White count 15.4. Hemoglobin 13.6. D-dimer 9.0. Sodium 137. Potassium 4.0. BUN 13. Creatinine 0.73. Glucose 148. ProBNP 2230. Meza virus by PCR not detected. He is seen in consultation today in the emergency department. He's currently sitting up on the stretcher. Awake and alert in no acute distress. He is maintaining O2 saturation of 200% on 2 L/m per nasal cannula. He's been afebrile. Hemodynamically stable. Normal saline at 130 ML's per hour. Reevaluated today on 05/10/22, patient is basically about the same, not any better and not any worse compared to yesterday. I saw this patient yesterday in the ER for shortness of breath, patient had recurrent malignant right-sided pleural effusion which seems to be loculated at this point, may or may not benefit from pigtail catheter placement, in the meantime the patient is receiving antibiotics for possible left upper lobe pneumonia and he may have underlying empyema The patient is seen today 05/11/2022 in follow-up on the regular medical floor. He is currently awake and alert in no acute distress. Resting comfortably in bed. Maintaining O2 saturation in the 90s on 2 L/m per nasal cannula. He has normal saline at 40 ML's per hour. He did undergo a right-sided pigtail chest tube placement today by interventional radiology. There is approximate 200 ML's of bloody return thus far. Previous pleural fluid cytology has been positive for non-small cell carcinoma. White count 10.3. Hemoglobin 1.4. Sodium 141. Potassium 4.2. BUN 11. Creatinine 0.8. He is currently on DuoNeb inhalations, Pulmicort inhalation. Antibiotics in the form of Zosyn. The patient is seen today 05/12/2022 in follow-up on the regular medical floor. He is currently resting comfortably in bed. Awake and alert in no acute di stress. He's had continued sanguinous output of the right-sided pigtail catheter. Continued to Pleur-evac. He is maintaining good O2 saturations in the upper 90s on room air. He's afebrile. Hemodynamically stable. The patient is seen today 05/13/2022 in follow-up on the regular medical floor. Resting comfortably in bed. Awake and alert in no acute distress. He is maintaining good O2 saturations in the 90s on room air. He still has a congested cough. Pigtail catheter remains in place. Presently 1200 ML's of sanguinous fluid removed since insertion. Chest x-ray continues to show a similar right-sided pleural effusion with associated atelectasis. White count 6.0. Hemoglobin 11.2. Sodium 139. Potassium 3.9. BUN 14. Creatinine 0.6. Normal saline at 40 ML's per hour. Continued on bronchodilators. The patient is seen today 05/14/2022 in follow-up on the regular medical floor. He is awake and alert in no acute distress. He is resting comfortably in bed. Maintaining good O2 saturations in the 90s on room air. He has normal saline at 40 miles per hour. Right-sided pigtail catheter remains in place. Sanguineous fluid continues to be returned. He remains afebrile. Hemodynamically stable. Needs increased encouragement regarding the use of the incentive spirometer and flutter valve. The patient is seen today 05/15/2022 in follow-up on the regular medical floor. He is currently resting comfortably in bed. Awake and alert in no acute distress. Continue is maintaining good O2 saturations in the 90s on room air. Right-sided pigtail catheter remains in place. Still a significant amount of sanguinous drainage. White count 9.2. Hemoglobin 13.5. Sodium 139. Potassium 4.3. BUN 15. Creatinine 0.54. Glucose 147. Objective - Vital Signs Vital signs: Vital Signs Temp 98.1 F 05/15/22 11:04 Pulse 77 05/15/22 11:04 Resp 16 05/15/22 11:04 BP 118/66 05/15/22 11:04 Pulse Ox 99 05/15/22 11:04 FiO2 Intake & Output 05/14/22 05/15/22 05/15/22 18:59 06:59 18:59 Intake Total 1440 630 Output Total 640 400 20 Balance 800 -400 610 Weight 77.5 kg 79.5 kg Intake: IV 480 Sodium Chloride 0.9% 1, 480 000 ml @ 40 mls/hr IV . Q24H [facility] Rx#:[id number] Oral 0 Tube Feeding 1440 Other 150 Output: Chest Tube Drainage 340 20 Pleural Catheter Right 340 20 Urine 300 400 Other: Voiding Method Urinal Urinal # Voids 1 # Bowel Movements 1 0 1 - Exam GENERAL EXAM: Alert, very pleasant 66-year-old male patient, on room air, not in distress. HEAD: Normocephalic. EYES: Normal reaction of pupils, equal size. NOSE: Clear with pink turbinates. THROAT: No erythema or exudates. NECK: No masses, no JVD. CHEST: No chest wall deformity. Right-sided pigtail catheter in place to Pleur- evac. LUNGS: Scattered rhonchi and wheezes noted bilaterally. CVS: S1 and S2 normal with no audible murmur, regular rhythm. ABDOMEN: PEG tube exit site clean and dry. No hepatosplenomegaly, normal bowel sounds, no guarding or rigidity. SKIN: No rashes CENTRAL NERVOUS SYSTEM: Alert and oriented 3 no focal deficit EXTREMITIES: No clubbing edema or cyanosis. - Labs CBC & Chem 7: 05/15/22 06:50 05/15/22 06:50 Labs: Abnormal Lab Results - Last 24 Hours (Table) 05/15/22 05/15/22 Range/Units 06:50 06:50 MCHC 30.3 L (31.0-37.0) g/dL RDW 17.6 H (11.5-15.5) % Creatinine 0.54 L (0.66-1.25) mg/dL Glucose 147 H (74-99) mg/dL Alkaline Phosphatase 218 H (38-126) U/L Total Protein 6.2 L (6.3-8.2) g/dL Albumin 3.2 L (3.5-5.0) g/dL Assessment and Plan Assessment: Dyspnea secondary to new left upper lobe groundglass opacities as well as new lower lobe peripheral opacities and recurrent right-sided pleural effusion. Status post right-sided pigtail chest tube placement. Recurrent right-sided malignant effusions. Most recent thoracentesis was September 2021. Cytology positive for non-small cell lung cancer. Ultrasound now reveals complex loculated effusion. History of metastatic esophageal cancer receiving systemic chemotherapy History of coronary artery disease with previous coronary artery bypass surgery History of atrial fibrillation status post permanent pacemaker implantation, anticoagulated with Eliquis Peripheral vascular disease Hyperlipidemia Hypertension BPH Plan: The patient was seen and evaluated Chest x-ray reviewed, stable Encouraged increased use of the incentive spirometer and flutter valve Increase his activity as tolerated We'll continue to follow I have personally seen and examined the patient, performed the documentation and the assessment and plan as written. Number of minutes spent on the visit: 10.
--- NOTE | 2022-05-15 12:46 | P.PN ---
Subjective Progress Note Date: 05/15/22 Patient 66-year-old male with a known history of atrial fibrillation on anticoagulation with Eliquis, hypertension, hyperlipidemia and history of metastatic esophageal cancer currently receiving systemic chemotherapy and recurrent magnet pleural effusion presents to ER with complaints of cough and worsening shortness of breath for the past 5 days. Patient had right-sided pleural effusion status postthoracentesis in September 2021. Patient otherwise denied any complaints of pruritus. No complaints of nausea vomiting abdominal pain or diarrhea. Denied any dysuria or hematuria. CT angiogram of the chest showed no evidence of PE. Predominantly left upper lobe new groundglass opacities correlate for i nfectious/inflammatory process. Right pleural effusion with associated atelectasis. Chest x-ray showed large chronic right pleural effusion without much change. EKG showed atrial flutter/tachycardia Laboratory data showed WBC 15.4 hemoglobin 13.6 and platelets 323 D-dimer level is 9.0 Sodium 137 potassium 4.0 chloride 100 bicarb is 25 BUN 13 and creatinine 0.73 proBNP 2230 procalcitonin level is 0.06 05/10/2022 Patient is currently lying in bed. Awake alert but seems to be lethargic and weak. No complaints of chest pain. No nausea vomiting or abdominal pain or diarrhea. Still having exertional dyspnea. Patient is being continued on antibiotics empirically for possible left lower lobe pneumonia. Pulmonary complaining pigtail catheter placement due to recurrent malignant pleural effusion. Patient is being continued on DuoNeb's and laboratory data showed WBC 12.4 hemoglobin 12.0 and platelets 307 Sodium 137 potassium 4.2 chloride 103 bicarb is 21.5 BUN 12.4 and creatinine 0.7 05/11/2022 Patient is currently lying in the bed. Awake alert and oriented. Currently on oxygen at 2 L via nasal cannula. Patient underwent right-sided pigtail chest tube placement today by interventional etiology. Approximate 1 mL of bloody fluid return., Likely migraine pleural effusion. Otherwise patient denies any complaints of chest pain. No nausea vomiting abdominal pain or diarrhea. Patient is being current on antibiotics and off Zosyn. Continued on DuoNebs and Pulmicort inhalation. Laboratory test showed WBC 7.3 hemoglobin 9.4 and platelets 244 Sodium 141 potassium 4.2 chloride 105 bicarb is 26.2 BUN 11.1 and creatinine 0.8 05/12/22. Patient seen and examined. Still has chest tubes in place. Currently on tube feeding. Denies any acute issues overnight. Vital signs stable 05/13/22. Patient seen and examined. Vitals and continue stable. Patient has been afebrile. Labs reviewed. Last chest x-ray showed small right-sided pleural effusion 05/14/22. Patient seen and examined. Patient laying comfortably in the bed. Labs reviewed hemoglobin this morning is 11.4, white count is 7.24. Still has chest tube in place. Case discussed with nursing staff 05/15/22. Seen and examined. Patient continues to be on tube feeding. Patient still has chest tube in. Family requested oncology to evaluate the patient. No acute issues overnight. Case discussed with nursing staff REVIEW OF SYSTEMS: CONSTITUTIONAL: No fever, no malaise, no fatigue. CARDIOVASCULAR: No chest pain, orthopnea, PND, no palpitations, no syncope. PULMONARY: No shortness of breath, no cough, no hemoptysis. GASTROINTESTINAL: No diarrhea, no abdominal pain. PHYSICAL EXAMINATION: GENERAL: The patient is alert and oriented x3, not in any acute distress. Well developed, well nourished. HEENT: Pupils are round and equally reacting to light. EOMI. No scleral icterus. No conjunctival pallor. Normocephalic, atraumatic. No pharyngeal erythema. No thyromegaly. CARDIOVASCULAR: S1 and S2 present. No murmurs, rubs, or gallops. PULMONARY: Chest is clear to auscultation, no wheezing or crackles. Right-sided chest tubes seen ABDOMEN: Soft, nontender, nondistended, normoactive bowel sounds. No palpable organomegaly. PEG tube seen MUSCULOSKELETAL: No joint swelling or deformity. EXTREMITIES: No cyanosis,. NEUROLOGICAL: Gross neurological examination did not reveal any focal deficits. SKIN: No rashes. Assessment and plan Worsening shortness of breath and cough secondary to large right-sided pleural effusion mostly malignant effusion.S/p IR guided pigtail chest tube with drainage of 200 mm bloody fluid.. Left upper lobe new groundglass opacities. Metastatic esophageal cancer currently undergoing chemotherapy Coronary disease history of bypass graft Chronic atrial fibrillation on anticoagulation with Eliquis and also on Cardizem Peripheral vascular disease Hypertension Hyperlipidemia BPH Plan: Monitor vital signs Monitor CBC follow-up on culture Aggressive bronchopulmonary hygiene, Continue Mucinex Chest ultrasound was done and pulmonary recommended thoracentesis currently s/p pigtail catheter placement due to loculated pleural effusion. Chest tube management per pulmonology Consulted hematology oncology Continue with home medications and follow-up closely. Prognosis poor at this time. Follow-up on pulmonary recommendations Objective - Vital Signs Vital signs: Vital Signs Temp 98.1 F 05/15/22 11:04 Pulse 77 05/15/22 11:04 Resp 16 05/15/22 11:04 BP 118/66 05/15/22 11:04 Pulse Ox 99 05/15/22 11:04 FiO2 Intake & Output 05/14/22 05/15/22 05/15/22 18:59 06:59 18:59 Intake Total 1440 630 Output Total 640 400 20 Balance 800 -400 610 Weight 77.5 kg 79.5 kg Intake: IV 480 Sodium Chloride 0.9% 1, 480 000 ml @ 40 mls/hr IV . Q24H [facility] Rx#:[id number] Oral 0 Tube Feeding 1440 Other 150 Output: Chest Tube Drainage 340 20 Pleural Catheter Right 340 20 Urine 300 400 Other: Voiding Method Urinal Urinal # Voids 1 # Bowel Movements 1 0 1 - Labs CBC & Chem 7: 05/15/22 06:50 05/15/22 06:50 Labs: Abnormal Lab Results - Last 24 Hours (Table) 05/15/22 05/15/22 Range/Units 06:50 06:50 MCHC 30.3 L (31.0-37.0) g/dL RDW 17.6 H (11.5-15.5) % Creatinine 0.54 L (0.66-1.25) mg/dL Glucose 147 H (74-99) mg/dL Alkaline Phosphatase 218 H (38-126) U/L Total Protein 6.2 L (6.3-8.2) g/dL Albumin 3.2 L (3.5-5.0) g/dL
[2022-05-15] MEDS: DOXAZOSIN 4 MG TAB PEJ/J-Tube SCH (21:40)
[2022-05-15] MEDS: OLANZapine 2.5 MG TAB PEJ/J-Tube SCH (21:40)
[2022-05-16] MEDS: SODIUM CHLORIDE 0.9% 1,000 ML IV SCH (06:23)
[2022-05-16] MEDS: BUDESONIDE 1 MG/2 ML NEBU INHALATION SCH ×2 (07:32→19:16)
[2022-05-16] MEDS: IPRATROPIUM-ALBUTEROL 3 ML NEB INHALATION SCH ×4 (07:32→19:16)
[2022-05-16 09:05] LABS: HCT 36.3 % (39.6-50.0); HGB 11.6 g/dL (13.0-17.0); MCH 27.6 pg (27.0-32.0); MCV 86.2 fL (80.0-97.0); Mean Platelet Volume 10.2 fL (9.5-12.2); NRBC Per 100 WBC 0 /100 WBCS (0.0-0.0); Platelet Count 248 X 10*3/uL (140-440); RBC 4.21 X 10*6/uL (4.40-5.60); RDW 19.1 % (11.5-14.5); WBC 8.11 X 10*3/uL (4.50-10.00)
[2022-05-16 09:12] LABS: African American GFR (CKD) 119.7 (60.0-200.0); Albumin 2.8 g/dL (3.8-4.9); Albumin/Globulin Ratio 1.03 (1.60-3.17); Anion Gap 8.6 mmol/L (10.00-18.00); BUN/Creat Ratio 19.8 Ratio (12.00-20.00); Blood Urea Nitrogen 11.9 mg/dL (9.0-27.0); Calcium 8.6 mg/dL (8.7-10.3); Carbon Dioxide 22.8 mmol/L (20.0-27.5); Globulin 2.7 g/dL (1.6-3.3); Non-African American GFR(CKD) 103.2 (60.0-200.0); Potassium 4.4 mmol/L (3.5-5.5); Total Bilirubin 0.3 mg/dL (0.30-1.20); Total Protein 5.5 g/dL (6.2-8.2)
[2022-05-16] MEDS: guaiFENesin 600 MG TABLET.ER PO SCH ×2 (09:33→20:29)
[2022-05-16] MEDS: DILTIAZEM ORAL 60 MG TAB PEJ/J-Tube SCH ×2 (09:33→20:29)
[2022-05-16] MEDS: NYSTATIN 100,000 UNIT/ML SUSP 500,000 UNIT/5 ML CUP PEJ/J-Tube SCH ×4 (09:33→20:36)
[2022-05-16] MEDS: ATORVASTATIN 40 MG TAB PEJ/J-Tube SCH (09:33)
[2022-05-16] MEDS: METOPROLOL TARTRATE 25 MG TAB PEJ/J-Tube SCH ×2 (09:33→20:29)
[2022-05-16] MEDS: OXYBUTYNIN CHLORIDE 5 MG TAB PEJ/J-Tube SCH ×2 (09:33→20:29)
--- NOTE | 2022-05-16 11:18 | P.PN ---
Subjective Progress Note Date: 05/16/22 This is a very pleasant 66-year-old male patient with a known history of peripheral vascular disease, coronary artery disease with previous bypass surgery, atrial fibrillation status post permanent pacemaker implantation, anticoagulated with Eliquis, hyperlipidemia, hypertension, BPH. He also has a history of metastatic esophageal cancer currently receiving systemic chemotherapy following with Dr. Kelly. He also has recurrent malignant right- sided pleural effusion his last thoracentesis was performed in September [address] Wan. He presented here to the emergency room yesterday with increasing shortness of breath cough and congestion for approximate 5 days. No fever chills. No phlegm here no hemoptysis. Chest x-ray reveals a large chronic right pleural effusion without significant change compared to previous in November 2021. CT angiogram ruled out pulmonary embolism. Right pleural effusion with associated atelectasis. There is some scattered groundglass opacities mostly in the left upper lobe. Left lower lobe opacity is new. Ultrasound of the right chest reveals a large consolidated appearance with very little simple fluid removed. The fluid appears complex and loculated. White count 15.4. Hemoglobin 13.6. D-dimer 9.0. Sodium 137. Potassium 4.0. BUN 13. Creatinine 0.73. Glucose 148. ProBNP 2230. Meza virus by PCR not detected. He is seen in consultation today in the emergency department. He's currently sitting up on the stretcher. Awake and alert in no acute distress. He is maintaining O2 saturation of 200% on 2 L/m per nasal cannula. He's been afebrile. Hemodynamically stable. Normal saline at 130 ML's per hour. Reevaluated today on 05/10/22, patient is basically about the same, not any better and not any worse compared to yesterday. I saw this patient yesterday in the ER for shortness of breath, patient had recurrent malignant right-sided pleural effusion which seems to be loculated at this point, may or may not benefit from pigtail catheter placement, in the meantime the patient is receiving antibiotics for possible left upper lobe pneumonia and he may have underlying empyema The patient is seen today 05/11/2022 in follow-up on the regular medical floor. He is currently awake and alert in no acute distress. Resting comfortably in bed. Maintaining O2 saturation in the 90s on 2 L/m per nasal cannula. He has normal saline at 40 ML's per hour. He did undergo a right-sided pigtail chest tube placement today by interventional radiology. There is approximate 200 ML's of bloody return thus far. Previous pleural fluid cytology has been positive for non-small cell carcinoma. White count 10.3. Hemoglobin 1.4. Sodium 141. Potassium 4.2. BUN 11. Creatinine 0.8. He is currently on DuoNeb inhalations, Pulmicort inhalation. Antibiotics in the form of Zosyn. The patient is seen today 05/12/2022 in follow-up on the regular medical floor. He is currently resting comfortably in bed. Awake and alert in no acute di stress. He's had continued sanguinous output of the right-sided pigtail catheter. Continued to Pleur-evac. He is maintaining good O2 saturations in the upper 90s on room air. He's afebrile. Hemodynamically stable. The patient is seen today 05/13/2022 in follow-up on the regular medical floor. Resting comfortably in bed. Awake and alert in no acute distress. He is maintaining good O2 saturations in the 90s on room air. He still has a congested cough. Pigtail catheter remains in place. Presently 1200 ML's of sanguinous fluid removed since insertion. Chest x-ray continues to show a similar right-sided pleural effusion with associated atelectasis. White count 6.0. Hemoglobin 11.2. Sodium 139. Potassium 3.9. BUN 14. Creatinine 0.6. Normal saline at 40 ML's per hour. Continued on bronchodilators. The patient is seen today 05/14/2022 in follow-up on the regular medical floor. He is awake and alert in no acute distress. He is resting comfortably in bed. Maintaining good O2 saturations in the 90s on room air. He has normal saline at 40 miles per hour. Right-sided pigtail catheter remains in place. Sanguineous fluid continues to be returned. He remains afebrile. Hemodynamically stable. Needs increased encouragement regarding the use of the incentive spirometer and flutter valve. The patient is seen today 05/15/2022 in follow-up on the regular medical floor. He is currently resting comfortably in bed. Awake and alert in no acute distress. Continue is maintaining good O2 saturations in the 90s on room air. Right-sided pigtail catheter remains in place. Still a significant amount of sanguinous drainage. White count 9.2. Hemoglobin 13.5. Sodium 139. Potassium 4.3. BUN 15. Creatinine 0.54. Glucose 147. Patient is seen today 05/16/2022 in follow-up on the regular medical floor. Awake and alert in no acute distress. Maintaining good O2 saturations in the 90s on room air. Normal saline at 40 ML's per hour. Resting comfortably in bed. Anxious to go home. He stated pigtail catheter remains in place. Less drainage noted daily. Currently documented 50 ML's in the past 8 hours. White count 8.1. Hemoglobin 11.6. Platelets 248. Sodium 137. Potassium 4.4. BUN 12. Creatinine 0.6. Glucose 113. Continues to use the incentive spirometer. Objective - Vital Signs Vital signs: Vital Signs Temp 97.9 F 05/16/22 04:06 Pulse 60 05/16/22 04:06 Resp 14 05/16/22 04:06 BP 105/67 05/16/22 04:06 Pulse Ox 95 05/16/22 07:32 FiO2 Intake & Output 05/15/22 05/16/22 05/16/22 18:59 06:59 18:59 Intake Total 2070 1380 Output Total 370 900 30 Balance 1700 -900 1350 Weight 78.5 kg Intake: IV 480 900 Sodium Chloride 0.9% 1, 480 900 000 ml @ 40 mls/hr IV . Q24H [facility] Rx#:[id number] Oral 0 Tube Feeding 1440 480 Other 150 Output: Chest Tube Drainage 70 50 30 Pleural Catheter Right 70 50 30 Urine 300 850 Other: Voiding Method Urinal # Bowel Movements 1 - Exam GENERAL EXAM: Alert, very pleasant 66-year-old male patient, on room air, not in distress. HEAD: Normocephalic. EYES: Normal reaction of pupils, equal size. NOSE: Clear with pink turbinates. THROAT: No erythema or exudates. NECK: No masses, no JVD. CHEST: No chest wall deformity. Right-sided pigtail catheter in place to Pleur- evac. LUNGS: Scattered rhonchi and wheezes noted bilaterally. CVS: S1 and S2 normal with no audible murmur, regular rhythm. ABDOMEN: PEG tube exit site clean and dry. No hepatosplenomegaly, normal bowel sounds, no guarding or rigidity. SKIN: No rashes CENTRAL NERVOUS SYSTEM: Alert and oriented 3 no focal deficit EXTREMITIES: No clubbing edema or cyanosis. - Labs CBC & Chem 7: 05/16/22 05:04 05/16/22 05:04 Labs: Abnormal Lab Results - Last 24 Hours (Table) 05/16/22 05/16/22 Range/Units 05:04 05:04 RBC 4.21 L (4.40-5.60) X 10*6/uL Hgb 11.6 L (13.0-17.0) g/dL Hct 36.3 L (39.6-50.0) % RDW 19.1 H (11.5-14.5) % Anion Gap 8.60 L (10.00-18.00) mmol/L Glucose 113 H (70-110) mg/dL Calcium 8.6 L (8.7-10.3) mg/dL Total Protein 5.5 L (6.2-8.2) g/dL Albumin 2.8 L (3.8-4.9) g/dL Albumin/Globulin Ratio 1.03 L (1.60-3.17) g/dL Assessment and Plan Assessment: Dyspnea secondary to new left upper lobe groundglass opacities as well as new l ower lobe peripheral opacities and recurrent right-sided pleural effusion. Status post right-sided pigtail chest tube placement. Recurrent right-sided malignant effusions. Most recent thoracentesis was September 2021. Cytology positive for non-small cell lung cancer. Ultrasound now reveals complex loculated effusion. History of metastatic esophageal cancer receiving systemic chemotherapy History of coronary artery disease with previous coronary artery bypass surgery History of atrial fibrillation status post permanent pacemaker implantation, anticoagulated with Eliquis Peripheral vascular disease Hyperlipidemia Hypertension BPH Plan: The patient was seen and evaluated Remains stable and on room air Decreasing output from the right-sided pigtail catheter Plan to have interventional radiology remove the catheter on Wednesday Encouraged increased use of the incentive spirometer and flutter valve Increase his activity as tolerated We'll continue to follow I have personally seen and examined the patient, performed the documentation and the assessment and plan as written. Number of minutes spent on the visit: 10.
--- NOTE | 2022-05-16 18:57 | P.PN ---
Subjective Patient 66-year-old male with a known history of atrial fibrillation on anticoagulation with Eliquis, hypertension, hyperlipidemia and history of me tastatic esophageal cancer currently receiving systemic chemotherapy and recurrent magnet pleural effusion presents to ER with complaints of cough and worsening shortness of breath for the past 5 days. Patient had right-sided pleural effusion status postthoracentesis in September 2021. Patient otherwise denied any complaints of pruritus. No complaints of nausea vomiting abdominal pain or diarrhea. Denied any dysuria or hematuria. CT angiogram of the chest showed no evidence of PE. Predominantly left upper lobe new groundglass opacities correlate for infectious/inflammatory process. Right pleural effusion with associated atelectasis. Chest x-ray showed large chronic right pleural effusion without much change. EKG showed atrial flutter/tachycardia Laboratory data showed WBC 15.4 hemoglobin 13.6 and platelets 323 D-dimer level is 9.0 Sodium 137 potassium 4.0 chloride 100 bicarb is 25 BUN 13 and creatinine 0.73 proBNP 2230 procalcitonin level is 0.06 05/10/2022 Patient is currently lying in bed. Awake alert but seems to be lethargic and weak. No complaints of chest pain. No nausea vomiting or abdominal pain or diarrhea. Still having exertional dyspnea. Patient is being continued on antibiotics empirically for possible left lower lobe pneumonia. Pulmonary complaining pigtail catheter placement due to recurrent malignant pleural effusion. Patient is being continued on DuoNeb's and laboratory data showed WBC 12.4 hemoglobin 12.0 and platelets 307 Sodium 137 potassium 4.2 chloride 103 bicarb is 21.5 BUN 12.4 and creatinine 0.7 05/11/2022 Patient is currently lying in the bed. Awake alert and oriented. Currently on oxygen at 2 L via nasal cannula. Patient underwent right-sided pigtail chest tube placement today by interventional etiology. Approximate 1 mL of bloody fluid return., Likely migraine pleural effusion. Otherwise patient denies any complaints of chest amberly n. No nausea vomiting abdominal pain or diarrhea. Patient is being current on antibiotics and off Zosyn. Continued on DuoNebs and Pulmicort inhalation. Laboratory test showed WBC 7.3 hemoglobin 9.4 and platelets 244 Sodium 141 potassium 4.2 chloride 105 bicarb is 26.2 BUN 11.1 and creatinine 0.8 05/12/22. Patient seen and examined. Still has chest tubes in place. Currently on tube feeding. Denies any acute issues overnight. Vital signs stable 05/13/22. Patient seen and examined. Vitals and continue stable. Patient has been afebrile. Labs reviewed. Last chest x-ray showed small right-sided pleural effusion 05/14/22. Patient seen and examined. Patient laying comfortably in the bed. Labs reviewed hemoglobin this morning is 11.4, white count is 7.24. Still has chest tube in place. Case discussed with nursing staff 05/15/22. Seen and examined. Patient continues to be on tube feeding. Patient still has chest tube in. Family requested oncology to evaluate the patient. No acute issues overnight. Case discussed with nursing staff Resume the care of the patient 05/16/2022 Patient remains very lethargic lying in bed, no respiratory distress. Pigtail catheter is in place with reported less drainage IR evaluated the pt and pulmonary team on the case oncology team are also involved per request of family pt continues on normal saline at 40 ml per hr Objective - Vital Signs Vital signs: Vital Signs Temp 97.9 F 05/16/22 04:06 Pulse 60 05/16/22 04:06 Resp 14 05/16/22 04:06 BP 105/67 05/16/22 04:06 Pulse Ox 95 05/16/22 07:32 FiO2 Intake & Output 05/15/22 05/16/22 05/16/22 18:59 06:59 18:59 Intake Total 2070 1380 Output Total 370 900 30 Balance 1700 -900 1350 Weight 78.5 kg Intake: IV 480 900 Sodium Chloride 0.9% 1, 480 900 000 ml @ 40 mls/hr IV . Q24H [facility] Rx#:[id number] Oral 0 Tube Feeding 1440 480 Other 150 Output: Chest Tube Drainage 70 50 30 Pleural Catheter Right 70 50 30 Urine 300 850 Other: Voiding Method Urinal # Voids 1 # Bowel Movements 1 1 - Exam GENERAL: The patient is alert and oriented x3, not in any acute distress. Well developed, well nourished. HEENT: Pupils are round and equally reacting to light. EOMI. No scleral icterus. No conjunctival pallor. Normocephalic, atraumatic. No pharyngeal erythema. No thyromegaly. CARDIOVASCULAR: S1 and S2 present. No murmurs, rubs, or gallops. -PULMONARY: Chest is clear to auscultation, no wheezing or crackles. Pigtail tube in place. Mildly tachypneic ABDOMEN: Soft, nontender, nondistended, normoactive bowel sounds. No palpable organomegaly. MUSCULOSKELETAL: No joint swelling or deformity. EXTREMITIES: No cyanosis, clubbing, or pedal edema. NEUROLOGICAL: Gross neurological examination did not reveal any focal deficits. SKIN: No rashes. no petechiae. - Labs CBC & Chem 7: 05/16/22 05:04 05/16/22 05:04 Labs: Abnormal Lab Results - Last 24 Hours (Table) 05/16/22 05/16/22 Range/Units 05:04 05:04 RBC 4.21 L (4.40-5.60) X 10*6/uL Hgb 11.6 L (13.0-17.0) g/dL Hct 36.3 L (39.6-50.0) % RDW 19.1 H (11.5-14.5) % Anion Gap 8.60 L (10.00-18.00) mmol/L Glucose 113 H (70-110) mg/dL Calcium 8.6 L (8.7-10.3) mg/dL Total Protein 5.5 L (6.2-8.2) g/dL Albumin 2.8 L (3.8-4.9) g/dL Albumin/Globulin Ratio 1.03 L (1.60-3.17) g/dL Assessment and Plan Assessment: Left upper lobe groundglass opacity, new finding with right pleural effusion Right malignant pleural effusion with cytology positive for non-small cell lung cancer Right hydronephrosis. Status post right pigtail tube placement Metastatic esophageal cancer currently undergoing chemotherapy Coronary disease history of bypass graft Chronic atrial fibrillation on anticoagulation with Eliquis and also on Cardizem Peripheral vascular disease Hypertension Hyperlipidemia BPH Plan: Continue with gentle hydration Continue with PEG tube in place Pulmonary team consult, IR follow-up Labs and medication were reviewed.. Continue same treatment. Continue with symptomatic treatment. Resume home medication. Monitor lytes and vitals. DVT and GI prophylaxis. Further recommendations as per clinical course of the patient DVT prophylaxis: Subcutaneous heparin GI Prophylaxis: Pepcid Prognosis is guarded
[2022-05-16] MEDS: OLANZapine 2.5 MG TAB PEJ/J-Tube SCH (20:29)
[2022-05-16] MEDS: DOXAZOSIN 4 MG TAB PEJ/J-Tube SCH (20:29)
[2022-05-16] MEDS: HEPARIN SODIUM,PORCINE/PF 5,000 UNIT/0.5 ML SYRINGE SQ SCH (20:29)
[2022-05-16] MEDS: FAMOTIDINE 20 MG/2 ML VIAL IV SCH (20:29)
[2022-05-17] MEDS: SODIUM CHLORIDE 0.9% 1,000 ML IV SCH (05:25)
--- NOTE | 2022-05-17 08:08 | P.PN ---
Subjective Progress Note Date: 05/17/22 Principal diagnosis: This is a very pleasant 66-year-old male patient with a known history of peripheral vascular disease, coronary artery disease with previous bypass surgery, atrial fibrillation status post permanent pacemaker implantation, anticoagulated with Eliquis, hyperlipidemia, hypertension, BPH. He also has a history of metastatic esophageal cancer currently receiving systemic chemotherapy following with Dr. Kelly. He also has recurrent malignant right- sided pleural effusion his last thoracentesis was performed in September [address] Wan. He presented here to the emergency room yesterday with increasing shortness of breath cough and congestion for approximate 5 days. No fever chills. No phlegm here no hemoptysis. Chest x-ray reveals a large chronic right pleural effusion without significant change compared to previous in November 2021. CT angiogram ruled out pulmonary embolism. Right pleural effusion with associated atelectasis. There is some scattered groundglass opacities mostly in the left upper lobe. Left lower lobe opacity is new. Ultrasound of the right chest reveals a large consolidated appearance with very little simple fluid geneva bailey. The fluid appears complex and loculated. White count 15.4. Hemoglobin 13.6. D-dimer 9.0. Sodium 137. Potassium 4.0. BUN 13. Creatinine 0.73. Glucose 148. ProBNP 2230. Meza virus by PCR not detected. He is seen in consultation today in the emergency department. He's currently sitting up on the stretcher. Awake and alert in no acute distress. He is maintaining O2 saturation of 200% on 2 L/m per nasal cannula. He's been afebrile. Hemodynamically stable. Normal saline at 130 ML's per hour. Reevaluated today on 05/10/22, patient is basically about the same, not any better and not any worse compared to yesterday. I saw this patient yesterday in the ER for shortness of breath, patient had recurrent malignant right-sided pleural effusion which seems to be loculated at this point, may or may not benefit from pigtail catheter placement, in the meantime the patient is re ceiving antibiotics for possible left upper lobe pneumonia and he may have underlying empyema The patient is seen today 05/11/2022 in follow-up on the regular medical floor. He is currently awake and alert in no acute distress. Resting comfortably in bed. Maintaining O2 saturation in the 90s on 2 L/m per nasal cannula. He has normal saline at 40 ML's per hour. He did undergo a right-sided pigtail chest tube placement today by interventional radiology. There is approximate 200 ML's of bloody return thus far. Previous pleural fluid cytology has been positive for non-small cell carcinoma. White count 10.3. Hemoglobin 1.4. Sodium 141. Potassium 4.2. BUN 11. Creatinine 0.8. He is currently on DuoNeb inhalations, Pulmicort inhalation. Antibiotics in the form of Zosyn. The patient is seen today 05/12/2022 in follow-up on the regular medical floor. He is currently resting comfortably in bed. Awake and alert in no acute distress. He's had continued sanguinous output of the right-sided pigtail catheter. Continued to Pleur-evac. He is maintaining good O2 saturations in th e upper 90s on room air. He's afebrile. Hemodynamically stable. The patient is seen today 05/13/2022 in follow-up on the regular medical floor. Resting comfortably in bed. Awake and alert in no acute distress. He is maintaining good O2 saturations in the 90s on room air. He still has a conge sted cough. Pigtail catheter remains in place. Presently 1200 ML's of sanguinous fluid removed since insertion. Chest x-ray continues to show a similar right-sided pleural effusion with associated atelectasis. White count 6.0. Hemoglobin 11.2. Sodium 139. Potassium 3.9. BUN 14. Creatinine 0.6. Normal saline at 40 ML's per hour. Continued on bronchodilators. The patient is seen today 05/14/2022 in follow-up on the regular medical floor. He is awake and alert in no acute distress. He is resting comfortably in bed. Maintaining good O2 saturations in the 90s on room air. He has normal saline at 40 miles per hour. Right-sided pigtail catheter remains in place. Sanguineous fluid continues to be returned. He remains afebrile. Hemodynamically stable. Needs increased encouragement regarding the use of the incentive spirometer and flutter valve. The patient is seen today 05/15/2022 in follow-up on the regular medical floor. He is currently resting comfortably in bed. Awake and alert in no acute distress. Continue is maintaining good O2 saturations in the 90s on room air. Right-sided pigtail catheter remains in place. Still a significant amount of sanguinous drainage. White count 9.2. Hemoglobin 13.5. Sodium 139. Potassium 4.3. BUN 15. Creatinine 0.54. Glucose 147. Patient is seen today 05/16/2022 in follow-up on the regular medical floor. Awake and alert in no acute distress. Maintaining good O2 saturations in the 90s on room air. Normal saline at 40 ML's per hour. Resting comfortably in bed. Anxious to go home. He stated pigtail catheter remains in place. Less drainage noted daily. Currently documented 50 ML's in the past 8 hours. White count 8.1. Hemoglobin 11.6. Platelets 248. Sodium 137. Potassium 4.4. BUN 12. Creatinine 0.6. Glucose 113. Continues to use the incentive spirometer. The patient was seen at the bedside this morning 05/17/2022 on the regular medical floor. He is awake and alert in no acute distress laying in bed. He is maintaining oxygen saturation in the low to mid 90s on room air, remains afebrile, denies any pain. Right-sided pigtail remains in place, no air leak present, 40 mL total output in the chest tube atrium. No labs or x-rays today. Refused incentive spirometry use this morning, states he is not using it. No other new concerns. Objective - Vital Signs Vital signs: Vital Signs Temp 97.4 F L 05/17/22 05:00 Pulse 86 05/17/22 05:00 Resp 18 05/17/22 05:00 BP 106/71 05/17/22 05:00 Pulse Ox 93 L 05/17/22 05:00 FiO2 Intake & Output 05/16/22 05/17/22 05/17/22 18:59 06:59 18:59 Intake Total 2340 Output Total 420 35 Balance 1920 -35 Weight 79.5 kg Intake: IV 900 Sodium Chloride 0.9% 1, 900 000 ml @ 40 mls/hr IV . Q24H [facility] Rx#:[id number] Tube Feeding 1440 Output: Chest Tube Drainage 70 35 Pleural Catheter Right 70 35 Urine 350 Other: Voiding Method Urinal # Voids 2 # Bowel Movements 1 - Exam GENERAL EXAM: Alert, very pleasant 66-year-old male patient, on room air, no acute distress. HEAD: Normocephalic. EYES: Normal reaction of pupils, equal size. NOSE: Clear with pink turbinates. THROAT: No erythema or exudates. NECK: No masses, no JVD. CHEST: No chest wall deformity. Right-sided pigtail catheter in place to Pleur- evac. LUNGS: Scattered rhonchi and wheezes noted bilaterally. CVS: S1 and S2 normal with no audible murmur, regular rhythm. ABDOMEN: PEG tube exit site clean and dry. No hepatosplenomegaly, normal bowel sounds, no guarding or rigidity. SKIN: No rashes CENTRAL NERVOUS SYSTEM: Alert and oriented 3 no focal deficit EXTREMITIES: No clubbing edema or cyanosis. - Labs CBC & Chem 7: 05/16/22 05:04 05/16/22 05:04 Labs: Abnormal Lab Results - Last 24 Hours (Table) 05/16/22 05/16/22 Range/Units 05:04 05:04 RBC 4.21 L (4.40-5.60) X 10*6/uL Hgb 11.6 L (13.0-17.0) g/dL Hct 36.3 L (39.6-50.0) % RDW 19.1 H (11.5-14.5) % Anion Gap 8.60 L (10.00-18.00) mmol/L Glucose 113 H (70-110) mg/dL Calcium 8.6 L (8.7-10.3) mg/dL Total Protein 5.5 L (6.2-8.2) g/dL Albumin 2.8 L (3.8-4.9) g/dL Albumin/Globulin Ratio 1.03 L (1.60-3.17) g/dL Assessment and Plan Assessment: Dyspnea secondary to new left upper lobe groundglass opacities as well as new lower lobe peripheral opacities and recurrent right-sided pleural effusion. Status post right-sided pigtail chest tube placement. Recurrent right-sided malignant effusions. Most recent thoracentesis was September 2021. Cytology positive for non-small cell lung cancer. Ultrasound now reveals complex loculated effusion. History of metastatic esophageal cancer receiving systemic chemotherapy History of coronary artery disease with previous coronary artery bypass surgery History of atrial fibrillation status post permanent pacemaker implantation, anticoagulated with Eliquis Peripheral vascular disease Hyperlipidemia Hypertension BPH Plan: The patient was seen and evaluated Remains stable and on room air Decreasing output from the right-sided pigtail catheter Plan remains to have interventional radiology remove the catheter on Wednesday Encouraged use of the incentive spirometer and flutter valve Increase activity as tolerated We'll continue to follow I have personally seen and examined the patient, performed the documentation and the assessment and plan as written. Number of minutes spent on the visit: 10.
[2022-05-17] MEDS: IPRATROPIUM-ALBUTEROL 3 ML NEB INHALATION SCH ×4 (08:36→20:17)
[2022-05-17] MEDS: BUDESONIDE 1 MG/2 ML NEBU INHALATION SCH ×2 (08:36→20:17)
[2022-05-17] MEDS: METOPROLOL TARTRATE 25 MG TAB PEJ/J-Tube SCH ×2 (09:25→22:13)
[2022-05-17] MEDS: FAMOTIDINE 20 MG/2 ML VIAL IV SCH (09:25)
[2022-05-17] MEDS: guaiFENesin 600 MG TABLET.ER PO SCH ×2 (09:25→22:12)
[2022-05-17] MEDS: DILTIAZEM ORAL 60 MG TAB PEJ/J-Tube SCH ×2 (09:25→22:13)
[2022-05-17] MEDS: OXYBUTYNIN CHLORIDE 5 MG TAB PEJ/J-Tube SCH ×2 (09:25→22:14)
[2022-05-17] MEDS: HEPARIN SODIUM,PORCINE/PF 5,000 UNIT/0.5 ML SYRINGE SQ SCH ×2 (09:25→22:13)
[2022-05-17] MEDS: ATORVASTATIN 40 MG TAB PEJ/J-Tube SCH (09:25)
[2022-05-17] MEDS: NYSTATIN 100,000 UNIT/ML SUSP 500,000 UNIT/5 ML CUP PEJ/J-Tube SCH ×4 (09:26→22:12)
--- NOTE | 2022-05-17 11:26 | P.CONS ---
History of Present Illness - Reason for Consult Consult date: 05/17/22 Esophageal cancer, malignant pleural effusion Requesting physician: Dayanara Fraga - Chief Complaint Shortness of breath - History of Present Illness Mr. Vazquez is a very pleasant 66 yo male with history of multiple comorbidities including metastatic esophageal cancer on palliative therapy with 5FU/opdivo, last given on 04/28/22, following with Dr. Kelly, as well as malignant right pleural effusion, last thoracentesis from 11/2021 with cytology positive for nonsmall cell carcinoma, upper GI vs lung primary. He is here for increasing SOB, cough, and congestion. Work up with CXR and CT/PE was negative for PE however revealed scattered left lung groundglass opacities, new opacities in suzi LLL, as well as right sided pleural effusion which was felt to be chronic and stable compared to 11/2021. He had a pigtail catheter placed and started on antibiotics. Overall breathing improving. On room air. Decreased drainage from the catheter and with plans of removing this on Wednesday. We were consulted per family request for pt's esophageal cancer and malignant pleural effusion history. Pt states he's feeling better. Oncologic history: This is a very nice patient,who intially had cardiac bypass in November/2020,after surgery,he developed progressive dyspnea,had a CT scan of chest on 04/28/2021 which revealed a large right pleural effusion and 3.1 cm lesion UOQ of abdomen,he had thoracentesis on 05/12/2021 which was positive for carcinoma,IHC staining were not specific. He had a PET scan scan on 05/23/2021 which revealed a very suspicious uptake at distal esophagous,a suspicious node in upper abdomen. He has had progressive dysphagea over the last 4 months,even difficulty tolerating liquid diet,has significant hiccups,nausea and vomiting,has hematochezia,lost over 40 pounds,he is short of breath with slightly exertion. 07/16/21-Pt here today s/p 1 cycles of FOLFOX opdivo. data warehousing architect called here wanting recs for wt loss-pt wt stable overall-he is having trouble with N which is keeping him from eating. She also wanted orders for wound care 2/2 PET tube- Told her to contact Surgeon so the site can be evaluated in case the tube is eroding into the skin-may need to be replaced or site changed. Pt states N x 5 days, nausea meds (zofran) not working, he has V a few times, none today, he had diarrhea today-1 episode-stool was black per pt, he had pain in the rectal area, nothing now. Pretty constant pain in the chest, trouble breathing, he has difficulty ambulating due to SOB. Denies pain right now, denies F, oral irritation, swelling in the legs.Pt seen after hydration, feels better, previous c/o are improved. He was given 8mg of ODT zofran. No further chest pain, he used wheeled walker and ambulated out of the ofc 08/04/21-Pt seen in bay for acute visit re: wound inferior to PEG tube. He is here for his 5FU pump. Wound inferior to PEG tube is now an open, about 3cm long and 0.5 cm wide (see 07/16 visit). Pt states funeral home associate is packing the wound. No fevers, there is no unusual drainage from the open area, pt denies any leakage of tube feeding around the site. He had mild pain at the site, mild redness, not hot. 08/25/2021: He is tolertaing mFOLFOX/nivo well,no neuropathy,he continues to have dysphagia,using PEG tube,no more weight loss,he continues to have recurrent right pleural effusion,he has a follow up with Dr Savage dc On 09/12/2021: Repeat PET scan reveaved improvement in his disease,he stll has right pleural effusion. He feels well,has exertional dyspnea,his dysphagia has significantly improved ,normal bowel movement,no melena,no neuropathy. he has had 2 thoracentesis so far since he was first diagnosed. 11/03/2021: He feels tired,still with dysphagis but improving,still uses PEG tibe,normal BM,no melena,no hematochezia,no neuropathy,has exertional dyspnea 01/16/2022: He had a repeat PET scan on 12/05/2021 which revealed significant improvement in his disease. he feels fine,tired but relatively active,no dyspnea,uses his PEG,no melena,hematochezia,last month,he signed up for hopsice. 04/10/2022: He went back on infusional 5FU/opdivo in February/2022. He feels tired,but relatively active,mild dyspnea,no diarrhea,uses his PEG,no melena,hematochezia,last month 04/28/22: 5FU/opdivo given 05/06/22: Continues to do well. Repeat PET ordered for 05/2022 and continue with current regimen as well as follow up in 3 weeks. Past Medical History Past Medical History: Atrial Fibrillation, Hyperlipidemia, Hypertension Additional Past Medical History / Comment(s): mass on Esophagus, anemia, pleural effusion, History of Any Multi-Drug Resistant Organisms: None Reported, MRSA Year Discovered:: 05/12/17 MDRO Source:: neck Past Surgical History: No Surgical Hx Reported, Coronary Bypass/CABG, Pacemaker Additional Past Surgical History / Comment(s): TURP, angiography Past Anesthesia/Blood Transfusion Reactions: No Reported Reaction Type of Cardiac Device: Permanent Pacemaker Device Placement Date:: unknown Past Psychological History: No Psychological Hx Reported Smoking Status: Never smoker Past Alcohol Use History: None Reported Past Drug Use History: None Reported Medications and Allergies Home Medications Medication Instructions Recorded Confirmed Type Loratadine [Claritin] 10 mg PO DAILY 12/27/19 05/09/22 History Terazosin HCl [Hytrin] 10 mg PO HS 12/27/19 05/09/22 History Apixaban [Eliquis] 5 mg PO BID #60 tab 11/16/20 05/09/22 Rx Diltiazem Cd [Cardizem CD] 120 mg PO DAILY #30 cap.er.24h 11/16/20 05/09/22 Rx ALPRAZolam [Xanax] 0.25 tab PO DAILY PRN 07/21/21 05/09/22 History Prochlorperazine [Compazine] 10 mg PO QID PRN 07/21/21 05/09/22 History Rosuvastatin [Crestor] 20 tab PO DAILY 09/01/21 05/09/22 History Cholecalciferol [Vitamin D3 (125 125 mcg PO DAILY 05/09/22 05/09/22 History Mcg = 5000 Iu)] Metoprolol Tartrate [Lopressor] 25 mg PO BID 05/09/22 05/09/22 History Nystatin 100,000 Unit/ml Susp 5 ml PO QID PRN 05/09/22 05/09/22 History [Mycostatin Oral Susp] OLANZapine [ZyPREXA] 2.5 mg PO HS 05/09/22 05/09/22 History Oxybutynin Chloride [Oxybutynin 10 mg PO DAILY 05/09/22 05/09/22 History Chloride ER] Sennosides/Docusate Sodium [Senna 2 cap PO HS PRN 05/09/22 05/09/22 History Plus 8.6-50 mg Softgel] chlorproMAZINE HCL 10 mg PO TID PRN 05/09/22 05/09/22 History Allergies Allergy/AdvReac Type Severity Reaction Status Date / Time No Known Allergies Allergy Verified 05/09/22 14:19 Physical Exam Vitals: Vital Signs Temp Pulse Resp BP Pulse Ox 05/17/22 05:00 97.4 F L 86 18 106/71 93 L 05/16/22 20:38 98.5 F 05/16/22 19:30 76 15 122/77 100 05/16/22 12:28 97.7 F 61 19 101/61 99 Intake and Output 05/16/22 05/17/22 05/17/22 22:59 06:59 14:59 Intake Total 480 Output Total 390 35 Balance 90 -35 Intake: Tube Feeding 480 Output: Chest Tube Drainage 40 35 Pleural Catheter Right 40 35 Urine 350 Other: Voiding Method Urinal # Voids 2 # Bowel Movements 1 Weight 79.5 kg General: TRISTON HEENT: No scleral icterus. Mucosa moist Neck: Supple Lungs: No respiratory distress Heart: Regular rate Abd: Soft MSK: No obvious UE deformities Neuro: Alert and oriented x3 Psych: Appropriate affect Skin: No jaundice Results CBC & Chem 7: 05/16/22 05:04 05/16/22 05:04 Labs: Abnormal Lab Results - Last 24 Hours (Table) 05/16/22 05/16/22 Range/Units 05:04 05:04 RBC 4.21 L (4.40-5.60) X 10*6/uL Hgb 11.6 L (13.0-17.0) g/dL Hct 36.3 L (39.6-50.0) % RDW 19.1 H (11.5-14.5) % Anion Gap 8.60 L (10.00-18.00) mmol/L Glucose 113 H (70-110) mg/dL Calcium 8.6 L (8.7-10.3) mg/dL Total Protein 5.5 L (6.2-8.2) g/dL Albumin 2.8 L (3.8-4.9) g/dL Albumin/Globulin Ratio 1.03 L (1.60-3.17) g/dL Assessment and Plan Assessment: 1. Right sided pleural effusion and left lower lobe lung opacities, malignant vs infectious 2. Esophageal cancer, metastatic, on chemotherapy 3. Atrial fibrillation on eliquis 4. Normocytic anemia Plan: Mr. Vazquez is a very pleasant 66 yo male with history of metastatic esophageal cancer, on palliative chemotherapy with 5FU/opdivo, last received on 04/28/22, who is here for increasing SOB and cough, found to have chronic right pleural effusion and left lung ground glass opacities on CT/PE. Overall improving with antibiotics and s/p pigtail catheter with minimal drainage now and plan of possibly removing this tomorrow. Will continue to hold chemotherapy for now. Pt is due for restaging PET scan soon. No objections to discharge once pt otherwise stable, and he can proceed with PET scan as planned, and follow up to discuss further treatment options with Dr. Kelly. Discussed with pt and he is agreeable to the plan. All questions answered.
--- NOTE | 2022-05-17 15:19 | P.PN ---
Subjective Patient 66-year-old male with a known history of atrial fibrillation on anticoagulation with Eliquis, hypertension, hyperlipidemia and history of me tastatic esophageal cancer currently receiving systemic chemotherapy and recurrent magnet pleural effusion presents to ER with complaints of cough and worsening shortness of breath for the past 5 days. Patient had right-sided pleural effusion status postthoracentesis in September 2021. Patient otherwise denied any complaints of pruritus. No complaints of nausea vomiting abdominal pain or diarrhea. Denied any dysuria or hematuria. CT angiogram of the chest showed no evidence of PE. Predominantly left upper lobe new groundglass opacities correlate for infectious/inflammatory process. Right pleural effusion with associated atelectasis. Chest x-ray showed large chronic right pleural effusion without much change. EKG showed atrial flutter/tachycardia Laboratory data showed WBC 15.4 hemoglobin 13.6 and platelets 323 D-dimer level is 9.0 Sodium 137 potassium 4.0 chloride 100 bicarb is 25 BUN 13 and creatinine 0.73 proBNP 2230 procalcitonin level is 0.06 05/10/2022 Patient is currently lying in bed. Awake alert but seems to be lethargic and weak. No complaints of chest pain. No nausea vomiting or abdominal pain or diarrhea. Still having exertional dyspnea. Patient is being continued on antibiotics empirically for possible left lower lobe pneumonia. Pulmonary complaining pigtail catheter placement due to recurrent malignant pleural effusion. Patient is being continued on DuoNeb's and laboratory data showed WBC 12.4 hemoglobin 12.0 and platelets 307 Sodium 137 potassium 4.2 chloride 103 bicarb is 21.5 BUN 12.4 and creatinine 0.7 05/11/2022 Patient is currently lying in the bed. Awake alert and oriented. Currently on oxygen at 2 L via nasal cannula. Patient underwent right-sided pigtail chest tube placement today by interventional etiology. Approximate 1 mL of bloody fluid return., Likely migraine pleural effusion. Otherwise patient denies any complaints of chest amberly n. No nausea vomiting abdominal pain or diarrhea. Patient is being current on antibiotics and off Zosyn. Continued on DuoNebs and Pulmicort inhalation. Laboratory test showed WBC 7.3 hemoglobin 9.4 and platelets 244 Sodium 141 potassium 4.2 chloride 105 bicarb is 26.2 BUN 11.1 and creatinine 0.8 05/12/22. Patient seen and examined. Still has chest tubes in place. Currently on tube feeding. Denies any acute issues overnight. Vital signs stable 05/13/22. Patient seen and examined. Vitals and continue stable. Patient has been afebrile. Labs reviewed. Last chest x-ray showed small right-sided pleural effusion 05/14/22. Patient seen and examined. Patient laying comfortably in the bed. Labs reviewed hemoglobin this morning is 11.4, white count is 7.24. Still has chest tube in place. Case discussed with nursing staff 05/15/22. Seen and examined. Patient continues to be on tube feeding. Patient still has chest tube in. Family requested oncology to evaluate the patient. No acute issues overnight. Case discussed with nursing staff 05/16/2022 Patient remains very lethargic lying in bed, no respiratory distress. Pigtail catheter is in place with reported less drainage IR evaluated the pt and pulmonary team on the case oncology team are also involved per request of family pt continues on normal saline at 40 ml per hr 05/17/2022 Patient is clinically stable and improving. Patient is not easing but using his PEG tube as a bolus. He had it for the last 2 years. His oncologist is Dr. Kelly as an outpatient and patient was instructed the need to follow up with him as an outpatient and he is agreeable Patient informed about the postoperative results of malignant cells in his pleural fluid. Patient's feels little depressed but no overt signs and symptoms of hopelessness and hopelessness, he denies any suicidal or homicidal ideation. Patient does not think he needs treatment for his sadness. Continue on normal saline 40 mm/h. Objective - Vital Signs Vital signs: Vital Signs Temp 97.4 F L 05/17/22 05:00 Pulse 86 05/17/22 05:00 Resp 18 05/17/22 05:00 BP 106/71 05/17/22 05:00 Pulse Ox 93 L 05/17/22 05:00 FiO2 Intake & Output 05/16/22 05/17/22 05/17/22 18:59 06:59 18:59 Intake Total 2340 Output Total 420 35 Balance 1920 -35 Weight 79.5 kg Intake: IV 900 Sodium Chloride 0.9% 1, 900 000 ml @ 40 mls/hr IV . Q24H [facility] Rx#:[id number] Tube Feeding 1440 Output: Chest Tube Drainage 70 35 Pleural Catheter Right 70 35 Urine 350 Other: Voiding Method Urinal # Voids 2 # Bowel Movements 1 - Exam GENERAL: The patient is alert and oriented x3, not in any acute distress. Well developed, well nourished. HEENT: Pupils are round and equally reacting to light. EOMI. No scleral icterus. No conjunctival pallor. Normocephalic, atraumatic. No pharyngeal erythema. No thyromegaly. CARDIOVASCULAR: S1 and S2 present. No murmurs, rubs, or gallops. -PULMONARY: Chest is clear to auscultation, no wheezing or crackles. Pigtail tube in place. Mildly tachypneic ABDOMEN: Soft, nontender, nondistended, normoactive bowel sounds. No palpable organomegaly. MUSCULOSKELETAL: No joint swelling or deformity. EXTREMITIES: No cyanosis, clubbing, or pedal edema. NEUROLOGICAL: Gross neurological examination did not reveal any focal deficits. SKIN: No rashes. no petechiae. - Labs CBC & Chem 7: 05/16/22 05:04 05/16/22 05:04 Assessment and Plan Assessment: Left upper lobe groundglass opacity, new finding with right pleural effusion Right malignant pleural effusion with cytology positive for non-small cell lung cancer Right hydronephrosis. Status post right pigtail tube placement Metastatic esophageal cancer currently undergoing chemotherapy Coronary disease history of bypass graft Chronic atrial fibrillation on anticoagulation with Eliquis and also on Cardizem Peripheral vascular disease Hypertension Hyperlipidemia BPH Plan: Continue with gentle hydration Continue with PEG tube in place Pulmonary team consult, IR follow-up Labs and medication were reviewed.. Continue same treatment. Continue with symptomatic treatment. Resume home medication. Monitor lytes and vitals. DVT and GI prophylaxis. Further recommendations as per clinical course of the patient DVT prophylaxis: Subcutaneous heparin GI Prophylaxis: Pepcid Prognosis is guarded
[2022-05-17] MEDS: DOXAZOSIN 4 MG TAB PEJ/J-Tube SCH (22:13)
[2022-05-17] MEDS: OLANZapine 2.5 MG TAB PEJ/J-Tube SCH (22:13)
[2022-05-17] MEDS: FAMOTIDINE 20 MG TAB PO SCH (22:13)
[2022-05-18] MEDS: SODIUM CHLORIDE 0.9% 1,000 ML IV SCH (07:23)
[2022-05-18] MEDS: BUDESONIDE 1 MG/2 ML NEBU INHALATION SCH ×2 (07:27→19:39)
[2022-05-18] MEDS: IPRATROPIUM-ALBUTEROL 3 ML NEB INHALATION SCH ×4 (07:27→19:39)
--- NOTE | 2022-05-18 07:59 | XR ---
EXAMINATION TYPE: XR chest 1V portable DATE OF EXAM: 05/18/2022 COMPARISON: Chest x-ray 05/15/2022 HISTORY: Chest tube TECHNIQUE: Single frontal view of the chest is obtained. FINDINGS: Posterior right-sided pigtail catheter is again seen. Patient is post median sternotomy an d left atrial appendage clip placement. Generator is present in the left pectoral region, there are l jignesh in the right atrium and right ventricle. Cardiac mediastinal silhouette shows a similar appearan ce accounting for differences in technique. Left lung is clear. Lucent space along the lateral pleur al margin shows a similar appearance. Right hemidiaphragm is obscured. Abnormal attenuation present i n the right midlung and lower lung. There is a port in the right pectoral region, catheter is stable coursing towards the superior vena cava. IMPRESSION: Findings are similar to prior exam. There may be trapped lung, hydropneumothorax present at the right lung base.
[2022-05-18] MEDS: FAMOTIDINE 20 MG TAB PO SCH ×2 (09:56→21:31)
[2022-05-18] MEDS: ATORVASTATIN 40 MG TAB PEJ/J-Tube SCH (09:56)
[2022-05-18] MEDS: guaiFENesin 600 MG TABLET.ER PO SCH ×2 (09:56→21:30)
[2022-05-18] MEDS: METOPROLOL TARTRATE 25 MG TAB PEJ/J-Tube SCH ×2 (09:56→21:30)
[2022-05-18] MEDS: DILTIAZEM ORAL 60 MG TAB PEJ/J-Tube SCH ×2 (09:57→21:30)
[2022-05-18] MEDS: NYSTATIN 100,000 UNIT/ML SUSP 500,000 UNIT/5 ML CUP PEJ/J-Tube SCH ×3 (09:57→18:20)
[2022-05-18] MEDS: OXYBUTYNIN CHLORIDE 5 MG TAB PEJ/J-Tube SCH ×2 (09:58→21:30)
[2022-05-18] MEDS: HEPARIN SODIUM,PORCINE/PF 5,000 UNIT/0.5 ML SYRINGE SQ SCH ×2 (10:02→21:31)
--- NOTE | 2022-05-18 16:06 | P.PN ---
Subjective Progress Note Date: 05/18/22 This is a very pleasant 66-year-old male patient with a known history of peripheral vascular disease, coronary artery disease with previous bypass surgery, atrial fibrillation status post permanent pacemaker implantation, anticoagulated with Eliquis, hyperlipidemia, hypertension, BPH. He also has a history of metastatic esophageal cancer currently receiving systemic chemotherapy following with Dr. Kelly. He also has recurrent malignant right- sided pleural effusion his last thoracentesis was performed in September [address] Wan. He presented here to the emergency room yesterday with increasing shortness of breath cough and congestion for approximate 5 days. No fever chills. No phlegm here no hemoptysis. Chest x-ray reveals a large chronic right pleural effusion without significant change compared to previous in November 2021. CT angiogram ruled out pulmonary embolism. Right pleural effusion with associated atelectasis. There is some scattered groundglass opacities mostly in the left upper lobe. Left lower lobe opacity is new. Ultrasound of the right chest reveals a large consolidated appearance with very little simple fluid removed. The fluid appears complex and loculated. White count 15.4. Hemoglobin 13.6. D-dimer 9.0. Sodium 137. Potassium 4.0. BUN 13. Creatinine 0.73. Glucose 148. ProBNP 2230. Meza virus by PCR not detected. He is seen in consultation today in the emergency department. He's currently sitting up on the stretcher. Awake and alert in no acute distress. He is maintaining O2 saturation of 200% on 2 L/m per nasal cannula. He's been afebrile. Hemodynamically stable. Normal saline at 130 ML's per hour. Reevaluated today on 05/10/22, patient is basically about the same, not any better and not any worse compared to yesterday. I saw this patient yesterday in the ER for shortness of breath, patient had recurrent malignant right-sided pleural effusion which seems to be loculated at this point, may or may not benefit from pigtail catheter placement, in the meantime the patient is receiving antibiotics for possible left upper lobe pneumonia and he may have underlying empyema The patient is seen today 05/11/2022 in follow-up on the regular medical floor. He is currently awake and alert in no acute distress. Resting comfortably in bed. Maintaining O2 saturation in the 90s on 2 L/m per nasal cannula. He has normal saline at 40 ML's per hour. He did undergo a right-sided pigtail chest tube placement today by interventional radiology. There is approximate 200 ML's of bloody return thus far. Previous pleural fluid cytology has been positive for non-small cell carcinoma. White count 10.3. Hemoglobin 1.4. Sodium 141. Potassium 4.2. BUN 11. Creatinine 0.8. He is currently on DuoNeb inhalations, Pulmicort inhalation. Antibiotics in the form of Zosyn. The patient is seen today 05/12/2022 in follow-up on the regular medical floor. He is currently resting comfortably in bed. Awake and alert in no acute d istress. He's had continued sanguinous output of the right-sided pigtail catheter. Continued to Pleur-evac. He is maintaining good O2 saturations in the upper 90s on room air. He's afebrile. Hemodynamically stable. The patient is seen today 05/13/2022 in follow-up on the regular medical floor. Resting comfortably in bed. Awake and alert in no acute distress. He is maintaining good O2 saturations in the 90s on room air. He still has a congested cough. Pigtail catheter remains in place. Presently 1200 ML's of sanguinous fluid removed since insertion. Chest x-ray continues to show a similar right-sided pleural effusion with associated atelectasis. White count 6.0. Hemoglobin 11.2. Sodium 139. Potassium 3.9. BUN 14. Creatinine 0.6. Normal saline at 40 ML's per hour. Continued on bronchodilators. The patient is seen today 05/14/2022 in follow-up on the regular medical floor. He is awake and alert in no acute distress. He is resting comfortably in bed. Maintaining good O2 saturations in the 90s on room air. He has normal saline at 40 miles per hour. Right-sided pigtail catheter remains in place. Sanguineous fluid continues to be returned. He remains afebrile. Hemodynamically stable. Needs increased encouragement regarding the use of the incentive spirometer and flutter valve. The patient is seen today 05/15/2022 in follow-up on the regular medical floor. He is currently resting comfortably in bed. Awake and alert in no acute distress. Continue is maintaining good O2 saturations in the 90s on room air. Right-sided pigtail catheter remains in place. Still a significant amount of sanguinous drainage. White count 9.2. Hemoglobin 13.5. Sodium 139. Potassium 4.3. BUN 15. Creatinine 0.54. Glucose 147. Patient is seen today 05/16/2022 in follow-up on the regular medical floor. Awake and alert in no acute distress. Maintaining good O2 saturations in the 90s on room air. Normal saline at 40 ML's per hour. Resting comfortably in bed. Anxious to go home. He stated pigtail catheter remains in place. Less drainage noted daily. Currently documented 50 ML's in the past 8 hours. White count 8.1. Hemoglobin 11.6. Platelets 248. Sodium 137. Potassium 4.4. BUN 12. Creatinine 0.6. Glucose 113. Continues to use the incentive spirometer. The patient was seen at the bedside this morning 05/17/2022 on the regular medical floor. He is awake and alert in no acute distress laying in bed. He is maintaining oxygen saturation in the low to mid 90s on room air, remains afebrile, denies any pain. Right-sided pigtail remains in place, no air leak present, 40 mL total output in the chest tube atrium. No labs or x-rays today. Refused incentive spirometry use this morning, states he is not using it. No other new concerns. on today's evaluation 05/18/2022, seeing the patient for a follow-up.The patient is a case of esophageal cancer with a malignant right-sided pleural effusion. The patient also known to have multiple comorbid disease including coronary artery disease, presented his bypass surgery, history of atrial fibrillation with a previous pacemaker insertion and the patient is on long-term medical regulation with a liquids. The patient has hypertension hyperlipidemia and BPH as comorbid conditions. He has been insurance assistant metastatic esophageal cancer receiving systemic chemotherapy with oncology. He has a current malignant left- sided pleural effusion which I drained back in September 2021. The patient developed a complex left greater than right-sided pleural effusion. I reviewed the repeat chest x-ray from today and the right lung shows no further expansion. Right lung is essentially trapped and the patient's pigtail catheter is draining minimal amount of fluids. As such, this angelita trapped lung and the PICC care And can be removed. Objective - Vital Signs Vital signs: Vital Signs Temp 97.4 F L 05/18/22 12:02 Pulse 66 05/18/22 12:02 Resp 18 05/18/22 12:02 BP 112/69 05/18/22 12:02 Pulse Ox 98 05/18/22 12:02 FiO2 21 05/17/22 20:17 Intake & Output 05/17/22 05/18/22 05/18/22 18:59 06:59 18:59 Intake Total 1440 Output Total 530 400 Balance 910 -400 Weight 79 kg Intake: Tube Feeding 1440 Output: Chest Tube Drainage 80 Pleural Catheter Right 80 Urine 450 400 Other: Voiding Method Urinal Urinal # Voids 1 # Bowel Movements 0 - Exam GENERAL EXAM: Alert, very pleasant 66-year-old male patient, on room air, not in distress. HEAD: Normocephalic. EYES: Normal reaction of pupils, equal size. NOSE: Clear with pink turbinates. THROAT: No erythema or exudates. NECK: No masses, no JVD. CHEST: No chest wall deformity. Right-sided pigtail catheter in place to Pleur- evac. LUNGS: Scattered rhonchi and wheezes noted bilaterally. CVS: S1 and S2 normal with no audible murmur, regular rhythm. ABDOMEN: PEG tube exit site clean and dry. No hepatosplenomegaly, normal bowel sounds, no guarding or rigidity. SKIN: No rashes CENTRAL NERVOUS SYSTEM: Alert and oriented 3 no focal deficit EXTREMITIES: No clubbing edema or cyanosis. - Labs CBC & Chem 7: 05/16/22 05:04 05/16/22 05:04 Assessment and Plan Plan: Dyspnea secondary to new left upper lobe groundglass opacities as well as new lower lobe peripheral opacities and recurrent right-sided pleural effusion. Status post right-sided pigtail chest tube placement. Trapped lung on the right. Incomplete reexpansion of the right lung post pigtail catheter insertion and drainage of the right-sided pleural fluid. Recurrent right-sided malignant effusions. History of metastatic esophageal cancer receiving systemic chemotherapy History of coronary artery disease with previous coronary artery bypass surgery History of atrial fibrillation status post permanent pacemaker implantation, anticoagulated with Eliquis Peripheral vascular disease Hyperlipidemia Hypertension BPH Plan: This is a poor prognosis. Right lung is essentially trapped that is normal reexpansion as noted on the follow-up chest x-rays Outputs from the THE PIGTAIL CATHETER IS MINIMAL Recommend removing the pigtail catheter Encouraged use of the incentive spirometer and flutter valve Increase activity as tolerated We'll continue to follow
--- NOTE | 2022-05-18 17:16 | P.PN ---
Subjective Progress Note Date: 05/18/22 Patient 66-year-old male with a known history of atrial fibrillation on anticoagulation with Eliquis, hypertension, hyperlipidemia and history of metastatic esophageal cancer currently receiving systemic chemotherapy and recurrent magnet pleural effusion presents to ER with complaints of cough and worsening shortness of breath for the past 5 days. Patient had right-sided pleural effusion status postthoracentesis in September 2021. Patient otherwise denied any complaints of pruritus. No complaints of nausea vomiting abdominal pain or diarrhea. Denied any dysuria or hematuria. CT angiogram of the chest showed no evidence of PE. Predominantly left upper lobe new groundglass opacities correlate for infectious/inflammatory process. Right pleural effusion with associated atelectasis. Chest x-ray showed large chronic right pleural effusion without much change. EKG showed atrial flutter/tachycardia Laboratory data showed WBC 15.4 hemoglobin 13.6 and platelets 323 D-dimer level is 9.0 Sodium 137 potassium 4.0 chloride 100 bicarb is 25 BUN 13 and creatinine 0.73 proBNP 2230 procalcitonin level is 0.06 05/10/2022 Patient is currently lying in bed. Awake alert but seems to be lethargic and weak. No complaints of chest pain. No nausea vomiting or abdominal pain or diarrhea. Still having exertional dyspnea. Patient is being continued on antibiotics empirically for possible left lower lobe pneumonia. Pulmonary complaining pigtail catheter placement due to recurrent malignant pleural effusion. Patient is being continued on DuoNeb's and laboratory data showed WBC 12.4 hemoglobin 12.0 and platelets 307 Sodium 137 potassium 4.2 chloride 103 bicarb is 21.5 BUN 12.4 and creatinine 0.7 05/11/2022 Patient is currently lying in the bed. Awake alert and oriented. Currently on oxygen at 2 L via nasal cannula. Patient underwent right-sided pigtail chest tube placement today by intervention al etiology. Approximate 1 mL of bloody fluid return., Likely migraine pleural effusion. Otherwise patient denies any complaints of chest pain. No nausea vomiting abdominal pain or diarrhea. Patient is being current on antibiotics and off Zosyn. Continued on DuoNebs and Pulmicort inhalation. Laboratory test showed WBC 7.3 hemoglobin 9.4 and platelets 244 Sodium 141 potassium 4.2 chloride 105 bicarb is 26.2 BUN 11.1 and creatinine 0.8 05/12/22. Patient seen and examined. Still has chest tubes in place. Currently on tube feeding. Denies any acute issues overnight. Vital signs stable 05/13/22. Patient seen and examined. Vitals and continue stable. Patient has been afebrile. Labs reviewed. Last chest x-ray showed small right-sided pleural effusion 05/14/22. Patient seen and examined. Patient laying comfortably in the bed. Labs reviewed hemoglobin this morning is 11.4, white count is 7.24. Still has chest tube in place. Case discussed with nursing staff 05/15/22. Seen and examined. Patient continues to be on tube feeding. Patient still has chest tube in. Family requested oncology to evaluate the patient. No acute issues overnight. Case discussed with nursing staff 05/16/2022 Patient remains very lethargic lying in bed, no respiratory distress. Pigtail catheter is in place with reported less drainage IR evaluated the pt and pulmonary team on the case oncology team are also involved per request of family pt continues on normal saline at 40 ml per hr 05/17/2022 Patient is clinically stable and improving. Patient is not easing but using his PEG tube as a bolus. He had it for the last 2 years. His oncologist is Dr. Kelly as an outpatient and patient was instructed the need to follow up with him as an outpatient and he is agreeable Patient informed about the postoperative results of malignant cells in his pleural fluid. Patient's feels little depressed but no overt signs and symptoms of hopelessness and hopelessness, he denies any suicidal or homicidal ideation. Patient does not think he needs treatment for his sadness. Continue on normal saline 40 mm/h. 05/18/2022 Patient is seen and evaluated this morning with no acute overnight issues noted. Patient being followed by interventional radiology along with pulmonary and oncology and discuss with oncology about treatment plan moving forward. Plan is for possible chest tube on the right removal by IR once cleared by pulmonary and arranging for discharge planning. Patient will have outpatient PET scan and follow-up with oncology as discussed. Patient denies worsening shortness of breath, denies chest pain and is afebrile. Plan is for patient to return home once chest tube is removed and cleared by pulmonary. Chest x-ray today shows similar to prior exam with a possible trapped lung and hydropneumothorax present in the right lung base. Encourage incentive spirometer and flutter valve as instructed by pulmonary. Will await IR intervention for removal of chest tube with possible discharge in 24 hours. Review of systems: Constitutional: No reports of fatigue, fever, or chills Cardiovascular: No reports of chest pain or palpitations Respiratory: No reports of worsening shortness of breath or cough GI: No reports of nausea, vomiting, or diarrhea : No reports of dysuria or retention Neurovascular: No reports of weakness or numbness All medications have been reviewed Physical exam: GENERAL: The patient is alert and oriented x3, not in any acute distress. Well developed, well nourished. HEENT: Pupils are round and equally reacting to light. EOMI. No scleral icterus. No conjunctival pallor. Normocephalic, atraumatic. No pharyngeal erythema. No thyromegaly. CARDIOVASCULAR: S1 and S2 present. No murmurs, rubs, or gallops. PULMONARY: Finished breath sounds bilaterally more so on the right, no wheezing or crackles. Pigtail tube in place. Mildly tachypneic ABDOMEN: Soft, nontender, nondistended, normoactive bowel sounds. No palpable organomegaly. MUSCULOSKELETAL: No joint swelling or deformity. EXTREMITIES: No cyanosis, clubbing, or pedal edema. NEUROLOGICAL: Gross neurological examination did not reveal any focal deficits. SKIN: No rashes. no petechiae. Assessment: Left upper lobe groundglass opacity, new finding with right pleural effusion Right malignant pleural effusion with cytology positive for non-small cell lung cancer Metastatic esophageal cancer currently undergoing chemotherapy Coronary disease history of bypass graft Chronic atrial fibrillation on anticoagulation with Eliquis and also on Cardizem Peripheral vascular disease Hypertension Hyperlipidemia BPH DVT prophylaxis GI prophylaxis Plan: Continue with gentle hydration Continue with PEG tube in place Pulmonary team consult, IR follow-up and awaiting removal of pigtail catheter from the right chest Overall prognosis remains extremely poor and guarded with plans for possible discharge in the next 24 hours. The impression and plan of care has been dictated by Caroline Garrett, nurse practitioner as directed. Dr. Flakito MD I have performed a history and examination and MDM of this patient, discussed the same with the dictator, and agree with the dictator's assessment and plan as written ,documented as a scribe. Based on total visit time, I have performed more than 50% of the visit. Any additional findings or plans will be noted. Objective - Vital Signs Vital signs: Vital Signs Temp 97.6 F 10/10/22 05:00 Pulse 73 05/18/22 05:00 Resp 16 05/17/22 19:54 BP 114/70 05/18/22 05:00 Pulse Ox 98 05/18/22 05:00 FiO2 21 05/17/22 20:17 Intake & Output 05/17/22 05/18/22 05/18/22 18:59 06:59 18:59 Intake Total 1440 Output Total 530 Balance 910 Weight 79 kg Intake: Tube Feeding 1440 Output: Chest Tube Drainage 80 Pleural Catheter Right 80 Urine 450 Other: Voiding Method Urinal # Voids 1 # Bowel Movements 0 - Labs CBC & Chem 7: 05/16/22 05:04 05/16/22 05:04
--- NOTE | 2022-05-18 17:25 | XR ---
EXAMINATION TYPE: XR chest 1V portable DATE OF EXAM: 05/18/2022 COMPARISON: Same date chest x-ray HISTORY: Chest tube removal TECHNIQUE: Single frontal view of the chest is obtained. FINDINGS: There is been interval removal of the right-sided pigtail catheter. No other interval estrada ge. IMPRESSION: No evident complication status post pigtail chest tube catheter removal
--- NOTE | 2022-05-18 18:23 | P.PN ---
Subjective Progress Note Date: 05/18/22 Principal diagnosis: Pneumonia, shortness of breath, pleural effusion In follow-up today patient is sitting up in bed, he has the pigtail catheter still in the right lung, he is stating that his breathing is comfortable at this time. Patient's oral mucosa is severely irritated, combination of thrush and ulcerations, patient is denying any pain in the mouth or pain with swallowing. No vomiting. Objective - Vital Signs Vital signs: Vital Signs Temp 97.4 F L 05/18/22 12:02 Pulse 66 05/18/22 12:02 Resp 18 05/18/22 12:02 BP 112/69 05/18/22 12:02 Pulse Ox 98 05/18/22 12:02 FiO2 21 05/17/22 20:17 Intake & Output 05/17/22 05/18/22 05/18/22 18:59 06:59 18:59 Intake Total 1440 1260 Output Total 530 460 Balance 910 800 Weight 79 kg Intake: Tube Feeding 1440 960 Other 300 Output: Chest Tube Drainage 80 Pleural Catheter Right 80 Drainage 60 Right Back 60 Urine 450 400 Other: Voiding Method Urinal Urinal # Voids 1 # Bowel Movements 0 - Constitutional General appearance: Present: average body habitus, cooperative, no acute distress - EENT EENT Comment(s): Tongue is covered in shallow ulcerations with thrush Eyes: Present: anicteric sclerae, EOMI ENT: Present: hearing grossly normal, pharyngeal erythema - Respiratory Respiratory: bilateral: diminished - Cardiovascular Rhythm: regular Heart sounds: normal: S1, S2 Abnormal Heart Sounds: Absent: systolic murmur, diastolic murmur, rub, S3 Gallop, S4 Gallop, click, other - Gastrointestinal General gastrointestinal: Present: normal bowel sounds, soft - Musculoskeletal Musculoskeletal: Present: generalized weakness - Psychiatric Psychiatric: Present: A&O x's 3 - Labs CBC & Chem 7: 05/16/22 05:04 05/16/22 05:04 - Imaging and Cardiology Chest x-ray: report reviewed Assessment and Plan (1) Pleural effusion Current Visit: Yes Status: Acute Priority: High Code(s): J90 - PLEURAL EFFUSION, NOT ELSEWHERE CLASSIFIED SNOMED Code(s): 67561851 (2) Mucositis (ulcerative) due to antineoplastic therapy Current Visit: Yes Status: Acute Priority: High Code(s): K12.31 - ORAL MUCOSITIS (ULCERATIVE) DUE TO ANTINEOPLASTIC THERAPY SNOMED Code(s): 9604221438 (3) Esophageal cancer Current Visit: Yes Status: Acute Priority: High Code(s): C15.9 - MALIGNANT NEOPLASM OF ESOPHAGUS, UNSPECIFIED SNOMED Code(s): 249297532 Plan: Pulmonary and CTS managing patient's multiple pulmonary concerns at this time. Severe mucositis. Nursing reports that patient is refusing treatment for the same. I encouraged patient to utilize cool solution with the toothettes. Also ordered salt and soda oral rinse. Nursing will try to get patient to cooperate and do what they can. Follow-up with Primary Oncologist prior to resuming treatment.
[2022-05-18] MEDS: SALT AND SODA MOUTHWASH 1,000 ML PO SCH ×2 (20:32→23:58)
[2022-05-18] MEDS: DOXAZOSIN 4 MG TAB PEJ/J-Tube SCH (21:30)
[2022-05-18] MEDS: OLANZapine 2.5 MG TAB PEJ/J-Tube SCH (21:31)
[2022-05-18] MEDS: MAG HYDROX/AL HYDROX/SIMETH 30 ML, LIDOCAINE VISCOUS 2% 30 ML, diphenhydrAMINE ELIXIR 7... PO SCH ×8 (21:31→23:58)
[2022-05-19] MEDS: SODIUM CHLORIDE 0.9% 1,000 ML IV SCH (04:04)
[2022-05-19] MEDS: SALT AND SODA MOUTHWASH 1,000 ML PO SCH ×2 (04:05→10:13)
[2022-05-19] MEDS: BUDESONIDE 1 MG/2 ML NEBU INHALATION SCH (08:04)
[2022-05-19] MEDS: IPRATROPIUM-ALBUTEROL 3 ML NEB INHALATION SCH ×3 (08:05→15:38)
[2022-05-19] MEDS: guaiFENesin 600 MG TABLET.ER PO SCH (10:11)
[2022-05-19] MEDS: FAMOTIDINE 20 MG TAB PO SCH (10:11)
[2022-05-19] MEDS: HEPARIN SODIUM,PORCINE/PF 5,000 UNIT/0.5 ML SYRINGE SQ SCH (10:12)
[2022-05-19] MEDS: DILTIAZEM ORAL 60 MG TAB PEJ/J-Tube SCH (10:12)
[2022-05-19] MEDS: ATORVASTATIN 40 MG TAB PEJ/J-Tube SCH (10:12)
[2022-05-19] MEDS: METOPROLOL TARTRATE 25 MG TAB PEJ/J-Tube SCH (10:12)
[2022-05-19] MEDS: MAG HYDROX/AL HYDROX/SIMETH 30 ML, LIDOCAINE VISCOUS 2% 30 ML, diphenhydrAMINE ELIXIR 7... PO SCH ×4 (10:13)
[2022-05-19] MEDS: OXYBUTYNIN CHLORIDE 5 MG TAB PEJ/J-Tube SCH (10:13)
[2022-05-19 12:03] VITALS: BP 102/67; PULSE 73; RESP 18; TEMP 98
--- NOTE | 2022-05-19 15:22 | P.PN ---
Subjective Progress Note Date: 05/19/22 This is a very pleasant 66-year-old male patient with a known history of peripheral vascular disease, coronary artery disease with previous bypass surgery, atrial fibrillation status post permanent pacemaker implantation, anticoagulated with Eliquis, hyperlipidemia, hypertension, BPH. He also has a history of metastatic esophageal cancer currently receiving systemic chemotherapy following with Dr. Kelly. He also has recurrent malignant right- sided pleural effusion his last thoracentesis was performed in September [address] Wan. He presented here to the emergency room yesterday with increasing shortness of breath cough and congestion for approximate 5 days. No fever chills. No phlegm here no hemoptysis. Chest x-ray reveals a large chronic right pleural effusion without significant change compared to previous in November 2021. CT angiogram ruled out pulmonary embolism. Right pleural effusion with associated atelectasis. There is some scattered groundglass opacities mostly in the left upper lobe. Left lower lobe opacity is new. Ultrasound of the right chest reveals a large consolidated appearance with very little simple fluid removed. The fluid appears complex and loculated. White count 15.4. Hemoglobin 13.6. D-dimer 9.0. Sodium 137. Potassium 4.0. BUN 13. Creatinine 0.73. Glucose 148. ProBNP 2230. Meza virus by PCR not detected. He is seen in consultation today in the emergency department. He's currently sitting up on the stretcher. Awake and alert in no acute distress. He is maintaining O2 saturation of 200% on 2 L/m per nasal cannula. He's been afebrile. Hemodynamically stable. Normal saline at 130 ML's per hour. Reevaluated today on 05/10/22, patient is basically about the same, not any better and not any worse compared to yesterday. I saw this patient yesterday in the ER for shortness of breath, patient had recurrent malignant right-sided pleural effusion which seems to be loculated at this point, may or may not benefit from pigtail catheter placement, in the meantime the patient is receiving antibiotics for possible left upper lobe pneumonia and he may have underlying empyema The patient is seen today 05/11/2022 in follow-up on the regular medical floor. He is currently awake and alert in no acute distress. Resting comfortably in bed. Maintaining O2 saturation in the 90s on 2 L/m per nasal cannula. He has normal saline at 40 ML's per hour. He did undergo a right-sided pigtail chest tube placement today by interventional radiology. There is approximate 200 ML's of bloody return thus far. Previous pleural fluid cytology has been positive for non-small cell carcinoma. White count 10.3. Hemoglobin 1.4. Sodium 141. Potassium 4.2. BUN 11. Creatinine 0.8. He is currently on DuoNeb inhalations, Pulmicort inhalation. Antibiotics in the form of Zosyn. The patient is seen today 05/12/2022 in follow-up on the regular medical floor. He is currently resting comfortably in bed. Awake and alert in no acute di stress. He's had continued sanguinous output of the right-sided pigtail catheter. Continued to Pleur-evac. He is maintaining good O2 saturations in the upper 90s on room air. He's afebrile. Hemodynamically stable. The patient is seen today 05/13/2022 in follow-up on the regular medical floor. Resting comfortably in bed. Awake and alert in no acute distress. He is maintaining good O2 saturations in the 90s on room air. He still has a congested cough. Pigtail catheter remains in place. Presently 1200 ML's of sanguinous fluid removed since insertion. Chest x-ray continues to show a similar right-sided pleural effusion with associated atelectasis. White count 6.0. Hemoglobin 11.2. Sodium 139. Potassium 3.9. BUN 14. Creatinine 0.6. Normal saline at 40 ML's per hour. Continued on bronchodilators. The patient is seen today 05/14/2022 in follow-up on the regular medical floor. He is awake and alert in no acute distress. He is resting comfortably in bed. Maintaining good O2 saturations in the 90s on room air. He has normal saline at 40 miles per hour. Right-sided pigtail catheter remains in place. Sanguineous fluid continues to be returned. He remains afebrile. Hemodynamically stable. Needs increased encouragement regarding the use of the incentive spirometer and flutter valve. The patient is seen today 05/15/2022 in follow-up on the regular medical floor. He is currently resting comfortably in bed. Awake and alert in no acute distress. Continue is maintaining good O2 saturations in the 90s on room air. Right-sided pigtail catheter remains in place. Still a significant amount of sanguinous drainage. White count 9.2. Hemoglobin 13.5. Sodium 139. Potassium 4.3. BUN 15. Creatinine 0.54. Glucose 147. Patient is seen today 05/16/2022 in follow-up on the regular medical floor. Awake and alert in no acute distress. Maintaining good O2 saturations in the 90s on room air. Normal saline at 40 ML's per hour. Resting comfortably in bed. Anxious to go home. He stated pigtail catheter remains in place. Less drainage noted daily. Currently documented 50 ML's in the past 8 hours. White count 8.1. Hemoglobin 11.6. Platelets 248. Sodium 137. Potassium 4.4. BUN 12. Creatinine 0.6. Glucose 113. Continues to use the incentive spirometer. The patient is seen today 05/19/2022 in follow-up on the regular medical floor. He is awake and alert in no acute distress. Maintaining good O2 saturations in the 90s on room air. He did have his pigtail catheter removed from his right chest by interventional radiology. He is continued on bronchodilators, Mucinex, heparin for DVT prophylaxis. He is hoping to go home today. Objective - Vital Signs Vital signs: Vital Signs Temp 98 F 05/19/22 12:02 Pulse 73 05/19/22 12:02 Resp 18 05/19/22 12:02 BP 102/67 05/19/22 12:02 Pulse Ox 100 05/19/22 12:02 FiO2 21 05/18/22 19:40 Intake & Output 05/18/22 05/19/22 05/19/22 18:59 06:59 18:59 Intake Total 1890 960 Output Total 460 435 Balance 1430 525 Weight 77.5 kg Intake: Oral 0 Tube Feeding 1590 960 Other 300 Output: Drainage 60 60 Right Back 60 60 Urine 400 375 Other: Voiding Method Urinal Urinal - Exam GENERAL EXAM: Alert, very pleasant 66-year-old male patient, sitting up in bed, on room air, not in distress. HEAD: Normocephalic. EYES: Normal reaction of pupils, equal size. NOSE: Clear with pink turbinates. THROAT: No erythema or exudates. NECK: No masses, no JVD. CHEST: No chest wall deformity. Right-sided pigtail catheter removed. LUNGS: Scattered rhonchi and wheezes noted bilaterally. CVS: S1 and S2 normal with no audible murmur, regular rhythm. ABDOMEN: PEG tube exit site clean and dry. No hepatosplenomegaly, normal bowel sounds, no guarding or rigidity. SKIN: No rashes CENTRAL NERVOUS SYSTEM: Alert and oriented 3 no focal deficit EXTREMITIES: No clubbing edema or cyanosis. - Labs CBC & Chem 7: 05/16/22 05:04 05/16/22 05:04 Assessment and Plan Assessment: Dyspnea secondary to new left upper lobe groundglass opacities as well as new lower lobe peripheral opacities and recurrent right-sided pleural effusion. Status post right-sided pigtail chest tube placement and subsequent removal. Recurrent right-sided malignant effusions. Most recent thoracentesis was September 2021. Cytology positive for non-small cell lung cancer. Ultrasound now reveals complex loculated effusion. History of metastatic esophageal cancer receiving systemic chemotherapy History of coronary artery disease with previous coronary artery bypass surgery History of atrial fibrillation status post permanent pacemaker implantation, an ticoagulated with Eliquis Peripheral vascular disease Hyperlipidemia Hypertension BPH Plan: The patient was seen and evaluated Remains stable and on room air Right-sided pigtail catheter removed Cleared for discharge from the pulmonary standpoint Continue with the incentive spirometer I have personally seen and examined the patient, performed the documentation and the assessment and plan as written. Number of minutes spent on the visit: 10. Patient seen in conjunction with the nurse practitioner. Agree on the above plan. Cleared for discharge from pulmonary.
--- NOTE | 2022-05-19 17:39 | P.PN ---
Subjective Progress Note Date: 05/19/22 Principal diagnosis: Pneumonia, shortness of breath, pleural effusion In follow-up today Pigtail catheter has been removed, patient states his breathing is stable, patient denied having any oral irritation but, his mouth certainly looks improved today! Objective - Vital Signs Vital signs: Vital Signs Temp 97.6 F 05/19/22 04:50 Pulse 65 05/19/22 04:50 Resp 16 05/19/22 04:50 BP 112/72 05/19/22 09:32 Pulse Ox 99 05/19/22 04:50 FiO2 21 05/18/22 19:40 Intake & Output 05/18/22 05/19/22 05/19/22 18:59 06:59 18:59 Intake Total 1260 960 Output Total 460 435 Balance 800 525 Weight 77.5 kg Intake: Oral 0 Tube Feeding 960 960 Other 300 Output: Drainage 60 60 Right Back 60 60 Urine 400 375 Other: Voiding Method Urinal Urinal - Constitutional General appearance: Present: average body habitus, cooperative, no acute distress - EENT EENT Comment(s): mouth is significantly improved from thrush and superficial ulcerations Eyes: Present: anicteric sclerae, EOMI ENT: Present: hearing grossly normal - Respiratory Details: resp even and unlabored Respiratory: right: diminished, bilateral: CTA - Cardiovascular Rhythm: regular Heart sounds: normal: S1, S2 Abnormal Heart Sounds: Absent: systolic murmur, diastolic murmur, rub, S3 Gallop, S4 Gallop, click, other - Peripheral edema leg Peripheral Edema: bilateral: None - Gastrointestinal General gastrointestinal: Present: normal bowel sounds, soft - Integumentary Integumentary: Present: normal - Musculoskeletal Musculoskeletal: Present: generalized weakness, strength equal bilaterally - Psychiatric Psychiatric: Present: A&O x's 3, appropriate affect - Labs CBC & Chem 7: 05/16/22 05:04 05/16/22 05:04 Assessment and Plan (1) Pleural effusion Status: Acute Priority: High Code(s): J90 - PLEURAL EFFUSION, NOT ELSEWHERE CLASSIFIED SNOMED Code(s): 89034166 (2) Mucositis (ulcerative) due to antineoplastic therapy Status: Acute Priority: High Code(s): K12.31 - ORAL MUCOSITIS (ULCERATIVE) DUE TO ANTINEOPLASTIC THERAPY SNOMED Code(s): 6408778647 (3) Esophageal cancer Status: Acute Priority: High Code(s): C15.9 - MALIGNANT NEOPLASM OF ESOPHAGUS, UNSPECIFIED SNOMED Code(s): 384593289 Plan: Pigtail catheter has been removed, patient's respiratory status is stable at this time. Unfortunately, cytology is positive for malignancy. Patient has a follow-up with Dr. Kelly. Plan is going to be to adjust treatment. This will be discussed in the outpatient setting. Severe mucositis. Much improved once patient complied with treatment regimen.
--- NOTE | 2022-05-22 10:37 | P.DS ---
Providers Date of admission: 05/09/22 07:37 Expected date of discharge: 05/19/22 Attending physician: Dayanara Fraga Consults: 05/09/22 07:35 Consult Physician Routine Consulting Provider: Natty Wan Consult Reason/Comments: PNA, effusion Do you want consulting provider notified?: Yes 05/16/22 07:07 Consult Physician Routine Consulting Provider: Apurva Kelly Consult Reason/Comments: malignant effusion Do you want consulting provider notified?: Yes Primary care physician: Lenora Mata Hospital Course: Final diagnosis Left upper lobe groundglass opacity, new finding with right pleural effusion Right malignant pleural effusion with cytology positive for non-small cell lung cancer Metastatic esophageal cancer currently undergoing chemotherapy Coronary disease history of bypass graft Chronic atrial fibrillation on anticoagulation with Eliquis and also on Cardizem Peripheral vascular disease Hypertension Hyperlipidemia BPH DVT prophylaxis GI prophylaxis Discharge disposition Patient is being discharged in a stable condition with guarded prognosis to home with [facility] . Patient will follow-up with Dr. Mata in the outpatient setting upon discharge. Patient is to follow-up with Dr. Foote as scheduled. Total time taken is greater than 35 minutes. Hospital course This is a 66-year-old male who was recently admitted with worsening cough and shortness of breath that had been ongoing the last 5 days. Patient has right- sided pleural effusion status post thoracentesis. Patient underwent CT angiogram with pulmonary following found to have a left upper lobe groundglass opacification and also continued right pleural effusions patient did have a pigtail catheter placed due to recurrent malignant pleural effusions. IR evaluated the patient and also remove the catheter and patient will be following up with oncology in the outpatient setting next week. Patient has been cleared by pulmonary and oncology for discharge. Patient will need outpatient PET scan and follow-up. Overall prognosis remains guarded. Currently no reports of chest pain, shortness of breath, or palpitations. Patient is afebrile. No reports of nausea or vomiting and patient is tolerating diet. Patient will be going home with home care today. Guarded and overall poor prognosis. Physical exam: Gen: This is a 66-year-old male awake, alert and oriented 2-3. Well-developed, well-nourished. HEENT: Head is atraumatic, normocephalic. Pupils equal, round. Sclerae is anicteric. NECK: Supple. No JVD. No lymphadenopathy. No thyromegaly. LUNGS: Clear to auscultation. No wheezes or rhonchi. No intercostal retractions. HEART: Regular rate and rhythm. No murmur. ABDOMEN: Soft. Bowel sounds are present. No masses. No tenderness. EXTREMITIES: No pedal edema. No calf tenderness. NEUROLOGICAL: Patient is awake, alert and oriented x3. Cranial nerves 2 through 12 are grossly intact. Diffusely weak Please refer to medication reconciliation sheet for a list of medications. The impression and plan of care has been dictated by Caroline Garrett, Nurse Practitioner as directed. Dr. Flakito MD I have performed a history and examination and MDM of this patient, discussed the same with the dictator, and agree with the dictator's assessment and plan as written ,documented as a scribe. Based on total visit time, I have performed more than 50% of the visit. Patient Condition at Discharge: Fair Plan - Discharge Summary Discharge Rx Participant: Yes New Discharge Prescriptions: New Docusate Oral Soln [Colace Oral Soln] 200 mg PEJ/J-TUBE HS PRN 30 Days #600 ml PRN Reason: Constipation Acetaminophen Tab [Tylenol] 650 mg PEJ/J-TUBE Q6HR PRN tab PRN Reason: Mild Pain Or Fever > 100.5 guaiFENesin [Mucinex] 1,200 mg PO Q12HR #20 tab Famotidine [Pepcid] 20 mg PO Q12HR 14 Days #30 tab Continue Loratadine [Claritin] 10 mg PO DAILY Terazosin HCl [Hytrin] 10 mg PO HS Apixaban [Eliquis] 5 mg PO BID #60 tab ALPRAZolam [Xanax] 0.25 tab PO DAILY PRN PRN Reason: Anxiety Cholecalciferol [Vitamin D3 (125 Mcg = 5000 Iu)] 125 mcg PO DAILY Metoprolol Tartrate [Lopressor] 25 mg PO BID Oxybutynin Chloride [Oxybutynin Chloride ER] 10 mg PO DAILY Diltiazem Cd [Cardizem CD] 120 mg PO DAILY #30 cap.er.24h Prochlorperazine [Compazine] 10 mg PO QID PRN PRN Reason: Nausea Rosuvastatin [Crestor] 20 tab PO DAILY chlorproMAZINE HCL 10 mg PO TID PRN PRN Reason: HICCUPS OLANZapine [ZyPREXA] 2.5 mg PO HS Changed Nystatin 100,000 Unit/ml Susp [Mycostatin Oral Susp] 5 ml PO TID #0 Discontinued Sennosides/Docusate Sodium [Senna Plus 8.6-50 mg Softgel] 2 cap PO HS PRN PRN Reason: Constipation Discharge Medication List Loratadine [Claritin] 10 mg PO DAILY 12/27/19 [History] Terazosin HCl [Hytrin] 10 mg PO HS 12/27/19 [History] Apixaban [Eliquis] 5 mg PO BID #60 tab 11/16/20 [Rx] Diltiazem Cd [Cardizem CD] 120 mg PO DAILY #30 cap.er.24h 11/16/20 [Rx] ALPRAZolam [Xanax] 0.25 tab PO DAILY PRN 07/21/21 [History] Prochlorperazine [Compazine] 10 mg PO QID PRN 07/21/21 [History] Rosuvastatin [Crestor] 20 tab PO DAILY 09/01/21 [History] Cholecalciferol [Vitamin D3 (125 Mcg = 5000 Iu)] 125 mcg PO DAILY 05/09/22 [History] Metoprolol Tartrate [Lopressor] 25 mg PO BID 05/09/22 [History] OLANZapine [ZyPREXA] 2.5 mg PO HS 05/09/22 [History] Oxybutynin Chloride [Oxybutynin Chloride ER] 10 mg PO DAILY 05/09/22 [History] chlorproMAZINE HCL 10 mg PO TID PRN 05/09/22 [History] Acetaminophen Tab [Tylenol] 650 mg PEJ/J-TUBE Q6HR PRN tab 05/19/22 [Rx] Docusate Oral Soln [Colace Oral Soln] 200 mg PEJ/J-TUBE HS PRN 30 Days #600 ml 05/19/22 [Rx] Famotidine [Pepcid] 20 mg PO Q12HR 14 Days #30 tab 05/19/22 [Rx] Nystatin 100,000 Unit/ml Susp [Mycostatin Oral Susp] 5 ml PO TID #0 05/19/22 [Rx] guaiFENesin [Mucinex] 1,200 mg PO Q12HR #20 tab 05/19/22 [Rx] Follow up Appointment(s)/Referral(s): [facility], [NON-STAFF] - 1 Week (AGENCY WILL CONTACT YOU.) Lenora Mata MD [Primary Care Provider] - 1-2 days (called 's office they said patient had not been seen in office before) Apurva Kelly MD [STAFF PHYSICIAN] - 06/05/22 10:15 am Patient Instructions/Handouts: Famotidine (By mouth), Guaifenesin (By mouth), How to Use an Incentive Spirometer (DC), Pleural Effusion (DC) Activity/Diet/Wound Care/Special Instructions: Activity Limited until follow-up Follow-up with primary care provider on discharge Follow-up with oncology as discussed and scheduled Continue home care Discharge Disposition: HOME WITH HOME HEALTH SERVICES
== END 2022-05-19 16:20 | disposition home health service (06) | DRG 374 ==
LOC: EC 04:30 → 4SSUR 07:37 → 5NMEDONC 17:50
PROVIDERS: ADMIT Internal Medicine; ATTEND Internal Medicine
PROC: 0W9930Z Drainage of Right Pleural Cavity with Drainage Device, Percutaneous Approach (ICD-10-PCS; principal; 2022-05-11)
PROC: 3E0H76Z Introduction of Nutritional Substance into Lower GI, Via Natural or Artificial Opening (ICD-10-PCS; 2022-05-12)
DX: C78.89 Secondary malignant neoplasm of other digestive organs (principal); J18.9 Pneumonia, unspecified organism; J81.0 Acute pulmonary edema; C34.12 Malignant neoplasm of upper lobe, left bronchus or lung; J91.0 Malignant pleural effusion; B37.0 Candidal stomatitis; N13.30 Unspecified hydronephrosis; I48.92 Unspecified atrial flutter; I48.20 Chronic atrial fibrillation, unspecified; J98.11 Atelectasis; K92.1 Melena; I10 Essential (primary) hypertension; I73.9 Peripheral vascular disease, unspecified; D63.0 Anemia in neoplastic disease; K12.31 Oral mucositis (ulcerative) due to antineoplastic therapy; F41.9 Anxiety disorder, unspecified; R79.89 Other specified abnormal findings of blood chemistry; I25.10 Atherosclerotic heart disease of native coronary artery without angina pectoris; N40.0 Benign prostatic hyperplasia without lower urinary tract symptoms; E78.5 Hyperlipidemia, unspecified; R13.10 Dysphagia, unspecified; T45.1X5A Adverse effect of antineoplastic and immunosuppressive drugs, initial encounter; R00.0 Tachycardia, unspecified; Z20.822 Contact with and (suspected) exposure to COVID-19; Z79.899 Other long term (current) drug therapy; Z79.01 Long term (current) use of anticoagulants; Z95.1 Presence of aortocoronary bypass graft; Z95.0 Presence of cardiac pacemaker; Z28.310 Unvaccinated for COVID-19; Z92.21 Personal history of antineoplastic chemotherapy; Z93.1 Gastrostomy status
CPT/HCPCS: 32551; 36415; 71045; 71275; 76604; 80048; 80053; 83880; 84145; 84484; 85025; 85027; 85379; 85610; 85730; 87635; 93005; 94640; 94760; 96361; 96365; 96366; 96367; 99291